=== PATIENT | female | born 1995 | race Caucasian/White ===

== ENCOUNTER 2024-03-27 12:36 | Outpatient (OUT) | payer BC, SELFPAY ==
--- NOTE | 2024-03-27 12:38 | US_ITS ---
[address] [address] Patient Name: RAO COWAN MRN: [id number] date: 1995 Sex: F Assigned Patient Location: [facility] Current Patient Location: [facility] Accession/Order Number: [id number] Exam Date: 03/27/2024 12:40 Report Date: 03/27/2024 14:59 At the request of: JAMEL TORIBIO Procedure: US OB transvaginal EXAMINATION: US OB transvaginal HISTORY: MISSED MENSES COMPARISON: No relevant comparison available. FINDINGS: GESTATIONAL SAC: Present and normal appearing. YOLK SAC: Present and normal appearing. POLE: Present and normal appearing. CARDIAC: Present. UTERUS: Normal size and appearance. OVARIES: Right: Corpus lutein cyst. Left: Not seen. CERVIX: 4.2 cm in length and closed. CUL-DE-SAC: Normal. OTHER: None. AGE BY LMP: 9 weeks 0 days SOPHIE BY LMP: 10/30/2024 AGE BY US CRL: 9 weeks 5 days SOPHIE BY US CRL: 10/25/2024 US/US OB transvaginal IMPRESSION: 1. Single live intrauterine . Electronically authenticated by: MARYCRUZ CHOU Date: 03/27/2024 14:59
== END 2024-03-27 12:37 | disposition home or self-care (01) ==
LOC: NOMS 12:36
PROVIDERS: Visit Provider Obstetrics & Gynecology
DX: Z34.91 Encounter for supervision of normal pregnancy, unspecified, first trimester (principal); Z3A.09 9 weeks gestation of pregnancy; N92.6 Irregular menstruation, unspecified
CPT/HCPCS: 76817

== ENCOUNTER 2024-04-08 16:37 | Outpatient (OUT) | payer BC, SELFPAY ==
--- OUTSIDE RECORDS SUMMARY | 2024-04-08 16:54 | XMS_ITS | CCD ---
Author Organization [facility] CliniSymi Care Team Providers Care Licensing Services Clerk Name Role Phone PHYSICIAN, DEFAULT Unavailable Unavailable PHYSICIAN, DEFAULT Unavailable Unavailable VALENCIA, SUKUMAR R Unavailable Unavailable VALENCIA, SUKUMAR R Unavailable Unavailable SELF, REFERRED Unavailable Unavailable SELF, REFERRED Unavailable Unavailable Aruna Adrian Primary Care Physician REQUEST, DR THADDEUS LISTED Primary Care Unavaila gilda ESTRADA ., DR MCCULLOUGH Attending Unavailable MALU ., DR MCCULLOUGH Consulting Unavailable MALU ., DR MCCULLOUGH Admitting Unavailable Melissa Laura Primary Care Physician [phone] DO Melissa Laura Primary Care Provider DO Smooth Dooley Emergency Provider Claire Laurae Gabe Referring Unavailable Keya Melissa C Admitting Unavailable Hiro Espinal Consulting Unavailable Keya Melissa C Attending Unavailable KirnusLucyl Theodora Consulting Unavailable Kirnus Hiro D Consulting Unavailable Keya, Melissa C Admitting Unavailable Keya Melissa C Attending Unavailable Keya, Melissa C Admitting Unavailable Keya, Melissa C Attending Unavailable Keya, Melissa C Referring Unavailable Keya, Melissa C Admitting Unavailable Keya, Melissa C Attending Unavailable Willi Estrada Attending Provider [phone] DO Willi Estrada Attending Provider [phone] Smooth Dooley Admitting Unavailable Smooth Dooley Attending Unavailable Melissa Laura Primary Care Unavailable Willi Estrada Admitting Unavailable Willi Estrada Attending Unavailable Melissa Laura Primary Care Unavailable Willi Estrada Attending Unavailable Melissa Laura Primary Care Unavailable Willi Estrada Admitting Unavailable Medications Current Medications Medication Drug Class(es) Dates Sig (Normalized) Sig (Original) dextroamphetamine-am phetamine (3 sources) Start: 02-01-2024 dextroamphetamine-a mphetamine Active .ROUTE February 01, 2024 12:00am promethazine hydrochloride 12.5 mg oral tablet (5 sources) Phenothiazine Start: 11-06-2022 take 1 tablet by mouth every eight hours promethazine 12.5 mg oral tablet 12.5 mg = 1 tab(s), Oral, q8hr, # 12 tab(s), Refills(s) 0, Pharmacy: [facility]/pharmacy #[id number], 157, cm, 11/06/22 20:09:00 EDT, Height/Length Dosing, 53.7, kg, 11/06/22 20:09:00 EDT, Weight Dosing Start Date: 11/06/22 Status: Ordered Problems Problem Classification Problem Date Documented Da te Episodic/Chronic Headache; including migraine (1 source) Headache; Translations: [Headache, unspecified] Onset: 11-06-2022 Episodic Menstrual disorders (1 source) Irregular menstruation, unspecified; Translations: [Irregular menstruation, unspecified] Onset: 02-27-2024 Chronic Nausea and vomiting (1 source) Nausea and vomiting; Translations: [Nausea with vomiting, unspecified] Onset: 11-06-2022 Episodic Nonspecific chest pain (4 sources) Atypical chest pain; Translations: [Other chest pain] Onset: 02-01-2024 02-01-2024 Episodic Other screening for suspected conditions (not mental disorders or infectious disease) (4 sources) Encounter for screening for malignant neoplasm of cervix; Translations: [ENC SCREENING MALIG NEOPLASM CERV] Onset: 12-06-2022 Episodic Screening and history of mental health and substance abuse codes (3 sources) H/O: anxiety state; Translations: [Personal history of other mental and behavioral disorders] 02-01-2024 Episodic Unclassified (2 sources) Unknown / UNK(Unknown) Onset: 04-20-2017 Results Test Name Value Interpretation Reference Range Facility A1C with Estimated Average G michael 04-02-2024 Glucose [Mass/Vol] 105 mg/dL Normal [facility] Comment on above: Result Comment: PERF ORMED BY: [facility] [address] [place] [address] PATHOLOGIST MANAGER RECRUITMENT JAE GUERRA M.D. Performed By: #### P T, BNP, CK, PTT, BMP, HS TROP, CBC #### [address] HbA1c (Bld) [Mass fraction] 5.3 % Normal 4.3-5.6 [facility] Comment on above: Result Comment: Incr eased risk for diabetes: 5.7 - 6.4 diabetes: >6.4 glycemic control for adults with diabetes: <7.0 Performed By: #### P T, BNP, CK, PTT, BMP, HS TROP, CBC #### [address] Automated basophil %Ordered By: Willi Estrada on 04-02-2024 Basophils/100 WBC (Bld) 0.6 % Normal . [facility] Comment on above: Performed By: #### P T, BNP, CK, PTT, BMP, HS TROP, CBC #### [address] Automated basophil countOrde red By: Willi Estrada on 04-02-2024 Basophils (Bld) [#/Vol] 0.0 10*3/uL Normal 0.0-0.2 [facility] Comment on above: Result Comment: PERF ORMED BY: [place] [address] PATHOLOGIST MANAGER RECRUITMENT JAE GUERRA M.D. Performed By: #### P T, BNP, CK, PTT, BMP, HS TROP, CBC #### [address] Automated blood monocyte cou ntOrdered By: Willi Estrada on 04-02-2024 Monocytes (Bld) [#/Vol] 0.5 10*3/uL Normal 0.0-0.8 [facility] Comment on above: Performed By: #### P T, BNP, CK, PTT, BMP, HS TROP, CBC #### [address] Automated eosinophil %Ordere d By: Willi Estrada on 04-02-2024 Eosinophils/100 WBC (Bld) 3.4 % Normal . [facility] Comment on above: Performed By: #### P T, BNP, CK, PTT, BMP, HS TROP, CBC #### [address] Automated eosinophil countOr dered By: Willi Estrada on 04-02-2024 Eosinophils (Bld) [#/Vol] 0.3 10*3/uL Normal 0.0-0.45 [facility] Comment on above: Performed By: #### P T, BNP, CK, PTT, BMP, HS TROP, CBC #### [address] Automated monocyte %Ordered By: Willi Estrada on 04-02-2024 Monocytes/100 WBC (Bld) 7.5 % Normal . [facility] Comment on above: Performed By: #### P T, BNP, CK, PTT, BMP, HS TROP, CBC #### [address] Automated neutrophil %Ordere d By: Willi Estrada on 04-02-2024 Neutrophils/100 WBC (Bld) 66.0 % Normal . [facility] Comment on above: Performed By: #### P T, BNP, CK, PTT, BMP, HS TROP, CBC #### [address] Complete Blood Count Auto Di ffon 04-02-2024 Mean Corpuscular HGB Conc 34.2 g/dL Normal 32.0-35.0 [facility] Comment on above: Performed By: #### P T, BNP, CK, PTT, BMP, HS TROP, CBC #### [address] NRBC% 0.1 /100{WBC} Normal 0-0.5 [facility] Comment on above: Performed By: #### P T, BNP, CK, PTT, BMP, HS TROP, CBC #### [address] Erythrocyte distribution wid th [Ratio] by Automated countOrdered By: Willi Estrada on 04-02-2024 Erythrocyte distribution width (RBC) [Ratio] 13.4 % Normal 11.9-15.3 [facility] Comment on above: Performed By: #### P T, BNP, CK, PTT, BMP, HS TROP, CBC #### [address] Erythrocytes [#/volume] in B lood by Automated countOrdered By: Willi Estrada on 04-02-2024 RBC (Bld) [#/Vol] 3.65 10*6/uL Normal 3.60-5.00 [facility] Comment on above: Performed By: #### P T, BNP, CK, PTT, BMP, HS TROP, CBC #### [address] HIV 1/O/2 Antigen/Antibodyon 04-02-2024 HIV Screen 4th Generation Non-Reactive Normal Non Reactive [facility] Comment on above: Result Comment: HIV- 1/HIV-2 antibodies and HIV-1 p24 antigen were NOT detected. There is no laboratory evidence of HIV infection. HIV Negative Performed at: [facility] [place] [id number] Appeals Assistant: Gabriel Casillas PhD, Phone: [phone] Performed By: #### P T, BNP, CK, PTT, BMP, HS TROP, CBC #### [address] Hematocrit [Volume Fraction] of Blood by Automated countOrdered By: Willi Estrada on 04-02-2024 Hematocrit (Bld) [Volume fraction] 33.2 % Low 34.0-46.4 [facility] Comment on above: Performed By: #### P T, BNP, CK, PTT, BMP, HS TROP, CBC #### [address] Hemoglobin [Mass/volume] in BloodOrdered By: Willi Estrada on 04-02-2024 Hemoglobin (Bld) [Mass/Vol] 11.3 g/dL Low 11.8-15.4 [facility] Comment on above: Performed By: #### P T, BNP, CK, PTT, BMP, HS TROP, CBC #### [address] Hep C Ab wRfx to Qnt PCRon 0 04-02-2024 Hepatitis C Virus Antibody Non-Reactive Normal Non Reactive [facility] Comment on above: Performed By: #### P T, BNP, CK, PTT, BMP, HS TROP, CBC #### [address] Interpretation Hepatitis C Comment Normal . [facility] Comment on above: Result Comment: Not infected with HCV unless early or acute infection is suspected (which may be delayed in an immunocompromised individual), or other evidence exists to indicate HCV infection. Performed By: #### P T, BNP, CK, PTT, BMP, HS TROP, CBC #### [address] Hepatitis B Surface Antigeno n 04-02-2024 HBsAg Screen Negative Normal Negative [facility] Comment on above: Result Comment: Perf ormed at: CB - [facility] [place] [id number] Appeals Assistant: Gabriel Casillas PhD, Phone: [phone] PERFORMED BY: [place] [address] PATHOLOGIST MANAGER RECRUITMENT JAE GUERRA M.D. Performed By: #### P T, BNP, CK, PTT, BMP, HS TROP, CBC #### [address] Leukocytes [#/volume] correc ronnie for nucleated erythrocytes in Blood by Automated counOrdered By: Willi Estrada on 04-02-2024 WBC corrected for nucl RBC Auto (Bld) [#/Vol] 7.3 10*3/uL 3.8-11.6 [facility] Leukocytes [#/volume] in Blo od by Automated countOrdered By: Willi Estrada on 04-02-2024 WBC (Bld) [#/Vol] 7.3 10*3/uL Normal 3.8-11.6 [facility] Comment on above: Performed By: #### P T, BNP, CK, PTT, BMP, HS TROP, CBC #### [address] Lymphocytes [#/volume] in Bl ood by Automated countOrdered By: Willi Estrada on 04-02-2024 Lymphocytes (Bld) [#/Vol] 1.6 10*3/uL Normal 1.00-4.8 [facility] Comment on above: Performed By: #### P T, BNP, CK, PTT, BMP, HS TROP, CBC #### [address] Lymphocytes/100 leukocytes i n Blood by Automated countOrdered By: Willi Estrada on 04-02-2024 Lymphocytes/100 WBC (Bld) 22.5 % Normal . [facility] Comment on above: Performed By: #### P T, BNP, CK, PTT, BMP, HS TROP, CBC #### [address] MCH [Entitic mass] by Automa ronnie countOrdered By: Willi Estrada on 04-02-2024 MCH (RBC) [Entitic mass] 31.0 pg Normal 24.7-34.3 [facility] Comment on above: Performed By: #### P T, BNP, CK, PTT, BMP, HS TROP, CBC #### [address] MCHC Auto (RBC) [Mass/Vol]Or dered By: Willi Estrada on 04-02-2024 MCHC (RBC) [Mass/Vol] 34.2 g/dL 32.0-35.0 [facility] MCV [Entitic volume] by Auto mated countOrdered By: Willi Estrada on 04-02-2024 MCV (RBC) [Entitic vol] 90.9 fL Normal 80-100 [facility] Comment on above: Performed By: #### P T, BNP, CK, PTT, BMP, HS TROP, CBC #### [address] [place] [address] [place] Neutrophils [#/volume] in Bl ood by Automated countOrdered By: Willi Estrada on 04-02-2024 Neutrophils (Bld) [#/Vol] 4.8 10*3/uL Normal 1.8-7.7 [facility] Comment on above: Performed By: #### P T, BNP, CK, PTT, BMP, HS TROP, CBC #### [facility] [address] [place] [address] Nucleated erythrocytes [Pres ence] in Blood by Automated countOrdered By: Willi Estrada on 04-02-2024 Nucleated RBC Auto Ql (Bld) 0.1 /100{WBC} 0-0.5 [facility] Platelet mean volume [Entiti c volume] in Blood by Automated countOrdered By: Willi Estrada on 04-02-2024 Platelet mean volume (Bld) [Entitic vol] 9.2 fL Normal 6.3-10.7 [facility] Comment on above: Performed By: #### P T, BNP, CK, PTT, BMP, HS TROP, CBC #### [facility] [address] [place] [address] Platelets [#/volume] in Bloo d by Automated countOrdered By: Willi Estrada on 04-02-2024 Platelets (Bld) [#/Vol] 209 10*3/uL Normal 150-450 [facility] Comment on above: Performed By: #### P T, BNP, CK, PTT, BMP, HS TROP, CBC #### [facility] [address] [place] [address] RPR w/rfx to Quant TP Abson 04-02-2024 RPR, Rfx Quant RPR Non-Reactive Normal Non Reactive [facility] Comment on above: Result Comment: Perf ormed at: - [facility] [address] [id number] Appeals Assistant: Gabriel Casillas PhD, Phone: [phone] PERFORMED BY: [place] [address] PATHOLOGIST MANAGER RECRUITMENT JAE GUERRA M.D. Performed By: #### P T, BNP, CK, PTT, BMP, HS TROP, CBC #### [facility] [address] [place] [address] [place] Rubella IgG Antibodyon 04-02 Rubella IgG Antibody 3.16 Normal Immune >0.99 [facility] Comment on above: Result Comment: Non- immune <0.90 Equivocal 0.90 - 0.99 Immune >0.99 Performed at: [address] [id number] Appeals Assistant: Gabriel Casillas PhD, Phone: [phone] Performed By: #### P T, BNP, CK, PTT, BMP, HS TROP, CBC #### [place] [address] [place] Type and Screenon 04-02-2024 ABO and Rh group Nom (Bld) Blood group O Rh(D) positive Normal [facility] Urine Cultureon 04-02-2024 Bacteria identified Cx Nom (U) <9,000 colonies/ml mixed bacterial skin contaminants 2 Days PERFORMED BY: [place] [address] PATHOLOGIST MANAGER RECRUITMENT JAE GUERRA M.D. Normal [facility] Comment on above: Performed By: #### P T, BNP, CK, PTT, BMP, HS TROP, CBC #### [address] Choriogonadotropin.beta subu nit [Units/volume] in Serum or PlasmaOrdered By: Willi Estrada on 02-27-2024 [place] [address].00 m[IU]/mL [facility] Comment on above: Approximate Approxim ate hCG Gestational Age Range (mIU/ml) (weeks)0.2-1 5-50 1-2 50-500 2-3 100-5,000 3-4 500-10,000 4-5 1,000-50,000 5-6 10,000-100,000 6-8 15,000-200,000 8-12 10,000-100,000 HCG,Quantitativeon 4 HCG,Quantitative 88332.00 m[iU]/mL Normal [facility] Comment on above: Result Comment: Appr oximate Approximate hCG Gestational Age Range (mIU/ml) (weeks) 0.2-1 5-50 1-2 50-500 2-3 100-5,000 3-4 500-10,000 4-5 1,000-50,000 5-6 10,000-100,000 6-8 15,000-200,000 8-12 10,000-100,000 PERFORMED BY: [facility] [address] [place] [address] PATHOLOGIST MANAGER RECRUITMENT JAE GUERRA M.D. Performed By: #### P T, BNP, CK, PTT, BMP, HS TROP, CBC #### [facility] [address] Coding Summary.on 02-14-2024 Coding Summary. CSMLPahk11ZXv0mCs+PG hlYWQ+ ZO8MTPHrE04loFEwxK8jQ5EMNA wMSquqMJVSRUzMFmWxojTlSS4l aXNjZXJu IC8+KP0hUHHtWhejaGIqi9G1bC J0H41yib4mNDheoKL0JEDsYpMp rxhiz3ggfIc7DHkaRkmoTvIx YLQyvM28KBQ1oW22Jl73yAIyzL Zwi3ecrWe7VjVaPRKhEJW9hZjx HJfjj0XbBXTkY99whGRxx8K9 IQKwzNgloKEjXvPpmFA5mF2cNK kwfdkab6cotgzlRtz8gq31kWRe f4M3lQL3C1WanmX6FLVefKTi RcesdNJHlL7tnnshu5hddysoKx PdRUEhQTm9QEv7AZRtvLezUiLb UH29BAK4BIOdmzOyO7RmVIUq yUxeYxD9e4I3Tf2OV5RCMzagI9 VNTUFSWTwvdGQ+CF61zu07F7Vs SkstYvu1WSTjUVG4lRH6dY4a MZLmSItoj4R2bPC2L4IdnmQtae 2jh7kbCEWaAXijH55vvWGls6H8 FBMuvGK9TTJyyYyiSjQutO87 Oyc+TBQoyPnqf4EnHnlbx6tlo9 lxvMp9BvikIEHuleKjdCymYAT4 b3ZrZx5tRWYalVO1rCN6sW2a UfIhTiW3CUquV117QkTuoFCpRm fdM90aP7SftJT+BWMmXnp7NAXq dYyqHM9iD7RcGKBxveajxOSj hJmvXH0bSPUjjyvbGBOckG9aLZ MlF8u5QgUdTxI3TUxwA4TjWCHz mdrrSg90wO3wBmYxIoV4AYpu A2IajnY5ZQBmsIZkSRrnYEW9O8 3gh3Y6XSRqBPGwNLX5hRT1jC0c bGlnbjogbGVmdDsgdmVydGlj PKliFKiiC921XCNnxOmuUiQmNL luZyBEYXRlOiAgMDYvMjAvMjAy NDwvdGQ+GXOyQUB0nOorYUNw hIYvMXdaYu8ugQzhjSluAA7gGH GluxgdPSHfkD0iHXLvcDGvmJfj GT3uIZKshghud371KfVqNVY6 HLNwhNMhG4UpeK5iTsYmQZOyFW ZyL7CeiSQxIDqxV066CLxeUzF9 ZBPwnaPiV9PcZWYtbHziNvS3 j0A9Ek0Uf6GbtlswH1YegYTfYi EpQyaxRRf8X4MlGrsieIB+PC90 IJDmKU17NMc6CGT3uRlySWid UPHtX1NngL2mVuNdPITdIVHbQc c+PHRhYmxlIHdpZHRoPScxMDAl VkOpqSprTQ4uVv1xGQYyGRCq zUufaZLaZtIua2suTWAqRCwhPF 8vuKffW3KdsUL4WRQot8z8Ws34 G16hF9QcrMC+FLJpdDX4kXH1 qU6vLoCuEuW0GWymY514GxJhhP UpGfauf2fsu5gtoRg6DiE8RNEc hqMvxRprQUK1z2SmTi72N58j IHdpZHRoPSIxNSUiIHZhbGlnbj 7kvG3bQx8+JZGjdYO3eIC6wD1f WdJqWcV0HZsxW052SrCxkIHv Kzfws7hxo5jttUz9OdDgNMGter BncFpcVHF1y6MfPw39Z4ZiuMdr i8PcCaz7xm28fCTkz7N3kHR7 M4MdLMWsibeeeTBicUzqRU4lAG WyuibxSFKlhS1sJKLbU6h8UmDp McQ2HKsbI6XkbzW2QOZtcNWl NNRdgVMBfZ3qgekjf8xsiphlNn VvICJwXQw7KTb3WTQckZncZhCj NAP0ClY7DMI8kPWahN0rnCrb ongreO6lZzq+ZYY0vOEoqLEJSB 1lOjwvdGQ+DWMcUTK4oOnaVFoh HCHyuY5lUSFsE3f2BmQfCjC5 YPzgG2DceeV8BLEzsYBhAYKxbI YGhL0qutztc6zgryxsIrWuYKRr VKp9WKv5ZLGemPkrWnLjUXL6 CcR7PNF1pUAchA0uoMsckkfmzH 9wOyc+AxfglVbnGWU1BIt5F1Bu Vlc7OWDtjQzuLB5yhMFmUUyx Ix5pcUqasFdqVW8pVCTxgxram9 79ZqQsi1tbXSUjsCYvLXyyTOE2 O99sg7O7KQZfQTFrHPL0hIT8 jI3xsQptjyoyaDGfsApkavMfwO bpWPdrSLheZ401GCUmfLgwQoOk ACq9F4GsMly2UNDgxUxzBT5m uKNgYXgfHy0xvVnvmFcwCX0lAF Zodzypk673AgVxi6cpNMYnuFJy IKwmJGQ0F84kl7J8UGEcHDBy HHA2hEY6rT7rlFbonjnwpBVjaO iejnUynHmyHHqaNCioO754UPVb qRbhFgIntDf6E8SpWga3ZSFt zZgzKK2cuUFiBRlyVt3rbLadcQ diRH3eZHGhjtlxf273RiMkt0pz MFAdnFWvAIprYAL4G98jo8R0 BCRhGVOjVCF8rAF9kH4dtQmbjg ogbGVmdDsgdmVydGljYWwtYWxp N179RLIndWedZjEkiQofjsTo GVxkXNi6N4MmBlgdzHH+PC90YW CvFP41rCYufYSlg8bsmWl0GmMk BPZuNOU7iKqmUObep2MlHPLp X52buATzl3A2DIDgpOkgqWLgSr PyiFF7eH6aWGoncnsmh2imeopu Zenrt8ljkm53jI81H97mTQhp PJFrAOQmHJIzIDVoiJoewh1fxO 9wIi8+LAFcdTI9zNO5qD9mWQHo EoP1PLayH226JyBxxBIwNnzk j8yuc3gqzJh9FtM2XJBhqaJjmG yyFED9t5ZuFd12D00yTQluQXRp XMTxDDNrJVRhaTcgbn6ifP1h Ii8+FPBruUS0sHY4vD6vVvBnTc J0DRiaJ537GtLyeYAwFoveL19l A1PmxUK+KUKvUmq0FNWedOjd LK3kcOWjAPxyCv1uVUJ5YhNnWp DuDZguI7CxLUOsbfjnrudohWE3 KZLlTBMfbL91Nv2zfYflXVFy bQOIlU8unegag4fprupnJrVzTT CfKCf0TSo4GWWmrGuxPbPvBOE5 ZeU0BNX5oBXdoO5zcJcwabzy qK5sH2RkBZNclwjuFr85eI2zKh KrKeH7PUkgNpi+TUVZRVIsIENB E7aFFA41XE58hAScg9H2cBF4 K6JaICAhlscnwykvcLN2CAVnBL MzhO21bYFvZMuaBa1gv1E0g637 FLTxDKSzoT54Vu3vlHpmRCNw wDRXgA7ymuigu1qndstbVgStWB JlQCp4TLx9XCBlgVyiIcKnMMD4 IbK7XMX2lTYdyV3rdZjvrxai zZ7aNsk+LOJaUIwuQYu6ZgfydP Q+OIFmQFT3dTtsIZpxRZKbfQ7l LFXvI1c9OhSoAnE4VRexN9Ff RHTtiydlOq87yX4jHkYaMaZ7FD vkO9HafiS0ZCGyeLBkXMbeDUW8 W01xw1U9LNEpZBOuJKY3oAR7 lM4cdGdiyzaqwLVlrOgeodOmfF ovUEzpCNdkV852KANdzOjcZeD5 LZhkXRXgUU65PL67wDPwm3D9 rXA2D1CdRZOwzhduholmnMA3JA SqTFBetB32kROuYVxyDi9mk9F9 s446BJSoZAKlwM96Vz8ngJef UJVsaLHCyR7addzhh7hpxfzkDe LbXLSpGTm6LIj7YSKcnBadOjVi ZZO9VzS9DMK3lGQzkL0szQmn blwtsT0nGbr+YeHvBFzdHC72XF 95aINzs5Y2oVX2A9HaVYMldypf oakvoPX1JLUyIGEshQ44kLCg XNdwTc5ot3P6l406MVCbBXBfzB 78Py9afVogMGHkdFJNgW4fmfrf j0chhjpaOrNdUBPoTHj7KCh2 CBIcyWlvKkHmTRH1HvB5PRW0cJ MthG4cnDpjnmlstK1lHta+T3V0 jVI6aSZdzJtdgSY+OF13rp79 B1AwWjxhCcv9SXKtNLH1xCS6uK 0gMMRpAXxfq7Q2nDX0B1LqfsZg lg3ap8ypURGqCJktQ29dgITy t3Y8JYGltUU4CVVddZxzSvJgiT 93Oyc+QXJaqRygp5SmJecvf5wx b7cexAo2SmAdNQRuvzLksCke DUJ5l0XyLf24L86uVLymJZXmZX MwOOFhLOTmvGiakt7ihE9nTr6+ HLDfdBR6kMX7tN7lCuWvSuV0 MGpoG196IwTkvNRsTfjxk2smr4 gawKb7YwWeJARbotAcwLofYBU9 k3YiGt65G8StnPott5ZcNft2 mm71jNIwu4U8uEQ1Y2TnTNNvpt rlqVNvbAepKT8kMOJjiawfKANr aE1qGPIfH7n4OfRePmS3ZUox R5HxunQ2WLTgtNCcKCFvrOYXlQ 1groqtc2ijveyaBuDaMKThRLp1 NAx7POTbdWmmBlEhWDB9BsB4 EFY4qMKkoB5wqWgcegrieS3jGm c+NEq0z3jddZNmTF1iqGP1HS68 ZM67tHHby6O3dOD3Y2TfQEJm lvmnrpagwUB0OYWgGXDkaR63Pu 0uiMyjRg8hJJDoUHT6LODidZPb S3GfxU9bBnImERGeIAFdE4Sq fAXyWMyyT391FYmzAaP6OXMafi MwE5ObNHFtsVsvKoX8d1D7Nk6N EN50BV93LN92iQIdh4W7cRB3 Q6CfYWNcohapzxswqLA6BANzGD BjiE13Xo4zqDpjBw5jZXNqTDW5 FZVmsVXxK1UqtB6qIuFbFOKu UVZyN4HdwAQkBZweB497FSqcPy B2AXTzvlErI4YjXUItvNotBmF7 y2Z8Mu2YVt70VJ27WI86jUFw j9T7nYH9Z6UeGCFddvmvaqffsA H8VETcMMStkM15Xv4cnNsiXi8z CMYaNSX9BQEzmBGrY7YbvP5f YmFjRXScZWEfI4BvhAMrJPddX7 35ICsmOmU2OPGmyrWaG2TtRTXo hXdeVgW7v2S2He0FVZizueo7 O7FzJmqdkRJ+OH78UPHdPI37uJ CczODuz9sjqFx1KrKkJYHeWVM4 vBdnDWqtu7PzLTYlK88yaBUg y1W3OVJsaJrzk (more content not included)... Normal [facility] Consent for Treatmenton 01-25 Consent for Treatment [id number] Normal [facility] Activated partial thrombopla stin time (aPTT) in platelet poor plasma by coagulation aOrdered By: Smooth Dooley on 02-01-2024 aPTT Coag (PPP) [Time] 31.3 s 25.1-36.5 [facility] Comment on above: A hematocrit value g reater than 55% may lead to inaccurate results in coagulation testing. Patients having hematocrit values >55% require a special collection tube for coagulation studies. Please contact the laboratory at [phone] for redraw instructions. Automated basophil %Ordered By: Smooth Dooley on 02-01-2024 Basophils/100 WBC (Bld) 1.1 % [place] [facility] Comment on above: Performed By: #### P T, BNP, CK, PTT, BMP, HS TROP, CBC #### [address] Automated basophil countOrde red By: Smooth Dooley on 02-01-2024 Basophils (Bld) [#/Vol] 0.1 10*3/uL Normal 0.0-0.2 [facility] Comment on above: Result Comment: PERF ORMED BY: [place] [address] PATHOLOGIST MANAGER RE[employer]MENT JAE GUERRA M.D. Performed By: #### P T, BNP, CK, PTT, BMP, HS TROP, CBC #### [address] Automated blood monocyte cou ntOrdered By: Smooth Dooley on 02-01-2024 Monocytes (Bld) [#/Vol] 0.5 10*3/uL Normal 0.0-0.8 [facility] Comment on above: Performed By: #### P T, BNP, CK, PTT, BMP, HS TROP, CBC #### [address] Automated eosinophil %Ordere d By: Smooth Dooley on 02-01-2024 Eosinophils/100 WBC (Bld) 3.0 % Normal . [facility] Comment on above: Performed By: #### P T, BNP, CK, PTT, BMP, HS TROP, CBC #### [address] Automated eosinophil countOr dered By: Smooth Dooley on 02-01-2024 Eosinophils (Bld) [#/Vol] 0.2 10*3/uL Normal 0.0-0.45 [facility] Comment on above: Performed By: #### P T, BNP, CK, PTT, BMP, HS TROP, CBC #### [address] Automated monocyte %Ordered By: Smooth Dooley on 02-01-2024 Monocytes/100 WBC (Bld) 7.0 % Normal . [facility] Comment on above: Performed By: #### P T, BNP, CK, PTT, BMP, HS TROP, CBC #### [address] Automated neutrophil %Ordere d By: Smooth Dooley on 02-01-2024 Neutrophils/100 WBC (Bld) 59.1 % Normal . [facility] Comment on above: Performed By: #### P T, BNP, CK, PTT, BMP, HS TROP, CBC #### [address] BNP ser/plasOrdered By: Smooth Dooley on 02-01-2024 Natriuretic peptide B (Bld) [Mass/Vol] 7.0 pg/mL Normal 5-100 [facility] Comment on above: Result Comment: PERF ORMED BY: [place] [address] PATHOLOGIST MANAGER [employer]MENT JAE GUERRA M.D. Performed By: #### P T, BNP, CK, PTT, BMP, HS TROP, CBC #### [address] Basic Metabolic Panelon Creatinine Clr Calc Pharmacy 106.09 Normal [facility] Comment on above: Result Comment: PERF ORMED BY: [place] [address] PATHOLOGIST MANAGER RE[employer]MENT JAE GUERRA M.D. Performed By: #### P T, BNP, CK, PTT, BMP, HS TROP, CBC #### [address] GFR/1.73 sq M.predicted MDRD (S/P/Bld) [Vol rate/Area] mL/min/{1.73_m2} Normal [facility] Comment on above: Performed By: #### P T, BNP, CK, PTT, BMP, HS TROP, CBC #### [address] Bilirubin Test strip Ql (U)O rdered By: Smooth Dooley on 02-01-2024 Bilirubin Ql (U) Negative Negative [facility] CT head/brain wo conon 01-31 CT head/brain wo con [facility] [place] [address] [place] [address] CT Scan Report Signed Patient: Rao Choi MR#: [id number] 7 : 1995 Acct:[id number] Age/Sex: 28 / F ADM Date: 02/01/24 Loc: ER Room: Type: [facility] ER Attending Dr: Copies to: Smooth Dooley DO Ordering Provider: Smooth Dooley DO Date of Service: 02/01/24 CT/CT head/brain wo con: f CLINICAL DATA: Lightheadedness and chest pain. CT BRAIN WITHOUT CONTRAST: COMPARISON: None TECHNIQUE: Contiguous axial unenhanced images were obtained through the brain. This CT exam was performed using one or more following dose reduction techniques: Automated exposure control, adju stment of the mA and/or kV according to patient size, or use of iterative reconstruction technique. FINDINGS: The ventricles are normal in size and position. There are no areas of abnormal attenuation. There is no hemorrhage, mass effect or extra-axial collections. There could be borderline low-lying cerebellar tonsils. The imaged paranasal sinuses an mastoid air cells are clear. 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 CT/CT head/brain wo con IMPRESSION: NO ACUTE INTRACRANIAL ABNORMALITY. Impression dictated by: Elsa Malone M.D.02/01/2024 2:36 PM Dictation Location: [place] [address] Transcribed By: [facility] 02/01/24 1436 Dictated By: Elsa Malone MD 02/01/24 1434 Signed By: 02/01/24 1436 Normal [facility] Calcium [Mass/volume] in Ser um or PlasmaOrdered By: Smooth Dooley on 02-01-2024 Calcium [Mass/Vol] 9.3 mg/dL Normal 8.6-10.3 [facility] Comment on above: Performed By: #### P T, BNP, CK, PTT, BMP, HS TROP, CBC #### [address] Carbon dioxide, total [Moles /volume] in Serum or PlasmaOrdered By: Smooth Dooley on 02-01-2024 CO2 [Moles/Vol] 28.7 mmol/L Normal 21.0-31.0 [facility] Comment on above: Performed By: #### P T, BNP, CK, PTT, BMP, HS TROP, CBC #### [address] Chloride [Moles/volume] in S yecenia or PlasmaOrdered By: Smooth Dooley on 02-01-2024 Chloride [Moles/Vol] 102 mmol/L Normal 98-107 [facility] Comment on above: Performed By: #### P T, BNP, CK, PTT, BMP, HS TROP, CBC #### [address] Color of Urine by AutoOrdere d By: Smooth Dooley on 02-01-2024 Color (U) Light-yellow Normal Yellow [facility] Comment on above: Order Comment: Name Collection Type:: Clean-Voided Midstream Performed By: #### P T, BNP, CK, PTT, BMP, HS TROP, CBC #### [address] Complete Blood Count Auto Di ffon 02-01-2024 Mean Corpuscular HGB Conc 33.7 g/dL Normal 32.0-35.0 [facility] Comment on above: Performed By: #### P T, BNP, CK, PTT, BMP, HS TROP, CBC #### [place] [address] [place] Monocytes/100 WBC (Bld) 17.28 % Normal 0.00-20.00 [facility] Comment on above: Performed By: #### P T, BNP, CK, PTT, BMP, HS TROP, CBC #### [address] NRBC% 0.1 /100{WBC} Normal 0-0.5 [facility] Comment on above: Performed By: #### P T, BNP, CK, PTT, BMP, HS TROP, CBC #### [address] Creatine kinase [Enzymatic a ctivity/volume] in Serum or PlasmaOrdered By: Smooth Dooley on 02-01-2024 CK [Catalytic activity/Vol] 74 U/L Normal 30-223 [facility] Comment on above: Performed By: #### P T, BNP, CK, PTT, BMP, HS TROP, CBC #### [address] Creatinine [Mass/volume] in Serum or PlasmaOrdered By: Smooth Dooley on 02-01-2024 Creatinine [Mass/Vol] 0.63 mg/dL Normal 0.60-1.20 [facility] Comment on above: Performed By: #### P T, BNP, CK, PTT, BMP, HS TROP, CBC #### [address] D-Dimer High Sensitivityon 0 02-01-2024 D-Dimer High Sensitivity < 200 Normal 0-243 [facility] Comment on above: Result Comment: The reference range for D-dimer is <243 ng/mL D-dimer units. D-dimer results must be used in conjunction with a clinical pretest probability (PTP) assessment model for deep vein thrombosis (DVT) and pulmonary embolism (PE). Results <230 ng/mL d-dimer units can be used as a negative predictor in patients with low or moderate probability for DVT/PE. Results above the exclusion threshold of 230 ng/ml D-dimer units for DVT/PE may indicate the need for further diagnostic testing. D-Dimer can be increased in hospitalized patients due to co-morbid conditions. A hematocrit value greater than 55% may lead to inaccurate results in coagulation testing. Patients having hematocrit values >55% require a special collection tube for coagulation studies. Please contact the laboratory at [phone] for redraw instructions. PERFORMED BY: [place] [address] PATHOLOGIST MANAGER RECRUITMENT JAE GUERRA M.D. Performed By: #### P T, BNP, CK, PTT, BMP, HS TROP, CBC #### [address] ECG 12 lead ECGon 02-01-2024 ECG 12 lead ECG [facility] Main [place] [address] [place] [address] Electrocardiograph Report Signed Patient: Rao Choi MR#: [id number] 7 : 1995 Acct:[id number] Age/Sex: 28 / F ADM Date: 02/01/24 Loc: ER Room: Type: [facility] ER Attending Dr: Ordering Provider: Smooth Dooley DO Date of Service: 02/01/2403/19/1151 ECG/ECG 12 lead ECG: Chest Pain Copies to: Test Reason : Blood Pressure : 141/088 mmHG Vent. Rate : 126 BPM Atrial Rate : 126 BPM P-R Int : 126 ms QRS Dur : 074 ms QT Int : 316 ms P-R-T Axes : 083 094 053 degrees QTc Int : 457 ms Sinus tachycardia Rightward axis Borderline ECG No previous ECGs available Confirmed by SMOOTH DOOLEY DO ([id number]) on 02/01/2024 3:56:12 PM Referred By: Electronically Signed By:SMOOTH DOOLEY DO Transcribed By: MUS Signed By Smooth Dooley DO 01/31 1556 Normal [facility] Erythrocyte distribution wid th [Ratio] by Automated countOrdered By: Smooth Dooley on 02-01-2024 Erythrocyte distribution width (RBC) [Ratio] 13.1 % Normal 11.9-15.3 [facility] Comment on above: Performed By: #### P T, BNP, CK, PTT, BMP, HS TROP, CBC #### [facility] [address] [place] [address] [place] Erythrocytes [#/volume] in B lood by Automated countOrdered By: Smooth Dooley on 02-01-2024 RBC (Bld) [#/Vol] 4.43 10*6/uL Normal 3.60-5.00 [facility] Comment on above: Performed By: #### P T, BNP, CK, PTT, BMP, HS TROP, CBC #### [facility] [address] [place], [place] [id number] [facility] Fibrin D-dimer [Presence] in Platelet poor plasma by Latex agglutinationOrdered By: Smooth Dooley on 02-01-2024 Fibrin D-dimer LA Ql (PPP) < 200 ng/mL 0-243 [facility] Comment on above: The reference range for D-dimer is <243 ng/mL D-dimer units.D-dimer results must be used in conjunction with a clinicalpretest probability (PTP) assessment model for deep veinthrombosis (DVT) and pulmonary embolism (PE). Results <230ng/mL d-dimer units can be used as a negative predictor inpatients with low or moderate probability for DVT/PE.Results above the exclusion threshold of 230 ng/ml D-dimerunits for DVT/PE may indicate the need for furtherdiagnostic testing.D-Dimer can be increased in hospitalized patients due toco-morbid conditions.A hematocrit value greater than 55% may lead to inaccurate results in coagulation testing. Patients having hematocrit values >55% require a special collection tube for coagulation studies. Please contact the laboratory at [phone] for redraw instructions. Glucose [Mass/volume] in Ser um or PlasmaOrdered By: Smooth Dooley on 02-01-2024 Glucose [Mass/Vol] 99 mg/dL Normal 70-100 [facility] Comment on above: ADA recommended refe rence rangeRandom Glucose Reference Range is dependent on time and content of last meal. Glucose of more than 200 mg/dL in a nonstressed, ambulatory subject supports the diagnosis of Diabetes Mellitus. Result Comment: [place] om Glucose Reference Range is dependent on time and content of last meal. Glucose of more than 200 mg/dL in a nonstressed, ambulatory subject supports the diagnosis of Diabetes Mellitus. ADA recommended reference range Performed By: #### P T, BNP, CK, PTT, BMP, HS TROP, CBC #### [facility] [address] [place] [address] Glucose [Mass/volume] in Uri ne by Test stripOrdered By: Smooth Dooley on 02-01-2024 Glucose Test strip (U) [Mass/Vol] Normal mg/dL Normal [facility] HCG ( test) IA.rapi d Ql (U)Ordered By: Smooth Dooley on 02-01-2024 HCG ( test) Ql (U) Negative [facility] HCG,Urineon 02-01-2024 Beta HCG ( test) Ql (U) Negative Normal [facility] Comment on above: Order Comment: Name Collection Type:: Clean-Voided Midstream Result Comment: PERF ORMED BY: [place] [address] PATHOLOGIST MANAGER RECRUITMENT JAE GUERRA M.D. Performed By: #### P T, BNP, CK, PTT, BMP, HS TROP, CBC #### [address] Hematocrit [Volume Fraction] of Blood by Automated countOrdered By: Smooth Dooley on 02-01-2024 Hematocrit (Bld) [Volume fraction] 39.8 % Normal 34.0-46.4 [facility] Comment on above: Performed By: #### P T, BNP, CK, PTT, BMP, HS TROP, CBC #### [address] Hemoglobin Test strip Ql (U) Ordered By: Smooth Dooley on 02-01-2024 Hemoglobin Ql (U) Negative Negative [facility] Hemoglobin [Mass/volume] in BloodOrdered By: Smooth Dooley on 02-01-2024 Hemoglobin (Bld) [Mass/Vol] 13.4 g/dL Normal 11.8-15.4 [facility] Comment on above: Performed By: #### P T, BNP, CK, PTT, BMP, HS TROP, CBC #### [address] INR in Platelet poor plasma by Coagulation assayOrdered By: Smooth Dooley on 02-01-2024 INR Coag (PPP) [Relative time] 1.0 {INR} Normal [facility] Comment on above: INR Therapeutic Rang e A) Pre- and Peroperative OAT started two weeks before surgery. NOT HIP SURGERY: 1.5 - 2.5 HIP SURGERY: 2 - 3B) Primary and secondary prevention of venous THROMBOSIS: 2 - 3C) Active venous thrombosis, pulmonary embolismand prevention of recurrent venous thrombosis: 2 - 3D) Prevention of arterial thromboembolismincluding patients with mechanical heart valves: 3 - 4.5 Result Comment: INR Therapeutic Range A) Pre- and Peroperative OAT started two weeks before surgery. NOT HIP SURGERY: 1.5 - 2.5 HIP SURGERY: 2 - 3 B) Primary and secondary prevention of venous THROMBOSIS: 2 - 3 C) Active venous thrombosis, pulmonary embolism and prevention of recurrent venous thrombosis: 2 - 3 D) Prevention of arterial thromboembolism including patients with mechanical heart valves: 3 - 4.5 Performed By: #### P T, BNP, CK, PTT, BMP, HS TROP, CBC #### [facility] [address] [place] [address] [place] Ketones [Presence] in Urine by Test stripOrdered By: Smooth Dooley on 02-01-2024 Ketones Ql (U) Negative Normal Negative [facility] Comment on above: Order Comment: Name Collection Type:: Clean-Voided Midstream Performed By: #### P T, BNP, CK, PTT, BMP, HS TROP, CBC #### [place] [address] [place] Leukocyte esterase [Presence ] in Urine by Test stripOrdered By: Smooth Dooley on 02-01-2024 Leukocyte esterase Test strip Ql (U) Negative Normal Negative [facility] Comment on above: Order Comment: Name Collection Type:: Clean-Voided Midstream Performed By: #### P T, BNP, CK, PTT, BMP, HS TROP, CBC #### [place] [address] [place] Leukocytes [#/volume] correc ronnie for nucleated erythrocytes in Blood by Automated counOrdered By: Smooth Dooley on 02-01-2024 WBC corrected for nucl RBC Auto (Bld) [#/Vol] 6.7 10*3/uL 3.8-11.6 [facility] Leukocytes [#/volume] in Blo od by Automated countOrdered By: Smooth Dooley on 02-01-2024 WBC (Bld) [#/Vol] 6.7 10*3/uL Normal 3.8-11.6 [facility] Comment on above: Performed By: #### P T, BNP, CK, PTT, BMP, HS TROP, CBC #### [place] [address] [place] Lymphocytes [#/volume] in Bl ood by Automated countOrdered By: Smooth Dooley on 02-01-2024 Lymphocytes (Bld) [#/Vol] 2.0 10*3/uL Normal 1.00-4.8 [facility] Comment on above: Performed By: #### P T, BNP, CK, PTT, BMP, HS TROP, CBC #### [facility] [address] Lymphocytes/100 leukocytes i n Blood by Automated countOrdered By: Smooth Dooley on 02-01-2024 Lymphocytes/100 WBC (Bld) 29.8 % Normal . [facility] Comment on above: Performed By: #### P T, BNP, CK, PTT, BMP, HS TROP, CBC #### [facility] [address] MCH [Entitic mass] by Automa ronnie countOrdered By: Smooth Dooley on 02-01-2024 MCH (RBC) [Entitic mass] 30.3 pg Normal 24.7-34.3 [facility] Comment on above: Performed By: #### P T, BNP, CK, PTT, BMP, HS TROP, CBC #### [facility] [address] MCHC Auto (RBC) [Mass/Vol]Or dered By: Smooth Dooley on 02-01-2024 MCHC (RBC) [Mass/Vol] 33.7 g/dL 32.0-35.0 [facility] MCV [Entitic volume] by Auto mated countOrdered By: Smooth Dooley on 02-01-2024 MCV (RBC) [Entitic vol] 90.0 fL Normal 80-100 [facility] Comment on above: Performed By: #### P T, BNP, CK, PTT, BMP, HS TROP, CBC #### [facility] [address] Monocyte distribution width [Entitic volume] in Blood by AutomatedOrdered By: Smooth Dooley on 02-01-2024 Monocyte distribution width Auto (Bld) [Entitic vol] 17.28 % 0.00-20.00 [facility] Neutrophils [#/volume] in Bl ood by Automated countOrdered By: Smooth Dooley on 02-01-2024 Neutrophils (Bld) [#/Vol] 3.9 10*3/uL Normal 1.8-7.7 [facility] Comment on above: Performed By: #### P T, BNP, CK, PTT, BMP, HS TROP, CBC #### [facility] [address] [place] [address] Nitrite Test strip Ql (U)Ord ered By: Smooth Dooley on 02-01-2024 Nitrite Ql (U) Negative Negative [facility] No Panel InformationOrdered By: Smooth Dooley on 02-01-2024 Estimated GFR (CKD-EPI) > 60.0 mL/Min [facility] Creatinine Clearance (Chem 106.09 [facility] Nucleated erythrocytes [Pres ence] in Blood by Automated countOrdered By: Smooth Dooley on 02-01-2024 Nucleated RBC Auto Ql (Bld) 0.1 /100{WBC} 0-0.5 [facility] Partial Thromboplastin Timeo n 02-01-2024 aPTT Coag (Bld) [Time] 31.3 s Normal 25.1-36.5 [facility] Comment on above: Result Comment: A he matocrit value greater than 55% may lead to inaccurate results in coagulation testing. Patients having hematocrit values >55% require a special collection tube for coagulation studies. Please contact the laboratory at [phone] for redraw instructions. PERFORMED BY: [place] [address] PATHOLOGIST MANAGER RECRUITMENT JAE GUERRA M.D. Performed By: #### P T, BNP, CK, PTT, BMP, HS TROP, CBC #### [facility] [address] [place] [address] Physician Orderon 02-01-2024 Physician Order [id number]#[id number] Normal [facility] Platelet mean volume [Entiti c volume] in Blood by Automated countOrdered By: Smooth Dooley on 02-01-2024 Platelet mean volume (Bld) [Entitic vol] 8.4 fL Normal 6.3-10.7 [facility] Comment on above: Performed By: #### P T, BNP, CK, PTT, BMP, HS TROP, CBC #### [facility] [address] [place] [address] [place] Platelets [#/volume] in Bloo d by Automated countOrdered By: Smooth Dooley on 02-01-2024 Platelets (Bld) [#/Vol] 232 10*3/uL Normal 150-450 [facility] Comment on above: Performed By: #### P T, BNP, CK, PTT, BMP, HS TROP, CBC #### [facility] [address] Potassium [Moles/volume] in Serum or PlasmaOrdered By: Smooth Dooley on 02-01-2024 Potassium [Moles/Vol] 3.6 mmol/L Normal 3.5-5.1 [facility] Comment on above: Performed By: #### P T, BNP, CK, PTT, BMP, HS TROP, CBC #### [facility] [address] Protein Test strip (U) [Mass /Vol]Ordered By: Smooth Dooley on 02-01-2024 Protein (U) [Mass/Vol] Negative Negative [facility] Prothrombin time (PT)Ordered By: Smooth Dooley on 02-01-2024 PT Coag (PPP) [Time] 11.9 s Normal 9.0-12.9 [facility] Comment on above: A hematocrit value g reater than 55% may lead to inaccurate results in coagulation testing. Patients having hematocrit values >55% require a special collection tube for coagulation studies. Please contact the laboratory at [phone] for redraw instructions. Result Comment: A he matocrit value greater than 55% may lead to inaccurate results in coagulation testing. Patients having hematocrit values >55% require a special collection tube for coagulation studies. Please contact the laboratory at [phone] for redraw instructions. Performed By: #### P T, BNP, CK, PTT, BMP, HS TROP, CBC #### [facility] [address] Serum or plasma anion gap de terminationOrdered By: Smooth Dooley on 02-01-2024 Anion gap [Moles/Vol] 10.9 mmol/L Normal 6.0-15.0 [facility] Comment on above: Performed By: #### P T, BNP, CK, PTT, BMP, HS TROP, CBC #### [address] Sodium [Moles/volume] in Ser um or PlasmaOrdered By: Smooth Dooley on 02-01-2024 Sodium [Moles/Vol] 138 mmol/L Normal 136-145 [facility] Comment on above: Performed By: #### P T, BNP, CK, PTT, BMP, HS TROP, CBC #### [address] Specific gravity Test strip (U) [Rel density]Ordered By: Smooth Dooley on 02-01-2024 Specific gravity (U) [Rel density] 1.011 1.001-1.030 [facility] Troponin I High Sensitivityo n 02-01-2024 Troponin I High Sensitivity 5.2 pg/mL Normal 0.0-15.0 [facility] Comment on above: Result Comment: PERF ORMED BY: [place] [address] PATHOLOGIST MANAGER RECRUITMENT JAE GUERRA M.D. Performed By: #### P T, BNP, CK, PTT, BMP, HS TROP, CBC #### [address] Troponin I High Sensitivity < 2.3 Normal 0.0-15.0 [facility] Comment on above: Result Comment: PERF ORMED BY: [place] [address] PATHOLOGIST MANAGER RECRUITMENT JAE GUERRA M.D. Performed By: #### P T, BNP, CK, PTT, BMP, HS TROP, CBC #### [address] Troponin I.cardiac [Mass/vol ume] in Serum or Plasma by Detection limit <= 0.01 ng/Ordered By: Smooth Dooley on 02-01-2024 Troponin I.cardiac DL <= 0.01 ng/mL [Mass/Vol] 5.2 pg/mL 0.0-15.0 [facility] Urea nitrogen [Mass/volume] in Serum or PlasmaOrdered By: Smooth Dooley on 02-01-2024 Urea nitrogen [Mass/Vol] 13 mg/dL Normal 7-25 [facility] Comment on above: Performed By: #### P T, BNP, CK, PTT, BMP, HS TROP, CBC #### [address] Urinalysison 02-01-2024 Bilirubin,Urine Negative Normal Negative [facility] Comment on above: Order Comment: Name Collection Type:: Clean-Voided Midstream Performed By: #### P T, BNP, CK, PTT, BMP, HS TROP, CBC #### [address] Glucose Ql (U) Normal Normal Normal [facility] Comment on above: Order Comment: Name Collection Type:: Clean-Voided Midstream Performed By: #### P T, BNP, CK, PTT, BMP, HS TROP, CBC #### [place] [address] [place] Nitrite,Urine Negative Normal Negative [facility] Comment on above: Order Comment: Name Collection Type:: Clean-Voided Midstream Performed By: #### P T, BNP, CK, PTT, BMP, HS TROP, CBC #### [place] [address] [place] Occult Blood,Urine Negative Normal Negative [facility] Comment on above: Order Comment: Name Collection Type:: Clean-Voided Midstream Performed By: #### P T, BNP, CK, PTT, BMP, HS TROP, CBC #### [place] [address] [place] Protein,Urine Negative Normal Negative [facility] Comment on above: Order Comment: Name Collection Type:: Clean-Voided Midstream Performed By: #### P T, BNP, CK, PTT, BMP, HS TROP, CBC #### [address] Specificy [place],Urine 1.011 Normal 1.001-1.030 [facility] Comment on above: Order Comment: Name Collection Type:: Clean-Voided Midstream Performed By: #### P T, BNP, CK, PTT, BMP, HS TROP, CBC #### [address] Urobilinogen,Urine Normal Normal Normal [facility] Comment on above: Order Comment: Name Collection Type:: Clean-Voided Midstream Performed By: #### P T, BNP, CK, PTT, BMP, HS TROP, CBC #### [address] Urine appearanceOrdered By: Smooth Dooley on 02-01-2024 Appearance (U) Clear Normal Clear [facility] Comment on above: Order Comment: Name Collection Type:: Clean-Voided Midstream Performed By: #### P T, BNP, CK, PTT, BMP, HS TROP, CBC #### [address] Urobilinogen Test strip (U) [Mass/Vol]Ordered By: Smooth Doolye on 02-01-2024 Urobilinogen (U) [Mass/Vol] Normal mg/dL Normal [facility] XR chest 2V*on 02-01-2024 XR chest 2V* [place] [address] XRay Report Signed Patient: Rao Choi MR#: [id number] 7 : 1995 Acct:[id number] Age/Sex: 28 / F ADM Date: 02/01/24 Loc: ER Room: Type: PRE ER Attending Dr: Copies to: Smooth Dooley DO Ordering Provider: Smooth Dooley DO Date of Service: 02/01/24 XR/XR chest 2V*: Chest Pain PA AND LATERAL CHEST: CLINICAL HISTORY: Chest pain, shortness of breath and weakness. Abnormal EKG. COMPARISON: None There is no focal parenchymal consolidation, effusion or pneumothorax. The cardiac, hilar and mediastinal silhouettes are within normal limits. There is no vascular congestion. The visualized bony thorax is intact. XR/XR chest 2V* IMPRESSION: NO ACUTE CARDIOPULMONARY ABNORMALITY. Impression dictated by: Elsa Malone M.D.02/01/2024 12:34 PM Dictation Location: [place] [address] Transcribed By: [facility] 02/01/24 1234 Dictated By: Elsa Malone MD 02/01/24 1233 Signed By: 02/01/24 1234 Normal [facility] pH of Urine by Test stripOrd ered By: Smooth Dooley on 02-01-2024 pH (U) 7.0 [pH] Normal 5.0-9.0 [facility] Comment on above: Order Comment: Name Collection Type:: Clean-Voided Midstream Performed By: #### P T, BNP, CK, PTT, BMP, HS TROP, CBC #### [address] Pulmonary Function Studieson 05-16-2023 Pulmonary Function Studies PULMONARY FUNCTION TEST: 05/09/2023 REFERRING PHYSICIAN: Melissa Laura D.O. REASON FOR TESTING: This is a 26-year-old female never smoked. Pulmonary function test is performed to evaluate for cough. Spirometry shows normal FEV1 at 133% predicted. FEV1 is normal at 128% predicted. The FEV1/FVC ratio is normal at 89%. Lung volume testing shows increased total lung capacity at 121% predicted. The residual volume is increased at 193% predicted. RV/TLC ratio is increased at 44%. The lung diffusion capacity is increased at 132% predicted. IMPRESSION: The patient had above normal measurement on multiple values which could either be error in prediction versus body habitus. Spirometry is normal and shows no obstruction. Lung volume testing shows hyperinflation and air trapping. The lung diffusion capacity is normal. READ BY: Nicole Paredes M.D. lr Dictated: 05/13/2023 [id number] Transcribed: 05/14/2023 cc:Melissa Laura D.O. Normal [facility] Comment on above: Result Comment: Elec tronically Signed By: Lena GRACE, Nicole Mata\.br\Date and Time Signed: 05/16/23 09:49 EDT Consent for Treatmenton 04-27 Consent for Treatment [id number]#[id number]:127 [facility] Pulmonary Function Testson 0 05-09-2023 Pulmonary Function Tests [id number]#1.00CD:127 [facility] Physician Orderon 04-27-2023 Physician Order [id number]#1.00CD:127 [facility] Physician Order [id number]#1.00CD:127 [facility] XR Chest 2 Viewson 3 XR Chest 2 Views Exam Date/Time: 04/23/2023 17:12 EDT Reason for Exam: J15.9 Report IMPRESSION: NO EVIDENCE OF ACTIVE CHEST DISEASE. CLINICAL HISTORY: J15.9. Cough. COMPARISON: 04/11/2023. COMMENT: The heart is normal in size. The mediastinum is unremarkable. No consolidated airspace opacification nor pleural effusion is evident. Infiltrative changes noted at the left lung base on the prior exam appear to have resolved. Ordering Provider: Melissa Laura FINAL REPORT Dictated: 04/24/2023 7:23 am Alfonso Kelly M.D. Signed (Electronic Signature): 04/24/2023 7:23 am Signed by: Alfonso Kelly M.D. Transcribed by: DEBBIE Technologist: GUILLERMO Technical Comments Radiation Dose: Ka,r in mGy = na DAP = na [facility] Consent for Treatmenton 03-28 Consent for Treatment [id number]#[id number]:127 [facility] Physician Orderon 04-23-2023 Physician Order [id number]#1.00CD:127 [facility] XR Chest 2 Viewson 3 XR Chest 2 Views Exam Date/Time: 04/11/2023 16:15 EDT Reason for Exam: R05.9 Report IMPRESSION: Left base infiltrate EXAM: XR Chest 2 Views CLINICAL HISTORY: Shortness of breath R05.9 COMPARISONS: None FINDINGS: Patchy opacities at left base consistent with a small focal infiltrate. Trachea midline. Heart and mediastinum within normal limits. Pleural angles smooth. Bones intact. No pneumothorax. Ordering Provider: Melissa Laura FINAL REPORT Dictated: 04/12/2023 3:09 pm Vladimir Carmichael MD Signed (Electronic Signature): 04/12/2023 3:09 pm Signed by: Vladimir Carmichael MD Transcribed by: DEBBIE Technologist: TYLER Technical Comments Radiation Dose: Ka,r in mGy = na DAP = na [facility] Consent for Treatmenton 03-27 Consent for Treatment [id number]#1.00CD:127 [facility] [facility] 04-11-2023 Physician Order [id number]:127 [facility] PAP ACOG PANEL 2: 22 to 29on 12-14-2022 . . Normal [facility] Comment on above: Performed By: #### [id number] #### [facility] [address] [place] [address] Dr. Hilary Higginbotham Age Gdln ACOG Testing - [facility] Comment on above: Performed By: #### [id number] #### [facility] [address] [address] [address] Hilary Higginbotham DIAGNOSIS: Comment [facility] Comment on above: Result Comment: NEGA TIVE FOR INTRAEPITHELIAL LESION OR MALIGNANCY. Performed By: #### [id number] #### [facility] [address] [address] [address] Hilary Higginbotham Methodology: Comment [facility] Comment on above: Result Comment: This liquid based ThinPrep(R) pap test was screened with the use of an image guided system. Performed By: #### [id number] #### [facility] [address] [place] [address] Dr. Hilary Higginbotham Note: Comment Normal [facility] Comment on above: Result Comment: The Pap smear is a screening test designed to aid in the detection of premalignant and malignant conditions of the uterine cervix. It is not a diagnostic procedure and should not be used as the sole means of detecting cervical cancer. Both false-positive and false-negative reports do occur. . Performed By: #### [id number] #### [facility] [address] [place] [address] Dr. Hilary Higginbotham Performed by: Comment Normal [facility] Comment on above: Result Comment: Dann Scott Rebar Worker (ASCP) Performed By: #### [id number] #### [facility] [address] [place] [address] Dr. Hilary Higginbotham Reflex Criteria: Comment [facility] Comment on above: Result Comment: The HPV DNA reflex criteria were not met with this specimen result therefore, no HPV testing was performed. . Performed By: #### [id number] #### [facility] [address] [place] [address] Dr. Hilary Higginbotham Specimen adequacy: Comment [facility] Comment on above: Result Comment: Sati sfactory for evaluation. Endocervical and/or squamous metaplastic cells (endocervical component) are present. Performed By: #### [id number] #### [facility] [address] [place] [address] Dr. Hilary Higginbotham Vital Signs Date Time Vital Sign Value Performing Clinician Facility 02-01-2024 15:36-0400 Diastolic blood pressure 72 mm[Hg] DO Melissa Keya Work Phone: [facility] 02-01-2024 15:36-0400 Heart rate 98 /min DO Melissa Keya Work Phone: [facility] 02-01-2024 15:36-0400 Respiratory rate 18 /min DO Melissa Keya Work Phone: [facility] 02-01-2024 15:36-0400 SaO2% (BldA) [Mass fraction] 99 % DO Melissa Keya Work Phone: [facility] 02-01-2024 15:36-0400 Systolic blood pressure 112 mm[Hg] DO Melissa Keya Work Phone: [facility] 02-01-2024 11:52-0400 Body height 157.48 cm DO Melissa Keya Work Phone: [facility] 02-01-2024 11:52-0400 Body temperature 97.4 [degF] DO Melissa Keya Work Phone: [facility] 02-01-2024 11:52-0400 Body weight 54.3 kg DO Melissa Keya Work Phone: [facility] 11-06-2022 23:21-0400 Diastolic blood pressure 64 mm[Hg] Cory Belem [facility] 11-06-2022 23:21-0400 Heart rate 116 /min Cory Belem [facility] 11-06-2022 23:21-0400 Mean blood pressure 78 mm[Hg] Cory Belem [facility] 11-06-2022 23:21-0400 Respiratory rate 14 /min Cory Belem [facility] 11-06-2022 23:21-0400 SaO2% (BldA) [Mass fraction] 98 % Cory Belem [facility] 11-06-2022 23:21-0400 Systolic blood pressure 106 mm[Hg] Cory Belem [facility] 11-06-2022 23:05-0400 Diastolic blood pressure 63 mm[Hg] Cory Belem [facility] 11-06-2022 23:05-0400 Heart rate 112 /min Cory Belem [facility] 11-06-2022 23:05-0400 Mean blood pressure 77 mm[Hg] Cory Belem [facility] 11-06-2022 23:05-0400 Respiratory rate 15 /min Cory Belem [facility] 11-06-2022 23:05-0400 SaO2% (BldA) [Mass fraction] 98 % Cory Belem [facility] 11-06-2022 23:05-0400 Systolic blood pressure 106 mm[Hg] Cory Belem [facility] 11-06-2022 22:15-0400 Diastolic blood pressure 50 mm[Hg] Cory Belem [facility] 11-06-2022 22:15-0400 Heart rate 114 /min Cory Belem [facility] 11-06-2022 22:15-0400 Mean blood pressure 62 mm[Hg] Cory Belem [facility] 11-06-2022 22:15-0400 Respiratory rate 17 /min Cory Belem [facility] 11-06-2022 22:15-0400 SaO2% (BldA) [Mass fraction] 96 % Cory Belem [facility] 11-06-2022 22:15-0400 Systolic blood pressure 86 mm[Hg] Cory Belem [facility] 11-06-2022 20:49-0400 Heart rate 150 /min Cory Belem [facility] 11-06-2022 20:05-0400 Body temperature 97.88 [degF] Cory Belem [facility] 11-06-2022 20:05-0400 Heart rate 137 /min [facility] Belem [facility] 11-06-2022 20:05-0400 Respiratory rate 16 /min [facility] Encounters Encounter Date Encounter Type Care Provider Facility Start: 04-02-2024 End: 04-02-2024 ambulatory DO Melissa C Keya Work Phone: [facility] Work Phone: Start: 04-02-2024 End: 04-02-2024 Patient encounter procedure DO Melissa Keya Work Phone: [facility] Work Phone: Start: 03-27-2024 End: 03-27-2024 ambulatory Not Available Start: 02-27-2024 End: 02-27-2024 Patient encounter procedure DO Melissa Keya Work Phone: [facility] Start: 02-27-2024 End: 02-27-2024 ambulatory DO Melissa C Keya Work Phone: [facility] Work Phone: Start: 02-08-2024 End: 02-08-2024 ambulatory Melissa C Keya [place] Start: 02-08-2024 End: 02-08-2024 Patient encounter procedure Melissa C Keya [facility] Start: 02-01-2024 End: 02-01-2024 Emergency department patient visit DO Melissa Keya Work Phone: [facility] Work Phone: Start: 05-09-2023 End: 05-09-2023 ambulatory Melissa C Keya [place] Start: 05-09-2023 End: 05-09-2023 Patient encounter procedure Melissa C Keya [facility] Start: 04-23-2023 End: 04-23-2023 ambulatory Melissa C Keya [facility] Start: 04-23-2023 End: 04-23-2023 Patient encounter procedure Melissa C Keya [facility] Start: 04-11-2023 End: 04-11-2023 ambulatory Melissa C Keya [facility] Start: 04-11-2023 End: 04-11-2023 Patient encounter procedure Melissa C Keya [facility] Start: 12-06-2022 End: 12-06-[address] NONE LISTED REQUEST Facility: Start: 11-06-2022 End: 11-06-2022 Emergency department patient visit Cory RubenJose L Patricia [facility] Start: 04-20-2017 End: 04-21-2017 Ambulatory SUKUMAR VALENCIA Facility:[facility] Start: 04-18-2017 End: 04-19-2017 Ambulatory DEFAULT PHYSICIAN Facility:[facility] Procedures Date Procedure Procedure Detail Performing Clinician Start: 04-02-2024 Antibody screen Smooth maldonado Comment on above: Result Comment: PERF ORMED BY: [facility] [address] [place] [address] PATHOLOGIST MANAGER RECRUITMENT JAE GUERRA M.D. Start: 02-01-2024 CT of head without contrast DO Melissa Keya Work Phone: Start: 02-01-2024 Plain chest X-ray DO El yse Keya Work Phone: Plan of Treatment Date Care Activity Detail Author Start: 04-02-2024 Bacteria identified in Urine by Culture [facility] Start: 04-02-2024 Rubella IgG measurement [facility] Start: 04-02-2024 [facility] Glucose measurement estimated from glycated hemoglobin [facility] Hepatitis B virus lane rface Ag [Presence] in Serum or Plasma by Immunoassay [facility] Hepatitis C virus Ig G Ab [Presence] in Serum or Plasma by Immunoassay [facility] HIV 1+2 Ab+HIV1 p24 Ag [Presence] in Serum or Plasma by Immunoassay [facility] Patient Education Chest Pain, Adult ED [facility] Work Phone: Patient referral [facility] Work Phone: Reagin Ab [Presence] in Serum by RPR [facility] Payers Date Payer Category Payer Self-pay 2023 Unknown 2012 Self-pay [id number] 1996 Unknown [id number] 1996 Unknown [id number] 1996 Unknown [id number] 1996 Unknown [id number] 1996 Unknown [id number] 1996 Unknown [id number] 1959 Unknown [id number] Medicaid [id number] Unknown O [id number] 1d Unknown [id number] Unknown [id number] Unknown [id number] Social History Date Type Detail Facility Tobacco smoking status [facility] Sex Assigned At Female [facility] Start: 02-01-2024 Tobacco smoking status NHIS Never smoked tobacco (finding) [facility] Start: 1995 Sex Assigned At Female [facility] NEGATED: Highlighted row Fir [facility] Functional Status Date Assessment Result Facility 11-06-2022 Functional Status N/A [facility] Clinical Note 02-08-2024 Note Date & Type Note Facility 02-08-2024 Note Echocardiology Procedure Exam Date/Time Accession # Ordering Echo Transthoracic 02/08/2024 07:51 EDT [id number] Melissa Laura DO Complete CPT code 45461 84784 Reason for Exam (Echo Transthoracic Complete) I51.7 Cardiomegaly Report Version: 1 Study ID: [id number] [facility] [address] [place] [address] Adult Echocardiogram Report Name: RAO CHOI Study Date: 02/08/2024, 7: 04 AM Patient Location: [facility] : 1995 (MM/DD/YYYY) Gender: Female Age: 28 Years Height: 157.48 cm BP: 112 / 50 mmHg Weight: 53.978 kg HR: 88 bpm BSA: 1.53 m? Ordering Physician: Melissa Laura Referring Physician: Melissa Laura Performed By: Nancy Cruz ARELY Reason For Study: I51.7 Cardiomegaly History: Family Hx, Tachycardia, Interpretation Summary Left ventricular systolic function is normal. Ejection Fraction = 60-65%. There is no pericardial effusion. Procedure A complete two-dimensional transthoracic echocardiogram was performed (2D, M-mode, spectral and color flow Doppler). Left Ventricle The left ventricle is normal in size. There is normal left ventricular wall thickness. Left ventricular systolic function is normal. Ejection Fraction = 60-65%. The left ventricular wall motion is normal. Normal diastolic function. Left Atrium The left atrial size is normal. There is no atrial septal defect. Right Atrium Right atrial size is normal. Echocardiology Report Right Ventricle The right ventricular systolic function is normal. The right ventricle is normal size. Aortic Valve Aortic valve opening is normal. Not well visualized. No aortic regurgitation. There is no aortic stenosis. Mitral Valve The mitral valve is normal in structure and function. There is no mitral regurgitation noted. No mitral valve stenosis. Tricuspid Valve Anatomically normal tricuspid valve. There is trace tricuspid regurgitation. No evidence of tricuspid stenosis. Pulmonic Valve The pulmonic valve is normal. No evidence of stenosis. There is no pulmonic valve regurgitation. Arteries The aortic root is normal in size. Effusion There is no pericardial effusion. Left Ventricle IVSd: 0.59 cm LVIDd: 4.4 cm LVPWd: 0.82 cm LVIDs: 2.9 cm EDV(MOD-sp4): 86.0 ml LVLd ap4: 8.2 cm ESV(MOD-sp4): 32.7 ml LVLs ap4: 6.7 cm EDV(MOD-sp2): 88.8 ml LVLd ap2: 8.8 cm ESV(MOD-sp2): 29.9 ml LVLs ap2: 7.1 cm Right Ventricle TAPSE: 2.16 cm Aortic Valve LVOT diam: 1.90 cm LV V1 max: 88.8 cm/sec LV V1 max P.2 mmHg Ao max P.1 mmHg Ao V2 max: 142.3 cm/sec Tricuspid Valve TR max P.0 mmHg TR max krzysztof: 244.9 cm/sec Aorta Ao root diam: 1.95 cm Ao Sinus of Valsalva: 2.32 cm Ao Sinotubular Junction: 2.29 cm Atria LA dimension: 2.7 cm Diastolic funtion Med Peak E' Krzysztof: 16.1 cm/sec Lat Peak E' Krzysztof: 16.1 cm/sec MV dec time: 0.15 sec MV E max krzysztof: 99.2 cm/sec MV A max krzysztof: 80.5 cm/sec Ao max P.1 mmHg Ao root area: 3.0 cm? Ao root diam: 1.95 cm Echocardiology Report Ao Sinus of Valsalva: 2.32 cm Ao Sinotubular Junction: 2.29 cm Ao V2 max: 142.3 cm/sec AV VR: 0.63 STACIE(V,D): 1.77 cm? EDV(MOD-sp4): 86.0 ml EDV(Teich): 89.4 ml EF(MOD-sp4): 62.0 % EF(Teich): 64.4 % ESV(MOD-sp4): 32.7 ml ESV(Teich): 31.8 ml FS: 35.0 % IVC Diam: 1.31 cm IVSd: 0.59 cm LA dimension: 2.7 cm LV V1 max: 88.8 cm/sec LV V1 max P.2 mmHg LVIDd: 4.4 cm LVIDs: 2.9 cm LVLd ap4: 8.2 cm LVLs ap4: 6.7 cm LVOT area: 2.8 cm? LVOT diam: 1.90 cm LVPWd: 0.82 cm MV A max krzysztof: 80.5 cm/sec MV dec time: 0.15 sec MV E max krzysztof: 99.2 cm/sec MV E/A: 1.23 RAP systole: 3.0 mmHg RVDd: 2.33 cm RVIDd/LVIDd: 0.53 RVSP(TR): 27.0 mmHg SV(MOD-sp4): 53.3 ml TAPSE: 2.16 cm TR max P.0 mmHg TR max krzysztof: 244.9 cm/sec E/E' Lat: 6.2 E/E' Med: 6.2 EDV(MOD-sp2): 88.8 ml EF (MOD-bp): 64.5 % EF(MOD-sp2): 66.3 % ESV(MOD-sp2): 29.9 ml LA Vol Index: 20.7 ml/m? Lat Peak E' Krzysztof: 16.1 cm/sec LVLd ap2: 8.8 cm LVLs ap2: 7.1 cm Med Peak E' Krzysztof: 16.1 cm/sec Electronically signed by: Hiro Espinal MD 02/08/2024, 12: 22 PM FINAL REPORT Dictated: 02/08/2024 7:04 am Hiro Espinal MD Signed (Electronic Signature): 02/08/2024 12:22 pm Signed by: Hiro Espinal MD Transcribed by: ARMIN Technologist: ELAINE [facility] Hospital Discharge instructions 11-07-2022 Note Date & Type Note Facility 11-07-2022 Hospital Discharg e instructions Patient Education 11/06/2022 23:24:16 General Headache Without Cause General Headache Without Cause A headache is pain or discomfort felt around the head or neck area. The specific cause of a headache may not be found. There are many causes and types of headaches. A few common ones are: Tension headaches. Migraine headaches. Cluster headaches. Chronic daily headaches. Follow these instructions at home: Watch your condition for any changes. Let your health care provider know about them. Take these steps to help with your condition: Managing pain Take [id number]-dgm-[id number] and prescription medicines only as told by your health care provider. Lie down in a dark, quiet room when you have a headache. If directed, put ice on your head and neck area: ?Put ice in a plastic bag. ?Place a towel between your skin and the bag. ?Leave the ice on for 20 minutes, 2 3 times per day. If directed, apply heat to the affected area. Use the heat source that your health care provider recommends, such as a moist heat pack or a heating pad. ?Place a towel between your skin and the heat source. ?Leave the heat on for 20 30 minutes. ?Remove the heat if your skin turns bright red. This is especially important if you are unable to feel pain, heat, or cold. You may have a greater risk of getting burned. Keep lights dim if bright lights bother you or make your headaches worse. Eating and drinking Eat meals on a regular schedule. If you drink alcohol: ?Limit how much you use to: ?0 1 drink a day for women. ? 0 2 drinks a day for men. ?Be aware of how much alcohol is in your drink. In the [place] one drink equals one 12 oz bottle of beer (355 mL), one 5 oz glass of wine (148 mL), or one 1 oz glass of hard liquor (44 mL). Stop drinking caffeine, or decrease the amount of caffeine you drink. General instructions Keep a headache journal to help find out what may trigger your headaches. For example, write down: ?What you eat and drink. ?How much sleep you get. ?Any change to your diet or medicines. Try massage or other relaxation techniques. Limit stress. Sit up straight, and do not tense your muscles. Do not use any products that contain nicotine or tobacco, such as cigarettes, e-cigarettes, and chewing tobacco. If you need help quitting, ask your health care provider. Exercise regularly as told by your health care provider. Sleep on a regular schedule. Get 7 9 hours of sleep each night, or the amount recommended by your health care provider. Keep all follow-up visits as told by your health care provider. This is important. Contact a health care provider if: Your symptoms are not helped by medicine. You have a headache that is different from the usual headache. You have nausea or you vomit. You have a fever. Get help right away if: Your headache becomes severe quickly. Your headache gets worse after moderate to intense physical activity. You have repeated vomiting. You have a stiff neck. You have a loss of vision. You have problems with speech. You have pain in the eye or ear. You have muscular weakness or loss of muscle control. You lose your balance or have trouble walking. You feel faint or pass out. You have confusion. You have a seizure. Summary A headache is pain or discomfort felt around the head or neck area. There are many causes and types of headaches. In some cases, the cause may not be found. Keep a headache journal to help find out what may trigger your headaches. Watch your condition for any changes. Let your health care provider know about them. Contact a health care provider if you have a headache that is different from the usual headache, or if your symptoms are not helped by medicine. Get help right away if your headache becomes severe, you vomit, you have a loss of vision, you lose your balance, or you have a seizure. This information is not intended to replace advice given to you by your health care provider. Make sure you discuss any questions you have with your health care provider. Document Released: 08/13/2006 Document Revised: 03/03/2019 Document Reviewed: 03/03/2019 [employer] Patient Education 2020 [employer] Follow Up Care 11/06/2022 20:02:53 With:Aruna Adrian Address: [address] [place] [address]- Business (1) When:Within 3 Day(s) [facility] Evaluation + Plan note 11-06-2022 Note Date & Type Note Facility 11-06-2022 Evaluation + Plan note Extrac ronnie from: Title:ED Note Author:Belem Karonah Jaciel Date :11/06/22 Headache (R51.9: Headache, u nspecified) N&V (nausea and vomiting) (R11.2: Nausea with vomiting, unspecified) Orders: dexamethasone, 10 mg = 2.5 mL, Injection, IV Push, Once, Stop date 11/06/22 22:18:00 EDT, STAT, Start date 11/06/22 22:18:00 EDT, 11/06/22 22:18:00 EDT diphenhydrAMINE, 25 mg = 0.5 mL, Injection, IV Push, Once, Stop date 11/06/22 20:39:00 EDT, STAT, Start date 11/06/22 20:39:00 EDT, 11/06/22 20:39:00 EDT ketorolac, 15 mg = 1 mL, Injection, IV Push, Once, Stop date 11/06/22 21:13:00 EDT, STAT, Start date 11/06/22 21:13:00 EDT, 11/06/22 21:13:00 EDT magnesium sulfate + Dextrose 5% in Water intravenous solution 100 mL, 1 gram = 100 mL, IV Piggyback, Once, Stop date 11/06/22 21:13:00 EDT, STAT, Start date 11/06/22 21:13:00 EDT, 100 mL/hr, Infuse over 60 minute(s), 11/06/22 21:13:00 EDT metoclopramide, 10 mg = 2 mL, Injection, IV Push, Once, Stop date 11/06/22 20:39:00 EDT, STAT, Start date 11/06/22 20:39:00 EDT, 11/06/22 20:39:00 EDT promethazine, 12.5 mg = 1 tab(s), Oral, q8hr, # 12 tab(s), Refills(s) 0, Pharmacy: [facility]/pharmacy [facility][id number], 157, cm, 11/06/22 20:09:00 EDT, Height/Length Dosing, 53.7, kg, 11/06/22 20:09:00 EDT, Weight Dosing Sodium Chloride 0.9% intravenous solution, Soln-IV, Misc, Once, Stop date 11/06/22 22:23:08 EDT, Physician Stop, 11/06/22 22:23:08 EDT Sodium Chloride 0.9% intravenous solution, Soln-IV, Misc, Once, Stop date 11/06/22 20:41:23 EDT, Physician Stop, 11/06/22 20:41:23 EDT Sodium Chloride 0.9% intravenous solution, 1,000 mL, Soln-IV, IV, Once, Stop date 11/06/22 20:38:00 EDT, STAT, Start date 11/06/22 20:38:00 EDT, mL/hr, Infuse over 61, minute(s) Sodium Chloride 0.9% intravenous solution, 1,000 mL, Soln-IV, IV, Once, Stop date 11/06/22 22:18:00 EDT, STAT, Start date 11/06/22 22:18:00 EDT, Infuse over 61, minute(s) CT Head or Brain w/o Contrast [facility] Evaluation note Note Date & Type Note Facility Evaluation [facility] Narrative Note Date & Type Note Facility Hospital course Narrative No data available for this section [facility] Hospital Discharge instructions Note Date & Type Note Facility Hospital Discharge instructions No data available for this section [facility] Progress note Note Date & Type Note Facility Progress note No data available for this section [facility] Summary Purpose Family History No Family History Records FoundNo Family History Records Found No data available for this section No Family History Records FoundNo Family History Records FoundNo Family History Records Found Advance Directives No Advanced Directives Records Found Advance Directive Response Recorded Date/ Time Advance Directives No January 31 12:36pm Chief Complaint and Reason for Visit Chief Complaint chest pain Chief Complaint chest pain N92.6 Chief Complaint chest pain N92.6 N92.6 Additional Source Comments INFORMATION SOURCE (unrecogn ized section and content) DATE CREATED AUTHOR 02/20/2018 [facility] DATE CREATED AUTHOR AUTHOR'S ORGANIZ ATION 12/14/2022 [facility] DATE CREATED AUTHOR AUTHOR'S ORGANIZ ATION 02/16/2024 [facility] DATE CREATED AUTHOR AUTHOR'S ORGANIZ ATION 03/30/2024 [facility] DATE CREATED AUTHOR AUTHOR'S ORGANIZ ATION 04/05/2024 [facility] Patient Care team informatio n (unrecognized section and content) Team Status: Active Member Role Status Dates Melissa Laura DO Primary Care Provider Active Team Status: Inactive Member Role Status Dates Melissa Laura DO Primary Care Provider Active Start: February 01, 2024 End: February 01, 2024 Smooth Dooley DO Emergency Provider Active Sta rt: February 01, 2024 End: February 01, 2024 Team Status: Inactive Member Role Status Dates Melissa Laura DO Primary Care Provider Active Start: February 27, 2024 End: February 27, 2024 Willi Estrada Attending Provider Active Start: 2023 End: February 27, 2024 Team Status: Inactive Member Role Status Dates Melissa Laura DO Primary Care Provider Active Start: February 27, 2024 End: February 27, 2024 Willi Estrada DO Attending Provider Active Start : February 27, 2024 End: February 27, 2024 Team Status: Inactive Member Role Status Dates Melissa Laura DO Primary Care Provider Active Start: April 02, 2024 End: April 02, 2024 Willi Estrada DO Attending Provider Active Start : April 02, 2024 End: April 02, 2024 Goals (unrecognized section and content) Goals may be documented in a n alternate section FOR RECORDS PERTAINING TO PATIENTS WHO ARE OR HAVE BEEN ENROLLED IN A CHEMICAL DEPENDENCY/SUBSTANCEABUSE PROGRAM, SOME INFORMATION MAY BE OMITTED. This clinical summary was aggregated from multiple sources. Caution should be exercised in using it in the provision of clinical care. This summary normalizes information from multiple sources, and as a consequence, information in this document may materially change the coding, format and clinical context of patient data. In addition, data may be omitted in some cases. CLINICAL DECISIONS SHOULD BE BASED ON THE PRIMARY CLINICAL RECORDS. [facility]. provides no warranty or guarantee of the accuracy or completeness of information in this document.
[2024-04-08 17:12] LABS: BOX Test Sent Out Y
== END 2024-04-08 16:38 | disposition home or self-care (01) ==
LOC: LAB 16:38
PROVIDERS: Visit Provider Obstetrics & Gynecology
DX: Z34.80 Encounter for supervision of other normal pregnancy, unspecified trimester (principal)
CPT/HCPCS: 36415

== ENCOUNTER 2024-06-09 13:17 | Outpatient (OUT) | payer BC, SELFPAY ==
--- NOTE | 2024-06-09 13:19 | US_ITS ---
[address] [address] Patient Name: RAO COWAN MRN: [id number] date: 1995 Sex: F Assigned Patient Location: [facility] Current Patient Location: [facility] Accession/Order Number: [id number] Exam Date: 06/09/2024 13:20 Report Date: 06/09/2024 14:38 At the request of: GIBRAN ALVARADO Procedure: US OB anatomy EXAMINATION: US OB anatomy, US OB cervical length HISTORY: ANATOMY COMPARISON: No relevant comparison available. TECHNIQUE: Transabdominal sonographic examination was performed for obstetrical and evaluation. FINDINGS: Number: 1 Heart Rate: Present H.B. /min Amniotic Fluid Volume: Subjectively normal position: Cephalic presentation, longitudinal lie Placental Location: ANTERIOR Cervix Length: 4.11 cm , closed Normal anatomy: Lateral ventricles, cerebellum, posterior fossa, nose, lips, orbits, four-chamber heart, RVOT, LVOT, diaphragm, stomach, kidneys, abdominal cord insertion, bladder, umbilical arteries, three-vessel cord, spine, extremities BIOMETRY: BPD: 4.83 cm; 20 weeks 4 days; 63.30 % HC: 17.98 cm; 20 weeks 3 days; 47.70 % AC: 15.49 cm; 20 weeks 5 days; 57 % FL: 3.70 cm; 21 weeks 5 days; 87.60 % EFW:369.11 g; 86.20 %, 14 ounces FL/AC: 23.89 FL/BPD: 76.60 HC/AC: 1.16 GESTATIONAL AGE: Age by EDC: 20 weeks 2 days SOPHIE by EDC: 2024-10-25 Age by current US: 20 weeks 6 days SOPHIE by current US: 2024-10-21 US/US OB anatomy IMPRESSION: Normal anatomy scan Closed cervix measuring 4.1 cm in length *Reference: [employer] Practice Guideline for the performance of Obstetric Ultrasound Examinations, May 27, 2007. Electronically authenticated by: CYNTHIA TERRY Date: 06/09/2024 14:38
--- NOTE | 2024-06-09 13:19 | US_ITS ---
[address] [address] Patient Name: RAO COWAN MRN: [id number] date: 1995 Sex: F Assigned Patient Location: [facility] Current Patient Location: [facility] Accession/Order Number: [id number] Exam Date: 06/09/2024 13:20 Report Date: 06/09/2024 14:38 At the request of: GIBRAN ALVARADO Procedure: US OB cervical length EXAMINATION: US OB anatomy, US OB cervical length HISTORY: ANATOMY COMPARISON: No relevant comparison available. TECHNIQUE: Transabdominal sonographic examination was performed for obstetrical and evaluation. FINDINGS: Number: 1 Heart Rate: Present H.B. /min Amniotic Fluid Volume: Subjectively normal position: Cephalic presentation, longitudinal lie Placental Location: ANTERIOR Cervix Length: 4.11 cm , closed Normal anatomy: Lateral ventricles, cerebellum, posterior fossa, nose, lips, orbits, four-chamber heart, RVOT, LVOT, diaphragm, stomach, kidneys, abdominal cord insertion, bladder, umbilical arteries, three-vessel cord, spine, extremities BIOMETRY: BPD: 4.83 cm; 20 weeks 4 days; 63.30 % HC: 17.98 cm; 20 weeks 3 days; 47.70 % AC: 15.49 cm; 20 weeks 5 days; 57 % FL: 3.70 cm; 21 weeks 5 days; 87.60 % EFW:369.11 g; 86.20 %, 14 ounces FL/AC: 23.89 FL/BPD: 76.60 HC/AC: 1.16 GESTATIONAL AGE: Age by EDC: 20 weeks 2 days SOPHIE by EDC: 2024-10-25 Age by current US: 20 weeks 6 days SOPHIE by current US: 2024-10-21 US/US OB cervical length IMPRESSION: Normal anatomy scan Closed cervix measuring 4.1 cm in length *Reference: [employer] Practice Guideline for the performance of Obstetric Ultrasound Examinations, May 27, 2007. Electronically authenticated by: CYNTHIA TERRY Date: 06/09/2024 14:38
== END 2024-06-09 13:18 | disposition home or self-care (01) ==
LOC: NOMS 13:17
PROVIDERS: Visit Provider Physician Assistant
DX: Z36.89 Encounter for other specified antenatal screening (principal)
CPT/HCPCS: 76805; 76817

== ENCOUNTER 2024-07-07 13:48 | Outpatient (OUT) | payer BC, SELFPAY ==
--- NOTE | 2024-07-07 13:49 | US_ITS ---
[address] [address] Patient Name: RAO COWAN MRN: [id number] date: 1995 Sex: F Assigned Patient Location: [facility] Current Patient Location: [facility] Accession/Order Number: [id number] Exam Date: 07/07/2024 13:55 Report Date: 07/07/2024 16:06 At the request of: JAMEL TORIBIO Procedure: US OB placenta EXAMINATION: US OB transvaginal, US OB placenta HISTORY: Marginal placenta previa O44.20 COMPARISON: 06/09/2024 FINDINGS: position: Cephalic presentation, longitudinal lie Placenta: Anterior, the placental edge is 6.8 cm from the internal os, grade 0 Heart rate: 160 beats minute Cervix: 4.4 cm, closed US/US OB placenta IMPRESSION: Placental edge is 6.8 cm from the internal os Electronically authenticated by: CYNTHIA TERRY Date: 07/07/2024 16:06
--- NOTE | 2024-07-07 13:49 | US_ITS ---
[place] [id number] Patient Name: RAO COWAN MRN: [id number] date: 1995 Sex: F Assigned Patient Location: [facility] Current Patient Location: [facility] Accession/Order Number: [id number] Exam Date: 07/07/2024 13:55 Report Date: 07/07/2024 16:06 At the request of: JAMEL TORIBIO Procedure: US OB transvaginal EXAMINATION: US OB transvaginal, US OB placenta HISTORY: Marginal placenta previa O44.20 COMPARISON: 06/09/2024 FINDINGS: position: Cephalic presentation, longitudinal lie Placenta: Anterior, the placental edge is 6.8 cm from the internal os, grade 0 Heart rate: 160 beats minute Cervix: 4.4 cm, closed US/US OB transvaginal IMPRESSION: Placental edge is 6.8 cm from the internal os Electronically authenticated by: CYNTHIA TERRY Date: 07/07/2024 16:06
== END 2024-07-07 13:49 | disposition home or self-care (01) ==
LOC: NOMS 13:48
PROVIDERS: Visit Provider Obstetrics & Gynecology
DX: Z01.419 Encounter for gynecological examination (general) (routine) without abnormal findings (principal); O44.22 Partial placenta previa NOS or without hemorrhage, second trimester
CPT/HCPCS: 76815; 76817; 88175

== ENCOUNTER 2024-07-07 20:08 | Outpatient (REF) | payer BC, SELFPAY ==
--- OUTSIDE RECORDS SUMMARY | 2024-07-07 20:13 | XMS_ITS | CCD ---
Author Organization [facility] [place] Care Team Providers Care Special Education Instructor Name Role Phone PHYSICIAN, DEFAULT Unavailable Unavailable PHYSICIAN, DEFAULT Unavailable Unavailable VALENCIA, SUKUMAR R Unavailable Unavailable VALENCIA, SUKUMAR R Unavailable Unavailable SELF, REFERRED Unavailable Unavailable SELF, REFERRED Unavailable Unavailable Aruna Adrian Primary Care Physician REQUEST, DR TRAVIS LISTED Primary Care Unavaila ble NATALIE ., DR MCCULLOUGH Attending Unavailable NATALIE ., DR MCCULLOUGH Consulting Unavailable NATALIE ., DR MCCULLOUGH Admitting Unavailable Melissa Laura Primary Care Physician DO Melissa Laura Primary Care Provider [phone] DO Smooth Dooley Emergency Provider [phone] Ori Laurayse Gabe Referring Unavailable Keya Melissa C Admitting Unavailable Kirnus, Hiro D Consulting Unavailable Keya, Melissa C Attending Unavailable Kirnus, Hiro D Consulting Unavailable Kirnus, Hiro D Consulting Unavailable Keya, Melissa C Admitting Unavailable Keya, Melissa C Attending Unavailable Keya, Melissa C Admitting Unavailable Keya, Melissa C Attending Unavailable Keya, Melissa C Referring Unavailable Keya, Melissa C Admitting Unavailable Keya Melissa C Attending Unavailable Jamel Estrada Attending Provider DO Jamel Estrada Attending Provider [phone] Smooth Dooley Admitting Unavailable Smooth Dooley Attending Unavailable Melissa Laura Primary Care Unavailable Jamel Estrada Admitting Unavailable Jamel Estrada Attending Unavailable Melissa Laura Primary Care Unavailable Jamel Estrada Attending Unavailable Melissa Laura Primary Care Unavailable Elida Estraday Admitting Unavailable JAMEL ESTRADA Attending Unavailable ARUNA ALVARADO Attending Unavailable JAMEL ESTRADA Attending Unavailable Unavailable Primary Care Provider Unavailabl e Medications Current Medications Medication Drug Class(es) Dates Sig (Normalized) Sig (Original) dextroamphetamine-am phetamine (3 sources) Start: 02-01-2024 dextroamphetamine-a mphetamine Active .ROUTE February 01, 2024 12:00am MV-Min-Fe Fum-FA-DHA ( 1 PO) (2 sources) MV-Min- Fe Fum-FA-DHA ( 1 PO) Take by mouth Active promethazine hydrochloride 12.5 mg oral tablet (5 sources) Phenothiazine Start: 11-06-2022 take 1 tablet by mouth every eight hours promethazine 12.5 mg oral tablet 12.5 mg = 1 tab(s), Oral, q8hr, # 12 tab(s), Refills(s) 0, Pharmacy: [facility]/pharmacy #[id number], 157, cm, 11/06/22 20:09:00 EDT, Height/Length Dosing, 53.7, kg, 11/06/22 20:09:00 EDT, Weight Dosing Start Date: 11/06/22 Status: Ordered Completed/Discontinued Medications Medication Drug Class(es) Dates Sig (Normalized) Sig (Original) ALPRAZolam 0.25 mg oral tablet (2 sources) Benzodiazepine Start: 09-06-2023 End: 06-09-2024 ALPRAZolam (Xanax) 0.25 MG tablet TAKE 1 TABLET UP TO 3 TIMES PER DAY NEEDED 09/06/2023 06/09/2024 Discontinued 24 hr amphetamine aspartate 3.75 mg / amphetamine sulfate 3.75 mg / dextroamphetamine saccharate 3.75 mg / dextroamphetamine sulfate 3.75 mg extended release oral capsule (2 sources) Central Nervous System Stimulant Start: 01-17-2024 End: 06-09-2024 take 1 capsule by mouth once daily in the morning amphetamine-dextr oamphetamine XR (Adderall XR) 15 MG 24 hr capsule TAKE 1 CAPSULE BY MOUTH EVERY DAY IN THE MORNING 01/17/2024 06/09/2024 Discontinued Problems Problem Classification Problem Date Documented Da [...] chest pain] Onset: 02-01-2024 02-01-2024 Episodic Other and delivery including normal (2 sources) Second trimester ; Translations: [Encounter for supervision of normal , unspecified, second trimester] 06-09-2024 Episodic Other screening for suspected conditions (not mental disorders or infectious disease) (4 sources) Encounter for screening for malignant neoplasm of cervix; Translations: [ENC SCREENING MALIG NEOPLASM CERV] Onset: 12-06-2022 Episodic Residual codes; unclassified (2 sources) Gestation period, 19 weeks; Translations: [19 weeks gestation of ] 06-09-2024 Episodic Screening and history of mental health and substance abuse codes (3 sources) H/O: anxiety state; Translations: [Personal history of other mental and behavioral disorders] 02-01-2024 Episodic Unclassified (2 sources) Unknown / UNK(Unknown) Onset: 04-20-2017 Results Test Name Value Interpretation Reference Range Facility Urinalysis macro (dipstick) panel (U)on 06-09-2024 Bilirubin, UA Negative Negative - 4(70) +++ mg/dL [facility] Blood, UA Negative Negative - 50 Carson/mcL [facility] Clarity, UA Clear [facility] Color, UA Yellow [facility] Glucose, UA Negative Negative - 1999(110) ++++ mg/dL [facility] Interpretation and review of laboratory results Normal [facility] Ketones, UA Negative Negative - 160(16) ++++ mg/dL [facility] Leukocytes, UA Negative Negative - 500+++ Monica/mcL [facility] Nitrite, UA Negative Negative - Positive [facility] pH, UA 6 5 - 9 [facility] Protein, UA Negative Negative - 2000(20) ++++ mg/dL [facility] Spec Grav, UA 1.01 1 - 1.03 [facility] Urobilinogen, UA 0.2 0.2 - 12 mg/dL [facility] A1C with Estimated Average G luon 08-07-2024 Glucose [Mass/Vol] 105 mg/dL Normal The Count Includes [facility] Comment on above: Result Comment: PERF ORMED BY: [place] [address] PATHOLOGIST [employer] HELPER JAE GUERRA M.D. Performed By: #### P T, BNP, CK, PTT, BMP, HS TROP, CBC #### [address] HbA1c (Bld) [Mass fraction] 5.3 % Normal 4.3-5.6 The Count Includes [facility] Comment on above: Result Comment: Incr eased risk for diabetes: 5.7 - 6.4 diabetes: >6.4 glycemic control for adults with diabetes: <7.0 Performed By: #### P T, BNP, CK, PTT, BMP, HS TROP, CBC #### [address] Automated basophil %Ordered By: Jamel Estrada on 04-02-2024 Basophils/100 WBC (Bld) 0.6 % Normal . [facility] Comment on above: Performed By: #### P T, BNP, CK, PTT, BMP, HS TROP, CBC #### [address] Automated basophil countOrde red By: Jamel Estrada on 04-02-2024 Basophils (Bld) [#/Vol] 0.0 10*3/uL Normal 0.0-0.2 [facility] Comment on above: Result Comment: PERF ORMED BY: [place] [address] PATHOLOGIST [employer] HELPER JAE GUERRA M.D. Performed By: #### P T, BNP, CK, PTT, BMP, HS TROP, CBC #### [address] Automated blood monocyte cou ntOrdered By: Jamel Estrada on 04-02-2024 Monocytes (Bld) [#/Vol] 0.5 10*3/uL Normal 0.0-0.8 [facility] Comment on above: Performed By: #### P T, BNP, CK, PTT, BMP, HS TROP, CBC #### [address] Automated eosinophil %Ordere d By: Jamel Estrada on 04-02-2024 Eosinophils/100 WBC (Bld) 3.4 % Normal . [facility] Comment on above: Performed By: #### P T, BNP, CK, PTT, BMP, HS TROP, CBC #### [address] Automated eosinophil countOr dered By: Jamel Estrada on 04-02-2024 Eosinophils (Bld) [#/Vol] 0.3 10*3/uL Normal 0.0-0.45 [facility] Comment on above: Performed By: #### P T, BNP, CK, PTT, BMP, HS TROP, CBC #### [address] Automated monocyte %Ordered By: Jamel Estrada on 04-02-2024 Monocytes/100 WBC (Bld) 7.5 % Normal . [facility] Comment on above: Performed By: #### P T, BNP, CK, PTT, BMP, HS TROP, CBC #### [address] Automated neutrophil %Ordere d By: Jamel Estrada on 04-02-2024 Neutrophils/100 WBC (Bld) 66.0 % Normal . [facility] Comment on above: Performed By: #### P T, BNP, CK, PTT, BMP, HS TROP, CBC #### [address] Complete Blood Count Auto Di ffon 04-02-2024 Mean Corpuscular HGB Conc 34.2 g/dL Normal 32.0-35.0 The Count Includes [facility] Comment on above: Performed By: #### P T, BNP, CK, PTT, BMP, HS TROP, CBC #### [address] NRBC% 0.1 /100{WBC} Normal 0-0.5 The Count Includes [facility] Comment on above: Performed By: #### P T, BNP, CK, PTT, BMP, HS TROP, CBC #### [address] Erythrocyte distribution wid th [Ratio] by Automated countOrdered By: Jamel Estrada on 04-02-2024 Erythrocyte distribution width (RBC) [Ratio] 13.4 % Normal 11.9-15.3 [facility] Comment on above: Performed By: #### P T, BNP, CK, PTT, BMP, HS TROP, CBC #### [address] Erythrocytes [#/volume] in B lood by Automated countOrdered By: Jamel Estrada on 04-02-2024 RBC (Bld) [#/Vol] 3.65 10*6/uL Normal 3.60-5.00 [facility] Comment on above: Performed By: #### P T, BNP, CK, PTT, BMP, HS TROP, CBC #### [address] HIV 1/O/2 Antigen/Antibodyon 04-02-2024 HIV Screen 4th Generation Non-Reactive Normal Non Reactive The Count Includes [facility] Comment on above: Result Comment: HIV- 1/HIV-2 antibodies and HIV-1 p24 antigen were NOT detected. There is no laboratory evidence of HIV infection. HIV Negative Performed at: [address] [id number] Tube Pusher: Gabriel Casillas PhD, Phone: [phone] Performed By: #### P T, BNP, CK, PTT, BMP, HS TROP, CBC #### [address] Hematocrit [Volume Fraction] of Blood by Automated countOrdered By: Jamel Estrada on 04-02-2024 Hematocrit (Bld) [Volume fraction] 33.2 % Low 34.0-46.4 [facility] Comment on above: Performed By: #### P T, BNP, CK, PTT, BMP, HS TROP, CBC #### [address] Hemoglobin [Mass/volume] in BloodOrdered By: Jamel Estrada on 04-02-2024 Hemoglobin (Bld) [Mass/Vol] 11.3 g/dL Low 11.8-15.4 [facility] Comment on above: Performed By: #### P T, BNP, CK, PTT, BMP, HS TROP, CBC #### [address] Hep C Ab wRfx to Qnt PCRon 0 04-02-2024 Hepatitis C Virus Antibody Non-Reactive Normal Non Reactive The Count Includes [facility] Comment on above: Performed By: #### P T, BNP, CK, PTT, BMP, HS TROP, CBC #### [address] Interpretation Hepatitis C Comment Normal . The Count Includes [facility] Comment on above: Result Comment: Not infected with HCV unless early or acute infection is suspected (which may be delayed in an immunocompromised individual), or other evidence exists to indicate HCV infection. Performed By: #### P T, BNP, CK, PTT, BMP, HS TROP, CBC #### [address] Hepatitis B Surface Antigeno n 04-02-2024 HBsAg Screen Negative Normal Negative The Count Includes [facility] Comment on above: Result Comment: Perf ormed at: - [facility] [address] [id number] Tube Pusher: Gabriel Casillas PhD, Phone: [phone] PERFORMED BY: [place] [address] PATHOLOGIST [employer] HELPER JAE GUERRA M.D. Performed By: #### P T, BNP, CK, PTT, BMP, HS TROP, CBC #### [address] Leukocytes [#/volume] correc ronnie for nucleated erythrocytes in Blood by Automated counOrdered By: Jamel Estrada on 04-02-2024 WBC corrected for nucl RBC Auto (Bld) [#/Vol] 7.3 10*3/uL 3.8-11.6 [facility] Leukocytes [#/volume] in Blo od by Automated countOrdered By: Jamel Estrada on 04-02-2024 WBC (Bld) [#/Vol] 7.3 10*3/uL Normal 3.8-11.6 [facility] Comment on above: Performed By: #### P T, BNP, CK, PTT, BMP, HS TROP, CBC #### [facility] [address] [place] [address] Lymphocytes [#/volume] in Bl ood by Automated countOrdered By: Jamel Estrada on 04-02-2024 Lymphocytes (Bld) [#/Vol] 1.6 10*3/uL Normal 1.00-4.8 [facility] Comment on above: Performed By: #### P T, BNP, CK, PTT, BMP, HS TROP, CBC #### [facility] [address] [place] [address] Lymphocytes/100 leukocytes i n Blood by Automated countOrdered By: Jamel Estrada on 04-02-2024 Lymphocytes/100 WBC (Bld) 22.5 % Normal . [facility] Comment on above: Performed By: #### P T, BNP, CK, PTT, BMP, HS TROP, CBC #### [facility] [address] [place] [address] MCH [Entitic mass] by Automa ronnie countOrdered By: Jamel Estrada on 04-02-2024 MCH (RBC) [Entitic mass] 31.0 pg Normal 24.7-34.3 [facility] Comment on above: Performed By: #### P T, BNP, CK, PTT, BMP, HS TROP, CBC #### [facility] [address] [place] [address] MCHC Auto (RBC) [Mass/Vol]Or dered By: Jamel Estrada on 04-02-2024 MCHC (RBC) [Mass/Vol] 34.2 g/dL 32.0-35.0 [facility] MCV [Entitic volume] by Auto mated countOrdered By: Jamel Estrada on 04-02-2024 MCV (RBC) [Entitic vol] 90.9 fL Normal 80-100 [facility] Comment on above: Performed By: #### P T, BNP, CK, PTT, BMP, HS TROP, CBC #### [address] Neutrophils [#/volume] in Bl ood by Automated countOrdered By: Jamel Estrada on 04-02-2024 Neutrophils (Bld) [#/Vol] 4.8 10*3/uL Normal 1.8-7.7 [facility] Comment on above: Performed By: #### P T, BNP, CK, PTT, BMP, HS TROP, CBC #### [facility] [address] [place] [address] Nucleated erythrocytes [Pres ence] in Blood by Automated countOrdered By: Jamel Estrada on 04-02-2024 Nucleated RBC Auto Ql (Bld) 0.1 /100{WBC} 0-0.5 [facility] Platelet mean volume [Entiti c volume] in Blood by Automated countOrdered By: Jamel Estrada on 04-02-2024 Platelet mean volume (Bld) [Entitic vol] 9.2 fL Normal 6.3-10.7 [facility] Comment on above: Performed By: #### P T, BNP, CK, PTT, BMP, HS TROP, CBC #### [facility] [address] [place] [address] Platelets [#/volume] in Bloo d by Automated countOrdered By: Jamel Estrada on 04-02-2024 Platelets (Bld) [#/Vol] 209 10*3/uL Normal 150-450 [facility] Comment on above: Performed By: #### P T, BNP, CK, PTT, BMP, HS TROP, CBC #### [address] RPR w/rfx to Quant TP Abson 04-02-2024 RPR, Rfx Quant RPR Non-Reactive Normal Non Reactive The Count Includes [facility] Comment on above: Result Comment: Perf ormed at: - [facility] [address] [id number] Tube Pusher: Gabriel Casillas PhD, Phone: [phone] PERFORMED BY: [place] [address] PATHOLOGIST [employer] HELPER JAE GUERRA M.D. Performed By: #### P T, BNP, CK, PTT, BMP, HS TROP, CBC #### [address] Rubella IgG Antibodyon 04-02 Rubella IgG Antibody 3.16 Normal Immune >0.99 The Count Includes [facility] Comment on above: Result Comment: Non- immune <0.90 Equivocal 0.90 - 0.99 Immune >0.99 Performed at: [facility] [id number] Tube Pusher: Gabriel Casillas PhD, Phone: [phone] Performed By: #### P T, BNP, CK, PTT, BMP, HS TROP, CBC #### [address] Type and Screenon 04-02-2024 ABO and Rh group Nom (Bld) Blood group O Rh(D) positive Normal The Count Includes [facility] Urine Cultureon 04-02-2024 Bacteria identified Cx Nom (U) <9,000 colonies/ml mixed bacterial skin contaminants 2 Days PERFORMED BY: [place] [address] PATHOLOGIST [employer] HELPER JAE GUERRA M.D. Normal The Count Includes [facility] Comment on above: Performed By: #### P T, BNP, CK, PTT, BMP, HS TROP, CBC #### [address] Choriogonadotropin.beta subu nit [Units/volume] in Serum or PlasmaOrdered By: Jamel Estrada on 02-27-2024 [place] [address].00 m[IU]/mL [facility] Comment on above: Approximate Approxim ate hCG Gestational Age Range (mIU/ml) (weeks)0.2-1 5-50 1-2 50-500 2-3 100-5,000 3-4 500-10,000 4-5 1,000-50,000 5-6 10,000-100,000 6-8 15,000-200,000 8-12 10,000-100,000 HCG,Quantitativeon 4 HCG,Quantitative 49311.00 m[iU]/mL Normal T he Count Includes [facility] Comment on above: Result Comment: Appr oximate Approximate hCG Gestational Age Range (mIU/ml) (weeks) 0.2-1 5-50 1-2 50-500 2-3 100-5,000 3-4 500-10,000 4-5 1,000-50,000 5-6 10,000-100,000 6-8 15,000-200,000 8-12 10,000-100,000 PERFORMED BY: [facility] [address] [place] [address] PATHOLOGIST [employer] HELPER JAE GUERRA M.D. Performed By: #### P T, BNP, CK, PTT, BMP, HS TROP, CBC #### [facility] [address] Coding Summary.on 02-14-2024 Coding Summary. [id number]+PG hlYWQ+ CA5NUXWgQ46jbCJerF1iZ4KALQ zMPpheTGYSRTeYAfCgxqSyAM5o aXNjZXJu IC8+NV8oUBOwTzoeuOHkq5G2oK G7Y94vli8gLWwkdUQ7TKStFfRl bulnq2cnwNk8PIxpXpwtIjJz POXrfX71EQR9gF30Tl54lBQpmY Vqn2nzxDe5RuVlVCEbMRY0xOzn JNwrk0NiISZcC33fcRPvd6V0 MTSlpNlwpIAjRsZywVX8uG5bUX zvuayll5wzajdnBoh6wp09kCSu e0Z4zRI4X9GafaP2CTEbxPTb WvfefPCApC9tljfrq4bjooffMs DpEVAdAWy7HWi6ETHqsXshWlQz CW59JHH8AKGmbpKcF2MqMHQg yPeaMdL4r7F1Hn3BC6RLLbvkG3 VNTUFSWTwvdGQ+ME46dh46T8Qn RswoFzd6ZEFjVCR4gHV1gG0d ILCkYPdph9F3sNK5W9EdihTygi 6qg6tvPEPnFNyvY42qcDShu5H7 VVHvmEW2QERjfSoyPwMsaR04 Oyc+JXVsbOiad0OwUryvs6sbl9 ybsKw5YmkaOWRxnpOqiTtcLSO8 i7BoOx6aOUUjrZM2yFJ4pI0v BpRuZsX8VYjfQ814LbMizJVbWk owC44gJ2IwwHA+YXDlItx0CIOo jJitKW5cN4UlCDGxthplpWAw aVzxZO1kWOXlxosjFKYisD1tVY SsS0d8MhRnWtP1RMvuN0PuHXEn pqopJd33wW6uWnQwGwO3PMxu F0ZywxS4KTGdlABzVUeiIDV5N1 6kp2H9PFZdRCSwBWC3aZV3dQ3c bGlnbjogbGVmdDsgdmVydGlj HXevAWfcN081LMJtgHwsAmDlLO luZyBEYXRlOiAgMDYvMjAvMjAy NDwvdGQ+XPOmPRK2oMgkCUEv xQKrOQeoUw8qvQbnbDhmQS3iJN UiwlroGFXjbJ6lOYTbaHQxiNib SR1bNJQdnrsee072UtTvBCF2 HSEgyUJiE8BqgB1mGsNcBRQxKT MdP3DmzTBhXRckX787QBszVvT7 CWMzejOwB1JrEWMcnOhsEpK3 g7F3Lz9Uv4SrhskcI7FrbEYsOw YsCwbjTSq6M2PdNwioePQ+PC90 SOMaNP34JKg3YXM2tWtgORye JSNoF0HxoX4dBeRaDYSmUCSlYv c+PHRhYmxlIHdpZHRoPScxMDAl McWbqWcoSG1iZp1vOCQgBHIl uRnxcYByBgTkx4jcKXVlVSmiHK 2lzYxoB2DjvXR9LWBxh0k3Ep67 D02nF2TdfKZ+XQOzuQR2zGU2 yF3xEzDgAvY7KImxZ663CvZmfZ CnMpgtb4tai9nhzUc4UjA0QCHw yeQiwDdoDIH9a3SiNi83D13q IHdpZHRoPSIxNSUiIHZhbGlnbj 0hpK5oCa7+VQGnvPA1uWS4yO0h JtSmWsF0RQcvT913VyTruKSk Nzwxj0ouf9alzRl8VpPrWZIaay KzwXjmQSY3v9NvNw33V0NosWtx k6MgTsr1ew98kOHuw7M0aSB7 O2ZwFYSskjztoVBkwAqoAQ6tLI DeuotrTXYcmO0hLWErH0o0KnWu QkQ6VNsoV6FratM2XVDbsVQa FRQqmAIDlB6rejtpa6ceyppwBb NaKMKgDHg3YGu4GKDbbZujXkVo CNP6SoI6ASB1zUKzmZ2zkGlb xbmygJ2aOsg+HIO4pDXieYJUCK 1lOjwvdGQ+WLKtMIS7kAjcGCpn SCJogJ9pTYXuY9m6VpAwOlT2 QCsuI6PrbeR9SQXgpWNkCAKtnL SSwX2fekrdx8vqhivjXkLmOVNc VPd3HQa7JWHfyWbzTwLoCOW4 JeW3AEX9bIWivN4hxNtvgorzwK 9wOyc+JzwdjEsqNOE2IKg7G2Is Tjq0IKHojEssLG4qnHJpUEkg Tb4lsJkfyThaDH4dFRLczwsla0 88MuFnq8uxJGZbrIKzENunEKN4 U61jf4Y7GZEsTGQiCPE4iTI6 fD9ynOxrebocaYPecGwimxSpnP roORdvXBhyM432NQJuqRuvViBb BGm6Q8QfUbk3PXCagQihCI1b pUEoDJakRc3xxIietQcpDE1mEF Cdzxgdz423BhMka1kkSUOewDDv AMixEZG3T65ua3R0NBMsNNUb IPI9kEW2cM6mpRkcurngeXUtiA pzdzZzsHpaNYxtTYomE206VKZl hDrrJqXtfYh3Y0ZnMnt0IDJf iQvrKC5goEWnJDtkYt7xdPkwjP yoNZ0bGGGizvdmj933YdIvr8lf IXYfqFRuQNhlZIT3X56zo0W6 AUSuITLgRQQ6fKX0mK1isQbuaw ogbGVmdDsgdmVydGljYWwtYWxp R810EIDseNmoIaXryTjtlqVh OWucIHk7Y5BkKzarePD+PC90YW AtTJ85wDLpbBMds4gazOj4GiKp FNJxTHR5bCtaTNghk9IsSQPl X47loGCai6T0UJDgqDhfdPYrGh EfcNC2hH9zZZxjkqqgt0bpcobn Cuwta5rqvn61dG12V41oAZqr HYBzWHMaPGXcWABowQkdyw9hfW 9wIi8+RGKgePZ0zMF3vG1pKQTl LoF6RIhxN832YqRxwBTeIlkx p5mrf6jkoEt4FkI8IFIpbhVdhL jkGOY8e5CoMf21U87tHRgmZOFx MGMtXVNoZMFmfJkxoa2kgG7n Ii8+GHSrvQY0wKC7sN6xJwCmAu F3NDrkT240VbXxdQBtQeriJ78s Y4TucGR+FOXjNzd1OSUjvDja UY4uvUFnJRbxQv5vZWN3BaGdRo RrLHesL9ZiGPLjtvihqngnpXR4 MBKySTRdgQ94Ku6puAqlWHMc hDTFcH0xpvifn5nvcwuwDqNhID VpEZd7LXx4DPDowDdgEyQgKKJ8 HyV2ADX9bUSjaX6gnQsnfnef vW1qQ9ZqNOUeftzcDt30bN2kLd BnGsW7KOxkUyo+TUVZRVIsIENB J4bCPD08QT01sGOdd1W2fLZ3 X8TnJEHcrfjjbkiadUJ2RZSkXS FqxY78vHMyHFndGu6ds6K7r332 OVCjEEDjpA32Dq5ppXxaWKRv zMKSqA6jruwak9dwltxqFeLpOQ VnRSo0DJa0FLAsjFveRzJxMFS6 JyL0PTE0oSQwpZ7dyMrvfgkh kS8kQfe+PHNqEVevKEn4SnlhgY Q+RYOtCKR2yXvqXWpwOYSaoQ7b QHFpE9t6IgZtPqH4XLqgT3Kt IAAjiuhrDi43iJ7sVzQwNiU3ZU ynT9AwhiY0BGDelSTpQGwaOPT9 G88jc9S8JXOxLMWwSCY8cVZ8 bJ8zoQlabwdupYTsyQqgncGdgJ srEHlwLVvaC692USKqjSgfZmC9 TLgvACVjWX46AM42sBIkp5F3 gMG6V4ElZXBrdqcnppmknKP0ZY ZaQPXbzV79oFWqZFheAa9aq4K1 a836FPIaVPZvlX88Vz2ppOhq WBGquJRJtY1fmletu1mqzgpqAq UtGXLrXMz6GCg4JIKbmEupLjSd SHZ1MbE9XZF6hCStgD4pgNsn xdpbuF8yRxx+YaPeQDvfAF70EM 71kTGxs7W9wPE3D8OqRCJepxwj hszakGI4FVMuKLLyoD78aCBw LHtqVt7jt7R6d091AOYlVZWkdO 81Yw3xvIimFKDrsAOTgF5iqcwn e7ewyjaoWbBaLALtXOg7QLo9 FOIljQccOiMeFTK6SmC9TKC3sN YxrN0lkNbrpccagF2xUuv+T3V0 nKX3iURoeOdspXS+AD77wo75 J7LkOhgbEyq2LOAzVZR2vCW4sC 2oJCUnJTvor4H1dUI4W1RaxyOl iw9ca1siICZlKNubT37zqJLs g5A5RLMogWN2BFDjyLezOpDytU 93Oyc+QVFftMbjg8IeHtlsd2gd q8kawGh9NnTxKLCepgXpzNlj GRM2l6QbJj74R45aQCdyCZNzMA UbWQXiWYHooXpnth6nrO2sXt8+ TPWxkDY1lRP9aO0cOfDgCoO7 KFdpL931FfVteCRqWoqna9jxt2 mkoZz8SfDiCJRkktOvmUjaBDE9 q3MlOm83O4BayZlif6VnIam5 vr97qIIwz2Q9fFC0M0MpJHHylw hkfEFopBbaCS1gFKCotakyEVOd rB3uWBYgT1d2KyNlWyB1OSxu Z7IfjsS1UWAgrTAzNHHzmCIAjL 3jbjfpt6gatjuoBxWlQZLsNHj6 WHz3YBWsjFugDjIqFXF2KsE4 ZNZ4vAYxdF7rpNlezrtznT9kPg c+RSn2s3wkuWAiZX3hfTN8YN06 PL96rKDqp4Q2kKS1C1HmCZRa xhmkyxqgiPX3UFVvLEKdnF65Tl 1rxDaiSj2iXTRrMLF5BVLetKRv A9LksF5nGrYjWNUdHGVxA4Ex aTLkMXxtL698ALgwVvI1VOVvso KkZ0JzBOFkfCicJsW0x5D4Oy1U IE08EM48YJ58sFBie3E0dTD7 C3XvFOSjzlxcevllkAX3OXBgAN OzrU28Xq3hzEayTm7bSJVbCHQ7 NXOlnDSwO7TfsV9qZlEzXTLk WTGwQ0BlbANeMVkvN433RHpaIj A6HLRijxSuE9EfWTHkmAljZyD7 u1M8Ok1VPd25CW88YA14dOTo f8R0zLA4X3OkRIJxxpbreibesH W5UDFrZVAjjQ68Qw3htMpuWb1e QZQgFKZ1PNPrzNHyU5SscZ2e BdAfCGEeKOMvW4DthBNxCRvxV2 06UDvtFuP5WRTavsSsV3DmKMGq hIliStS9n3N4Of3GXGqvoqs3 W5PyVucpdPX+FK80ROQvBM58bL ZgnAVam1wkxFd0YfPjMCJePAK8 zQxlOPgze7HtQOGiV97wgWGe k9B7XFXtpGqgy (more content not included)... Normal [facility] Consent for Treatmenton 01-25 Consent for Treatment [id number] Normal [facility] Activated partial thrombopla stin time (aPTT) in platelet poor plasma by coagulation aOrdered By: Smooth Dooley on 02-01-2024 aPTT Coag (PPP) [Time] 31.3 s 25.1-36.5 [facility] Comment on above: A hematocrit value g reater than 55% may lead to inaccurate results in coagulation testing. Patients having hematocrit values >55% require a special collection tube for coagulation studies. Please contact the laboratory at [phone] for redraw instructions. Automated basophil %Ordered By: Smooth Dooley on 02-01-2024 Basophils/100 WBC (Bld) 1.1 % Normal . [facility] Comment on above: Performed By: #### P T, BNP, CK, PTT, BMP, HS TROP, CBC #### [facility] [address] Automated basophil countOrde red By: Smooth Dooley on 02-01-2024 Basophils (Bld) [#/Vol] 0.1 10*3/uL Normal 0.0-0.2 [facility] Comment on above: Result Comment: PERF ORMED BY: [place] [address] PATHOLOGIST [employer] JAE GUERRA M.D. Performed By: #### P T, BNP, CK, PTT, BMP, HS TROP, CBC #### [address] Automated blood monocyte cou ntOrdered By: Smooth Dooley on 02-01-2024 Monocytes (Bld) [#/Vol] 0.5 10*3/uL Normal 0.0-0.8 [facility] Comment on above: Performed By: #### P T, BNP, CK, PTT, BMP, HS TROP, CBC #### [facility] [address] Automated eosinophil %Ordere d By: Smooth Dooley on 02-01-2024 Eosinophils/100 WBC (Bld) 3.0 % Normal . [facility] Comment on above: Performed By: #### P T, BNP, CK, PTT, BMP, HS TROP, CBC #### [facility] [address] Automated eosinophil countOr dered By: Smooth Dooley on 02-01-2024 Eosinophils (Bld) [#/Vol] 0.2 10*3/uL Normal 0.0-0.45 [facility] Comment on above: Performed By: #### P T, BNP, CK, PTT, BMP, HS TROP, CBC #### [address] Automated monocyte %Ordered By: Smooth Dooley on 02-01-2024 Monocytes/100 WBC (Bld) 7.0 % Normal . [facility] Comment on above: Performed By: #### P T, BNP, CK, PTT, BMP, HS TROP, CBC #### [address] Automated neutrophil %Ordere d By: Smooth Dooley on 02-01-2024 Neutrophils/100 WBC (Bld) 59.1 % Normal . [facility] Comment on above: Performed By: #### P T, BNP, CK, PTT, BMP, HS TROP, CBC #### [address] BNP ser/plasOrdered By: Smooth Dooley on 02-01-2024 Natriuretic peptide B (Bld) [Mass/Vol] 7.0 pg/mL Normal 5-100 [facility] Comment on above: Result Comment: PERF ORMED BY: [place] [address] PATHOLOGIST [employer] HELPER JAE GUERRA M.D. Performed By: #### P T, BNP, CK, PTT, BMP, HS TROP, CBC #### [address] Basic Metabolic Panelon 060 Creatinine Clr Calc Pharmacy 106.09 Normal The Count Includes [facility] Comment on above: Result Comment: PERF ORMED BY: [place] [address] PATHOLOGIST [employer] HELPER JAE GUERRA M.D. Performed By: #### P T, BNP, CK, PTT, BMP, HS TROP, CBC #### [address] GFR/1.73 sq M.predicted MDRD (S/P/Bld) [Vol rate/Area] mL/min/{1.73_m2} Normal The Count Includes [facility] Comment on above: Performed By: #### P T, BNP, CK, PTT, BMP, HS TROP, CBC #### [facility] [address] [id number] [facility] Bilirubin Test strip Ql (U)O rdered By: Smooth Dooley on 02-01-2024 Bilirubin Ql (U) Negative Negative [facility] CT head/brain wo conon 01-31 CT head/brain wo con [facility] Main [place] [address] [place] [address] CT Scan Report Signed Patient: Rao Choi MR#: [id number] 7 : 1995 Acct:[id number] Age/Sex: 28 / F ADM Date: 02/01/24 Loc: ER Room: Type: [facility] ER Attending Dr: Copies to: Smooth Dooley [...] Elsa Malone M.D.02/01/2024 2:36 PM Dictation Location: [place] [address] Transcribed By: [facility] 02/01/24 143 Dictated By: Elsa Malone MD 02/01/24 143 Signed By: 02/01/24 143 Normal The Count Includes [facility] Calcium [Mass/volume] in Ser um or PlasmaOrdered By: Smooth Dooley on 02-01-2024 Calcium [Mass/Vol] 9.3 mg/dL Normal 8.6-10.3 [facility] Comment on above: Performed By: #### P T, BNP, CK, PTT, BMP, HS TROP, CBC #### [address] Carbon dioxide, total [Moles /volume] in Serum or PlasmaOrdered By: Smooth Dooley on 02-01-2024 CO2 [Moles/Vol] 28.7 mmol/L Normal 21.0-31.0 [facility] Comment on above: Performed By: #### P T, BNP, CK, PTT, BMP, HS TROP, CBC #### [address] Chloride [Moles/volume] in S yecenia or PlasmaOrdered By: Smooth Dooley on 02-01-2024 Chloride [Moles/Vol] 102 mmol/L Normal 98-107 [facility] Comment on above: Performed By: #### P T, BNP, CK, PTT, BMP, HS TROP, CBC #### [address] Color of Urine by AutoOrdere d By: Smooth Dooley on 02-01-2024 Color (U) Light-yellow Normal Yellow [facility] Comment on above: Order Comment: Name Collection Type:: Clean-Voided Midstream Performed By: #### P T, BNP, CK, PTT, BMP, HS TROP, CBC #### [address] Complete Blood Count Auto Di ffon 02-01-2024 Mean Corpuscular HGB Conc 33.7 g/dL Normal 32.0-35.0 The Count Includes [facility] Comment on above: Performed By: #### P T, BNP, CK, PTT, BMP, HS TROP, CBC #### [place] [address] [place] Monocytes/100 WBC (Bld) 17.28 % Normal 0.00-20.00 The Count Includes [facility] Comment on above: Performed By: #### P T, BNP, CK, PTT, BMP, HS TROP, CBC #### [place] [address] [place] NRBC% 0.1 /100{WBC} Normal 0-0.5 The Count Includes [facility] Comment on above: Performed By: #### P T, BNP, CK, PTT, BMP, HS TROP, CBC #### [facility] [address] Creatine kinase [Enzymatic a ctivity/volume] in Serum or PlasmaOrdered By: Smooth Dooley on 02-01-2024 CK [Catalytic activity/Vol] 74 U/L Normal 30-223 [facility] Comment on above: Performed By: #### P T, BNP, CK, PTT, BMP, HS TROP, CBC #### [facility] [address] Creatinine [Mass/volume] in Serum or PlasmaOrdered By: Smooth Dooley on 02-01-2024 Creatinine [Mass/Vol] 0.63 mg/dL Normal 0.60-1.20 [facility] Comment on above: Performed By: #### P T, BNP, CK, PTT, BMP, HS TROP, CBC #### [facility] [address] D-Dimer High Sensitivityon 0 02-01-2024 D-Dimer High Sensitivity < 200 Normal 0-243 The Count Includes [facility] Comment on above: Result [...] coagulation studies. Please contact the laboratory at [phone] for redraw instructions. PERFORMED BY: [address] [place] [address] PATHOLOGIST [employer] HELPER JAE GUERRA M.D. Performed By: #### P T, BNP, CK, PTT, BMP, HS TROP, CBC #### [facility] [address] [place], [place] [id number] [facility] ECG 12 lead ECGon 02-01-2024 ECG 12 lead ECG [facility] Main [place] [address] [place] [address] Electrocardiograph Report Signed Patient: Rao Choi MR#: [id number] 7 : 1995 Acct:[id number] Age/Sex: 28 / F ADM Date: 02/01/24 Loc: ER Room: Type: [facility] ER Attending Dr: Ordering Provider: Smooth Dooley [...] ECGs available Confirmed by SMOOTH DOOLEY DO ([id number]) on 02/01/2024 3:56:12 PM Referred By: Electronically Signed By:SMOOTH DOOLEY DO Transcribed By: MUS Signed By Smooth Dooley DO 01/31 1556 Normal The Count Includes [facility] Erythrocyte distribution wid th [Ratio] by Automated countOrdered By: Smooth Dooley on 02-01-2024 Erythrocyte distribution width (RBC) [Ratio] 13.1 % Normal 11.9-15.3 [facility] Comment on above: Performed By: #### P T, BNP, CK, PTT, BMP, HS TROP, CBC #### [facility] [address] [place], [place] [id number] [facility] Erythrocytes [#/volume] in B lood by Automated countOrdered By: Smooth Dooley on 02-01-2024 RBC (Bld) [#/Vol] 4.43 10*6/uL Normal 3.60-5.00 [facility] Comment on above: Performed By: #### P T, BNP, CK, PTT, BMP, HS TROP, CBC #### [facility] [address] [id number] [place] Fibrin D-dimer [Presence] in Platelet poor plasma by Latex agglutinationOrdered By: Smooth Dooley on 02-01-2024 Fibrin D-dimer LA Ql (PPP) < 200 ng/mL 0-243 [facility] Comment on above: The reference range for [...] coagulation studies. Please contact the laboratory at [phone] for redraw instructions. Glucose [Mass/volume] in Ser um or PlasmaOrdered By: Smooth Dooley on 02-01-2024 Glucose [Mass/Vol] 99 mg/dL Normal 70-100 [facility] Comment on above: ADA recommended refe rence rangeRandom Glucose Reference Range is dependent on time and content of last meal. Glucose of more than 200 mg/dL in a nonstressed, ambulatory subject supports the diagnosis of Diabetes Mellitus. Result Comment: Martin om Glucose Reference Range is dependent on time and content of last meal. Glucose of more than 200 mg/dL in a nonstressed, ambulatory subject supports the diagnosis of Diabetes Mellitus. ADA recommended reference range Performed By: #### P T, BNP, CK, PTT, BMP, HS TROP, CBC #### [facility] [address] [place] [address] [facility] Glucose [Mass/volume] in Uri ne by Test stripOrdered By: Smooth Dooley on 02-01-2024 Glucose Test strip (U) [Mass/Vol] Normal mg/dL Normal [facility] HCG ( test) IA.rapi d Ql (U)Ordered By: Smooth Dooley on 02-01-2024 HCG ( test) Ql (U) Negative [facility] HCG,Urineon 02-01-2024 Beta HCG ( test) Ql (U) Negative Normal The Count Includes [facility] Comment on above: Order Comment: Name Collection Type:: Clean-Voided Midstream Result Comment: PERF ORMED BY: [place] [address] PATHOLOGIST [employer] HELPER JAE GUERRA M.D. Performed By: #### P T, BNP, CK, PTT, BMP, HS TROP, CBC #### [facility] [address] [place] [address] Hematocrit [Volume Fraction] of Blood by Automated countOrdered By: Smooth Dooley on 02-01-2024 Hematocrit (Bld) [Volume fraction] 39.8 % Normal 34.0-46.4 [facility] Comment on above: Performed By: #### P T, BNP, CK, PTT, BMP, HS TROP, CBC #### [address] Hemoglobin Test strip Ql (U) Ordered By: Smooth Dooley on 02-01-2024 Hemoglobin Ql (U) Negative Negative [facility] Hemoglobin [Mass/volume] in BloodOrdered By: Smooth Dooley on 02-01-2024 Hemoglobin (Bld) [Mass/Vol] 13.4 g/dL Normal 11.8-15.4 [facility] Comment on above: Performed By: #### P T, BNP, CK, PTT, BMP, HS TROP, CBC #### [facility] [address] [place] [address] INR in Platelet poor plasma by Coagulation assayOrdered By: Smooth Dooley on 02-01-2024 INR Coag (PPP) [Relative time] 1.0 {INR} Normal [facility] Comment on above: INR Therapeutic Rang e [...] CK, PTT, BMP, HS TROP, CBC #### [place] [address] [place] Ketones [Presence] in Urine by Test stripOrdered By: Smooth Dooley on 02-01-2024 Ketones Ql (U) Negative Normal Negative [facility] Comment on above: Order Comment: Name Collection Type:: Clean-Voided Midstream Performed By: #### P T, BNP, CK, PTT, BMP, HS TROP, CBC #### [place] [address] [place] Leukocyte esterase [Presence ] in Urine by Test stripOrdered By: Smooth Dooley on 02-01-2024 Leukocyte esterase Test strip Ql (U) Negative Normal Negative [facility] Comment on above: Order Comment: Name Collection Type:: Clean-Voided Midstream Performed By: #### P T, BNP, CK, PTT, BMP, HS TROP, CBC #### [place] [address] [place] Leukocytes [#/volume] correc ronnie for nucleated erythrocytes in Blood by Automated counOrdered By: Smooth Dooley on 02-01-2024 WBC corrected for nucl RBC Auto (Bld) [#/Vol] 6.7 10*3/uL 3.8-11.6 [facility] Leukocytes [#/volume] in Blo od by Automated countOrdered By: Smooth Dooley on 02-01-2024 WBC (Bld) [#/Vol] 6.7 10*3/uL Normal 3.8-11.6 [facility] Comment on above: Performed By: #### P T, BNP, CK, PTT, BMP, HS TROP, CBC #### [facility] [address] Lymphocytes [#/volume] in Bl ood by Automated countOrdered By: Smooth Dooley on 02-01-2024 Lymphocytes (Bld) [#/Vol] 2.0 10*3/uL Normal 1.00-4.8 [facility] Comment on above: Performed By: #### P T, BNP, CK, PTT, BMP, HS TROP, CBC #### [facility] [address] [place] [address] [place] Lymphocytes/100 leukocytes i n Blood by Automated countOrdered By: Smooth Dooley on 02-01-2024 Lymphocytes/100 WBC (Bld) 29.8 % Normal . [facility] Comment on above: Performed By: #### P T, BNP, CK, PTT, BMP, HS TROP, CBC #### [address] MCH [Entitic mass] by Automa ronnie countOrdered By: Smooth Dooley on 02-01-2024 MCH (RBC) [Entitic mass] 30.3 pg Normal 24.7-34.3 [facility] Comment on above: Performed By: #### P T, BNP, CK, PTT, BMP, HS TROP, CBC #### [address] MCHC Auto (RBC) [Mass/Vol]Or dered By: Smooth Dooley on 02-01-2024 MCHC (RBC) [Mass/Vol] 33.7 g/dL 32.0-35.0 [facility] MCV [Entitic volume] by Auto mated countOrdered By: Smooth Dooley on 02-01-2024 MCV (RBC) [Entitic vol] 90.0 fL Normal 80-100 [facility] Comment on above: Performed By: #### P T, BNP, CK, PTT, BMP, HS TROP, CBC #### [place] [address] [place] Monocyte distribution width [Entitic volume] in Blood by AutomatedOrdered By: Smooth Dooley on 02-01-2024 Monocyte distribution width Auto (Bld) [Entitic vol] 17.28 % 0.00-20.00 [facility] Neutrophils [#/volume] in Bl ood by Automated countOrdered By: Smooth Dooley on 02-01-2024 Neutrophils (Bld) [#/Vol] 3.9 10*3/uL Normal 1.8-7.7 [facility] Comment on above: Performed By: #### P T, BNP, CK, PTT, BMP, HS TROP, CBC #### [facility] [address] Nitrite Test strip Ql (U)Ord ered By: Smooth Dooley on 02-01-2024 Nitrite Ql (U) Negative Negative [facility] No Panel InformationOrdered By: Smooth Dooley on 02-01-2024 Estimated GFR (CKD-EPI) > 60.0 mL/Min [facility] Creatinine Clearance (Chem 106.09 [facility] Nucleated erythrocytes [Pres ence] in Blood by Automated countOrdered By: Smooth Dooley on 02-01-2024 Nucleated RBC Auto Ql (Bld) 0.1 /100{WBC} 0-0.5 [facility] Partial Thromboplastin Timeo n 02-01-2024 aPTT Coag (Bld) [Time] 31.3 s Normal 25.1-36.5 Th e Count Includes [facility] Comment on above: Result Comment: A he matocrit value greater than 55% may lead to inaccurate results in coagulation testing. Patients having hematocrit values >55% require a special collection tube for coagulation studies. Please contact the laboratory at [phone] for redraw instructions. PERFORMED BY: [facility] [address] [place] [address] PATHOLOGIST [employer] HELPER JAE GUERRA M.D. Performed By: #### P T, BNP, CK, PTT, BMP, HS TROP, CBC #### [facility] [address] Physician Orderon 02-01-2024 Physician Order [id number] Normal [facility] Platelet mean volume [Entiti c volume] in Blood by Automated countOrdered By: Smooth Dooley on 02-01-2024 Platelet mean volume (Bld) [Entitic vol] 8.4 fL Normal 6.3-10.7 [facility] Comment on above: Performed By: #### P T, BNP, CK, PTT, BMP, HS TROP, CBC #### [facility] [address] Platelets [#/volume] in Bloo d by Automated countOrdered By: Smooth Dooley on 02-01-2024 Platelets (Bld) [#/Vol] 232 10*3/uL Normal 150-450 [facility] Comment on above: Performed By: #### P T, BNP, CK, PTT, BMP, HS TROP, CBC #### [facility] [address] Potassium [Moles/volume] in Serum or PlasmaOrdered By: Smooth Dooley on 02-01-2024 Potassium [Moles/Vol] 3.6 mmol/L Normal 3.5-5.1 [facility] Comment on above: Performed By: #### P T, BNP, CK, PTT, BMP, HS TROP, CBC #### [facility] [address] Protein Test strip (U) [Mass /Vol]Ordered By: Smooth Dooley on 02-01-2024 Protein (U) [Mass/Vol] Negative Negative [facility] [place] [facility] Prothrombin time (PT)Ordered By: Smooth Dooley on 02-01-2024 PT Coag (PPP) [Time] 11.9 s Normal 9.0-12.9 [facility] Comment on above: A hematocrit value g reater than 55% may lead to inaccurate results in coagulation testing. Patients having hematocrit values >55% require a special collection tube for coagulation studies. Please contact the laboratory at [phone] for redraw instructions. Result Comment: A he matocrit value greater than 55% may lead to inaccurate results in coagulation testing. Patients having hematocrit values >55% require a special collection tube for coagulation studies. Please contact the laboratory at [phone] for redraw instructions. Performed By: #### P T, BNP, CK, PTT, BMP, HS TROP, CBC #### [facility] [address] Serum or plasma anion gap de terminationOrdered By: Smooth Dooley on 02-01-2024 Anion gap [Moles/Vol] 10.9 mmol/L Normal 6.0-15.0 [facility] [place] [facility] Comment on above: Performed By: #### P T, BNP, CK, PTT, BMP, HS TROP, CBC #### [facility] [address] Sodium [Moles/volume] in Ser um or PlasmaOrdered By: Smooth Dooley on 02-01-2024 Sodium [Moles/Vol] 138 mmol/L Normal 136-145 [facility] Comment on above: Performed By: #### P T, BNP, CK, PTT, BMP, HS TROP, CBC #### [address] Specific gravity Test strip (U) [Rel density]Ordered By: Smooth Dooley on 02-01-2024 Specific gravity (U) [Rel density] 1.011 1.001-1.030 [facility] Troponin I High Sensitivityo n 02-01-2024 Troponin I High Sensitivity 5.2 pg/mL Normal 0.0-15.0 The Count Includes [facility] Comment on above: Result Comment: PERF ORMED BY: [place] [address] PATHOLOGIST [employer] HELPER JAE GUERRA M.D. Performed By: #### P T, BNP, CK, PTT, BMP, HS TROP, CBC #### [address] Troponin I High Sensitivity < 2.3 Normal 0.0-15.0 The Count Includes [facility] Comment on above: Result Comment: PERF ORMED BY: [place] [address] PATHOLOGIST [employer] HELPER JAE GUERRA M.D. Performed By: #### P T, BNP, CK, PTT, BMP, HS TROP, CBC #### [facility] [address] Troponin I.cardiac [Mass/vol ume] in Serum or Plasma by Detection limit <= 0.01 ng/Ordered By: Smooth Dooley on 02-01-2024 Troponin I.cardiac DL <= 0.01 ng/mL [Mass/Vol] 5.2 pg/mL 0.0-15.0 [facility] Urea nitrogen [Mass/volume] in Serum or PlasmaOrdered By: Smooth Dooley on 02-01-2024 Urea nitrogen [Mass/Vol] 13 mg/dL Normal 7-25 [facility] Comment on above: Performed By: #### P T, BNP, CK, PTT, BMP, HS TROP, CBC #### [facility] [address] Urinalysison 02-01-2024 Bilirubin,Urine Negative Normal Negative The Count Includes [facility] Comment on above: Order Comment: Name Collection Type:: Clean-Voided Midstream Performed By: #### P T, BNP, CK, PTT, BMP, HS TROP, CBC #### [facility] [address] Glucose Ql (U) Normal Normal Normal The Count Includes [facility] Comment on above: Order Comment: Name Collection Type:: Clean-Voided Midstream Performed By: #### P T, BNP, CK, PTT, BMP, HS TROP, CBC #### [facility] [address] Nitrite,Urine Negative Normal Negative The Count Includes [facility] Comment on above: Order Comment: Name Collection Type:: Clean-Voided Midstream Performed By: #### P T, BNP, CK, PTT, BMP, HS TROP, CBC #### [facility] [address] [place] [address] [place] Occult Blood,Urine Negative Normal Negative The Count Includes [facility] Comment on above: Order Comment: Name Collection Type:: Clean-Voided Midstream Performed By: #### P T, BNP, CK, PTT, BMP, HS TROP, CBC #### [facility] [address] Protein,Urine Negative Normal Negative The Count Includes [facility] Comment on above: Order Comment: Name Collection Type:: Clean-Voided Midstream Performed By: #### P T, BNP, CK, PTT, BMP, HS TROP, CBC #### [address] Specificy [place],Urine 1.011 Normal 1.001-1.030 The Count Includes [facility] Comment on above: Order Comment: Name Collection Type:: Clean-Voided Midstream Performed By: #### P T, BNP, CK, PTT, BMP, HS TROP, CBC #### [address] Urobilinogen,Urine Normal Normal Normal The Count Includes [facility] Comment on above: Order Comment: Name Collection Type:: Clean-Voided Midstream Performed By: #### P T, BNP, CK, PTT, BMP, HS TROP, CBC #### [address] Urine appearanceOrdered By: Smooth Dooley on 02-01-2024 Appearance (U) Clear Normal Clear [facility] Comment on above: Order Comment: Name Collection Type:: Clean-Voided Midstream Performed By: #### P T, BNP, CK, PTT, BMP, HS TROP, CBC #### [address] Urobilinogen Test strip (U) [Mass/Vol]Ordered By: Smooth Dooley on 02-01-2024 Urobilinogen (U) [Mass/Vol] Normal mg/dL Normal [facility] XR chest 2V*on 02-01-2024 XR chest 2V* [facility] [place] [address] XRay Report Signed Patient: Rao Choi MR#: [id number] 7 : 1995 Acct:[id number] Age/Sex: 28 / F ADM Date: 02/01/24 [...] Elsa Malone M.D.02/01/2024 12:34 PM Dictation Location: [place] [address] Transcribed By: [facility] 02/01/24 1234 Dictated By: Elsa Malone MD 02/01/24 1233 Signed By: 02/01/24 1234 Normal The Count Includes [facility] pH of Urine by Test stripOrd ered By: Smooth Dooley on 02-01-2024 pH (U) 7.0 [pH] Normal 5.0-9.0 [facility] Comment on above: Order Comment: Name Collection Type:: Clean-Voided Midstream Performed By: #### P T, BNP, CK, PTT, BMP, HS TROP, CBC #### [facility] [address] Pulmonary Function Studieson 05-16-2023 Pulmonary Function [...] BY: Nicole Paredes M.D. lr Dictated: 05/13/2023 [id number] Transcribed: 05/14/2023 cc:Melissa Laura D.O. [facility] Comment on above: Result Comment: Elec tronically Signed By: Lena GRACE, Nicole Mata\.br\Date and Time Signed: 05/16/23 09:49 EDT Consent for Treatmenton 04-27 Consent for Treatment [id number]:127 [facility] Pulmonary Function Testson 0 05-09-2023 Pulmonary Function Tests [id number]:127 [facility] Physician Orderon 04-27-2023 Physician Order [id number]#1.00CD:127 [facility] Physician Order [id number]:127 [facility] XR Chest 2 Viewson XR Chest 2 Views Exam Date/Time: 04/23/2023 [...] in mGy = na DAP = na [facility] Consent for Treatmenton 03-28 Consent for Treatment [id number]:127 [facility] Physician Orderon 04-23-2023 Physician Order [id number]:127 Normal [facility] XR Chest 2 Viewson 3 XR Chest [...] in mGy = na DAP = na [facility] Consent for Treatmenton 03-27 Consent for Treatment [id number]:127 Normal [facility] Physician Orderon 04-11-2023 Physician Order [id number]#[id number]:127 [facility] PAP ACOG PANEL 2: 21 to 29on 12-14-2022 . . [facility] Comment on above: Performed By: #### [id number] #### [facility] [address] [address] [address] Hilary Higginbotham Age Gdln ACOG Testing 22- [facility] Comment on above: Performed By: #### 4 [id number] #### [facility] [address] [address] [address] Hilary Higginbotham DIAGNOSIS: Comment [facility] Comment on above: Result Comment: NEGA TIVE FOR INTRAEPITHELIAL LESION OR MALIGNANCY. Performed By: #### 4 [id number] #### [facility] [address] [address] [address] Hilary Higginbotham Methodology: Comment [facility] Comment on above: Result Comment: This liquid based ThinPrep(R) pap test was screened with the use of an image guided system. Performed By: #### 4 [id number] #### [facility] [address] [place] [address] Dr. Hilary Higginbotham Note: Comment [facility] Comment on above: Result Comment: The Pap smear is a screening test designed to aid in the detection of premalignant and malignant conditions of the uterine cervix. It is not a diagnostic procedure and should not be used as the sole means of detecting cervical cancer. Both false-positive and false-negative reports do occur. . Performed By: #### 4 [id number] #### [facility] [address] [place] [address] Dr. Hilary Higginbotham Performed by: Comment Normal [facility] Comment on above: Result Comment: Dann Scott Business Director (ASCP) Performed By: #### 4 [id number] #### [facility] [address] [place] [address] Dr. Hilary Higginbotham Reflex Criteria: Comment [facility] Comment on above: Result Comment: The HPV DNA reflex criteria were not met with this specimen result therefore, no HPV testing was performed. . Performed By: #### 4 [id number] #### [facility] [address] [place] [address] Dr. Hilary Higginbotham Specimen adequacy: Comment [facility] Comment on above: Result Comment: Sati sfactory for evaluation. Endocervical and/or squamous metaplastic cells (endocervical component) are present. Performed By: #### [id number] #### [facility] [address] [place] [address] Dr. Hilary Higginbotham Vital Signs Date Time Vital Sign Value Performing Clinician Facility 06-09-2024 14:39-0400 Body mass index (BMI) [Ratio] 24.94 kg/m2 weendy DO Work Phone: [facility] 06-09-2024 14:39-0400 Body weight 63.87 kg Armut Work Phone: [facility] 06-09-2024 14:39-0400 Diastolic blood pressure 60 mm[Hg] Jamel Natalie DO Work Phone: [facility] 06-09-2024 14:39-0400 Systolic blood pressure 100 mm[Hg] Jamel Natalie DO Work Phone: [facility] 02-01-2024 15:36-0400 Diastolic blood pressure 72 mm[Hg] DO Melissa Keya Work Phone: [facility] 02-01-2024 15:36-0400 Heart rate 98 /min DO Melissa Keya Work Phone: [facility] 02-01-2024 15:36-0400 Respiratory rate 18 /min DO Melissa Keya Work Phone: [facility] 02-01-2024 15:36-0400 SaO2% (BldA) [Mass fraction] 99 % DO Melissa Keya Work Phone: [facility] 02-01-2024 15:36-0400 Systolic blood pressure 112 mm[Hg] DO Melissa Keya Work Phone: [facility] 02-01-2024 11:52-0400 Body height 157.48 cm DO Melissa Keya Work Phone: [facility] 02-01-2024 11:52-0400 Body temperature 97.4 [degF] DO Melissa Keya Work Phone: [facility] 02-01-2024 11:52-0400 Body weight 54.3 kg DO Melissa Keya Work Phone: [facility] 11-06-2022 23:21-0400 Diastolic blood pressure 64 mm[Hg] Cory [facility] 11-06-2022 23:21-0400 Heart rate 116 /min [facility] 11-06-2022 23:21-0400 Mean blood pressure 78 mm[Hg] [facility] 11-06-2022 23:21-0400 Respiratory rate 14 /min [facility] 11-06-2022 23:21-0400 SaO2% (BldA) [Mass fraction] 98 % [facility] 11-06-2022 23:21-0400 Systolic blood pressure 106 mm[Hg] [facility] 11-06-2022 23:05-0400 Diastolic blood pressure 63 mm[Hg] [facility] 11-06-2022 23:05-0400 Heart rate 112 /min [facility] 11-06-2022 23:05-0400 Mean blood pressure 77 mm[Hg] [facility] 11-06-2022 23:05-0400 Respiratory rate 15 /min [facility] 11-06-2022 23:05-0400 SaO2% (BldA) [Mass fraction] 98 % [facility] 11-06-2022 23:05-0400 Systolic blood pressure 106 mm[Hg] [facility] 11-06-2022 22:15-0400 Diastolic blood pressure 50 mm[Hg] [facility] 11-06-2022 22:15-0400 Heart rate 114 /min [facility] 11-06-2022 22:15-0400 Mean blood pressure 62 mm[Hg] [facility] 11-06-2022 22:15-0400 Respiratory rate 17 /min [facility] 11-06-2022 22:15-0400 SaO2% (BldA) [Mass fraction] 96 % [facility] 11-06-2022 22:15-0400 Systolic blood pressure 86 mm[Hg] [facility] 11-06-2022 20:49-0400 Heart rate 150 /min [facility] 11-06-2022 20:05-0400 Body temperature 97.88 [degF] Cory Patricia [facility] 11-06-2022 20:05-0400 Heart rate 137 /min Cory Patricia [facility] 11-06-2022 20:05-0400 Respiratory rate 16 /min [facility] Encounters Encounter Date Encounter Type Care Provider Facility Start: 06-09-2024 End: 06-09-2024 flow sheet Jamel Natalie DO Work Phone: [facility] Comment on above: 19 weeks gestation o f ; Second trimester Start: 06-09-2024 End: 06-09-2024 ambulatory JAMEL NATALIE Not Available Start: 05-19-2024 End: 05-19-2024 ambulatory ARUNA ALVARADO Not Available Start: 04-21-2024 End: 04-21-2024 ambulatory JAMEL NATALIE Not Available Start: 04-02-2024 End: 04-02-2024 ambulatory DO Melissa Laura Work Phone: [facility] Work Phone: Start: 04-02-2024 End: 04-02-2024 Patient encounter procedure DO Melissa Keya Work Phone: [facility] [place] Work Phone: Start: 03-27-2024 End: 03-27-2024 ambulatory JAMEL ESTRADA Not Available Start: 02-27-2024 End: 02-27-2024 Patient encounter procedure DO Melissa Keya Work Phone: [facility] Start: 02-27-2024 End: 02-27-2024 ambulatory DO Melissa C Keya Work Phone: [facility] Work Phone: Start: 02-08-2024 End: 02-08-2024 ambulatory Melissa C Keya Facility:[facility] Start: 02-08-2024 End: 02-08-2024 Patient encounter procedure Melissa C Keya [facility] Start: 02-01-2024 End: 02-01-2024 Emergency department patient visit DO Melissa Keya Work Phone: [facility] Work Phone: Start: 05-09-2023 End: 05-09-2023 ambulatory Melissa C Keya Facility:[facility] Start: 05-09-2023 End: 05-09-2023 Patient encounter procedure Melissa C Keya [facility] Start: 04-23-2023 End: 04-23-2023 ambulatory Melissa C Keya Facility:[facility] Start: 04-23-2023 End: 04-23-2023 Patient encounter procedure Melissa C Keya [facility] Start: 04-11-2023 End: 04-11-2023 ambulatory Melissa C Keya Facility:[facility] Start: 04-11-2023 End: 04-11-2023 Patient encounter procedure Melissa Laura [facility] Start: 12-06-2022 End: 12-06-[address] NONE LISTED REQUEST Facility: Start: 11-06-2022 End: 11-06-2022 Emergency department patient visit Cory Patricia [facility] Start: 04-20-2017 End: 04-21-2017 Ambulatory SUKUMAR R VALENCIA Facility:[facility] Start: 04-18-2017 End: 04-19-2017 Ambulatory DEFAULT PHYSICIAN Facility:[facility] Procedures Date Procedure Procedure Detail Performing Clinician Start: 06-09-2024 Urnls dip stick/tabl et rgnt non-auto w/o micrscp Jamel Natalie DO Work Phone: Start: 04-02-2024 Antibody screen Smooth maldonado Comment on above: Result Comment: PERF ORMED BY: [facility] [address] [place] [address] PATHOLOGIST [employer]BRICK LAYER HELPER JAE GUERRA M.D. Start: 02-01-2024 CT of head without contrast DO Melissa Laura Work Phone: Start: 02-01-2024 Plain chest X-ray DO Ori Laura Work Phone: Plan of Treatment Date Care Activity Detail Author Start: 07-07-2024 End: 07-07-2024 Patient encounter procedure 07/07/2024 1:30 PM EST Routine [facility] [address] [place] [address] Aruna Alvarado PA [address] [place] [address] [facility] Start: 04-27-2024 Influenza vaccination Influenza Vacc ine (#1) [facility] Start: 04-02-2024 Bacteria identified in Urine by Culture [facility] Start: 04-02-2024 Rubella IgG measurement [facility] Start: 04-02-2024 [facility] Glucose measurement estimated from glycated hemoglobin [facility] Hepatitis B virus surface Ag [Presence] in Serum or Plasma by Immunoassay [facility] Hepatitis C virus Ig G Ab [Presence] in Serum or Plasma by Immunoassay [facility] HIV 1+2 Ab+HIV1 p24 Ag [Presence] in Serum or Plasma by Immunoassay [facility] Patient Education Chest Pain, Adult ED [facility] Work Phone: Patient referral [facility] Work Phone: Reagin Ab [Presence] in Serum by RPR [facility] Payers Date Payer Category Payer Self-pay 2023 Unknown 2021 [facility] [id number] 2012 Self-pay [id number] 1996 Unknown [id number]. 593 1996 Unknown [id number]. 727 1996 Unknown [id number] [id number]. 727 1996 Unknown [id number] [id number]. 727 1996 Unknown [id number] 2.16.840.1.542266.3.579.2. 727 1996 Unknown [id number] 2.16.840.1.802344.3.579.2. 1259 1996 Unknown [id number] 2.16.840.1.521873.3.579.2. 1259 1996 Unknown [id number] 2.16.840.1.308974.3.579.2. 1259 1996 Unknown [id number] 2.16.840.1.031660.3.579.2. 1259 1959 Unknown [id number] Medicaid [facility] 105 [id number] Unknown O [id number] Unknown [id number] [id number]. 531 Unknown [id number] [id number]. 531 Unknown [id number]. 531 Social History Date Type Detail Facility Tobacco smoking status [facility] Start: 03-27-2024 Sex Assigned At Female F [facility] Start: 02-01-2024 End: 03-27-2024 Tobacco smoking status NHIS Never smoked tobacco (finding) [facility] Start: 1995 Sex Assigned At Female F [facility] Start: 03-27-2024 Tobacco use and exposure Smokeless tobacco non-user [facility] Start: 06-09-2024 Alcoholic beverage intake Ex-drinker (finding) [facility] Start: 03-27-2024 End: 06-09-2024 Alcoholic beverage intake [facility] Start: 02-02-2024 [facility] Start: 1995 Sex assigned at Not on file [facility] NEGATED: Highlighted row [facility] Functional Status Date Assessment Result Facility 11-06-2022 Functional Status N/A [facility] History of Present illness Narrative 06-09-2024 Nathalie CostelloBARTOLO - 06/09/2024 2:30 PM EDT Note Date & Type Note Facility 06-09-2024 History of Presen t illness Narrative Reason for Appointment: Patient ID: Rao Choi is a 28 y.o. female who presents for No chief complaint on file. Patient presents today for Return OB appointment. MEDICATIONS Current Outpatient Medications Medication Instructions MV-Min-Fe Fum-FA-DHA ( 1 PO) Take by mouth ALLERGIES No Known Allergies PROBLEMS Active Ambulatory Problems Diagnosis Date Noted No Active Ambulatory Problems Resolved Ambulatory Problems Diagnosis Date Noted No Resolved Ambulatory Problems Past Medical History: Diagnosis Date Abnormal ECG 01/2024 Ectopic 2018 Mass of left breast HISTORY PAST MEDICAL HISTORY SOCIAL HISTORY Past Medical History: Diagnosis Date Abnormal ECG 01/2024 Ectopic 2018 Mass of left breast Social History Tobacco Use Smoking status: Never Smokeless tobacco: Never Substance Use Topics Alcohol use: Not Currently Alcohol/week: 1.0 standard drink of alcohol Types: 1 Standard drinks or equivalent per week Drug use: Never FAMILY HISTORY Family History Problem Relation Name Age of Onset Diabetes Father Smooth Hypertension Father Smooth Stroke Maternal Grandfather Nirmal Migraines Maternal Grandmother Tawana SURGICAL HISTORY Past Surgical History: Procedure Laterality Date BREAST BIOPSY 2014 SALPINGECTOMY Right 2018 REVIEW OF SYSTEMS Review of Systems: Review of Systems All other systems reviewed and are negative. OBJECTIVE Objective: Physical Exam Constitutional: Appearance: Normal appearance. She is well-developed. Cardiovascular: Rate and Rhythm: Normal rate and regular rhythm. Pulmonary: Effort: Pulmonary effort is normal. Breath sounds: Normal breath sounds. Abdominal: General: Bowel sounds are normal. There is no distension. Palpations: Abdomen is soft. Tenderness: There is no abdominal tenderness. There is no guarding or rebound. Musculoskeletal: General: No swelling. Normal range of motion. Right lower leg: No edema. Left lower leg: No edema. Neurological: Mental Status: She is alert and oriented to person, place, and time. Skin: General: Skin is warm and dry. Psychiatric: Mood and Affect: Mood normal. Behavior: Behavior normal. Vitals and nursing note reviewed. Exam conducted with a road repairer present. Vitals: Estimated body mass index is 24.94 kg/m as calculated from the following: Height as of 18: 5' 3 . Weight as of this encounter: 140 lb 12.8 oz. BP: 100/60 Patient's last menstrual period was 01/24/2024. ASSESSMENT & PLAN ICD-10-CM 1. 19 weeks gestation of Z3A.19 POCT urinalysis dipstick manually resulted 2. Second trimester Z34.92 POCT urinalysis dipstick manually resulted Patient presents today for a routine obstetrics appointment. Patient is currently 19w4d with a Estimated Date of Delivery: 10/30/24. Patient to present to office in 4 weeks for routine OB appointment. Documented by Nathalie Costello LPN on behalf of: Jamel Estrada DO documented in this encounter [facility] Clinical Note 02-08-2024 Note Date & Type Note Facility 02-08-2024 Note Echocardiology Procedure Exam Date/Time Accession # Ordering Echo Transthoracic 02/08/2024 07:51 EDT [id number] Melissa Laura DO Complete CPT code 36147 [id number] Reason for Exam (Echo Transthoracic Complete) I51.7 Cardiomegaly Report Version: 1 Study ID: [id number] [id number] Adult Echocardiogram Report Name: RAO CHOI Study Date: 02/08/2024, 7: 04 AM Patient Location: [facility] : 1995 (MM/DD/YYYY) Gender: Female Age: 28 Years Height: 157.48 cm BP: 112 / 50 mmHg Weight: 53.978 kg HR: 88 bpm BSA: 1.53 m? Ordering Physician: Melissa Laura Referring Physician: Melissa Laura Performed By: Nancy Cruz RDCS Reason For Study: I51.7 Cardiomegaly History: Family [...] Espinal MD Transcribed by: ARMIN Technologist: ELAINE [facility] Discharge instructions 11-07-2022 Note Date & [...] help with your condition: Managing pain Take tvdg-wfl-wpgicnv and prescription medicines only as told by [...] 08/13/2006 Document Revised: 03/03/2019 Document Reviewed: 03/03/2019 [employer] Patient Education 2020 [employer] Follow Up Care 11/06/2022 20:02:53 With:Aruna Adrian Address: [address], [address] [phone]- Business (1) When:Within 3 Day(s) [facility] Evaluation + Plan note 11-06-2022 Note Date & Type Note Facility 11-06-2022 Evaluation + Plan note Extrac ronnie from: Title:ED Note Author:Cory Patricia DO Date :11/06/22 Headache (R51.9: Headache, u nspecified) [...] q8hr, # 12 tab(s), Refills(s) 0, Pharmacy: [id number], 157, cm, 11/06/22 20:09:00 EDT, Height/Length [...] minute(s) CT Head or Brain w/o Contrast [facility] Evaluation note Note Date & Type Note Facility Evaluation note [facility]: Evaluation note Note Date & Type Note Facility Evaluation note Diagnosis 19 weeks gestation of Second trimester state, incidental documented in this encounter [facility] Hospital course Narrative Note Date & Type Note Facility Hospital course Narrative No data available for this section [facility] Hospital Discharge instructions Note Date & Type Note Facility Hospital Discharge instructions No data available for this section [facility] Progress note Note Date & Type Note Facility Progress note No data available for this section [facility] Summary Purpose Family History No Family History Records FoundNo Family History Records Found No data available for this section No Family History Records FoundNo Family History Records FoundNo Family History Records Found Advance Directives Advance Directive Response Recorded Date/ Time Advance Directives No January 31 12:36pm Chief Complaint and Reason for Visit Chief Complaint chest pain Chief Complaint chest pain N92.6 Chief Complaint chest pain N92.6 N92.6 Additional Source Comments INFORMATION SOURCE (unrecogn ized section and content) DATE CREATED AUTHOR 02/20/2018 [facility] DATE CREATED AUTHOR AUTHOR'S ORGANIZ ATION 12/14/2022 [facility] DATE CREATED AUTHOR AUTHOR'S ORGANIZ ATION 02/16/2024 [facility] DATE CREATED AUTHOR AUTHOR'S ORGANIZ ATION 04/10/2024 [facility] DATE CREATED AUTHOR AUTHOR'S ORGANIZ ATION 06/11/2024 [facility] EPIC Patient Care team informatio n (unrecognized section [...] February 27, 2024 End: February 27, 2024 Jamel Estrada Attending Provider Active Start: 2023 End: February 27, 2024 Team Status: Inactive Member Role Status Dates Melissa Laura DO Primary Care Provider Active Start: February 27, 2024 End: February 27, 2024 Jamel Estrada DO Attending Provider Active Start : February 27, 2024 End: February 27, 2024 Team Status: Inactive Member Role Status Dates Melissa Laura DO Primary Care Provider Active Start: April 02, 2024 End: April 02, 2024 Jamel Estrada DO Attending Provider Active Start : [...] BE BASED ON THE PRIMARY CLINICAL RECORDS. [employer] [facility]. provides no warranty or guarantee of the accuracy or completeness of information in this document.
== END 2024-07-07 20:09 | disposition home or self-care (01) ==
LOC: LAB 20:08
PROVIDERS: Visit Provider Physician Assistant
DX: Z01.419 Encounter for gynecological examination (general) (routine) without abnormal findings (principal)
CPT/HCPCS: 88175

== ENCOUNTER 2024-07-18 12:53 | Outpatient (OUT) | payer BC, SELFPAY ==
--- OUTSIDE RECORDS SUMMARY | 2024-07-18 13:05 | XMS_ITS | CCD ---
Author Organization [facility] [place] Care Team Providers Care Swimmer Name Role Phone PHYSICIAN, DEFAULT Unavailable Unavailable [...] Physician DO Melissa Laura Primary Care Provider DO Smooth Dooley Emergency Provider Claire Laurae Gabe Referring Unavailable Keya Melissa C Admitting Unavailable Kirnus, Hiro D Consulting Unavailable Keya Melissa C Attending Unavailable Kirnus, Hiro D Consulting Unavailable Kirnus, Hiro D Consulting Unavailable Keya, Melissa C Admitting Unavailable Keya, Melissa C Attending Unavailable Keya, Melissa C Admitting Unavailable Keya, Melissa C Attending Unavailable Keya, Melissa C Referring Unavailable Keya, Melissa C Admitting Unavailable Keya Melissa C Attending Unavailable Jamel Estrada Attending Provider DO Jamel Estrada Attending Provider Smooth Dooley Admitting Unavailable Smooth Dooley Attending Unavailable Melissa Laura Primary Care Unavailable Jamel Estrada Admitting Unavailable Jamel Estrada Attending Unavailable Melissa Laura Primary Care Unavailable Jamel Estrada Attending Unavailable Melissa Laura Primary Care Unavailable Jamel Estrada Admitting Unavailable Unavailable Primary Care Provider Unavailabl e NATALIE, JAMEL Attending Unavailable ARUNA ALVARADO Attending Unavailable JAMEL ESTRADA Attending Unavailable ARUNA ALVARADO Attending Unavailable Medications Current Medications Medication Drug Class(es) Dates Sig (Normalized) Sig (Original) dextroamphetamine-am phetamine (3 sources) Start: 02-01-2024 dextroamphetamine-a mphetamine Active .ROUTE February 01, 2024 12:00am MV-Min-Fe Fum-FA-DHA ( 1 PO) (6 sources) MV-Min- Fe Fum-FA-DHA ( 1 PO) Take by mouth Active promethazine hydrochloride 12.5 mg oral tablet (5 sources) Phenothiazine Start: 11-06-2022 take 1 tablet by mouth every eight hours promethazine 12.5 mg oral tablet 12.5 mg = 1 tab(s), Oral, q8hr, # 12 tab(s), Refills(s) 0, Pharmacy: [facility]/pharmacy #[id number], 157, cm, 11/06/22 20:09:00 EDT, Height/Length [...] 02-01-2024 Episodic Other and delivery including normal (4 sources) Second trimester ; Translations: [Encounter for supervision of normal , unspecified, second trimester] 06-09-2024 Episodic Other screening for suspected conditions (not mental disorders or infectious disease) (6 sources) Encounter for screening for malignant neoplasm of cervix; Translations: [Patient encounter status] Onset: 12-06-2022 Episodic Residual codes; unclassified (2 sources) Gestation period, 19 weeks; Translations: [19 weeks gestation of ] 06-09-2024 Episodic Residual codes; unclassified (2 sources) Gestation period, 24 weeks; Translations: [24 weeks gestation of ] 07-07-2024 Episodic Screening and history of mental health and substance abuse codes (3 sources) H/O: anxiety state; Translations: [Personal history of other mental and behavioral disorders] 02-01-2024 Episodic Unclassified (2 sources) Unknown / UNK(Unknown) Onset: 04-20-2017 Results Test Name Value Interpretation Reference Range Facility RECURRENT VAGINITIS (HTRX)on 07-09-2024 ATOPOBIUM VAGINAE 16.774 Abnormal [facility] ATOPOBIUM VAGINAE Detected Abnormal [facility] BVAB 2,3 (BACTERIAL VAGINOSIS ASSOCIATED BACTERIA 2, 3); MOBILUNCUS SPP 0 [facility] BVAB 2,3 (BACTERIAL VAGINOSIS ASSOCIATED BACTERIA 2, 3); MOBILUNCUS SPP Not detected [facility] AIDA ALBICANS, PARAPSILOSIS, TROPICALIS 0 [facility] AIDA ALBICANS, PARAPSILOSIS, TROPICALIS Not detected [facility] GLABRATA 0 [facility] AIDA GLABRATA Not detected [facility] AIDA KRUSEI 0 [facility] AIDA KRUSEI Not detected [facility] CHLAMYDIA TRACHOMATIS 0 [facility] CHLAMYDIA TRACHOMATIS Not detected [facility] GARDNERELLA VAGINALIS 23.955 Abnormal [facility] GARDNERELLA VAGINALIS Detected Abnormal [facility] Interpretation and review of laboratory results Abnormal [facility] MEGASPHAERA (TYPES 1, 2) 0 [facility] MEGASPHAERA (TYPES 1, 2) Not detected [facility] MYCOPLASMA GENITALIUM 0 [facility] MYCOPLASMA GENITALIUM Not detected N [facility] NEISSERIA GONORRHOEAE 0 [facility] NEISSERIA GONORRHOEAE Not detected N [facility] TRICHOMONAS VAGINALIS 0 [facility] TRICHOMONAS VAGINALIS Not detected N [facility][note 3] Urinalysis macro (dipstick) panel (U)on 07-07-2024 Bilirubin, UA Negative Negative - 4(70) +++ mg/dL [facility] Blood, UA Negative Negative - 50 Carson/mcL [facility] Clarity, UA Clear [facility] Color, UA Yellow [facility] Glucose, UA Negative Negative - 1999(110) ++++ mg/dL [facility] Interpretation and review of laboratory results Abnormal [facility] Ketones, UA Negative Negative - 160(16) ++++ mg/dL [facility] Leukocytes, UA Trace Negative - 500+++ Monica/mcL [facility] Nitrite, UA Negative Negative - Positive [facility] pH, UA 6 5 - 9 [facility] Protein, UA Negative Negative - 1999(20) ++++ mg/dL [facility] Spec Grav, UA 1.03 1 - 1.03 [facility] Urobilinogen, UA 0.2 0.2 - 12 mg/dL [facility] Urinalysis macro (dipstick) panel (U)on 06-09-2024 Bilirubin, UA Negative Negative - 4(70) +++ mg/dL [facility] Blood, UA Negative Negative - 50 Carson/mcL [facility] Clarity, UA Clear [facility] Color, UA Yellow [facility] Glucose, UA Negative Negative - 1999(110) ++++ mg/dL [facility] Interpretation and review of laboratory results Normal [facility] Ketones, UA Negative Negative - 160(16) ++++ mg/dL [facility] Leukocytes, UA Negative Negative - 500+++ Monica/mcL [facility] Nitrite, UA Negative Negative - Positive [facility] pH, UA 6 5 - 9 [facility] Protein, UA Negative Negative - 1999(20) ++++ mg/dL [facility] Spec Grav, UA 1.01 1 - 1.03 [facility] Urobilinogen, UA 0.2 0.2 - 12 mg/dL [facility] A1C with Estimated Average Samina rodriguez 04-02-2024 Glucose [Mass/Vol] 105 mg/dL Normal [facility] Comment on above: Result Comment: PERF ORMED BY: [place] [address] PATHOLOGIST WELDING MACHINE OPERATOR RESISTANCE JAE GUERRA M.D. Performed By: #### P T, BNP, CK, PTT, BMP, HS TROP, CBC #### [address] HbA1c (Bld) [Mass fraction] 5.3 % Normal 4.3-5.6 [facility] Comment on above: Result Comment: Incr eased risk for diabetes: 5.7 - 6.4 diabetes: >6.4 glycemic control for adults with diabetes: <7.0 Performed By: #### P T, BNP, CK, PTT, BMP, HS TROP, CBC #### [address] Automated basophil %Ordered By: Jamel Estrada on 04-02-2024 Basophils/100 WBC (Bld) 0.6 % Normal . [facility] Comment on above: Performed By: #### P T, BNP, CK, PTT, BMP, HS TROP, CBC #### [address] Automated basophil countOrde red By: Jamel Estrada on 04-02-2024 Basophils (Bld) [#/Vol] 0.0 10*3/uL Normal 0.0-0.2 [facility] Comment on above: Result Comment: PERF ORMED BY: [place] [address] PATHOLOGIST WELDING MACHINE OPERATOR RESISTANCE JAE GUERRA M.D. Performed By: #### P T, BNP, CK, PTT, BMP, HS TROP, CBC #### [address] Automated blood monocyte cou ntOrdered By: Jamel Estrada on 04-02-2024 Monocytes (Bld) [#/Vol] 0.5 10*3/uL Normal 0.0-0.8 [facility] Comment on above: Performed By: #### P T, BNP, CK, PTT, BMP, HS TROP, CBC #### [facility] [address] Automated eosinophil %Ordere d By: Jamel Estrada on 04-02-2024 Eosinophils/100 WBC (Bld) 3.4 % Normal . [facility] Comment on above: Performed By: #### P T, BNP, CK, PTT, BMP, HS TROP, CBC #### [address] Automated eosinophil countOr dered By: Jamel Estrada on 04-02-2024 Eosinophils (Bld) [#/Vol] 0.3 10*3/uL Normal 0.0-0.45 [facility] Comment on above: Performed By: #### P T, BNP, CK, PTT, BMP, HS TROP, CBC #### [address] Automated monocyte %Ordered By: Jamel Estrada on 04-02-2024 Monocytes/100 WBC (Bld) 7.5 % Normal . [facility] Comment on above: Performed By: #### P T, BNP, CK, PTT, BMP, HS TROP, CBC #### [address] Automated neutrophil %Ordere d By: Jamel Estrada on 04-02-2024 Neutrophils/100 WBC (Bld) 66.0 % Normal . [facility] Comment on above: Performed By: #### P T, BNP, CK, PTT, BMP, HS TROP, CBC #### [facility] [address] [place] [address] Complete Blood Count Auto Di ffon 04-02-2024 Mean Corpuscular HGB Conc 34.2 g/dL Normal 32.0-35.0 [facility] Comment on above: Performed By: #### P T, BNP, CK, PTT, BMP, HS TROP, CBC #### [address] NRBC% 0.1 /100{WBC} Normal 0-0.5 [facility] Comment on above: Performed By: #### P T, BNP, CK, PTT, BMP, HS TROP, CBC #### [address] Erythrocyte distribution wid th [Ratio] by Automated countOrdered By: Jamel Estrada on 04-02-2024 Erythrocyte distribution width (RBC) [Ratio] 13.4 % Normal 11.9-15.3 [facility] Comment on above: Performed By: #### P T, BNP, CK, PTT, BMP, HS TROP, CBC #### [address] Erythrocytes [#/volume] in B lood by Automated countOrdered By: Jamel Estrada on 04-02-2024 RBC (Bld) [#/Vol] 3.65 10*6/uL Normal 3.60-5.00 [facility] Comment on above: Performed By: #### P T, BNP, CK, PTT, BMP, HS TROP, CBC #### [address] HIV 1/O/2 Antigen/Antibodyon 04-02-2024 HIV Screen 4th Generation Non-Reactive Normal Non Reactive [facility] Comment on above: Result Comment: HIV- 1/HIV-2 antibodies and HIV-1 p24 antigen were NOT detected. There is no laboratory evidence of HIV infection. HIV Negative Performed at: - [address] [id number] Pressure Control Supervisor: Gabriel Casillas PhD, Phone: [phone] Performed By: #### P T, BNP, CK, PTT, BMP, HS TROP, CBC #### [address] Hematocrit [Volume Fraction] of Blood by Automated countOrdered By: Jamel Estrada on 04-02-2024 Hematocrit (Bld) [Volume fraction] 33.2 % Low 34.0-46.4 [facility] Comment on above: Performed By: #### P T, BNP, CK, PTT, BMP, HS TROP, CBC #### [address] Hemoglobin [Mass/volume] in BloodOrdered By: Jamel Estrada on 04-02-2024 Hemoglobin (Bld) [Mass/Vol] 11.3 g/dL Low 11.8-15.4 [facility] Comment on above: Performed By: #### P T, BNP, CK, PTT, BMP, HS TROP, CBC #### [address] Hep C Ab wRfx to Qnt PCRon 0 04-02-2024 Hepatitis C Virus Antibody Non-Reactive Normal Non Reactive [facility] Comment on above: Performed By: #### P T, BNP, CK, PTT, BMP, HS TROP, CBC #### [address] Interpretation Hepatitis C Comment Normal . [facility] Comment on above: Result Comment: Not infected with HCV unless early or acute infection is suspected (which may be delayed in an immunocompromised individual), or other evidence exists to indicate HCV infection. Performed By: #### P T, BNP, CK, PTT, BMP, HS TROP, CBC #### [address] Hepatitis B Surface Antigeno n 04-02-2024 HBsAg Screen Negative Normal Negative [facility] Comment on above: Result Comment: Perf ormed at: - [facility] [address] [id number] Pressure Control Supervisor: Gabriel Casillas PhD, Phone: [phone] PERFORMED BY: [place] [address] PATHOLOGIST WELDING MACHINE OPERATOR RESISTANCE JAE GUERRA M.D. Performed By: #### P T, BNP, CK, PTT, BMP, HS TROP, CBC #### [address] Leukocytes [#/volume] correc ronnie for nucleated erythrocytes in Blood by Automated counOrdered By: Jamel Estrada on 04-02-2024 WBC corrected for nucl RBC Auto (Bld) [#/Vol] 7.3 10*3/uL 3.8-11.6 [facility] Leukocytes [#/volume] in Blo od by Automated countOrdered By: Jamel Estrada on 04-02-2024 WBC (Bld) [#/Vol] 7.3 10*3/uL Normal 3.8-11.6 [facility] Comment on above: Performed By: #### P T, BNP, CK, PTT, BMP, HS TROP, CBC #### [facility] [address] [place] [address] Lymphocytes [#/volume] in Bl ood by Automated countOrdered By: Jamel Estrada on 04-02-2024 Lymphocytes (Bld) [#/Vol] 1.6 10*3/uL Normal 1.00-4.8 [facility] Comment on above: Performed By: #### P T, BNP, CK, PTT, BMP, HS TROP, CBC #### [address] Lymphocytes/100 leukocytes i n Blood by Automated countOrdered By: Jamel Estrada on 04-02-2024 Lymphocytes/100 WBC (Bld) 22.5 % Normal . [facility] Comment on above: Performed By: #### P T, BNP, CK, PTT, BMP, HS TROP, CBC #### [facility] [address] [place] [address] MCH [Entitic mass] by Automa ronnie countOrdered By: Jamel Estrada on 04-02-2024 MCH (RBC) [Entitic mass] 31.0 pg Normal 24.7-34.3 [facility] Comment on above: Performed By: #### P T, BNP, CK, PTT, BMP, HS TROP, CBC #### [address] MCHC Auto (RBC) [Mass/Vol]Or dered By: Jamel Estrada on 04-02-2024 MCHC (RBC) [Mass/Vol] 34.2 g/dL 32.0-35.0 [facility] MCV [Entitic volume] by Auto mated countOrdered By: Jamel Estrada on 04-02-2024 MCV (RBC) [Entitic vol] 90.9 fL Normal 80-100 [facility] Comment on above: Performed By: #### P T, BNP, CK, PTT, BMP, HS TROP, CBC #### [address] Neutrophils [#/volume] in Bl ood by Automated countOrdered By: Jamel Estrada on 04-02-2024 Neutrophils (Bld) [#/Vol] 4.8 10*3/uL Normal 1.8-7.7 [facility] Comment on above: Performed By: #### P T, BNP, CK, PTT, BMP, HS TROP, CBC #### [facility] [address] [place] [address] Nucleated erythrocytes [Pres ence] in Blood by Automated countOrdered By: Jamel Estrada on 04-02-2024 Nucleated RBC Auto Ql (Bld) 0.1 /100{WBC} 0-0.5 [facility] Platelet mean volume [Entiti c volume] in Blood by Automated countOrdered By: Jamel Estrada on 04-02-2024 Platelet mean volume (Bld) [Entitic vol] 9.2 fL Normal 6.3-10.7 [facility] Comment on above: Performed By: #### P T, BNP, CK, PTT, BMP, HS TROP, CBC #### [facility] [address] [place] [address] Platelets [#/volume] in Bloo d by Automated countOrdered By: Jamel Estrada on 04-02-2024 Platelets (Bld) [#/Vol] 209 10*3/uL Normal 150-450 [facility] Comment on above: Performed By: #### P T, BNP, CK, PTT, BMP, HS TROP, CBC #### [address] RPR w/rfx to Quant TP Abson 04-02-2024 RPR, Rfx Quant RPR Non-Reactive Normal Non Reactive [facility] Comment on above: Result Comment: Perf ormed at: [facility] [address] [id number] Pressure Control Supervisor: Gabriel Casillas PhD, Phone: [phone] PERFORMED BY: [place] [address] PATHOLOGIST WELDING MACHINE OPERATOR RESISTANCE JAE GUERRA M.D. Performed By: #### P T, BNP, CK, PTT, BMP, HS TROP, CBC #### [address] Rubella IgG Antibodyon 04-02 Rubella IgG Antibody 3.16 Normal Immune >0.99 [facility] Comment on above: Result Comment: Non- immune <0.90 Equivocal 0.90 - 0.99 Immune >0.99 Performed at: [facility] [address] [id number] Pressure Control Supervisor: Gabriel Casillas PhD, Phone: [phone] Performed By: #### P T, BNP, CK, PTT, BMP, HS TROP, CBC #### [place] [address] [place] Type and Screenon 04-02-2024 ABO and Rh group Nom (Bld) Blood group O Rh(D) positive Normal [facility] Urine Cultureon 04-02-2024 Bacteria identified Cx Nom (U) <9,000 colonies/ml mixed bacterial skin contaminants 2 Days PERFORMED BY: [place] [address] PATHOLOGIST WELDING MACHINE OPERATOR RESISTANCE JAE GUERRA M.D. Normal [facility] Comment on above: Performed By: #### P T, BNP, CK, PTT, BMP, HS TROP, CBC #### [address] Choriogonadotropin.beta subu nit [Units/volume] in Serum or PlasmaOrdered By: Jamel Estrada on 02-27-2024 [place] [address].00 m[IU]/mL [facility] Comment on above: Approximate Approxim ate hCG Gestational Age Range (mIU/ml) (weeks)0.2-1 5-50 1-2 50-500 2-3 100-5,000 3-4 500-10,000 4-5 1,000-50,000 5-6 10,000-100,000 6-8 15,000-200,000 8-12 10,000-100,000 HCG,Quantitativeon 4 HCG,Quantitative 89306.00 m[iU]/mL Normal [facility] Comment on above: Result Comment: Appr oximate Approximate hCG Gestational Age Range (mIU/ml) (weeks) 0.2-1 5-50 1-2 50-500 2-3 100-5,000 3-4 500-10,000 4-5 1,000-50,000 5-6 10,000-100,000 6-8 15,000-200,000 8-12 10,000-100,000 PERFORMED BY: [place] [address] PATHOLOGIST WELDING MACHINE OPERATOR RESISTANCE JAE GUERRA M.D. Performed By: #### P T, BNP, CK, PTT, BMP, HS TROP, CBC #### [facility] [address] Coding Summary.on 02-14-2024 Coding Summary. RNZBAydr52JIq7cGf+PG hlYWQ+ [id number] mSGvlxLAEWHDxVAeZkzfGuQA5u aXNjZXJu IC8+DL5mNGOiOunogVBdy6V9jP A5A92emj5zUMsgzFV2GHQwHnSu jvrfr3yxyIp4VPxnSucyFoPj JLFlcR97WTW6cM59Pc67rJVemS Ues2zenPk8HrHbNPBbZEQ9nUac EZxrl2ZjUZMyI83ziCDhw0Y8 ELQcaWiwsJVaJqIfqAB7qK9kWG wqfgfwc2elqhfcXgu9nm51cIZz z1X2bNQ4O2OwepL1LNRglKIp DropzILZrQ1kzbmqp2xwnvviEl PyVIHhLWs8DGf8GLRlyMaeYdJg HQ38WQX3TTAnvfUmT5GeQOAf pJagJyN8r7Z8Ua1TF8FQXsdmE4 VNTUFSWTwvdGQ+NO84jh42A1Oj QivbJfj7CFDjLSS5mLI3gH2o RWZxVJtca7K4dIA2L6YkhaBzfs 6bg0wgBZCsEWppI19ugTOgf5F9 ALCmgEJ3QBMfxGosBvXwqY94 Oyc+NWDfcWrij5PwPtvqn3mcg5 sqtNg5XlvqMTTtdhEwsKogRSQ4 m0XwZn2oWRXzlXS2qOG5nO0l YkAfLqW1XNguM344WsBjbFJkTm ycW71hG9GsnQL+STVbFbq3QDSn wVbxNS7oM4YsAFJqbrgcmLVy tFsmXR1eNBMjqphxZLPohH6rSG NuN4v4OoOuJcR3PWxeP9GgRXOb qdufHf18yC1qHrQyIdA7PLuw V7RcvwU7JUWpiHUaJKgqDNU6E3 1vo0H2BIBdCEDxJUG4iHX6nY7j bGlnbjogbGVmdDsgdmVydGlj LGtiGHunB360CSLczYfjHfSaPU luZyBEYXRlOiAgMDYvMjAvMjAy NDwvdGQ+NVAbOOL0kQufRRNo gZCyBEbxHg4xnUkxbHvyFA6zPV TjnhtfNSSetP8mQATdxFQfhQfm WH9jVIZkujacr862GaHaAOV1 CRPtaPAtQ8BqfO1pDqEtARSqFE IzV0OzeDSuNBldB376XBkgCpZ7 FTOjowDcS1CbMWCisRuyXkN9 x9B6Kf5Bf5RilfjdX1GwwNOiHv GsIpxnSIk9D8WsQixtkQL+PC90 QLPuOB85GPc0FIJ9bZhhFUds WHRoW4UhgQ0yAlTwDOOcPQOsCj c+PHRhYmxlIHdpZHRoPScxMDAl LyUhpSzmKY1eUb0eDOQgBCFk hJiwiUMtCzOlx6smYICxNWdfAO 6vtNnfP2YljAP2UCIbz4m7Ir24 N24rB8QtkPT+EYSpfIP4yQV3 sK5vQfEbAzM4IXozT448GeWlsE LnZicuq0hbp4qppHb1RfU0QGXi baOwqFjqNHU0h6FzWf78V90o IHdpZHRoPSIxNSUiIHZhbGlnbj 7nwJ8eLg0+GTVwsBZ7lIF0tT1p AbMyVrZ1DRwiN488WkLicCBy Fjiha0jrc0phiZd2LcJzNXGdlo PgzIsdUNG2q4DkQs15Z9DotEwf r6NrBqu7ki06lOOje2W3yIT9 M4DvSFIhjbvtvYXzxAatQA9bNI CullgqRFZnpI1jRWGkL9t2TiJi HdY1JGkiF9WjibP8WNDzkUZu SOPmpSPBrJ0rjljvc4omcajiXr IyHWErUGh4TZw5QKLvuNqkKqGl GAW2EeJ2NMP6fITyaM4mjHqz jzarhA4uUij+XOQ2dCRgyRNFDA 1lOjwvdGQ+SGMiMDR5bVkeSFeu XIJjsS9tQUXiN8n3OiHjJnL4 BGarZ0TkprG5EJByjVMrUIJlwF YRhQ2zcnfsa3efvqcwKwDjMOYj JEr1PSs8IOOgqBdsQdBfVSX3 CmD9XOE3cNUvtT2vgEraqinsvI 9wOyc+PqbygVnmUSE3WAf5C7Pe Yaz3QDKcfApoOY4waEPpGCio Fg8poYjjbVasHN6nHVPbxvkvm4 76QbYle8xiWBDatGTnVPpxAIK3 U40uk4D7BQRpHDSsFGL0hYB5 bX7ndOccbiaeaPJomEfrwyRbqE riOYjnZMpkA278QRUzlCbjAoGt QLa0D4LtLqi1SXHseUieMC3g kVWoAQvmUt8iwSojrBilFJ7vVF Jfkqfzi784OiAbc6wzPZTnuQRu ANyzRIB0H25xh6Y6PDFiLGRr LFA3aWO7vN1ttTzrgfjyeSKkhX xmohGmuFwuUSmrYBumJ021CWVx xMomXfGgfKc3K1MwZcs7ZCUf lWigTR7fgAAtORtnKq3zaTaaoQ msEB0lUYDadxpgx514OlDph2bb SAFjbLQpFBcpDIA0Q06ez8L2 KLLvPVElUPU3eHU5pQ8ivWlggq ogbGVmdDsgdmVydGljYWwtYWxp C637MORpfJndUfZibYzzhrOa WNjtRQc8K4WhPomgjRM+PC90YW EdHN08uHZivXGju5xlcUh3ZrRh DWHuLRO7hDhdIFuas8ZxABFd K55fzEVwz4T0UMAmqWcauKVoVz GioUU2nZ3lYAnvrzxer7sbbxaa Hhgoo2uuwj09mN33W37dTFbp GGBkSAHsRCCmVXMkoEvpvt7saC 9wIi8+JATcpVK8hLU9hY2tUATg KeJ0JKtvY154AsYjoVUqLtkd u1qsj5xlsXo5ZvH0GVVyhgFpzL fnWYO7c1WjAu95I65aXKahEOXa YDGsHTEiQPAtjZnpzs4drL8b Ii8+QNQzgCM0oBC0rX8rAnKoMr I4TZccC401ZmPyqQFmUyeeW10l S0YgmRB+ZJHvRjl3EVDjhApz ZK8deVWjWAkoEo4aNTD2PzSxNn LeXYlgH3PmFLHxasthpjlloMF0 FJIsUFHwwQ97Ra6rzOvsFDWw pCLKmN6umszep2tevkvnAdChLV ZwRIn2TGx7JKIixNbzIjYwJKV0 LrU1VEY2nLHgwV8nlBrbquqr bU4qP0HlEUPjgdqfPs52qR4iVm EqUzZ1PCkiUpf+TUVZRVIsIENB F6oFSE35CX34sLTuz7L8yJD2 E4EvAOHcdgcagbrrtIN3UHQdJS KtaJ51jKMnVNjvQw2bp8F5j633 MIGmTDBnaV51Tq2kvQpwMZZy mLLIhO5ourckf9wfoisaNjRfPK SmQDr7IEu4EJLhmIikAwHhEFT8 WfF6GUG2lVCgqN7ekRuhwrbc aK4nRls+HQOcVVitVUh3LnbglA Q+DZHhFGK7sGchRVpaDMLvpC4z GBVvC6p9SlPvYkJ9CJobU3Ru XRCzoiazLa34dE1eAgTsRgU9KL laB7BkqiT8FWVcuBEhIXwfSNQ4 K88jc9Y0VHYzSVZfBII4aPM5 rQ6ugAenhrbvcYTjrJzempEyfA hzFToiXEgiX560DNVtbIauUuZ4 IKpwYKJcMV13GZ39dDQdn9E5 tWM2H6XhMQCxhviwglnapYG6SV DtAHStaU85xCEhAZauOz5bd9V2 a379MRWlGJVfyK39Qs1duEbu ZOFwsWLXeB1wflutf4ghymncPb PaLAFkSLq0DKl2MFXbyGkyIhRj OOU8HwI4YFP2zHNldA1boWci jxnwsN2yYez+IpQhHZbaBT59DM 69uZWtc9Y0yIC9X7DgWCHhrlqb ekdivUQ7VQOyDURvvL03vCJo BRjhHw1pc7N8v963BVHkFOJdlI 91Pf9nrIomFOLfdVLNvB9gqazc y8hbptplAhVlHXUqAQt4QHq8 UEEwcJqnCqYpSST0VaP0IQH0dU ImqF3xmAjpagqdyE0zGuh+T3V0 tBM4kRRbpBhjlKG+XL45ii37 N9TwRxczXdf8EHYtBDU4eRT9zQ 2gAVFvJWpkr7P3yIX8J2AbmsVe iz1wl8fsLHLlULxsL97gvWWg w0S6VHUliQH5SMNdySvwPyCijB 93Oyc+BQChbZnvl6ScAvhul3ae c9blbLe8PjAfZQGilaIsyTjt SVC9s3AzZj10F96zAJvwPSVnHT ZpQHZrGRZibMtelj1paT1nKb8+ ECHsrWC0lXO3hR1bEzIgWrD1 RUqaJ511EnOtaRGzTyscj9bll3 gvzGd3TxAjMISudoKcdQvjWFY0 y9HeWk80I3LsfIfij5CuIrw6 tx66yQMzc5T6pPP5L8ZaRAAswo uymVTvkZoiTO6gODFburkmGTQp eU7aCAQwZ8c7IgHoNhB7MJnw U0BkhnG0QRWxvMTuQHCayVFJkL 3rnrihk8crfwuvKmPlTFInKZw4 NYs8JKEfpDnmAgRxATW3NpE4 YNO5zPBiqZ7adHrhupcynA6aIu c+IHt6x3qrhZPmHB0hlHH0QM27 EQ43zNSoi4Y4dRN9F0KwYFNs uavtfnqbfQO4HIRvTHLvbO47Sz 1xnVlsOt7xTCYkUJG8POHpfEEu I1PbdE8jUbBiXOFzNWHbO9Yn dSToZTcuT403HRunNcS8FGQdiz AqK9ShWEWkhUvrYaQ0i9U8Tr6Q HG34XN02DI66cGWzf1V6lZJ9 S9HoFRTuggcumrisrEY6ONRxSD BcwE63Se5cmQwlBa9lMUYpCSW1 BZHzbBDdX2EkbO0rZkEdCHDl ZGNlS8IcbCGuTInoJ129GGelSu O6QHUwglLrN1EpZMEsgDqiYkF6 b7Y9Fr4VPp59FA91DE74qVNd s1O1pHW3Q9NuXIZsxqpulscjxB D8ANVcXSBfzD10Dk3rsPutXx9k AIYbGPW2YYYdyXJzG3OclT3h DwMyVTGxQWUfW4EbpLXoCDkeL1 57EUhsHbJ9QZUaxhYrR6UmAQNx dQdkNcR7i7P7Rm0GFCabrid8 G4TgLtjnjXZ+YU44UIZuVW23xM WmoGVnd4emyMg6KzArYKJwJOS5 iHmnVZgot8PtQISaH01xpQMt c8F5JUIbmEynb (more content not included)... Normal [facility] Consent for Treatmenton 01-25 Consent for Treatment [id number]#[id number] Normal [facility] Activated partial thrombopla stin time (aPTT) in platelet poor plasma by coagulation aOrdered By: Smooth Dooley on 02-01-2024 aPTT Coag (PPP) [Time] 31.3 s 25.1-36.5 [facility] Comment on above: A hematocrit value g reater than 55% may lead to inaccurate results in coagulation testing. Patients having hematocrit values >55% require a special collection tube for coagulation studies. Please contact the laboratory at [phone] for redraw instructions. Automated basophil %Ordered By: Smooth Dooley on 02-01-2024 Basophils/100 WBC (Bld) 1.1 % Normal . [facility] Comment on above: Performed By: #### P T, BNP, CK, PTT, BMP, HS TROP, CBC #### [address] Automated basophil countOrde red By: Smooth Dooley on 02-01-2024 Basophils (Bld) [#/Vol] 0.1 10*3/uL Normal 0.0-0.2 [facility] Comment on above: Result Comment: PERF ORMED BY: [place] [address] PATHOLOGIST WELDING MACHINE OPERATOR RESISTANCE JAE GUERRA M.D. Performed By: #### P T, BNP, CK, PTT, BMP, HS TROP, CBC #### [address] Automated blood monocyte cou ntOrdered By: Smooth Dooley on 02-01-2024 Monocytes (Bld) [#/Vol] 0.5 10*3/uL Normal 0.0-0.8 [facility] Comment on above: Performed By: #### P T, BNP, CK, PTT, BMP, HS TROP, CBC #### [address] Automated eosinophil %Ordere d By: Smooth Dooley on 02-01-2024 Eosinophils/100 WBC (Bld) 3.0 % Normal . [facility] Comment on above: Performed By: #### P T, BNP, CK, PTT, BMP, HS TROP, CBC #### [address] Automated eosinophil countOr dered By: Smooth Dooley on 02-01-2024 Eosinophils (Bld) [#/Vol] 0.2 10*3/uL Normal 0.0-0.45 [facility] Comment on above: Performed By: #### P T, BNP, CK, PTT, BMP, HS TROP, CBC #### [facility] [address] Automated monocyte %Ordered By: Smooth Dooley on 02-01-2024 Monocytes/100 WBC (Bld) 7.0 % Normal . [facility] Comment on above: Performed By: #### P T, BNP, CK, PTT, BMP, HS TROP, CBC #### [facility] [address] Automated neutrophil %Ordere d By: Smooth Dooley on 02-01-2024 Neutrophils/100 WBC (Bld) 59.1 % Normal . [facility] Comment on above: Performed By: #### P T, BNP, CK, PTT, BMP, HS TROP, CBC #### [address] BNP ser/plasOrdered By: Smooth Dooley on 02-01-2024 Natriuretic peptide B (Bld) [Mass/Vol] 7.0 pg/mL Normal 5-100 [facility] Comment on above: Result Comment: PERF ORMED BY: [place] [address] PATHOLOGIST WELDING MACHINE OPERATOR RESISTANCE JAE GUERRA M.D. Performed By: #### P T, BNP, CK, PTT, BMP, HS TROP, CBC #### [address] Basic Metabolic Panelon 06-0 Creatinine Clr Calc Pharmacy 106.09 Normal [facility] Comment on above: Result Comment: PERF ORMED BY: [place] [address] PATHOLOGIST WELDING MACHINE OPERATOR RESISTANCE JAE GUERRA M.D. Performed By: #### P T, BNP, CK, PTT, BMP, HS TROP, CBC #### [address] GFR/1.73 sq M.predicted MDRD (S/P/Bld) [Vol rate/Area] mL/min/{1.73_m2} Normal [facility] Comment on above: Performed By: #### P T, BNP, CK, PTT, BMP, HS TROP, CBC #### [address] Bilirubin Test strip Ql (U)O rdered By: Smooth Dooley on 02-01-2024 Bilirubin Ql (U) Negative Negative [facility] CT head/brain wo conon 01-31 CT head/brain wo con [facility] [place] [address] [place] [address] CT Scan Report Signed Patient: Rao Choi MR#: [id number] 7 : 1995 Acct:[id number] Age/Sex: 28 / F ADM Date: 02/01/24 Loc: ER Room: Type: [facility] ER Attending Dr: Copies to: Smooth Dooley [...] Elsa Malone M.D.02/01/2024 2:36 PM Dictation Location: [place] [address] Transcribed By: [facility] 02/01/24 1436 Dictated By: Elsa Malone MD 02/01/24 1434 Signed By: 02/01/24 1436 Normal [facility] Calcium [Mass/volume] in Ser um or PlasmaOrdered By: Smooth Dooley on 02-01-2024 Calcium [Mass/Vol] 9.3 mg/dL Normal 8.6-10.3 [facility] Comment on above: Performed By: #### P T, BNP, CK, PTT, BMP, HS TROP, CBC #### [facility] [address] Carbon dioxide, total [Moles /volume] in Serum or PlasmaOrdered By: Smooth Dooley on 02-01-2024 CO2 [Moles/Vol] 28.7 mmol/L Normal 21.0-31.0 [facility] Comment on above: Performed By: #### P T, BNP, CK, PTT, BMP, HS TROP, CBC #### [address] Chloride [Moles/volume] in S yecenia or PlasmaOrdered By: Smooth Dooley on 02-01-2024 Chloride [Moles/Vol] 102 mmol/L Normal 98-107 [facility] Comment on above: Performed By: #### P T, BNP, CK, PTT, BMP, HS TROP, CBC #### [address] Color of Urine by AutoOrdere d By: Smooth Dooley on 02-01-2024 Color (U) Light-yellow Normal Yellow [facility] Comment on above: Order Comment: Name Collection Type:: Clean-Voided Midstream Performed By: #### P T, BNP, CK, PTT, BMP, HS TROP, CBC #### [facility] [address] [place] [address] Complete Blood Count Auto Di ffon 02-01-2024 Mean Corpuscular HGB Conc 33.7 g/dL Normal 32.0-35.0 [facility] Comment on above: Performed By: #### P T, BNP, CK, PTT, BMP, HS TROP, CBC #### [place] [address] [place] Monocytes/100 WBC (Bld) 17.28 % Normal 0.00-20.00 [facility] Comment on above: Performed By: #### P T, BNP, CK, PTT, BMP, HS TROP, CBC #### [facility] [address] NRBC% 0.1 /100{WBC} Normal 0-0.5 [facility] Comment on above: Performed By: #### P T, BNP, CK, PTT, BMP, HS TROP, CBC #### [facility] [address] Creatine kinase [Enzymatic a ctivity/volume] in Serum or PlasmaOrdered By: Smooth Dooley on 02-01-2024 CK [Catalytic activity/Vol] 74 U/L Normal 30-223 [facility] Comment on above: Performed By: #### P T, BNP, CK, PTT, BMP, HS TROP, CBC #### [address] Creatinine [Mass/volume] in Serum or PlasmaOrdered By: Smooth Dooley on 02-01-2024 Creatinine [Mass/Vol] 0.63 mg/dL Normal 0.60-1.20 [facility] Comment on above: Performed By: #### P T, BNP, CK, PTT, BMP, HS TROP, CBC #### [address] D-Dimer High Sensitivityon 0 02-01-2024 D-Dimer High Sensitivity < 200 Normal 0-243 [facility] Comment on above: Result Comment: [...] coagulation studies. Please contact the laboratory at [phone] for redraw instructions. PERFORMED BY: [place] [address] PATHOLOGIST WELDING MACHINE OPERATOR RESISTANCE JAE GUERRA M.D. Performed By: #### P T, BNP, CK, PTT, BMP, HS TROP, CBC #### [facility] [address] [place] [address] ECG 12 lead ECGon 02-01-2024 ECG 12 lead ECG [facility] [place] [address] [place] [address] Electrocardiograph Report Signed Patient: Rao Choi MR#: [id number] 7 : 1995 Acct:[id number] Age/Sex: 28 / F ADM Date: 02/01/24 Loc: ER Room: Type: [facility] ER Attending Dr: Ordering Provider: [...] ECGs available Confirmed by SMOOTH DOOLEY DO ([id number]) on 02/01/2024 3:56:12 PM Referred By: Electronically Signed By:SMOOTH DOOLEY DO Transcribed By: MUS Signed By Smooth Dooley DO 01/31 1556 Normal [facility] Erythrocyte distribution wid th [Ratio] by Automated countOrdered By: Smooth Dooley on 02-01-2024 Erythrocyte distribution width (RBC) [Ratio] 13.1 % Normal 11.9-15.3 [facility] Comment on above: Performed By: #### P T, BNP, CK, PTT, BMP, HS TROP, CBC #### [address] Erythrocytes [#/volume] in B lood by Automated countOrdered By: Smooth Dooley on 02-01-2024 RBC (Bld) [#/Vol] 4.43 10*6/uL Normal 3.60-5.00 [facility] Comment on above: Performed By: #### P T, BNP, CK, PTT, BMP, HS TROP, CBC #### [facility] [address] Fibrin D-dimer [Presence] in Platelet poor plasma by Latex agglutinationOrdered By: Smooth Dooley on 02-01-2024 Fibrin D-dimer LA Ql (PPP) < 200 ng/mL 0-243 [facility] Comment on above: The reference range for [...] coagulation studies. Please contact the laboratory at [phone] for redraw instructions. Glucose [Mass/volume] in Ser um or PlasmaOrdered By: Smooth Dooley on 02-01-2024 Glucose [Mass/Vol] 99 mg/dL Normal 70-100 [facility] Comment on above: ADA recommended refe rence rangeRandom Glucose Reference Range is dependent on time and content of last meal. Glucose of more than 200 mg/dL in a nonstressed, ambulatory subject supports the diagnosis of Diabetes Mellitus. Result Comment: [place] Glucose Reference Range is dependent on time and content of last meal. Glucose of more than 200 mg/dL in a nonstressed, ambulatory subject supports the diagnosis of Diabetes Mellitus. ADA recommended reference range Performed By: #### P T, BNP, CK, PTT, BMP, HS TROP, CBC #### [facility] [address] [place] [address] [facility] Glucose [Mass/volume] in Uri ne by Test stripOrdered By: Smooth Dooley on 02-01-2024 Glucose Test strip (U) [Mass/Vol] Normal mg/dL Normal [facility] HCG ( test) IA.rapi d Ql (U)Ordered By: Smooth Dooley on 02-01-2024 HCG ( test) Ql (U) Negative [facility] HCG,Urineon 02-01-2024 Beta HCG ( test) Ql (U) Negative Normal [facility] Comment on above: Order Comment: Name Collection Type:: Clean-Voided Midstream Result Comment: PERF ORMED BY: [place] [address] PATHOLOGIST WELDING MACHINE OPERATOR RESISTANCE JAE GUERRA M.D. Performed By: #### P T, BNP, CK, PTT, BMP, HS TROP, CBC #### [address] Hematocrit [Volume Fraction] of Blood by Automated countOrdered By: Smooth Dooley on 02-01-2024 Hematocrit (Bld) [Volume fraction] 39.8 % Normal 34.0-46.4 [facility] Comment on above: Performed By: #### P T, BNP, CK, PTT, BMP, HS TROP, CBC #### [address] Hemoglobin Test strip Ql (U) Ordered By: Smooth Dooley on 02-01-2024 Hemoglobin Ql (U) Negative Negative [facility] Hemoglobin [Mass/volume] in BloodOrdered By: Smooth Dooley on 02-01-2024 Hemoglobin (Bld) [Mass/Vol] 13.4 g/dL Normal 11.8-15.4 [facility] Comment on above: Performed By: #### P T, BNP, CK, PTT, BMP, HS TROP, CBC #### [facility] [address] [place] [address] INR in Platelet poor plasma by Coagulation assayOrdered By: Smooth Dooley on 02-01-2024 INR Coag (PPP) [Relative time] 1.0 {INR} Normal [facility] Comment on above: INR Therapeutic Rang e [...] PTT, BMP, HS TROP, CBC #### [facility] [address] [place] [address] [place] Ketones [Presence] in Urine by Test stripOrdered By: Smooth Dooley on 02-01-2024 Ketones Ql (U) Negative Normal Negative [facility] Comment on above: Order Comment: Name Collection Type:: Clean-Voided Midstream Performed By: #### P T, BNP, CK, PTT, BMP, HS TROP, CBC #### [facility] [address] [place] [address] [place] Leukocyte esterase [Presence ] in Urine by Test stripOrdered By: Smooth Dooley on 02-01-2024 Leukocyte esterase Test strip Ql (U) Negative Normal Negative [facility] Comment on above: Order Comment: Name Collection Type:: Clean-Voided Midstream Performed By: #### P T, BNP, CK, PTT, BMP, HS TROP, CBC #### [facility] [address] [place] [address] [place] Leukocytes [#/volume] correc ronnie for nucleated erythrocytes in Blood by Automated counOrdered By: Smooth Dooley on 02-01-2024 WBC corrected for nucl RBC Auto (Bld) [#/Vol] 6.7 10*3/uL 3.8-11.6 [facility] Leukocytes [#/volume] in Blo od by Automated countOrdered By: Smooth Dooley on 02-01-2024 WBC (Bld) [#/Vol] 6.7 10*3/uL Normal 3.8-11.6 [facility] Comment on above: Performed By: #### P T, BNP, CK, PTT, BMP, HS TROP, CBC #### [address] Lymphocytes [#/volume] in Bl ood by Automated countOrdered By: Smooth Dooley on 02-01-2024 Lymphocytes (Bld) [#/Vol] 2.0 10*3/uL Normal 1.00-4.8 [facility] Comment on above: Performed By: #### P T, BNP, CK, PTT, BMP, HS TROP, CBC #### [address] Lymphocytes/100 leukocytes i n Blood by Automated countOrdered By: Smooth Dooley on 02-01-2024 Lymphocytes/100 WBC (Bld) 29.8 % Normal . [facility] Comment on above: Performed By: #### P T, BNP, CK, PTT, BMP, HS TROP, CBC #### [address] MCH [Entitic mass] by Automa ronnie countOrdered By: Smooth Dooley on 02-01-2024 MCH (RBC) [Entitic mass] 30.3 pg Normal 24.7-34.3 [facility] Comment on above: Performed By: #### P T, BNP, CK, PTT, BMP, HS TROP, CBC #### [address] MCHC Auto (RBC) [Mass/Vol]Or dered By: Smooth Dooley on 02-01-2024 MCHC (RBC) [Mass/Vol] 33.7 g/dL 32.0-35.0 [facility] MCV [Entitic volume] by Auto mated countOrdered By: Smooth Dooley on 02-01-2024 MCV (RBC) [Entitic vol] 90.0 fL Normal 80-100 [facility] Comment on above: Performed By: #### P T, BNP, CK, PTT, BMP, HS TROP, CBC #### [address] Monocyte distribution width [Entitic volume] in Blood by AutomatedOrdered By: Smooth Dooley on 02-01-2024 Monocyte distribution width Auto (Bld) [Entitic vol] 17.28 % 0.00-20.00 [facility] Neutrophils [#/volume] in Bl ood by Automated countOrdered By: Smooth Dooley on 02-01-2024 Neutrophils (Bld) [#/Vol] 3.9 10*3/uL Normal 1.8-7.7 [facility] Comment on above: Performed By: #### P T, BNP, CK, PTT, BMP, HS TROP, CBC #### [facility] [address] Nitrite Test strip Ql (U)Ord ered By: Smooth Dooley on 02-01-2024 Nitrite Ql (U) Negative Negative [facility] No Panel InformationOrdered By: Smooth Dooley on 02-01-2024 Estimated GFR (CKD-EPI) > 60.0 mL/Min [facility] Creatinine Clearance (Chem 106.09 [facility] Nucleated erythrocytes [Pres ence] in Blood by Automated countOrdered By: Smooth Dooley on 02-01-2024 Nucleated RBC Auto Ql (Bld) 0.1 /100{WBC} 0-0.5 [facility] Partial Thromboplastin Timeo n 02-01-2024 aPTT Coag (Bld) [Time] 31.3 s Normal 25.1-36.5 [facility] Comment on above: Result Comment: A he matocrit value greater than 55% may lead to inaccurate results in coagulation testing. Patients having hematocrit values >55% require a special collection tube for coagulation studies. Please contact the laboratory at [phone] for redraw instructions. PERFORMED BY: [facility] [address] [place] [address] PATHOLOGIST WELDING MACHINE OPERATOR RESISTANCE JAE GUERRA M.D. Performed By: #### P T, BNP, CK, PTT, BMP, HS TROP, CBC #### [facility] [address] Physician Orderon 02-01-2024 Physician Order [id number] Normal [facility] Platelet mean volume [Entiti c volume] in Blood by Automated countOrdered By: Smooth Dooley on 02-01-2024 Platelet mean volume (Bld) [Entitic vol] 8.4 fL Normal 6.3-10.7 [facility] Comment on above: Performed By: #### P T, BNP, CK, PTT, BMP, HS TROP, CBC #### [facility] [address] Platelets [#/volume] in Bloo d by Automated countOrdered By: Smooth Dooley on 02-01-2024 Platelets (Bld) [#/Vol] 232 10*3/uL Normal 150-450 [facility] Comment on above: Performed By: #### P T, BNP, CK, PTT, BMP, HS TROP, CBC #### [facility] [address] Potassium [Moles/volume] in Serum or PlasmaOrdered By: Smooth Dooley on 02-01-2024 Potassium [Moles/Vol] 3.6 mmol/L Normal 3.5-5.1 [facility] Comment on above: Performed By: #### P T, BNP, CK, PTT, BMP, HS TROP, CBC #### [facility] [address] Protein Test strip (U) [Mass /Vol]Ordered By: Smooth Dooley on 02-01-2024 Protein (U) [Mass/Vol] Negative Negative [facility] Prothrombin time (PT)Ordered By: Smooth Dooley on 02-01-2024 PT Coag (PPP) [Time] 11.9 s Normal 9.0-12.9 [facility] Comment on above: A hematocrit value g reater than 55% may lead to inaccurate results in coagulation testing. Patients having hematocrit values >55% require a special collection tube for coagulation studies. Please contact the laboratory at [phone] for redraw instructions. Result Comment: A he matocrit value greater than 55% may lead to inaccurate results in coagulation testing. Patients having hematocrit values >55% require a special collection tube for coagulation studies. Please contact the laboratory at [phone] for redraw instructions. Performed By: #### P T, BNP, CK, PTT, BMP, HS TROP, CBC #### [facility] [address] Serum or plasma anion gap de terminationOrdered By: Smooth Dooley on 02-01-2024 Anion gap [Moles/Vol] 10.9 mmol/L Normal 6.0-15.0 [facility] Comment on above: Performed By: #### P T, BNP, CK, PTT, BMP, HS TROP, CBC #### [facility] [address] Sodium [Moles/volume] in Ser um or PlasmaOrdered By: Smooth Dooley on 02-01-2024 Sodium [Moles/Vol] 138 mmol/L Normal 136-145 [facility] Comment on above: Performed By: #### P T, BNP, CK, PTT, BMP, HS TROP, CBC #### [address] Specific gravity Test strip (U) [Rel density]Ordered By: Smooth Dooley on 02-01-2024 Specific gravity (U) [Rel density] 1.011 1.001-1.030 [facility] Troponin I High Sensitivityo n 02-01-2024 Troponin I High Sensitivity 5.2 pg/mL Normal 0.0-15.0 [facility] Comment on above: Result Comment: PERF ORMED BY: [place] [address] PATHOLOGIST WELDING MACHINE OPERATOR RESISTANCE JAE GUERRA M.D. Performed By: #### P T, BNP, CK, PTT, BMP, HS TROP, CBC #### [facility] [address] [place] [address] Troponin I High Sensitivity < 2.3 Normal 0.0-15.0 [facility] Comment on above: Result Comment: PERF ORMED BY: [place] [address] PATHOLOGIST WELDING MACHINE OPERATOR RESISTANCE JAE GUERRA M.D. Performed By: #### P T, BNP, CK, PTT, BMP, HS TROP, CBC #### [address] Troponin I.cardiac [Mass/vol ume] in Serum or Plasma by Detection limit <= 0.01 ng/Ordered By: Smooth Dooley on 02-01-2024 Troponin I.cardiac DL <= 0.01 ng/mL [Mass/Vol] 5.2 pg/mL 0.0-15.0 [facility] Urea nitrogen [Mass/volume] in Serum or PlasmaOrdered By: Smooth Dooley on 02-01-2024 Urea nitrogen [Mass/Vol] 13 mg/dL Normal 7-25 [facility] Comment on above: Performed By: #### P T, BNP, CK, PTT, BMP, HS TROP, CBC #### [address] Urinalysison 02-01-2024 Bilirubin,Urine Negative Normal Negative [facility] Comment on above: Order Comment: Name Collection Type:: Clean-Voided Midstream Performed By: #### P T, BNP, CK, PTT, BMP, HS TROP, CBC #### [address] Glucose Ql (U) Normal Normal Normal [facility] Comment on above: Order Comment: Name Collection Type:: Clean-Voided Midstream Performed By: #### P T, BNP, CK, PTT, BMP, HS TROP, CBC #### [address] Nitrite,Urine Negative Normal Negative [facility] Comment on above: Order Comment: Name Collection Type:: Clean-Voided Midstream Performed By: #### P T, BNP, CK, PTT, BMP, HS TROP, CBC #### [address] Occult Blood,Urine Negative Normal Negative [facility] Comment on above: Order Comment: Name Collection Type:: Clean-Voided Midstream Performed By: #### P T, BNP, CK, PTT, BMP, HS TROP, CBC #### [address] Protein,Urine Negative Normal Negative [facility] Comment on above: Order Comment: Name Collection Type:: Clean-Voided Midstream Performed By: #### P T, BNP, CK, PTT, BMP, HS TROP, CBC #### [address] Specificy Aneta,Urine 1.011 Normal 1.001-1.030 [facility] Comment on above: Order Comment: Name Collection Type:: Clean-Voided Midstream Performed By: #### P T, BNP, CK, PTT, BMP, HS TROP, CBC #### [address] Urobilinogen,Urine Normal Normal Normal [facility] Comment on above: Order Comment: Name Collection Type:: Clean-Voided Midstream Performed By: #### P T, BNP, CK, PTT, BMP, HS TROP, CBC #### [address] Urine appearanceOrdered By: Smooth Dooley on 02-01-2024 Appearance (U) Clear Normal Clear [facility] Comment on above: Order Comment: Name Collection Type:: Clean-Voided Midstream Performed By: #### P T, BNP, CK, PTT, BMP, HS TROP, CBC #### [address] Urobilinogen Test strip (U) [Mass/Vol]Ordered By: Smooth Dooley on 02-01-2024 Urobilinogen (U) [Mass/Vol] Normal mg/dL Normal [facility] XR chest 2V*on 02-01-2024 XR chest 2V* [facility] [place] [address] XRay Report Signed Patient: Rao Choi MR#: [id number] 7 : 1995 Acct:[id number] Age/Sex: 28 / F ADM Date: 02/01/24 [...] Elsa Malone M.D.02/01/2024 12:34 PM Dictation Location: [place] [address] Transcribed By: [facility] 02/01/24 1234 Dictated By: Elsa Malone MD 02/01/24 1233 Signed By: 02/01/24 1234 Normal [facility] pH of Urine by Test stripOrd ered By: Smooth Dooley on 02-01-2024 pH (U) 7.0 [pH] Normal 5.0-9.0 [facility] Comment on above: Order Comment: Name Collection Type:: Clean-Voided Midstream Performed By: #### P T, BNP, CK, PTT, BMP, HS TROP, CBC #### [facility] [address] [place] [address] Pulmonary Function Studieson 05-16-2023 Pulmonary Function Studies [...] BY: Nicole Paredes M.D. lr Dictated: 05/13/2023 [id number] Transcribed: 05/14/2023 cc:Melissa Laura D.O. [facility] Comment on above: Result Comment: Elec tronically Signed By: Lena GRACE, Nicole X\.br\Date and Time Signed: 05/16/23 09:49 EDT Consent for Treatmenton 04-27 Consent for Treatment [id number]:127 Normal [facility] Pulmonary Function Testson 0 05-09-2023 Pulmonary Function Tests [id number]#[id number]:127 [facility] Physician Orderon 04-27-2023 Physician Order [id number]#1.00CD:127 [facility] Physician Order [id number]:127 [facility] XR Chest 2 Viewson 3 [...] in mGy = na DAP = na [facility] Consent for Treatmenton 08-2 Consent for Treatment [id number]:127 [facility] Physician Orderon 04-23-2023 Physician Order [id number]:127 Normal [facility] XR Chest 2 Viewson XR Chest 2 Views Exam Date/Time: 04/11/2023 [...] in mGy = na DAP = na [facility] Consent for Treatmenton 03-27 Consent for Treatment [id number]:127 [facility] Physician Orderon 04-11-2023 Physician Order [id number]:127 [facility] PAP ACOG PANEL 2: 22 to 30on 12-14-2022 . . [facility] Comment on above: Performed By: #### [id number] #### [facility] [address] [place] [address] [address] Hilary Higginbotham Age Gdln ACOG Testing - [facility] Comment on above: Performed By: #### [id number] #### [facility] [address] [place] [address] [address] Hilary Higginbotham DIAGNOSIS: Comment [facility] Comment on above: Result Comment: NEGA TIVE FOR INTRAEPITHELIAL LESION OR MALIGNANCY. Performed By: #### [id number] #### [facility] [address] [place] [address] Dr. Hilary Higginbotham Methodology: Comment Normal [facility] Comment on above: Result Comment: This liquid based ThinPrep(R) pap test was screened with the use of an image guided system. Performed By: #### [id number] #### [facility] [address] [place] [address] Dr. Hilary Higginbotham Note: Comment Normal [facility] Comment on above: Result Comment: The Pap smear is a screening test designed to aid in the detection of premalignant and malignant conditions of the uterine cervix. It is not a diagnostic procedure and should not be used as the sole means of detecting cervical cancer. Both false-positive and false-negative reports do occur. . Performed By: #### [id number] #### [facility] [address] [place] [address] Dr. Hilary Higginbotham Performed by: Comment Normal [facility] Comment on above: Result Comment: Dann Scott Client Support Administrator (ASCP) Performed By: #### [id number] #### [facility] [address] [place] [address] Dr. Hilary Higginbotham Reflex Criteria: Comment Normal [facility] Comment on above: Result Comment: The HPV DNA reflex criteria were not met with this specimen result therefore, no HPV testing was performed. . Performed By: #### 4 [id number] #### [facility] [address] [place] [address] Dr. Hilary Higginbotham Specimen adequacy: Comment Normal [facility] Comment on above: Result Comment: Sati sfactory for evaluation. Endocervical and/or squamous metaplastic cells (endocervical component) are present. Performed By: #### 4 [id number] #### [facility] [address] [place] [address] Dr. Hilary Higginbotham Vital Signs Date Time Vital Sign Value Performing Clinician Facility 07-07-2024 13:42-0500 Body mass index (BMI) [Ratio] 26.04 kg/m2 Aruna ADAME Work Phone: [facility] 07-07-2024 13:42-0500 Body weight 66.68 kg Aruna ADAME Work Phone: [facility] 07-07-2024 13:42-0500 Diastolic blood pressure 58 mm[Hg] Aruna ADAME Work Phone: [facility] 07-07-2024 13:42-0500 Systolic blood pressure 104 mm[Hg] Aruna ADAME Work Phone: [facility] 06-09-2024 14:39-0400 Body mass index (BMI) [Ratio] 24.94 kg/m2 Jamel Natalie DO Work Phone: [facility] 06-09-2024 14:39-0400 Body weight 63.87 kg Jamel Natalie DO Work Phone: [facility] 06-09-2024 14:39-0400 Diastolic blood pressure 60 mm[Hg] Jamel Natalie DO Work Phone: [facility] 06-09-2024 14:39-0400 Systolic blood pressure 100 mm[Hg] Jamel Natalie DO Work Phone: [facility] 02-01-2024 15:36-0400 Diastolic blood pressure 72 mm[Hg] DO Melissa Keya Work Phone: [facility] 02-01-2024 15:36-0400 Heart rate 98 /min DO Melissa Keya Work Phone: [facility] 02-01-2024 15:36-0400 Respiratory rate 18 /min DO Melissa Keya Work Phone: [facility] 02-01-2024 15:36-0400 SaO2% (BldA) [Mass fraction] 99 % DO Melissa Keya Work Phone: [facility] 02-01-2024 15:36-0400 Systolic blood pressure 112 mm[Hg] DO Melissa Keya Work Phone: [facility] 02-01-2024 11:52-0400 Body height 157.48 cm DO Melissa Keya Work Phone: [facility] 02-01-2024 11:52-0400 Body temperature 97.4 [degF] DO Melissa Keya Work Phone: [facility] 02-01-2024 11:52-0400 Body weight 54.3 kg DO Melissa Keya Work Phone: [facility] 11-06-2022 23:21-0400 Diastolic blood pressure 64 mm[Hg] [facility] 11-06-2022 23:21-0400 Heart rate 116 /min [facility] 11-06-2022 23:21-0400 Mean blood pressure 78 mm[Hg] [facility] 11-06-2022 23:21-0400 Respiratory rate 14 /min [facility] 11-06-2022 23:21-0400 SaO2% (BldA) [Mass fraction] 98 % [facility] 11-06-2022 23:21-0400 Systolic blood pressure 106 mm[Hg] [facility] 11-06-2022 23:05-0400 Diastolic blood pressure 63 mm[Hg] [facility] 11-06-2022 23:05-0400 Heart rate 112 /min [facility] 11-06-2022 23:05-0400 Mean blood pressure 77 mm[Hg] [facility] 11-06-2022 23:05-0400 Respiratory rate 15 /min [facility] 11-06-2022 23:05-0400 SaO2% (BldA) [Mass fraction] 98 % [facility] 11-06-2022 23:05-0400 Systolic blood pressure 106 mm[Hg] [facility] 11-06-2022 22:15-0400 Diastolic blood pressure 50 mm[Hg] [facility] 11-06-2022 22:15-0400 Heart rate 114 /min [facility] 11-06-2022 22:15-0400 Mean blood pressure 62 mm[Hg] [facility] 11-06-2022 22:15-0400 Respiratory rate 17 /min [facility] 11-06-2022 22:15-0400 SaO2% (BldA) [Mass fraction] 96 % [facility] 11-06-2022 22:15-0400 Systolic blood pressure 86 mm[Hg] [facility] 11-06-2022 20:49-0400 Heart rate 150 /min [facility] 11-06-2022 20:05-0400 Body temperature 97.88 [degF] [facility] 11-06-2022 20:05-0400 Heart rate 137 /min [facility] 11-06-2022 20:05-0400 Respiratory rate 16 /min [facility] Encounters Encounter Date Encounter Type Care Provider Facility Start: 07-07-2024 End: 07-07-2024 Bamboo flowsheet Aruna ADAME Work Phone: [facility] Start: 07-07-2024 End: 07-09-2024 Bamboo flowsheet Aruna ADAME Work Phone: [facility] Start: 07-07-2024 End: 07-09-2024 External Result Encounter Aruna ADAME Work Phone: [facility] Unsolicited Start: 07-07-2024 End: 07-07-2024 Periodic preventive med est patient 18-39 yrs Aruna ADAME Work Phone: [facility] Comment on above: 24 weeks gestation o f ; Second trimester ; Diabetes mellitus screening Start: 07-07-2024 End: 07-07-2024 ambulatory ARUNA ALVARADO Not Available Start: 06-09-2024 End: 06-09-2024 flow sheet Jamel Natalie DO Work Phone: [facility] Comment on above: 19 weeks gestation o f ; Second trimester Start: 06-09-2024 End: 06-09-2024 ambulatory JAMEL NATALIE Not Available Start: 05-19-2024 End: 05-19-2024 ambulatory ARUNA ALVARADO Not Available Start: 04-21-2024 End: 04-21-2024 ambulatory JAMEL NATALIE Not Available Start: 04-02-2024 End: 04-02-2024 ambulatory DO Melissa C Keya Work Phone: [facility] Work Phone: Start: 04-02-2024 End: 04-02-2024 Patient encounter procedure DO Melissa Keya Work Phone: [facility] Work Phone: Start: 03-27-2024 End: 03-27-2024 ambulatory JAMEL NATALIE Not Available Start: 02-27-2024 End: 02-27-2024 Patient encounter procedure DO Melissa Keya Work Phone: [facility] Start: 02-27-2024 End: 02-27-2024 ambulatory DO Melissa C Keya Work Phone: [facility] Work Phone: Start: 02-08-2024 End: 02-08-2024 ambulatory Melissa C Key[place] [place]: 02-08-2024 End: 02-08-2024 Patient encounter procedure Melissa C Keya [facility] Start: 02-01-2024 End: 02-01-2024 Emergency department patient visit DO Melissa Keya Work Phone: [facility] Work Phone: Start: 05-09-2023 End: 05-09-2023 ambulatory Melissa C Keya [place] [place] Start: 05-09-2023 End: 05-09-2023 Patient encounter procedure Melissa C Keya [facility] Start: 04-23-2023 End: 04-23-2023 ambulatory Melissa C Keya [place] [place] Start: 04-23-2023 End: 04-23-2023 Patient encounter procedure Melissa C Keya [facility] Start: 04-11-2023 End: 04-11-2023 ambulatory Melissa C Keya [place] [place] Start: 04-11-2023 End: 04-11-2023 Patient encounter procedure Melissa C Keya [facility] Start: 12-06-2022 End: 12-06-[address] NONE LISTED REQUEST Facility: Start: 11-06-2022 End: 11-06-2022 Emergency department patient visit Cory [facility] Start: 04-20-2017 End: 04-21-2017 Ambulatory SUKUMARCLARITA READRA Facility:[facility] Start: 04-18-2017 End: 04-19-2017 Ambulatory DEFAULT PHYSICIAN Facility:[facility] Procedures Date Procedure Procedure Detail Performing Clinician Start: 07-07-2024 RECURRENT VAGINITIS (HTRX) Aruna ADAME Work Phone: Start: 07-07-2024 Urnls dip stick/tabl et rgnt non-auto w/o micrscp Aruna ADAME Work Phone: Start: 06-09-2024 Urnls dip stick/tabl et rgnt non-auto w/o micrscp Jamel Natalie DO Work Phone: Start: 04-02-2024 Antibody screen Smooth Mercedes wattersaubrey Comment on above: Result Comment: PERF ORMED BY: [facility] [address] [place] [address] PATHOLOGIST WELDING MACHINE OPERATOR RESISTANCE JAE GUERRA M.D. Start: 02-01-2024 CT of head without contrast DO Melissa Laura Work Phone: Start: 02-01-2024 Plain chest X-ray DO Ori Laura Work Phone: Plan of Treatment Date Care Activity Detail Author Start: 08-07-2024 End: 08-07-2024 Patient encounter procedure 08/07/2024 9:50 AM EST Routine [facility] [address] [place] [id number] Aruna Alvarado PA [address] [place], [facility] Start: 07-07-2024 End: 07-07-2025 CBC panel - Blood by Automated count CBC Lab Routine Diabetes mellitus screening Expected: 07/07/2024 (Approximate), Expires: 07/07/2025 [facility] Comment on above: Expected: 07/07/2024 (Approximate), Expires: 07/07/2025 Start: 07-07-2024 End: 07-07-2025 Measurement of glucose 1 hour after glucose challenge for glucose tolerance test Glucose tolerance, 1 hour Lab Routine Diabetes mellitus screening Expected: 07/07/2024 (Approximate), Expires: 07/07/2025 [facility] Comment on above: Expected: 07/07/2024 (Approximate), Expires: 07/07/2025 Start: 07-07-2024 End: 07-07-2024 Patient encounter procedure 07/07/2024 1:30 PM EST Routine [facility] [address] [place] [id number] Aruna Alvarado PA [address] [place] [address] [facility] Start: 04-27-2024 Influenza vaccination Influenz a Vaccine (#1) [facility] Start: 04-02-2024 Bacteria identified in Urine by Culture [facility] Start: 04-02-2024 Rubella IgG measurement [facility] Start: 04-02-2024 [facility] Cytology Cervical or vaginal smear or scraping study Pap Smear Pathology and Cytology Routine 24 weeks gestation of Second trimester Ordered: 07/07/2024 [facility] Work Phone: Comment on above: Ordered: 07/07/2024 Glucose measurement estimated from glycated hemoglobin [facility] Hepatitis B virus surface Ag [Presence] in Serum or Plasma by Immunoassay [facility] Hepatitis C virus Ig G Ab [Presence] in Serum or Plasma by Immunoassay [facility] HIV 1+2 Ab+HIV1 p24 Ag [Presence] in Serum or Plasma by Immunoassay [facility] Patient Education Chest Pain, Adult ED [facility] Work Phone: Patient referral [facility] Work Phone: Reagin Ab [Presence] in Serum by RPR [facility] Payers Date Payer Category Payer Self-pay 2023 Unknown 2021 [facility] BCBS [id number] 2012 Self-pay [id number] 1996 Unknown [id number] 1996 Unknown [id number] [id number]. 727 1996 Unknown [id number] [id number]. 727 1996 Unknown [id number] [id number]. 7 1996 Unknown [id number] 2.16.840.1.265526.3.579.2. 7 1996 Unknown [id number] 2.16.840.1.670304.3.579.2. 9 1996 Unknown [id number] 2.16.840.1.943083.3.579.2. 9 1996 Unknown [id number] 2.16.840.1.792416.3.579.2. 9 1996 Unknown [id number] 2.16.840.1.823757.3.579.2. 9 1996 Unknown [id number] 2.16.840.1.206681.3.579.2. 1259 1959 Unknown [id number] Medicaid [facility] [id number] Unknown [facility] [id number] Unknown [id number] [id number]. 531 Unknown [id number] [id number]. 531 Unknown [id number]. 531 Social History Date Type Detail Facility Tobacco smoking status [facility] Start: 03-27-2024 Sex Assigned At Female F [facility] Start: 02-01-2024 End: 03-27-2024 Tobacco smoking status NHIS Never smoked tobacco (finding) [facility] Start: 1995 Sex Assigned At Female F [facility] Start: 03-27-2024 Tobacco use and exposure Smokeless tobacco non-user [facility] Start: 06-09-2024 End: 07-07-2024 Alcoholic beverage intake Ex-drinker (finding) [facility] Start: 03-27-2024 End: 06-09-2024 Alcoholic beverage intake [facility] Start: 02-02-2024 [facility] Start: 1995 Sex assigned at Not on file [facility] NEGATED: Highlighted row [facility] Functional Status Date Assessment Result Facility 11-06-2022 Functional Status N/A [facility] Clinical Notes 11-06-2022 to 07-07-2024 DEEP Cardenas - 07/07/2024 1:30 PM Manoj Costello LPN - 06/09/2024 2:30 PM EDT Note Date & Type Note Facility 07-07-2024 History of Presen t illness Narrative Reason for Appointment: Patient ID: Rao Choi is a 28 y.o. female who presents for Routine Visit Patient presents today for Annual Exam. and Return OB appointment. MEDICATIONS Current Outpatient Medications [...] SYSTEMS Review of Systems: Review of Systems Constitutional: Negative. HENT: Negative. Eyes: Negative. Respiratory: Negative. Cardiovascular: Negative. Gastrointestinal: Negative. Genitourinary: Negative. Musculoskeletal: Negative. Skin: Negative. Neurological: Negative. All other systems reviewed and are negative. Hematological: Negative. Endocrine: Negative. Allergic/Immunologic: Negative. OBJECTIVE Objective: Physical Exam Constitutional: Appearance: Normal appearance. She is well-developed. Genitourinary: Vulva normal. Right Adnexa: not tender and no mass present. Left Adnexa: not tender and no mass present. No cervical discharge. Breasts: Breasts are soft. Right: Normal. Left: Normal. HENT: Head: Normocephalic. Nose: Nose normal. Mouth/Throat: Mouth: Mucous membranes are moist. Cardiovascular: Rate and Rhythm: Normal rate and regular rhythm. Pulmonary: Effort: Pulmonary effort is normal. Breath sounds: Normal breath sounds. Abdominal: General: Bowel sounds are normal. There is no distension. Palpations: Abdomen is soft. Tenderness: There is no abdominal tenderness. There is no guarding or rebound. Musculoskeletal: General: No swelling. Normal range of motion. Cervical back: Normal range of motion. Right lower leg: No edema. Left lower leg: No edema. Neurological: General: No focal deficit present. Mental Status: She is alert and oriented to person, place, and time. Skin: General: Skin is warm and dry. Psychiatric: Mood and Affect: Mood normal. Behavior: Behavior normal. Vitals and nursing note reviewed. Exam conducted with a lead architect present. Vitals: Estimated body mass index is 26.04 kg/m as calculated from the following: Height as of 11/27/18: 5' 3 . Weight as of this encounter: 147 lb. BP: 104/58 Patient's last menstrual period was 01/24/2024. ASSESSMENT & PLAN ICD-10-CM 1. 24 weeks gestation of Z3A.24 POCT urinalysis dipstick manually resulted Pap Smear 2. Second trimester Z34.92 POCT urinalysis dipstick manually resulted Pap Smear 3. Diabetes mellitus screening Z13.1 CBC Glucose tolerance, 1 hour Return OB/Annual Exam: Patient presents today for an annual exam/routine obstetrics appointment. Patient is currently 24w2d . Patient is doing well and states she has no complaints. Pap/cultures was obtained without difficulty and patient was given msAFP order to have obtained. Orders Placed This Encounter Procedures CBC Glucose tolerance, 1 hour POCT urinalysis dipstick manually resulted Follow Up: Patient is to return to our office in 4 weeks for routine OB appointment Documented by Nathalie Costello LPN on behalf of: DEEP Cardenas documented in this encounter [facility] 06-09-2024 History of Presen t illness Narrative [...] nursing note reviewed. Exam conducted with a lead architect present. Vitals: Estimated body mass index is 24.94 kg/m as calculated from the following: Height as of 11/27/17: 5' 3 . Weight as of this [...] Jamel Estrada DO documented in this encounter [facility] 02-08-2024 Note Echocardiology Procedure Exam Date/Time Accession # Ordering Dr. Ronquillo Transthoracic 02/08/2024 07:51 EDT [id number] Melissa Laura DO Complete CPT code [id number] Reason for Exam (Echo Transthoracic Complete) I51.7 Cardiomegaly Report Version: 1 Study ID: [id number] [facility] [address] [place] [address] Adult Echocardiogram Report Name: RAO CHOI Study Date: 02/08/2024, 7: 04 AM [place] [facility] [place] 1995 (MM/DD/YYYY) Gender: Female Age: 28 Years Height: 157.48 cm BP: 112 / 50 mmHg Weight: 53.978 kg HR: 88 bpm BSA: 1.53 m? Ordering Physician: Melissa Laura Referring Physician: Melissa Laura Performed By: Nancy Cruz [facility] Reason For Study: I51.7 Cardiomegaly History: Family [...] PM FINAL REPORT Dictated: 02/08/2024 7:04 am Hrio Espinal MD Signed (Electronic Signature): 02/08/2024 12:22 pm Signed by: Hiro Espinal MD Transcribed by: ARMIN Technologist: [facility] 11-07-2022 Hospital Discharg e instructions Patient Education [...] help with your condition: Managing pain Take sigq-ezd-[id number] and prescription medicines only as told by [...] 08/13/2006 Document Revised: 03/03/2019 Document Reviewed: 03/03/2019 [employer] Patient Education 2020 [employer]. Follow Up Care 11/06/2022 20:02:53 With:Aruna Adrian Address: [address] [place] [address] Mike, [facility], [place] [phone] Business (1) When:Within 3 Day(s) [facility] 11-06-2022 Evaluation + Plan note Extrac ronnie [...] q8hr, # 12 tab(s), Refills(s) 0, Pharmacy: [facility]/pharmacy #[id number], 157, cm, 11/06/22 20:09:00 EDT, Height/Length [...] minute(s) CT Head or Brain w/o Contrast [facility] information available [facility] Work Phone: Evaluation note* Diagnosis 19 weeks gestation of Second trimester state, incidental [facility] Diagnosis 24 weeks gestation of Second trimester state, incidental Diabetes mellitus screening Screening for diabetes mellitus [facility] Narrative No data available for this section [facility] No data available for this section [facility] No data available for this section [facility] Summary Purpose Family History No Family [...] section and content) DATE CREATED AUTHOR 02/20/[address] [facility] DATE CREATED AUTHOR AUTHOR'S ORGANIZ ATION 12/14/[address] [facility] DATE CREATED AUTHOR AUTHOR'S ORGANIZ ATION 02/16/2024 [facility] DATE CREATED AUTHOR AUTHOR'S ORGANIZ ATION 04/10/2024 [facility] DATE CREATED AUTHOR AUTHOR'S ORGANIZ ATION 07/08/2024 [facility] EPIC Patient Care team informatio [...] Status: Inactive Member Role Status Dates Melissa Bernal DO [facility] Primary Care Provider Active Start: April 02, 2024 End: April 02, 2024 Jamel Estrada DO Attending Provider Active Start : April 02, 2024 End: April 02, 2024 Goals (unrecognized section and content) Goals may be documented in a n alternate section Reason for Visit (unrecogniz ed section and content) Reason Comments Routine Visit FOR RECORDS PERTAINING TO PATIENTS WHO ARE [...] BE BASED ON THE PRIMARY CLINICAL RECORDS. [employer] provides no warranty or guarantee of the accuracy or completeness of information in this document.
[2024-07-18 14:21] LABS: Glucose 1 Hour 97 mg/dL (<130)
[2024-07-18 14:31] LABS: Basophils Absolute Auto 0.1 10^3/uL (0.0-0.1); Basophils Percent Auto 0.5 % (0.2-2.0); Eosinophils Absolute Auto 0.2 10^3/uL (0.0-0.7); Eosinophils Percent Auto 1.7 % (0.9-7.0); Hematocrit 33.2 % (36.0-48.0); Hemoglobin 10.9 g/dL (12.0-16.0); Immature Granulocytes Abs Auto 0.17 10^3/uL (0.00-0.03); Immature Granulocytes Pct Auto 1.6 % (0.0-0.5); Lymphocytes Absolute Auto 1.5 10^3/uL (1.2-3.8); Lymphocytes Percent Auto 14.4 % (20.5-60.0); Mean Corpuscular HGB Conc 32.8 g/dL (29.9-35.2); Mean Corpuscular Hemoglobin 30.5 pg (26.7-34.0); Mean Platelet Volume 10.3 fL (9.5-13.5); Monocytes Absolute Auto 0.7 10^3/uL (0.3-0.8); Neutrophils Absolute Auto 7.8 10^3/uL (1.4-6.5); Neutrophils Percent Auto 74.8 % (43.0-75.0); Platelet Count 206 10^3/uL (150-450); Red Blood Count 3.57 10^6/uL (4.20-5.40); Red Cell Distribution Width 12.7 % (11.0-15.0); White Blood Count 10.4 10^3/uL (4.0-11.0)
== END 2024-07-18 12:54 | disposition home or self-care (01) ==
LOC: LAB 12:54
PROVIDERS: Visit Provider Physician Assistant
DX: Z13.1 Encounter for screening for diabetes mellitus (principal)
CPT/HCPCS: 36415; 82950; 85025

== ENCOUNTER 2024-09-29 21:53 | Outpatient (REF) | payer BC, SELFPAY ==
--- OUTSIDE RECORDS SUMMARY | 2024-09-29 21:57 | XMS_ITS | CCD ---
Author Organization [facility] Providers Care Branch Lending Officer Name Role Phone PHYSICIAN, DEFAULT Unavailable Unavailable [...] Care Provider DO Smooth Dooley Emergency Provider Ori Laurayse Gabe Referring Unavailable Keya Melissa [...] Primary Care Provider Unavailabl e NATALIE, JAMEL Referring Unavailable ARUNA ALVARADO Attending Unavailable JAMEL ESTRADA Attending Unavailable ARUNA ALVARADO Attending Unavailable JAMEL ESTRADA Attending Unavailable ARUNA ALVARADO Attending Unavailable ARUNA ALVARADO Attending Unavailable ARUNA ALVARADO Attending Unavailable JAMEL ESTRADA Attending Unavailable Medications Current Medications Medication Drug Class(es) Dates Sig (Normalized) Sig (Original) dextroamphetamine-am phetamine (3 sources) Start: 02-01-2024 dextroamphetamine- amphetamine Active .ROUTE February 01, 2024 12:00am MV-Min-Fe Fum-FA-DHA ( 1 PO) (20 sources) MV-Min- Fe Fum-FA-DHA ( 1 PO) Take by mouth Active promethazine hydrochloride 12.5 mg oral tablet (5 sources) Phenothiazine Start: 11-06-2022 take 1 tablet by mouth every eight hours promethazine 12.5 mg oral tablet 12.5 mg = 1 tab(s), Oral, q8hr, # 12 tab(s), Refills(s) 0, Pharmacy: [facility]/pharmacy #[id number], 157, cm, 11/06/22 20:09:00 EDT, Height/Length Dosing, 53.7, kg, 11/06/22 20:09:00 EDT, Weight Dosing Start Date: 11/06/22 Status: Ordered terconazole 4 mg/ml vaginal cream (1 source) Azole Antifungal Start: 07-16-2024 End: 07-23-2024 terconazole (Terazol 7) 0.4 % vaginal cream Indications: Yeast infection Insert 1 applicator into the vagina at bedtime for 7 days 45 g 07/16/2024 07/23/2024 Active Completed/Discontinued Medications Medication Drug Class(es) Dates Sig (Normalized) Sig (Original) ALPRAZolam 0.25 mg oral tablet (4 sources) Benzodiazepine Start: 09-06-2023 End: 06-09-2024 ALPRAZolam (Xanax) 0.25 MG tablet TAKE 1 TABLET UP TO 3 TIMES PER DAY NEEDED 09/06/2023 06/09/2024 Discontinued 24 hr amphetamine aspartate 3.75 mg / amphetamine sulfate 3.75 mg / dextroamphetamine saccharate 3.75 mg / dextroamphetamine sulfate 3.75 mg extended release oral capsule (4 sources) Central Nervous System Stimulant Start: 01-17-2024 [...] chest pain] Onset: 02-01-2024 02-01-2024 Episodic Other complications of (2 sources) size does not accord with dates; Translations: [Uterine size-date discrepancy, unspecified trimester] 2024 Episodic Other and delivery including normal (16 sources) Second trimester ; Translations: [Encounter for supervision of normal , unspecified, second trimester] 06-09-2024 Episodic Other screening for suspected conditions (not mental disorders or infectious disease) (10 sources) Encounter for screening for malignant neoplasm of cervix; Translations: [Patient encounter status] Onset: 12-06-2022 Episodic Residual codes; unclassified (2 sources) Gestation period, 19 weeks; Translations: [19 weeks gestation of ] 06-09-2024 Episodic Residual codes; unclassified (2 sources) Gestation period, 24 weeks; Translations: [24 weeks gestation of ] 07-07-2024 Episodic Residual codes; unclassified (2 sources) Gestation period, 28 weeks; Translations: [28 weeks gestation of ] 08-07-2024 Episodic Residual codes; unclassified (2 sources) Gestation period, 30 weeks; Translations: [30 weeks gestation of ] 08-18-2024 Episodic Residual codes; unclassified (2 sources) Gestation period, 32 weeks; Translations: [32 weeks gestation of ] 2024 Episodic Residual codes; unclassified (2 sources) Gestation period, 34 weeks; Translations: [34 weeks gestation of ] 09-16-2024 Episodic Screening and history of mental health and substance abuse codes (3 sources) H/O: anxiety state; Translations: [Personal history of other mental and behavioral disorders] 02-01-2024 Episodic Unclassified (2 sources) Unknown / UNK(Unknown) Onset: 04-20-2017 Results Test Name Value Interpretation Reference Range Facility US OB FOLLOW UP TRANSABDOMIN AL APPROACHon 09-16-2024 US OB FOLLOW UP TRANSABDOMINAL APPROACH EXAM: US OB FOLLOW UP TRANSABDOMINAL APPROACH HISTORY: Inconsistent size. TECHNIQUE: Two-dimensional transabdominal grayscale ultrasound imaging of the pelvis was performed. FINDINGS: Gestation: Single Presentation: Cephalic Cardiac Activity: 162 beats per minute Placental Location: Anterior with no sonographic abnormalities identified. Cervical canal: Not visualized Amniotic Fluid Index: 12 cm MEASUREMENTS: BPD: 8.7 cm EGA: 35 weeks 0 days HC: 32.0 cm EGA: 36 weeks 0 days AC: 30.7 cm EGA: 34 weeks 4 days FL: 7.0 cm EGA: 35 weeks 5 days HC/AC Ratio: 1.04 The gestational age by today's ultrasound is 35 weeks 2 days (+/- eight days gestation). Estimated Weight: 2600 grams, +/- 390 grams ( 5 lb 12 oz). Weight Percentile for gestational age: 70 % IMPRESSION: 1. Single, live intrauterine gestation 34 weeks, 2 days by LMP. Today's ultrasound measurements correlate with a gestational age of 35 weeks 2 days. Estimated weight is 2600 grams, +/- 390 grams ( 5 lb 12 oz) which correlates to 70%. This is within normal limits. SOPHIE is 10/19/2024. Electronically Signed:Electronically signed by FISH SCHULTE II, MD, PHD at 18-Sep-2024 08:00:44 AM [facility] Normal Not Available Comment on above: Order Comment: US OB SCAN FOR GROWTH Estimated Date of Delivery: 10/25/24 Gestational Age as of 2024: 32w5d Urinalysis macro (dipstick) panel (U)on 2024 Bilirubin, UA Negative Negative - 4(70) +++ mg/dL [facility] Blood, UA Positive Negative - 50 Carson/mcL [facility] Comment on above: trace Clarity, UA Clear [facility] Color, UA Yellow [facility] Glucose, UA Negative Negative - 1999(110) ++++ mg/dL [facility] Interpretation and review of laboratory results Abnormal [facility] Ketones, UA Negative Negative - 160(16) ++++ mg/dL [facility] Leukocytes, UA Negative Negative - 500+++ Monica/mcL [facility] Nitrite, UA Negative Negative - Positive [facility] pH, UA 7 5 - 9 [facility] Protein, UA Negative Negative - 1999(20) ++++ mg/dL [facility] Spec Grav, UA 1.015 1 - 1.03 [facility] Urobilinogen, UA 0.2 0.2 - 12 mg/dL [facility] Urinalysis macro (dipstick) panel (U)on 08-18-2024 Bilirubin, UA Negative Negative - 4(70) +++ mg/dL [facility] Blood, UA Negative Negative - 50 Carson/mcL [facility] Clarity, UA Clear [facility] Color, UA Yellow [facility] Glucose, UA Negative Negative - 1999(110) ++++ mg/dL [facility] Interpretation and review of laboratory results Abnormal [facility] Ketones, UA Negative Negative - 160(16) ++++ mg/dL [facility] Leukocytes, UA Trace Negative - 500+++ Monica/mcL [facility] Nitrite, UA Negative Negative - Positive [facility] pH, UA 7 5 - 9 [facility] Protein, UA Negative Negative - 1999(20) ++++ mg/dL [facility] Spec Grav, UA 1.015 1 - 1.03 [facility] Urobilinogen, UA 0.2 0.2 - 12 mg/dL [facility] Urinalysis macro (dipstick) panel (U)on 08-07-2024 Bilirubin, UA Negative Negative - 4(70) +++ mg/dL [facility] Blood, UA Negative Negative - 50 Carson/mcL [facility] Clarity, UA Clear [facility] Color, UA Yellow [facility] Glucose, UA Negative Negative - 1999(110) ++++ mg/dL [facility] Interpretation and review of laboratory results Abnormal [facility] Ketones, UA Negative Negative - 160(16) ++++ mg/dL [facility] Leukocytes, UA Negative Negative - 500+++ Monica/mcL [facility] Nitrite, UA Negative Negative - Positive [facility] pH, UA 6.5 5 - 9 [facility] Protein, UA Negative Negative - 1999(20) ++++ mg/dL [facility] Spec Grav, UA 1.025 1 - 1.03 [facility] Urobilinogen, UA 1.0 0.2 - 12 mg/dL [facility] GLUCOSE 1 HOURon 07-18-2024 Glucose [Mass/Vol] 97 mg/dL NINF - 13 0 mg/dL [facility] RECURRENT VAGINITIS (HTRX)on 07-09-2024 ATOPOBIUM VAGINAE 16.774 Abnormal [facility] ATOPOBIUM VAGINAE Detected Abnormal [facility] BVAB 2,3 (BACTERIAL VAGINOSIS ASSOCIATED BACTERIA 2, 3); MOBILUNCUS SPP 0 [facility] BVAB 2,3 (BACTERIAL VAGINOSIS ASSOCIATED BACTERIA 2, 3); MOBILUNCUS SPP Not detected [facility] AIDA ALBICANS, PARAPSILOSIS, TROPICALIS 0 [facility] AIDA ALBICANS, PARAPSILOSIS, TROPICALIS Not detected [facility] AIDA GLABRATA 0 [facility] AIDA GLABRATA Not detected [facility] AIDA KRUSEI 0 [facility] AIDA KRUSEI Not detected [facility] CHLAMYDIA TRACHOMATIS 0 [facility] CHLAMYDIA TRACHOMATIS Not detected N [facility] GARDNERELLA VAGINALIS 23.955 Abnormal [facility] GARDNERELLA VAGINALIS Detected Abnormal [facility] Interpretation and review of laboratory results Abnormal [facility] MEGASPHAERA (TYPES 1, 2) 0 [facility] MEGASPHAERA (TYPES 1, 2) Not detected [facility] MYCOPLASMA GENITALIUM 0 [facility] MYCOPLASMA GENITALIUM Not detected N [facility] NEISSERIA GONORRHOEAE 0 [facility] NEISSERIA GONORRHOEAE Not detected N [facility] TRICHOMONAS VAGINALIS 0 [facility] TRICHOMONAS VAGINALIS Not detected N [facility] Urinalysis macro (dipstick) panel (U)on 07-07-2024 Bilirubin, UA Negative Negative - 4(70) +++ mg/dL [facility] Blood, UA Negative Negative - 50 Carson/mcL [facility] Clarity, UA Clear [facility] Color, UA Yellow [facility] Glucose, UA Negative Negative - 1999(110) ++++ mg/dL [facility] Interpretation and review of laboratory results Abnormal [facility] Ketones, UA Negative Negative - 160(16) ++++ mg/dL [facility] Leukocytes, UA Trace Negative - 500+++ Monica/mcL [facility] Nitrite, UA Negative Negative - Positive [facility] pH, UA 6 5 - 9 [facility] Protein, UA Negative Negative - 1999(20) ++++ mg/dL [facility] Spec Grav, UA 1.03 1 - 1.03 [facility] Urobilinogen, UA 0.2 0.2 - 12 mg/dL [facility] Urinalysis macro (dipstick) panel (U)on 06-09-2024 Bilirubin, UA Negative Negative - 4(70) +++ mg/dL [facility] Blood, UA Negative Negative - 50 Carson/mcL [facility] Clarity, UA Clear [facility] Color, UA Yellow [facility] Glucose, UA Negative Negative - 1999(110) ++++ mg/dL [facility] Interpretation and review of laboratory results Normal [facility] Ketones, UA Negative Negative - 160(16) ++++ mg/dL [facility] Leukocytes, UA Negative Negative - 500+++ Monica/mcL [facility] Nitrite, UA Negative Negative - Positive [facility] pH, UA 6 5 - 9 [facility] Protein, UA Negative Negative - 1999(20) ++++ mg/dL [facility] Spec Grav, UA 1.01 1 - 1.03 [facility] Urobilinogen, UA 0.2 0.2 - 12 mg/dL [facility] Urinalysis macro (dipstick) panel (U)on 05-19-2024 Bilirubin, UA Negative Negative - 4(70) +++ mg/dL [facility] Blood, UA Negative Negative - 50 Carson/mcL [facility] Clarity, UA Clear [facility] Color, UA Yellow [facility] Glucose, UA Negative Negative - 1999(110) ++++ mg/dL [facility] Interpretation and review of laboratory results Abnormal [facility] Ketones, UA Negative Negative - 160(16) ++++ mg/dL [facility] Leukocytes, UA Trace Negative - 500+++ Monica/mcL [facility] Nitrite, UA Negative Negative - Positive [facility] pH, UA 6.5 5 - 9 [facility] Protein, UA Negative Negative - 1999(20) ++++ mg/dL [facility] Spec Grav, UA 1.025 1 - 1.03 [facility] Urobilinogen, UA 0.2 0.2 - 12 mg/dL [facility] Urinalysis macro (dipstick) panel (U)on 04-21-2024 Bilirubin, UA Negative Negative - 4(70) +++ mg/dL [facility] Blood, UA Negative Negative - 50 Carson/mcL [facility] Clarity, UA Clear [facility] Color, UA Yellow [facility] Glucose, UA Negative Negative - 1999(110) ++++ mg/dL [facility] Interpretation and review of laboratory results Abnormal [facility] Ketones, UA Negative Negative - 160(16) ++++ mg/dL [facility] Leukocytes, UA Trace Negative - 500+++ Monica/mcL [facility] Nitrite, UA Negative Negative - Positive [facility] pH, UA 8.5 5 - 9 [facility] Protein, UA Negative Negative - 1999(20) ++++ mg/dL [facility] Spec Grav, UA 1.020 1 - 1.03 [facility] Urobilinogen, UA 0.2 0.2 - 12 mg/dL [facility] A1C with Estimated Average G michael 04-02-2024 Glucose [Mass/Vol] 105 mg/dL Normal [facility] Comment on above: Result Comment: PERF ORMED BY: [place] [address] PATHOLOGIST MRI TECH JAE GUERRA M.D. Performed By: #### P T, BNP, CK, PTT, BMP, HS TROP, CBC #### [address] HbA1c (Bld) [Mass fraction] 5.3 % Normal 4.3-5.6 [facility] Comment on above: Result Comment: Incr eased risk for diabetes: 5.7 - 6.4 diabetes: >6.4 glycemic control for adults with diabetes: <7.0 Performed By: #### P T, BNP, CK, PTT, BMP, HS TROP, CBC #### [place] [address] [place] Automated basophil %Ordered By: Jaeml Estrada on 04-02-2024 Basophils/100 WBC (Bld) 0.6 % Normal . [facility] Comment on above: Performed By: #### P T, BNP, CK, PTT, BMP, HS TROP, CBC #### [address] Automated basophil countOrde red By: Jamel Estrada on 04-02-2024 Basophils (Bld) [#/Vol] 0.0 10*3/uL Normal 0.0-0.2 [facility] Comment on above: Result Comment: PERF ORMED BY: [place] [address] PATHOLOGIST MRI TECH JAE GUERRA M.D. Performed By: #### P T, BNP, CK, PTT, BMP, HS TROP, CBC #### [address] Automated blood monocyte cou ntOrdered By: Jamel Estrada on 04-02-2024 Monocytes (Bld) [#/Vol] 0.5 10*3/uL Normal 0.0-0.8 [facility] Comment on above: Performed By: #### P T, BNP, CK, PTT, BMP, HS TROP, CBC #### [address] Automated eosinophil %Ordere d By: Jamel Estrada on 04-02-2024 Eosinophils/100 WBC (Bld) 3.4 % Normal . [facility] Comment on above: Performed By: #### P T, BNP, CK, PTT, BMP, HS TROP, CBC #### [address] Automated eosinophil countOr dered By: Jamel Estrada on 04-02-2024 Eosinophils (Bld) [#/Vol] 0.3 10*3/uL Normal 0.0-0.45 [facility] Comment on above: Performed By: #### P T, BNP, CK, PTT, BMP, HS TROP, CBC #### [address] [address] [place] Automated monocyte %Ordered By: Jamel Estrada on 04-02-2024 Monocytes/100 WBC (Bld) 7.5 % Normal . [facility] Comment on above: Performed By: #### P T, BNP, CK, PTT, BMP, HS TROP, CBC #### [address] Automated neutrophil %Ordere d By: Jamel Estrada on 04-02-2024 Neutrophils/100 WBC (Bld) 66.0 % Normal . [facility] Comment on above: Performed By: #### P T, BNP, CK, PTT, BMP, HS TROP, CBC #### [address] Complete Blood Count Auto Di ffon 04-02-2024 Mean Corpuscular HGB Conc 34.2 g/dL Normal 32.0-35.0 [facility] Comment on above: Performed By: #### P T, BNP, CK, PTT, BMP, HS TROP, CBC #### [address] NRBC% 0.1 /100{WBC} Normal 0-0.5 [facility] Comment on above: Performed By: #### P T, BNP, CK, PTT, BMP, HS TROP, CBC #### [address] Erythrocyte distribution wid th [Ratio] by Automated countOrdered By: Jamel Estrada on 04-02-2024 Erythrocyte distribution width (RBC) [Ratio] 13.4 % Normal 11.9-15.3 [facility] Comment on above: Performed By: #### P T, BNP, CK, PTT, BMP, HS TROP, CBC #### [address] Erythrocytes [#/volume] in B lood by Automated countOrdered By: Jamel Estrada on 04-02-2024 RBC (Bld) [#/Vol] 3.65 10*6/uL Normal 3.60-5.00 [facility] Comment on above: Performed By: #### P T, BNP, CK, PTT, BMP, HS TROP, CBC #### [address] HIV 1/O/2 Antigen/Antibodyon 04-02-2024 HIV Screen 4th Generation Non-Reactive Normal Non Reactive [facility] Comment on above: Result Comment: HIV- 1/HIV-2 antibodies and HIV-1 p24 antigen were NOT detected. There is no laboratory evidence of HIV infection. HIV Negative Performed at: [facility] [id number] Senior Net Architect: Gabriel Casillas PhD, Phone: [phone] Performed By: #### P T, BNP, CK, PTT, BMP, HS TROP, CBC #### [address] Hematocrit [Volume Fraction] of Blood by Automated countOrdered By: Jamel Estrada on 04-02-2024 Hematocrit (Bld) [Volume fraction] 33.2 % Low 34.0-46.4 [facility] Comment on above: Performed By: #### P T, BNP, CK, PTT, BMP, HS TROP, CBC #### [address] Hemoglobin [Mass/volume] in BloodOrdered By: Jamel Estrada on 04-02-2024 Hemoglobin (Bld) [Mass/Vol] 11.3 g/dL Low 11.8-15.4 [facility] Comment on above: Performed By: #### P T, BNP, CK, PTT, BMP, HS TROP, CBC #### [address] Hep C Ab wRfx to Qnt PCRon 0 04-02-2024 Hepatitis C Virus Antibody Non-Reactive Normal Non Reactive [facility] Comment on above: Performed By: #### P T, BNP, CK, PTT, BMP, HS TROP, CBC #### [address] Interpretation Hepatitis C Comment Normal . [facility] Comment on above: Result Comment: Not infected with HCV unless early or acute infection is suspected (which may be delayed in an immunocompromised individual), or other evidence exists to indicate HCV infection. Performed By: #### P T, BNP, CK, PTT, BMP, HS TROP, CBC #### [address] Hepatitis B Surface Antigeno n 04-02-2024 HBsAg Screen Negative Normal Negative [facility] Comment on above: Result Comment: Perf ormed at: - [facility] [address] [id number] Senior Net Architect: Gabriel Casillas PhD, Phone: [phone] PERFORMED BY: [place] [address] PATHOLOGIST MRI TECH JAE GUERRA M.D. Performed By: #### P T, BNP, CK, PTT, BMP, HS TROP, CBC #### [address] Leukocytes [#/volume] correc ronnie for nucleated erythrocytes in Blood by Automated counOrdered By: Jamel Estrada on 04-02-2024 WBC corrected for nucl RBC Auto (Bld) [#/Vol] 7.3 10*3/uL 3.8-11.6 [facility] Leukocytes [#/volume] in Blo od by Automated countOrdered By: Jamel Estrada on 04-02-2024 WBC (Bld) [#/Vol] 7.3 10*3/uL Normal 3.8-11.6 [facility] Comment on above: Performed By: #### P T, BNP, CK, PTT, BMP, HS TROP, CBC #### [address] Lymphocytes [#/volume] in Bl ood by Automated countOrdered By: Jamel Estrada on 04-02-2024 Lymphocytes (Bld) [#/Vol] 1.6 10*3/uL Normal 1.00-4.8 [facility] Comment on above: Performed By: #### P T, BNP, CK, PTT, BMP, HS TROP, CBC #### [address] Lymphocytes/100 leukocytes i n Blood by Automated countOrdered By: Jamel Estrada on 04-02-2024 Lymphocytes/100 WBC (Bld) 22.5 % Normal . [facility] Comment on above: Performed By: #### P T, BNP, CK, PTT, BMP, HS TROP, CBC #### [facility] [address] MCH [Entitic mass] by Automa ronnie countOrdered By: Jamel Estrada on 04-02-2024 MCH (RBC) [Entitic mass] 31.0 pg Normal 24.7-34.3 [facility] Comment on above: Performed By: #### P T, BNP, CK, PTT, BMP, HS TROP, CBC #### [address] MCHC Auto (RBC) [Mass/Vol]Or dered By: Jamel Estrada on 04-02-2024 MCHC (RBC) [Mass/Vol] 34.2 g/dL 32.0-35.0 [facility] MCV [Entitic volume] by Auto mated countOrdered By: Jamel Estrada on 04-02-2024 MCV (RBC) [Entitic vol] 90.9 fL Normal 80-100 [facility] Comment on above: Performed By: #### P T, BNP, CK, PTT, BMP, HS TROP, CBC #### [facility] [address] [place] [address] Neutrophils [#/volume] in Bl ood by Automated countOrdered By: Jamel Estrada on 04-02-2024 Neutrophils (Bld) [#/Vol] 4.8 10*3/uL Normal 1.8-7.7 [facility] Comment on above: Performed By: #### P T, BNP, CK, PTT, BMP, HS TROP, CBC #### [address] Nucleated erythrocytes [Pres ence] in Blood by Automated countOrdered By: Jamel Estrada on 04-02-2024 Nucleated RBC Auto Ql (Bld) 0.1 /100{WBC} 0-0.5 [facility] Platelet mean volume [Entiti c volume] in Blood by Automated countOrdered By: Jamel Estrada on 04-02-2024 Platelet mean volume (Bld) [Entitic vol] 9.2 fL Normal 6.3-10.7 [facility] Comment on above: Performed By: #### P T, BNP, CK, PTT, BMP, HS TROP, CBC #### [facility] [address] [place] [address] Platelets [#/volume] in Bloo d by Automated countOrdered By: Jamel Estrada on 04-02-2024 Platelets (Bld) [#/Vol] 209 10*3/uL Normal 150-450 [facility] Comment on above: Performed By: #### P T, BNP, CK, PTT, BMP, HS TROP, CBC #### [address] RPR w/rfx to Quant TP Abson 04-02-2024 RPR, Rfx Quant RPR Non-Reactive Normal Non Reactive [facility] Comment on above: Result Comment: Perf ormed at: - [facility] [id number] Senior Net Architect: Gabriel Caisllas PhD, Phone: [phone] PERFORMED BY: [place] [address] PATHOLOGIST MRI TECH JAE GUERRA M.D. Performed By: #### P T, BNP, CK, PTT, BMP, HS TROP, CBC #### [address] Rubella IgG Antibodyon 04-02 Rubella IgG Antibody 3.16 Normal Immune >0.99 [facility] Comment on above: Result Comment: Non- immune <0.90 Equivocal 0.90 - 0.99 Immune >0.99 Performed at: [facility] [id number] Senior Net Architect: Gabriel Casillas PhD, Phone: [phone] Performed By: #### P T, BNP, CK, PTT, BMP, HS TROP, CBC #### [facility] [address] [place] [address] [place] Type and Screenon 04-02-2024 ABO and Rh group Nom (Bld) Blood group O Rh(D) positive Normal [facility] Urine Cultureon 04-02-2024 Bacteria identified Cx Nom (U) <9,000 colonies/ml mixed bacterial skin contaminants 2 Days PERFORMED BY: [place] [address] PATHOLOGIST MRI TECH JAE GUERRA M.D. Normal [facility] Comment on above: Performed By: #### P T, BNP, CK, PTT, BMP, HS TROP, CBC #### [facility] [address] [place] [id number] [facility] Choriogonadotropin.beta subu nit [Units/volume] in Serum or PlasmaOrdered By: Jamel Estrada on 02-27-2024 [place] [address].00 m[IU]/mL [facility] Comment on above: Approximate Approxim ate hCG Gestational Age Range (mIU/ml) (weeks)0.2-1 5-50 1-2 50-500 2-3 100-5,000 3-4 500-10,000 4-5 1,000-50,000 5-6 10,000-100,000 6-8 15,000-200,000 8-12 10,000-100,000 HCG,Quantitativeon 4 HCG,Quantitative 07787.00 m[iU]/mL Normal [facility] Comment on above: Result Comment: Appr oximate Approximate hCG Gestational Age Range (mIU/ml) (weeks) 0.2-1 5-50 1-2 50-500 2-3 100-5,000 3-4 500-10,000 4-5 1,000-50,000 5-6 10,000-100,000 6-8 15,000-200,000 8-12 10,000-100,000 PERFORMED BY: [address] [address] PATHOLOGIST MRI TECH JAE GUERRA M.D. Performed By: #### P T, BNP, CK, PTT, BMP, HS TROP, CBC #### [address] Coding Summary.on 02-14-2024 Coding Summary. [id number]+PG hlYWQ+ [id number] dXXmgkIYRGLXlRTdQrjcNpFS9b aXNjZXJu IC8+DI0zHGBbEpsghAPhz8Q3vZ R7L29mgp2pIVkaeFP7DRPrCfNv zcmla7aerGm0JIhrDkftEwZx BMPdwK39ZWX4kG99Lp04hMEqzY Jhr3nfiJt8BxYyHYQdQEN1aUlk JJxpr0YzHBTpV26omOIyh1P1 BRJobYxmsDPuPmIksXC0jA8tUL mpalvar7nypkgwDai4kr65nRTv e5S4yPN3N0LscjA8ACFwhAAu GyelmAONnM7hipwbh7ipdoktAc XzJEGdZUo9MHk9CZKcvTnyZbGg CV02USX8RWLwluWnW6VqLXRk jNzdTsW0m2B8Aa8WT2KBBowhJ3 VNTUFSWTwvdGQ+TB79ax01R9Ue BbabOmw0GPDtFDD3hQI8wN1j OGMhQZwdz8I4fGR1H6NvtoMnfg 9uv8ngSEAsEKntL45yzZLyl0D0 XQQfvNL1RVJabWhcKtMkoZ03 Oyc+FXOpbGikh6VuQljbg4ukk0 mjqNr4UdfvJRRuugMjtEbxUAM9 n9ReDs8yJUSglZN9zTI2pI1p KlHdBeN5VHdnY912UyWmdNRlTi dpI46cS0DlvNF+DAQmArp9VHPe hPakRO6sP5EbPPPxebfxgAXr fEmbUA9uKABpmzdhVUCzgV2yFA FaK0z6CjJcGhV8NMzxK2AkHGRx xcikHp66pX5kUeQfKbJ0TThm R8KtluV5EHMwqJYkTOtaUXL2F1 1bw3Z3UTVaMWThGPL1yIG1iW1n bGlnbjogbGVmdDsgdmVydGlj XNruYEwjT947HUErhPqqPiNxTC luZyBEYXRlOiAgMDYvMjAvMjAy NDwvdGQ+GKWyUYT4qEepKHNx pYKiZDibWz9nnLlnqObqCE3dGA XbeiqaONGicC8iQJJesCXpxQfn HO8fYYXwvclzs283CwBzAYP1 XKQgpRBfV3MqnX1xUlDwOABsDR SqL8EouYLfTGffV215AJdvAxM9 WFWslyCqT4HcWQWfyLpdAtV8 r5Q0Jo8Ik2HzdadzJ6GnuWCyLz AxUziyQAx7D9YwQzvsgCC+PC90 JHFeIA15SMt2GSO4bDjnWYjj RNRhM0WrsZ7mDpXsFEBhLQHoWd c+PHRhYmxlIHdpZHRoPScxMDAl TmYkwRxoQH3jFw5qQSGwHZKe vWqqaFClUsZye3uyKXJaJYcoLW 9zoOquF7PlvWV7PFYuo4m2Bh91 I23nT0PdnXA+DEDvqOM7nGN6 rF0kJsVhVjD8UOgpW606UbTwmI XuCxjsj1mix4chjQz7MwC0RQKp bhIloPrjVGE5g3KfTb93K55g IHdpZHRoPSIxNSUiIHZhbGlnbj 4npT9yNt8+VCJzjKJ6pUB4wQ5q WeIzXqX5AVjyN827SaIyvTCq Sshmg7wkc3ukoBe3YuDnCBHclr WxwRryEDK3v2GeBp47R3VroKdr g1OlSyk5zc72wEXbe4K7fNZ3 X5SwTGJpfeexdBIevHmmIF8aUV ZnohhnEWKktE5oYRBfX4b2JvQw QpC9HDcdR8YhcqD1ZOExtKTf BDWvzZFDkU6jympmc8rfopapPw NcRCAtHEp6LYw4TMFeaJrtZgCn KDB3UaM3JQY0rJBysQ4xuXku qqqdyM2sBes+LDA2qXNkfSWMVE 1lOjwvdGQ+SUNiHJA1wTylWOax KNXzcK2oLJWuQ3r4RdPoZfH6 OBysY7UdzeC6EBAxhVFuVKPzfI EHzS6yduzfn9rpmdvcSuElPLVp PNp7PDz9IHYtgKjxKuVkWPJ3 PqT1WXW8vDQykW0zaHreggdypW 9wOyc+GfygkHqwDLY0WTa8D7Nr Ytl7NCThxCzlSU6eaHKcVVht Qm8tsKufhZieBF4aYUUfuzhht2 32ZbJde3yoIHWqeCJwQXhpLJP4 U13cj1K6LRAdJTFgVOO9fBB0 cQ3qcBlbrqtprTKukSonuxVhaJ ipXFbnOPneC228XRLejKilLvTc NFw5X0TkZuz2OLLqlEwzKJ7a hNOmAXalBz7xeSrqyYzrFI8zDS Eebfjbg408WrSic7tdLCPewADy LPntMDQ6O24ty3R3GKGxXHKe BZS2kUY9uU0nyEjmdxslyXLuaY phboQoaWoqLBhuXFafC636OYJp zWvmKfXftMm2Z3QsGgd1KDJg bVqeVQ6hbZAmOPekVz8kaTotaJ lcTB6lKYYpplgaf309SyVea2gd KKOyjIMsTGpjERH1C61mn2Q0 LVBrTKFlDIZ4vYZ5rJ1rfNhirz ogbGVmdDsgdmVydGljYWwtYWxp O126VUSgkIrfDvFotPfijfVp XKjcWMq7U7AiZizuoCW+PC90YW VxOF31yYIgaRMyx4xjsXu8WcLd NIGaEHJ0hLszZVmae0XwZPNl F94plAXfk0D9UUYpzDuokQPnHy OurMX3kC2gRNuylqdar8zkgqoq Yuhth6eggu72jX60R29iIMka BPWjXORgNJNyTJHibXwegu9zfN 9wIi8+ESZqiHA6fAK9fP3rSXAs GbM1IKuqI843EmJeeEXcRcdc v8osn6vfdSo0DkA4WDTovkFkmQ dwFOJ4k7SxJe48Z74xGYoqZGHz BQVbJDLyPRFkyByovz4gzC2n Ii8+WTDmcGW8wTV0aJ1uCcQwIr X7QYhuO643ZwGimIGdIjxoG56p W2BkcFR+MQUjExa0OWObbFqv WZ1nwFVrQSyaZr6iEYS1YiHfCk AtGGatH6UxGZDrbtxfdzdpdZY0 GGXgAOZjwW42Wj1ysXyiDACr qZMJiN7diumir9ygrnubDyDyYH XeIPn7DTf7HOCauLnrXgZuFOW2 MlS6EHA3vGClmI3liMojopiq aH9dR1LgNNAlyhseKx41vN2pWk KmImR5TQwsCom+TUVZRVIsIENB N8kDFH21MP52wVNlm4U0tRR4 Y1ZfBKSpisghellgmEE9IJZbSH OziQ34qXWrYVywVm8so3M4w398 GGLvRCYkwW53Kk6zwTemEULl kPXMuX2lmcbhi5wpkzwcWlGjQY HuUOr8XOj6QKLeoEkgRuHjOHJ5 HmJ3CZN8pYHkmG2knHkkzroj bY9pBdq+SANmITsgPXu9PjfefU Q+DLJpJGM7yCiiURfuJOMcmD1d VNQyK9y6SlDeTwR6HQhcC3Qq JZXodlmyKs99jY2bOhJoHrN2XY xeB5QsfaM1IZSgdZRlKPyuYSI6 Z70qz4H3TEMzBQQrAYX5yGC9 zR7kyTnzkiatqCRmyZvqodXfzN ulTPzwZDriI499RBYeeFkfBeD0 IXhnIHKfRU49MV47jRMeo4L3 fDQ7C2EvXKTprbujgtxxmBK7SG DtIYJlbF06zUAxZBhpKx6dg6Z5 v874OMGjRMQzfM71Bj2oxSui MDBmvRSZjG2yvnimz2vuwukiVz AiZWPqQDx4SLm7NFGiwKjjDgGn MZK9CtI9VCK2wONndF6gbPca zdnhyH6xBdv+HoPaSQbgTI37RE 96mEGvr8I1sYL5O4NsLYCnsule stxlqDL5ANLqJXShhW79qPMh VHvtIw2hy5J1r807SDTcGHHkeM 25Se9usZdiBVWvhMURpZ9uwnbs t5slsawhXaNwTYMxWCc4GXj5 LDYnaBkhOiKeZUY2KhW8LCA7qQ AdsB8prOuxamadfO3mMek+T3V0 wLL4aIPrwYlsqPC+WO25ox60 T9GdHdxwRjf8OGSnWIH7lBE7aR 0bLRGeLSvbi6J3lST0A1CvbhYd ca3ab0apQHDtRZkpG94yjXZw q9G1ZBDdsWK5DCScqMwiRhSutM 93Oyc+PWFnkZryp7FqRxdaq2hc e0dmzAb1MfRmQEBryvCwvWnh WTR0w7CpCx21D36qOKukPJYmKG PcPHPeUEIhnPelbk6ozD0iUk8+ GJQvrKY8zPR8mP8wYtMtYiI5 ARldK215UqNeeTNoEemag2cla1 tvvXg4HuPuPYRzkwQsuSyjYNK5 i9VdQi68K5QxwPbdh8IiHqs3 rb27hYAwo9A4yFK8N5IaGMVfoe bddKRwwVoiTR3oHKXnbkruLLQl yF5iNKMtF3z5OwNiRmY2QVvt A3MmmcB5XVRfkSUbWNIydPDXcH 1wlimxe4synyzlAhJiJEItQKa9 UDh2QXGzfNheVqXzRXM6JlH2 LAE1hXOxoH4krYmyjyrozA0mGy c+WBf3k7hseLZkAD7saBE8BK08 SP11dNBpr2S7xMK8Z1RmDVLl obwosncpiII7CZJxCRJbrR74Qb 4trFogZd7rYGKqWHT4MWJuhJBf W6YusU4cHqNzOIShSQFnB4Ko xTUhVPwsM480WQhpWjQ2DJCwka GdS3UaWBZqrChtFzY8d6H6Iy6E IZ87FW95UU84vIYhm7L3hPC8 H5NkRSQukbohrlfluJH1DETcWG MtbC39Iy8clPuqCy2hLYPwPGU2 ZZLulVJpW4YmvO3mLrPnENTa TCBiL7ByrCWyEMmgO407OXknVp W8QRUdppSiL5YxZFQsuFllAuC3 c5E9Qw1MZo94OE04RR82pSRd n0H2xZE6X5FyFOWcgupdpzabaZ P5EIViPNKvwY88Pu5tvLyjVp7o CKRmWTT7VGDxzYBdI1DtrP3a BeFcJPAjJEWoP3LejTChQLtcQ1 75RBumDuI7ENZdvmJtW3RcARYw kLblOsS5y4I1Ks5CKSlvxxx9 E6LvIqdlvAZ+ON40XGEsXQ55oR PqtRShp7rsrMu4CbTgAKBrNRI3 kAxgALyjk7FzUERsL21hpXBb i6K2XWTltFnrc (more content not included)... Normal [facility] Consent for Treatmenton 01-25 Consent for Treatment [id number] Normal [facility] Activated partial thrombopla stin time (aPTT) in platelet poor plasma by coagulation aOrdered By: Smooth Dooley on 02-01-2024 aPTT Coag (PPP) [Time] 31.3 s 25.1-36.5 [facility] Comment on above: A hematocrit value g reater than 55% may lead to inaccurate results in coagulation testing. Patients having hematocrit values >55% require a special collection tube for coagulation studies. Please contact the laboratory at [phone] for redraw instructions. Automated basophil %Ordered By: Smooth Dooley on 02-01-2024 Basophils/100 WBC (Bld) 1.1 % Normal . [facility] Comment on above: Performed By: #### P T, BNP, CK, PTT, BMP, HS TROP, CBC #### [facility] [address] [place] [address] Automated basophil countOrde red By: Smooth Dooley on 02-01-2024 Basophils (Bld) [#/Vol] 0.1 10*3/uL Normal 0.0-0.2 [facility] Comment on above: Result Comment: PERF ORMED BY: [place] [address] PATHOLOGIST MRI TECH JAE GUERRA M.D. Performed By: #### P T, BNP, CK, PTT, BMP, HS TROP, CBC #### [facility] [address] Automated blood monocyte cou ntOrdered By: Smooth Dooley on 02-01-2024 Monocytes (Bld) [#/Vol] 0.5 10*3/uL Normal 0.0-0.8 [facility] Comment on above: Performed By: #### P T, BNP, CK, PTT, BMP, HS TROP, CBC #### [address] Automated eosinophil %Ordere d By: Smooth Dooley on 02-01-2024 Eosinophils/100 WBC (Bld) 3.0 % Normal . [facility] Comment on above: Performed By: #### P T, BNP, CK, PTT, BMP, HS TROP, CBC #### [address] Automated eosinophil countOr dered By: Smooth Dooley on 02-01-2024 Eosinophils (Bld) [#/Vol] 0.2 10*3/uL Normal 0.0-0.45 [facility] Comment on above: Performed By: #### P T, BNP, CK, PTT, BMP, HS TROP, CBC #### [address] Automated monocyte %Ordered By: Smooth Dooley on 02-01-2024 Monocytes/100 WBC (Bld) 7.0 % Normal . [facility] Comment on above: Performed By: #### P T, BNP, CK, PTT, BMP, HS TROP, CBC #### [address] Automated neutrophil %Ordere d By: Smooth Dooley on 02-01-2024 Neutrophils/100 WBC (Bld) 59.1 % Normal . [facility] Comment on above: Performed By: #### P T, BNP, CK, PTT, BMP, HS TROP, CBC #### [address] BNP ser/plasOrdered By: Smooth Dooley on 02-01-2024 Natriuretic peptide B (Bld) [Mass/Vol] 7.0 pg/mL Normal 5-100 [facility] Comment on above: Result Comment: PERF ORMED BY: [place] [address] PATHOLOGIST MRI TECH JAE GUERRA M.D. Performed By: #### P T, BNP, CK, PTT, BMP, HS TROP, CBC #### [address] Basic Metabolic Panelon 06-0 Creatinine Clr Calc Pharmacy 106.09 Normal [facility] Comment on above: Result Comment: PERF ORMED BY: [place] [address] PATHOLOGIST MRI TECH JAE GUERRA M.D. Performed By: #### P T, BNP, CK, PTT, BMP, HS TROP, CBC #### [address] GFR/1.73 sq M.predicted MDRD (S/P/Bld) [Vol rate/Area] mL/min/{1.73_m2} Normal [facility] Comment on above: Performed By: #### P T, BNP, CK, PTT, BMP, HS TROP, CBC #### [address] Bilirubin Test strip Ql (U)O rdered By: Smooth Dooley on 02-01-2024 Bilirubin Ql (U) Negative Negative [facility] CT head/brain wo conon 01-31 CT head/brain wo con [facility] [place] [address] CT Scan Report Signed Patient: Rao Choi MR#: [id number] 7 : 1995 Acct:[id number] Age/Sex: 28 / F ADM Date: 02/01/24 Loc: ER Room: Type: [facility] ER Attending Dr: Copies to: Smooth [...] Elsa Malone M.D.02/01/2024 2:36 PM Dictation Location: [place] [address] Transcribed By: ELIZABETH 02/01/24 1436 Dictated By: Elsa Malone MD 02/01/24 1434 Signed By: 02/01/24 1436 Normal [facility] Calcium [Mass/volume] in Ser um or PlasmaOrdered By: Smooth Dooley on 02-01-2024 Calcium [Mass/Vol] 9.3 mg/dL Normal 8.6-10.3 [facility] Comment on above: Performed By: #### P T, BNP, CK, PTT, BMP, HS TROP, CBC #### [facility] [address] Carbon dioxide, total [Moles /volume] in Serum or PlasmaOrdered By: Smooth Dooley on 02-01-2024 CO2 [Moles/Vol] 28.7 mmol/L Normal 21.0-31.0 [facility] Comment on above: Performed By: #### P T, BNP, CK, PTT, BMP, HS TROP, CBC #### [facility] [address] [place] [address] [place] Chloride [Moles/volume] in S yecenia or PlasmaOrdered By: Smooth Dooley on 02-01-2024 Chloride [Moles/Vol] 102 mmol/L Normal 98-107 [facility] Comment on above: Performed By: #### P T, BNP, CK, PTT, BMP, HS TROP, CBC #### [address] Color of Urine by AutoOrdere d By: Smooth Dooley on 02-01-2024 Color (U) Light-yellow Normal Yellow [facility] Comment on above: Order Comment: Name Collection Type:: Clean-Voided Midstream Performed By: #### P T, BNP, CK, PTT, BMP, HS TROP, CBC #### [address] Complete Blood Count Auto Di ffon 02-01-2024 Mean Corpuscular HGB Conc 33.7 g/dL Normal 32.0-35.0 [facility] Comment on above: Performed By: #### P T, BNP, CK, PTT, BMP, HS TROP, CBC #### [address] Monocytes/100 WBC (Bld) 17.28 % Normal 0.00-20.00 [facility] Comment on above: Performed By: #### P T, BNP, CK, PTT, BMP, HS TROP, CBC #### [address] NRBC% 0.1 /100{WBC} Normal 0-0.5 [facility] Comment on above: Performed By: #### P T, BNP, CK, PTT, BMP, HS TROP, CBC #### [address] Creatine kinase [Enzymatic a ctivity/volume] in Serum or PlasmaOrdered By: Smooth Dooley on 02-01-2024 CK [Catalytic activity/Vol] 74 U/L Normal 30-223 [facility] Comment on above: Performed By: #### P T, BNP, CK, PTT, BMP, HS TROP, CBC #### [address] Creatinine [Mass/volume] in Serum or PlasmaOrdered By: Smooth Dooley on 02-01-2024 Creatinine [Mass/Vol] 0.63 mg/dL Normal 0.60-1.20 [facility] Comment on above: Performed By: #### P T, BNP, CK, PTT, BMP, HS TROP, CBC #### [address] D-Dimer High Sensitivityon 0 02-01-2024 D-Dimer High Sensitivity < 200 Normal 0-243 [facility] Comment on above: Result Comment: [...] coagulation studies. Please contact the laboratory at [phone] for redraw instructions. PERFORMED BY: [place] [address] PATHOLOGIST MRI TECH JAE GUERRA M.D. Performed By: #### P T, BNP, CK, PTT, BMP, HS TROP, CBC #### [place] [id number] [facility] ECG 12 lead ECGon 02-01-2024 ECG 12 lead ECG [facility] [place] [address] Electrocardiograph Report Signed Patient: Rao Choi MR#: [id number] 7 : 1995 Acct:[id number] Age/Sex: 28 / F ADM Date: 02/01/24 Loc: ER Room: Type: [facility] ER Attending Dr: Ordering Provider: Smooth [...] ECGs available Confirmed by SMOOTH DOOLEY DO ([id number]) on 02/01/2024 3:56:12 PM Referred By: Electronically Signed By:SMOOTH DOOLEY DO Transcribed By: MUS Signed By Smooth Dooley DO 01/31 1556 Normal [facility] Erythrocyte distribution wid th [Ratio] by Automated countOrdered By: Smooth Dooley on 02-01-2024 Erythrocyte distribution width (RBC) [Ratio] 13.1 % Normal 11.9-15.3 [facility] Comment on above: Performed By: #### P T, BNP, CK, PTT, BMP, HS TROP, CBC #### [facility] [address] Erythrocytes [#/volume] in B lood by Automated countOrdered By: Smooth Dooley on 02-01-2024 RBC (Bld) [#/Vol] 4.43 10*6/uL Normal 3.60-5.00 [facility] Comment on above: Performed By: #### P T, BNP, CK, PTT, BMP, HS TROP, CBC #### [facility] [address] Fibrin D-dimer [Presence] in Platelet poor plasma by Latex agglutinationOrdered By: Smooth Dooley on 02-01-2024 Fibrin D-dimer LA Ql (PPP) < 200 ng/mL 0-243 [facility] Comment on above: The reference range [...] coagulation studies. Please contact the laboratory at [phone] for redraw instructions. Glucose [Mass/volume] in Ser um or PlasmaOrdered By: Smooth Dooley on 02-01-2024 Glucose [Mass/Vol] 99 mg/dL Normal 70-100 [facility] Comment on above: ADA recommended refe rence rangeRandom Glucose Reference Range is dependent on time and content of last meal. Glucose of more than 200 mg/dL in a nonstressed, ambulatory subject supports the diagnosis of Diabetes Mellitus. Result Comment: [place] om Glucose Reference Range is dependent on time and content of last meal. Glucose of more than 200 mg/dL in a nonstressed, ambulatory subject supports the diagnosis of Diabetes Mellitus. ADA recommended reference range Performed By: #### P T, BNP, CK, PTT, BMP, HS TROP, CBC #### [facility] [address] Glucose [Mass/volume] in Uri ne by Test stripOrdered By: Smooth Dooley on 02-01-2024 Glucose Test strip (U) [Mass/Vol] Normal mg/dL Normal [facility] HCG ( test) IA.rapi d Ql (U)Ordered By: Smooth Dooley on 02-01-2024 HCG ( test) Ql (U) Negative [facility] HCG,Urineon 02-01-2024 Beta HCG ( test) Ql (U) Negative Normal [facility] Comment on above: Order Comment: Name Collection Type:: Clean-Voided Midstream Result Comment: PERF ORMED BY: [place] [address] PATHOLOGIST MRI TECH JAE GUERRA M.D. Performed By: #### P T, BNP, CK, PTT, BMP, HS TROP, CBC #### [facility] [address] [place] [id number] [facility] Hematocrit [Volume Fraction] of Blood by Automated countOrdered By: Smooth Dooley on 02-01-2024 Hematocrit (Bld) [Volume fraction] 39.8 % Normal 34.0-46.4 [facility] Comment on above: Performed By: #### P T, BNP, CK, PTT, BMP, HS TROP, CBC #### [facility] [address] Hemoglobin Test strip Ql (U) Ordered By: Smooth Dooley on 02-01-2024 Hemoglobin Ql (U) Negative Negative [facility] Hemoglobin [Mass/volume] in BloodOrdered By: Smooth Dooley on 02-01-2024 Hemoglobin (Bld) [Mass/Vol] 13.4 g/dL Normal 11.8-15.4 [facility] Comment on above: Performed By: #### P T, BNP, CK, PTT, BMP, HS TROP, CBC #### [facility] [address] INR in Platelet poor plasma by Coagulation assayOrdered By: Smooth Dooley on 02-01-2024 INR Coag (PPP) [Relative time] 1.0 {INR} Normal [facility] Comment on above: INR Therapeutic Rang [...] CK, PTT, BMP, HS TROP, CBC #### [facility] [address] Ketones [Presence] in Urine by Test stripOrdered By: Smooth Dooley on 02-01-2024 Ketones Ql (U) Negative Normal Negative [facility] Comment on above: Order Comment: Name Collection Type:: Clean-Voided Midstream Performed By: #### P T, BNP, CK, PTT, BMP, HS TROP, CBC #### [facility] [address] Leukocyte esterase [Presence ] in Urine by Test stripOrdered By: Smooth Dooley on 02-01-2024 Leukocyte esterase Test strip Ql (U) Negative Normal Negative [facility] Comment on above: Order Comment: Name Collection Type:: Clean-Voided Midstream Performed By: #### P T, BNP, CK, PTT, BMP, HS TROP, CBC #### [facility] [address] Leukocytes [#/volume] correc ronnie for nucleated erythrocytes in Blood by Automated counOrdered By: Smooth Dooley on 02-01-2024 WBC corrected for nucl RBC Auto (Bld) [#/Vol] 6.7 10*3/uL 3.8-11.6 [facility] Leukocytes [#/volume] in Blo od by Automated countOrdered By: Smooth Dooley on 02-01-2024 WBC (Bld) [#/Vol] 6.7 10*3/uL Normal 3.8-11.6 [facility] Comment on above: Performed By: #### P T, BNP, CK, PTT, BMP, HS TROP, CBC #### [address] Lymphocytes [#/volume] in Bl ood by Automated countOrdered By: Smooth Dooley on 02-01-2024 Lymphocytes (Bld) [#/Vol] 2.0 10*3/uL Normal 1.00-4.8 [facility] Comment on above: Performed By: #### P T, BNP, CK, PTT, BMP, HS TROP, CBC #### [facility] [address] [place] [address] [place] Lymphocytes/100 leukocytes i n Blood by Automated countOrdered By: Smooth Dooley on 02-01-2024 Lymphocytes/100 WBC (Bld) 29.8 % Normal . [facility] Comment on above: Performed By: #### P T, BNP, CK, PTT, BMP, HS TROP, CBC #### [facility] [address] [place] [address] [place] MCH [Entitic mass] by Automa ronnie countOrdered By: Smooth Dooley on 02-01-2024 MCH (RBC) [Entitic mass] 30.3 pg Normal 24.7-34.3 [facility] Comment on above: Performed By: #### P T, BNP, CK, PTT, BMP, HS TROP, CBC #### [facility] [address] MCHC Auto (RBC) [Mass/Vol]Or dered By: Smooth Dooley on 02-01-2024 MCHC (RBC) [Mass/Vol] 33.7 g/dL 32.0-35.0 [facility] MCV [Entitic volume] by Auto mated countOrdered By: Smooth Dooley on 02-01-2024 MCV (RBC) [Entitic vol] 90.0 fL Normal 80-100 [facility] Comment on above: Performed By: #### P T, BNP, CK, PTT, BMP, HS TROP, CBC #### [facility] [address] Monocyte distribution width [Entitic volume] in Blood by AutomatedOrdered By: Smooth Dooley on 02-01-2024 Monocyte distribution width Auto (Bld) [Entitic vol] 17.28 % 0.00-20.00 [facility] Neutrophils [#/volume] in Bl ood by Automated countOrdered By: Smooth Dooley on 02-01-2024 Neutrophils (Bld) [#/Vol] 3.9 10*3/uL Normal 1.8-7.7 [facility] Comment on above: Performed By: #### P T, BNP, CK, PTT, BMP, HS TROP, CBC #### [facility] [address] Nitrite Test strip Ql (U)Ord ered By: Smooth Dooley on 02-01-2024 Nitrite Ql (U) Negative Negative [facility] No Panel InformationOrdered By: Smooth Dooley on 02-01-2024 Estimated GFR (CKD-EPI) > 60.0 mL/Min [facility] Creatinine Clearance (Chem 106.09 [facility] Nucleated erythrocytes [Pres ence] in Blood by Automated countOrdered By: Smooth Dooley on 02-01-2024 Nucleated RBC Auto Ql (Bld) 0.1 /100{WBC} 0-0.5 [facility] Partial Thromboplastin Timeo n 02-01-2024 aPTT Coag (Bld) [Time] 31.3 s Normal 25.1-36.5 [facility] Comment on above: Result Comment: A he matocrit value greater than 55% may lead to inaccurate results in coagulation testing. Patients having hematocrit values >55% require a special collection tube for coagulation studies. Please contact the laboratory at [phone] for redraw instructions. PERFORMED BY: [place] [address] PATHOLOGIST MRI TECH JAE GUERRA M.D. Performed By: #### P T, BNP, CK, PTT, BMP, HS TROP, CBC #### [facility] [address] [place] [address] Physician Orderon 02-01-2024 Physician Order [id number] Normal [facility] Platelet mean volume [Entiti c volume] in Blood by Automated countOrdered By: Smooth Dooley on 02-01-2024 Platelet mean volume (Bld) [Entitic vol] 8.4 fL Normal 6.3-10.7 [facility] Comment on above: Performed By: #### P T, BNP, CK, PTT, BMP, HS TROP, CBC #### [facility] [address] [place] [address] Platelets [#/volume] in Bloo d by Automated countOrdered By: Smooth Dooley on 02-01-2024 Platelets (Bld) [#/Vol] 232 10*3/uL Normal 150-450 [facility] Comment on above: Performed By: #### P T, BNP, CK, PTT, BMP, HS TROP, CBC #### [facility] [address] [place] [address] Potassium [Moles/volume] in Serum or PlasmaOrdered By: Smooth Dooley on 02-01-2024 Potassium [Moles/Vol] 3.6 mmol/L Normal 3.5-5.1 [facility] Comment on above: Performed By: #### P T, BNP, CK, PTT, BMP, HS TROP, CBC #### [facility] [address] Protein Test strip (U) [Mass /Vol]Ordered By: Smooth Dooley on 02-01-2024 Protein (U) [Mass/Vol] Negative Negative [facility] Prothrombin time (PT)Ordered By: Smooth Dooley on 02-01-2024 PT Coag (PPP) [Time] 11.9 s Normal 9.0-12.9 [facility] Comment on above: A hematocrit value g reater than 55% may lead to inaccurate results in coagulation testing. Patients having hematocrit values >55% require a special collection tube for coagulation studies. Please contact the laboratory at [phone] for redraw instructions. Result Comment: A he matocrit value greater than 55% may lead to inaccurate results in coagulation testing. Patients having hematocrit values >55% require a special collection tube for coagulation studies. Please contact the laboratory at [phone] for redraw instructions. Performed By: #### P T, BNP, CK, PTT, BMP, HS TROP, CBC #### [address] Serum or plasma anion gap de terminationOrdered By: Smooth Dooley on 02-01-2024 Anion gap [Moles/Vol] 10.9 mmol/L Normal 6.0-15.0 [facility] Comment on above: Performed By: #### P T, BNP, CK, PTT, BMP, HS TROP, CBC #### [facility] [address] Sodium [Moles/volume] in Ser um or PlasmaOrdered By: Smooth Dooley on 02-01-2024 Sodium [Moles/Vol] 138 mmol/L Normal 136-145 [facility] Comment on above: Performed By: #### P T, BNP, CK, PTT, BMP, HS TROP, CBC #### [facility] [address] Specific gravity Test strip (U) [Rel density]Ordered By: Smooth Dooley on 02-01-2024 Specific gravity (U) [Rel density] 1.011 1.001-1.030 [facility] Troponin I High Sensitivityo n 02-01-2024 Troponin I High Sensitivity 5.2 pg/mL Normal 0.0-15.0 [facility] Comment on above: Result Comment: PERF ORMED BY: [place] [address] PATHOLOGIST MRI TECH JAE GUERRA M.D. Performed By: #### P T, BNP, CK, PTT, BMP, HS TROP, CBC #### [address] Troponin I High Sensitivity < 2.3 Normal 0.0-15.0 [facility] Comment on above: Result Comment: PERF ORMED BY: [place] [address] PATHOLOGIST MRI TECH JAE GUERRA M.D. Performed By: #### P T, BNP, CK, PTT, BMP, HS TROP, CBC #### [facility] [address] [place] [address] Troponin I.cardiac [Mass/vol ume] in Serum or Plasma by Detection limit <= 0.01 ng/Ordered By: Smooth Dooley on 02-01-2024 Troponin I.cardiac DL <= 0.01 ng/mL [Mass/Vol] 5.2 pg/mL 0.0-15.0 [facility] Urea nitrogen [Mass/volume] in Serum or PlasmaOrdered By: Smooth Dooley on 02-01-2024 Urea nitrogen [Mass/Vol] 13 mg/dL Normal 7-25 [facility] Comment on above: Performed By: #### P T, BNP, CK, PTT, BMP, HS TROP, CBC #### [address] Urinalysison 02-01-2024 Bilirubin,Urine Negative Normal Negative [facility] Comment on above: Order Comment: Name Collection Type:: Clean-Voided Midstream Performed By: #### P T, BNP, CK, PTT, BMP, HS TROP, CBC #### [facility] [address] Glucose Ql (U) Normal Normal Normal [facility] Comment on above: Order Comment: Name Collection Type:: Clean-Voided Midstream Performed By: #### P T, BNP, CK, PTT, BMP, HS TROP, CBC #### [address] Nitrite,Urine Negative Normal Negative [facility] Comment on above: Order Comment: Name Collection Type:: Clean-Voided Midstream Performed By: #### P T, BNP, CK, PTT, BMP, HS TROP, CBC #### [address] Occult Blood,Urine Negative Normal Negative [facility] Comment on above: Order Comment: Name Collection Type:: Clean-Voided Midstream Performed By: #### P T, BNP, CK, PTT, BMP, HS TROP, CBC #### [address] Protein,Urine Negative Normal Negative [facility] Comment on above: Order Comment: Name Collection Type:: Clean-Voided Midstream Performed By: #### P T, BNP, CK, PTT, BMP, HS TROP, CBC #### [address] Specificy Rotan,Urine 1.011 Normal 1.001-1.030 [facility] Comment on above: Order Comment: Name Collection Type:: Clean-Voided Midstream Performed By: #### P T, BNP, CK, PTT, BMP, HS TROP, CBC #### [address] Urobilinogen,Urine Normal Normal Normal [facility] Comment on above: Order Comment: Name Collection Type:: Clean-Voided Midstream Performed By: #### P T, BNP, CK, PTT, BMP, HS TROP, CBC #### [address] Urine appearanceOrdered By: Smooth Dooley on 02-01-2024 Appearance (U) Clear Normal Clear [facility] Comment on above: Order Comment: Name Collection Type:: Clean-Voided Midstream Performed By: #### P T, BNP, CK, PTT, BMP, HS TROP, CBC #### [facility] [address] Urobilinogen Test strip (U) [Mass/Vol]Ordered By: Smooth Dooley on 02-01-2024 Urobilinogen (U) [Mass/Vol] Normal mg/dL Normal [facility] XR chest 2V*on 02-01-2024 XR chest 2V* [facility] [place] [address] [place] [address] XRay Report Signed Patient: Rao Choi MR#: [id number] 7 : 1995 Acct:[id number] Age/Sex: 28 / F ADM Date: 02/01/24 [...] Elsa Malone M.D.02/01/2024 12:34 PM Dictation Location: [place] [address] Transcribed By: [facility] 02/01/24 1234 Dictated By: Elsa Malone MD 02/01/24 1233 Signed By: 02/01/24 1234 Normal [facility] pH of Urine by Test stripOrd ered By: Smooth Dooley on 02-01-2024 pH (U) 7.0 [pH] Normal 5.0-9.0 [facility] Comment on above: Order Comment: Name Collection Type:: Clean-Voided Midstream Performed By: #### P T, BNP, CK, PTT, BMP, HS TROP, CBC #### [facility] [address] Pulmonary Function Studieson 05-16-2023 Pulmonary Function [...] BY: Nicole Paredes M.D. lr Dictated: 05/13/2023 [id number] Transcribed: 05/14/2023 cc:Melissa Laura D.O. [facility] Comment on above: Result Comment: Elec tronically Signed By: Lena GRACE, Nicole Mata\.br\Date and Time Signed: 05/16/23 09:49 EDT Consent for Treatmenton 04-27 Consent for Treatment [id number]:127 Normal [facility] Pulmonary Function Testson 0 05-09-2023 Pulmonary Function Tests [id number]#1.00CD:127 [facility] Physician Orderon 04-27-2023 Physician Order [id number]#1.00CD:127 [facility] Physician Order [id number]#1.00CD:127 [facility] XR Chest 2 Viewson 3 [...] mGy = na DAP = na [facility] Consent for Treatmenton 03-28 Consent for Treatment [id number]:127 [facility] Physician Orderon 04-23-2023 Physician Order [id number]:127 [facility] XR Chest 2 Viewson 3 [...] mGy = na DAP = na [facility] Consent for Treatmenton 03-27 Consent for Treatment [id number]:127 Normal [facility] Physician Orderon 04-11-2023 Physician Order [id number]#1.00CD:127 Normal [facility] PAP ACOG PANEL 2: 21 to 29on 12-14-2022 . . Normal [facility] Comment on above: Performed By: #### [id number] #### [facility] [address] [place] [address] Dr. Hilary Higginbotham Age Gdln ACOG Testing - [facility] Comment on above: Performed By: #### [id number] #### [facility] [address] [place] [address] Dr. Hilary Higginbotham DIAGNOSIS: Comment [facility] Comment on above: Result Comment: NEGA TIVE FOR INTRAEPITHELIAL LESION OR MALIGNANCY. Performed By: #### [id number] #### [facility] [address] [place] [address] Dr. Hilary Higginbotham Methodology: Comment [facility] Comment on above: Result Comment: This liquid based ThinPrep(R) pap test was screened with the use of an image guided system. Performed By: #### [id number] #### [facility] [address] [place] [address] Dr. Hilary Higginbotham Note: Comment [facility] Comment on above: Result Comment: The Pap smear is a screening test designed to aid in the detection of premalignant and malignant conditions of the uterine cervix. It is not a diagnostic procedure and should not be used as the sole means of detecting cervical cancer. Both false-positive and false-negative reports do occur. . Performed By: #### [id number] #### [facility] [address] [place] [address] Dr. Hilary Higginbotham Performed by: Comment [facility] Comment on above: Result Comment: [employer] Manager (ASCP) Performed By: #### [id number] #### [facility] [address] [address] [address] Hilary Higginbotham Reflex Criteria: Comment Normal [facility] Comment on above: Result Comment: The HPV DNA reflex criteria were not met with this specimen result therefore, no HPV testing was performed. . Performed By: #### 4 [id number] #### [facility] [address] [address] [address] Hilary Higginbotham Specimen adequacy: Comment Normal [facility] Comment on above: Result Comment: Sati sfactory for evaluation. Endocervical and/or squamous metaplastic cells (endocervical component) are present. Performed By: #### [id number] #### [facility] [address] [address] [address] Hilary Higginbotham Vital Signs Date Time Vital Sign Value Performing Clinician Facility 09-16-2024 13:56-0500 Body mass index (BMI) [Ratio] 27.78 kg/m2 Aruna ADAME Work Phone: [facility] 09-16-2024 13:56-0500 Body weight 71.12 kg Aruna ADAME Work Phone: [facility] 09-16-2024 13:56-0500 Diastolic blood pressure 74 mm[Hg] Aruna ADAME Work Phone: [facility] 09-16-2024 13:56-0500 Systolic blood pressure 112 mm[Hg] Aruna ADAME Work Phone: [facility] 2024 10:05-0500 Body mass index (BMI) [Ratio] 27.81 kg/m2 Jamel Natalie DO Work Phone: [facility] 2024 10:05-0500 Body weight 71.22 kg Jamel Natalie DO Work Phone: [facility] 2024 10:05-0500 Diastolic blood pressure 70 mm[Hg] Jamel Natalie DO Work Phone: [facility] 2024 10:05-0500 Systolic blood pressure 122 mm[Hg] Jamel Natalie DO Work Phone: [facility] 08-18-2024 14:51-0500 Body mass index (BMI) [Ratio] 26.93 kg/m2 Aruna Dell PA Work Phone: [facility] 08-18-2024 14:51-0500 Body weight 68.95 kg Aruna Gray PA Work Phone: [facility] 08-18-2024 14:51-0500 Diastolic blood pressure 64 mm[Hg] Aruna Gray PA Work Phone: [facility] 08-18-2024 14:51-0500 Systolic blood pressure 112 mm[Hg] Aruna Gray PA Work Phone: [facility] 08-07-2024 10:16-0500 Body mass index (BMI) [Ratio] 27.24 kg/m2 Aruna Gray PA Work Phone: [facility] 08-07-2024 10:16-0500 Body weight 69.76 kg Aruna Dell PA Work Phone: [facility] 08-07-2024 10:16-0500 Diastolic blood pressure 68 mm[Hg] Aruna Dell PA Work Phone: [facility] 08-07-2024 10:16-0500 Systolic blood pressure 98 mm[Hg] Aruna Dell PA Work Phone: [facility] 07-07-2024 13:42-0500 Body mass index (BMI) [Ratio] 26.04 kg/m2 Aruna Dell PA Work Phone: [facility] 07-07-2024 13:42-0500 Body weight 66.68 kg Aruna Dell PA Work Phone: [facility] 07-07-2024 13:42-0500 Diastolic blood pressure 58 mm[Hg] Aruna Dell PA Work Phone: [facility] 07-07-2024 13:42-0500 Systolic blood pressure 104 mm[Hg] Aruna Dell PA Work Phone: [facility] 06-09-2024 14:39-0400 Body mass index (BMI) [Ratio] 24.94 kg/m2 Jamel Natalie DO Work Phone: [facility] 06-09-2024 14:39-0400 Body weight 63.87 kg Jamel Nataile DO Work Phone: [facility] 06-09-2024 14:39-0400 Diastolic blood pressure 60 mm[Hg] Jamel Natalie DO Work Phone: [facility] 06-09-2024 14:39-0400 Systolic blood pressure 100 mm[Hg] Jamel Natalie DO Work Phone: [facility] 05-19-2024 16:11-0400 Body mass index (BMI) [Ratio] 23.91 kg/m2 Aruna ADAME Work Phone: [facility] 05-19-2024 16:11-0400 Body weight 61.24 kg Aruna ADAME Work Phone: [facility] 05-19-2024 16:11-0400 Diastolic blood pressure 70 mm[Hg] Aruna ADAME Work Phone: [facility] 05-19-2024 16:11-0400 Systolic blood pressure 118 mm[Hg] Aruna Gray PA Work Phone: [facility] 04-21-2024 09:50-0400 Body mass index (BMI) [Ratio] 23.21 kg/m2 Jamel Natalie DO Work Phone: [facility] 04-21-2024 09:50-0400 Body weight 59.42 kg Jamel Natalie DO Work Phone: [facility] 04-21-2024 09:50-0400 Diastolic blood pressure 62 mm[Hg] Jamel Natalie DO Work Phone: [facility] 04-21-2024 09:50-0400 Systolic blood pressure 108 mm[Hg] Jamel Natalie DO Work Phone: [facility] 02-01-2024 15:36-0400 Diastolic blood pressure 72 mm[Hg] DO Melissa Laura Work Phone: [facility] 02-01-2024 15:36-0400 Heart rate 98 /min DO Melissa Keya Work Phone: [facility] 02-01-2024 15:36-0400 Respiratory rate 18 /min DO Melissa Keya Work Phone: [facility] 02-01-2024 15:36-0400 SaO2% (BldA) [Mass fraction] 99 % DO Melissa Keya Work Phone: [facility] 02-01-2024 15:36-0400 Systolic blood pressure 112 mm[Hg] DO Melissa Keya Work Phone: [facility] 02-01-2024 11:52-0400 Body height 157.48 cm DO Melissa Keya Work Phone: [facility] 02-01-2024 11:52-0400 Body temperature 97.4 [degF] DO Melissa Keya Work Phone: [facility] 02-01-2024 11:52-0400 Body weight 54.3 kg DO Melissa Keya Work Phone: [facility] 11-06-2022 23:21-0400 Diastolic blood pressure 64 mm[Hg] Cory Belem [facility] 11-06-2022 23:21-0400 Heart rate 116 /min Cory Belem [facility] 11-06-2022 23:21-0400 Mean blood pressure 78 mm[Hg] Cory Belem [facility] 11-06-2022 23:21-0400 Respiratory rate 14 /min Cory Belem [facility] 11-06-2022 23:21-0400 SaO2% (BldA) [Mass fraction] 98 % Cory Belem [facility] 11-06-2022 23:21-0400 Systolic blood pressure 106 mm[Hg] Cory Belem [facility] 11-06-2022 23:05-0400 Diastolic blood pressure 63 mm[Hg] Cory Belem [facility] 11-06-2022 23:05-0400 Heart rate 112 /min Cory Belem [facility] 11-06-2022 23:05-0400 Mean blood pressure 77 mm[Hg] Cory Belem [facility] 11-06-2022 23:05-0400 Respiratory rate 15 /min Cory Belem [facility] 11-06-2022 23:05-0400 SaO2% (BldA) [Mass fraction] 98 % Cory Belem [facility] 11-06-2022 23:05-0400 Systolic blood pressure 106 mm[Hg] Cory Belem [facility] 11-06-2022 22:15-0400 Diastolic blood pressure 50 mm[Hg] Cory Belem [facility] 11-06-2022 22:15-0400 Heart rate 114 /min Cory Belem [facility] 11-06-2022 22:15-0400 Mean blood pressure 62 mm[Hg] Cory Belem [facility] 11-06-2022 22:15-0400 Respiratory rate 17 /min Cory Belem [facility] 11-06-2022 22:15-0400 SaO2% (BldA) [Mass fraction] 96 % Cory Belem [facility] 11-06-2022 22:15-0400 Systolic blood pressure 86 mm[Hg] Cory Belem [facility] 11-06-2022 20:49-0400 Heart rate 150 /min Cory Belem [facility] 11-06-2022 20:05-0400 Body temperature 97.88 [degF] Cory Belem [facility] 11-06-2022 20:05-0400 Heart rate 137 /min Cory Belem [facility] 11-06-2022 20:05-0400 Respiratory rate 16 /min Cory Belem [facility] Encounters Encounter Date Encounter Type Care Provider Facility Start: 09-29-2024 End: 09-29-2024 Bamboo flowsheet Jamel Natalei DO Work Phone: [facility] Start: 09-29-2024 End: 09-29-2024 Bamboo flowsheet Jamel Natalie DO Work Phone: [facility] Start: 09-16-2024 End: 09-16-2024 flow sheet Aruna Alvarado PA Work Phone: [facility] Comment on above: Third trimester preg sharron; 34 weeks gestation of Start: 09-16-2024 End: 09-16-2024 ambulatory ARUNA ALVARADO Not Available Start: 2024 End: 2024 Bamboo flowsheet Jamel Natalie DO Work Phone: [facility] Start: 2024 End: 2024 Bamboo flowsheet Jamel Natalie DO Work Phone: [facility] Start: 2024 End: 2024 flow sheet Jamel Natalie DO Work Phone: [facility] Comment on above: Third trimester preg sharron; 32 weeks gestation of ; size inconsistent with dates Start: 2024 End: 2024 ambulatory JAMEL ENGLEO Not Available Start: 08-18-2024 End: 08-18-2024 flow sheet Aruna ADAME Work Phone: [facility] Comment on above: Third trimester preg sharron; 30 weeks gestation of Start: 08-18-2024 End: 08-18-2024 ambulatory ARUNA ALVARADO Not Available Start: 08-18-2024 End: 08-18-2024 Bamboo flowsheet Aruna Alvarado PA Work Phone: [facility] Start: 08-18-2024 End: 08-18-2024 Bamboo flowsheet Aruna Alvarado PA Work Phone: [facility] Start: 08-07-2024 End: 08-07-2024 Bamboo flowsheet Aruna ADAME Work Phone: [facility] Start: 08-07-2024 End: 08-07-2024 Bamboo flowsheet Aruna ADAME Work Phone: [facility] Start: 08-07-2024 End: 08-07-2024 flow sheet Aruna ADAME Work Phone: [facility] Comment on above: Third trimester preg sharron; 28 weeks gestation of Start: 08-07-2024 End: 08-07-2024 ambulatory ARUNA ALVARADO Not Available Start: 07-18-2024 End: 07-18-2024 Clinisync Result Encounter Aruna ADAME Work Phone: [facility] External Department Unsolicited Start: 07-18-2024 End: 07-18-2024 Clinisync Result Encounter Aruna ADAME Work Phone: [facility] External Department Unsolicited Start: 07-07-2024 End: 07-07-2024 Bamboo flowsheet Aruna [...] NATALIE Not Available Start: 05-19-2024 End: 05-19-2024 flow sheet Aruna ADAME Work Phone: [facility] Comment on above: Second trimester pre gnancy; Screening, , for anatomic survey; Need for maternal serum alpha-protein (MSAFP) screening Start: 05-19-2024 End: 05-19-2024 ambulatory ARUNA ALVARADO Not Available Start: 05-19-2024 End: 05-19-2024 Bamboo flowsheet Aruna ADAME Work Phone: [facility] Start: 05-19-2024 End: 05-19-2024 Bamboo flowsheet Aruna ADAME Work Phone: [facility] Start: 04-21-2024 End: 04-21-2024 Bamboo flowsheet Jamel Natalie DO Work Phone: [facility] Start: 04-21-2024 End: 04-21-2024 Bamboo flowsheet Jamel Natalie DO Work Phone: [facility] Start: 04-21-2024 End: 04-21-2024 flow sheet Jamel Natalie DO Work Phone: [facility] Comment on above: First trimester preg sharron Start: 04-21-2024 End: 04-21-2024 ambulatory JAMEL NATALIE Not Available Start: 04-02-2024 End: 04-02-2024 ambulatory DO Melissa C Keya Work Phone: [facility] Work Phone: Start: 04-02-2024 End: 04-02-2024 Patient encounter procedure DO Melissa Keya Work Phone: [facility] [place] Work Phone: Start: 03-27-2024 End: 03-27-2024 ambulatory JAMEL NATALIE Not Available Start: 02-27-2024 End: 02-27-2024 Patient encounter procedure DO Melissa Keya Work Phone: [facility] Start: 02-27-2024 End: 02-27-2024 ambulatory DO Melissa C Keya Work Phone: [facility] Work Phone: Start: 02-08-2024 End: 02-08-2024 ambulatory Melissa C Keya Facility:[facility] Start: 02-08-2024 End: 02-08-2024 Patient encounter procedure Melissa C Keya [facility] Start: 02-01-2024 End: 02-01-2024 Emergency department patient visit DO Melissa Keya Work Phone: [facility] Work Phone: Start: 05-09-2023 End: 05-09-2023 ambulatory Melissa C Keya Facility:[facility] Start: 05-09-2023 End: 05-09-2023 Patient encounter procedure Melissa C Keya [facility] Start: 04-23-2023 End: 04-23-2023 ambulatory Melissa Laura Facility:[facility] Start: 04-23-2023 End: 04-23-2023 Patient encounter procedure Melissa Laura [facility] Start: 04-11-2023 End: 04-11-2023 ambulatory Melissa Laura Facility:[facility] Start: 04-11-2023 End: 04-11-2023 Patient encounter procedure Melissa Laura [facility] Start: 12-06-2022 End: 12-06-[address] NONE LISTED REQUEST Facility: Start: 11-06-2022 End: 11-06-2022 Emergency department patient visit Cory MirandaJose L Belem [facility] Start: 04-20-2017 End: 04-21-2017 Ambulatory SUKUMAR VALENCIA Facility:[facility] Start: 04-18-2017 End: 04-19-2017 Ambulatory DEFAULT PHYSICIAN Facility:[facility] Procedures Date Procedure Procedure Detail Performing Clinician Start: 2024 Urnls dip stick/tabl et rgnt non-auto w/o micrscp Jamel Natalieshelton CASTRO Work Phone: Start: 08-18-2024 Urnls dip stick/tabl et rgnt non-auto w/o micrscp Aruna ADAME Work Phone: Start: 08-07-2024 Urnls dip stick/tabl et rgnt non-auto w/o micrscp Aruna ADAME Work Phone: Start: 07-18-2024 GLUCOSE 1 HOUR Aruna Borrero Work Phone: Start: 07-07-2024 RECURRENT VAGINITIS (HTRX) Aruna ADAME Work Phone: Start: 07-07-2024 Urnls dip stick/tabl et rgnt non-auto w/o micrscp Aruna ADAME Work Phone: Start: 06-09-2024 Urnls dip stick/tabl et rgnt non-auto w/o micrscp Jamel Natalie DO Work Phone: Start: 05-19-2024 Urnls dip stick/tabl et rgnt non-auto w/o micrscp Aruna ADAME Work Phone: Start: 04-21-2024 Urnls dip stick/tabl et rgnt non-auto w/o micrscp Jamel Natalie DO Work Phone: Start: 04-02-2024 Antibody screen Smooth Mercedes maldonado Comment on above: Result Comment: PERF ORMED BY: [facility] [address] [place] [address] PATHOLOGIST MRI TECH JAE GUERRA M.D. Start: 02-01-2024 CT of head without contrast DO Melissa Laura Work Phone: Start: 02-01-2024 Plain chest X-ray DO Ori Laura Work Phone: Plan of Treatment Date Care Activity Detail Author Start: 09-29-2024 End: 09-29-2024 Patient encounter procedure 09/29/2024 1:00 PM EST Routine [facility] [address] [facility] [place] [address] Jamel Estrada DO [address] [facility] [place] [address] [facility] Start: 09-16-2024 End: 09-16-2024 Patient encounter procedure 09/16/2024 1:50 PM EST Routine [facility] [address] [place] [address] Aruna Alvarado PA [address] [place] [address] [facility] Start: 09-16-2024 End: 09-16-2024 Professional / ancillary services management 09/16/2024 1:00 PM EST Ancillary Procedure [facility] [address] [place] [id number] [facility] Start: 2024 End: 2025 US for US OB follow up transabdominal approach Imaging Routine size inconsistent with dates Expected: 2024, Expires: 2025 [facility] Work Phone: Comment on above: Expected: 2024 , Expires: 2025 Start: 2024 End: 2024 Patient encounter procedure [facility] Comment on above: Arrived Start: 08-18-2024 End: 08-18-2024 Patient encounter procedure [facility] Comment on above: Arrived Start: 08-07-2024 End: 08-07-2024 Patient encounter procedure [facility] Comment on above: Arrived Start: 07-07-2024 End: 07-07-2025 CBC panel - Blood by Automated count CBC Lab Routine Diabetes mellitus screening Expected: 07/07/2024 (Approximate), Expires: 07/07/2025 [facility] Comment on above: Expected: 07/07/2024 (Approximate), Expires: 07/07/2025 Start: 07-07-2024 End: 07-07-2025 Measurement of glucose 1 hour after glucose challenge for glucose tolerance test Glucose tolerance, 1 hour Lab Routine Diabetes mellitus screening Expected: 07/07/2024 (Approximate), Expires: 07/07/2025 [facility] Comment on above: Expected: 07/07/2024 (Approximate), Expires: 07/07/2025 Start: 07-07-2024 End: 07-07-2024 Patient encounter procedure 07/07/2024 1:30 PM EST Routine [facility] [address] [place] [id number] Aruna Alvarado PA [address] [place] [address] [facility] Start: 06-09-2024 End: 06-09-2024 Patient encounter procedure 06/09/2024 2:30 PM EDT Routine [facility] [address] [facility] [phone] Jamel Estrada, DO [address] [facility] [place] [address] [facility] Start: 06-09-2024 End: 06-09-2024 Professional / ancillary services management 06/09/2024 1:30 PM EDT Ancillary Procedure [facility] [address] [facility] [address] [facility] Start: 05-19-2024 End: 05-19-2024 Patient encounter procedure [facility] Comment on above: Arrived Start: 05-19-2024 End: 06-18-2024 Alpha fetoprotein, maternal Alpha fetoprotein, maternal Lab Routine Need for maternal serum alpha-protein (MSAFP) screening Expected: 05/19/2024 (Approximate), Expires: 06/18/2024 [facility] Work Phone: Comment on above: Expected: 05/19/2024 (Approximate), Expires: 06/18/2024 Start: 05-19-2024 End: 05-19-2025 US for US OB ANATOMY SINGLE W US OB CERVICAL LENGTH Imaging Routine Screening, , for anatomic survey Expected: 05/19/2024 (Approximate), Expires: 05/19/2025 [facility] Comment on above: Expected: 05/19/2024 (Approximate), Expires: 05/19/2025 Start: 04-27-2024 Influenza vaccination Influenza Vacc ine (#1) [facility] Start: 04-21-2024 End: 04-21-2024 Patient encounter procedure 04/21/2024 9:20 AM EDT Routine [facility] [address] [facility] [place] [phone] Jamel Estrada, DO [address] [place], [place] [id number] Arrived [facility] Comment on above: Arrived Start: 04-02-2024 Bacteria identified in Urine by Culture [facility] Start: 04-02-2024 Rubella IgG measurement [facility] Start: 04-02-2024 [facility] Cytology Cervical or vaginal smear or scraping study Pap Smear Pathology and Cytology Routine 24 weeks gestation of Second trimester Ordered: 07/07/2024 [facility] Work Phone: Comment on above: Ordered: 07/07/2024 Glucose measurement estimated from glycated hemoglobin [facility] Hepatitis B virus surface Ag [Presence] in Serum or Plasma by Immunoassay [facility] Hepatitis C virus Ig G Ab [Presence] in Serum or Plasma by Immunoassay [facility] HIV 1+2 Ab+HIV1 p24 Ag [Presence] in Serum or Plasma by Immunoassay [facility] Patient Education Chest Pain, Adult ED [facility] Work Phone: Patient referral [facility] Work Phone: Reagin Ab [Presence] in Serum by RPR [facility] Payers Date Payer Category Payer Self-pay 2021 [facility] er [id number] 2021 Unknown 2012 Self-pay [id number] 1996 Unknown [id number] 2.16.840.1.519221.3.579.2. 593 1996 Unknown [id number] 2.16.840.1.525070.3.579.2. 727 1996 Unknown [id number] 2.16.840.1.031124.3.579.2. 1996 Unknown [id number] 2.16.840.1.869354.3.579.2. 1996 Unknown [id number] 2.16.840.1.484475.3.579.2. 1996 Unknown [id number] 2.16.840.1.553031.3.579.2. 1258 1996 Unknown [id number] 2.16.840.1.569406.3.579.2. 1258 1996 Unknown [id number] 2.16.840.1.389105.3.579.2. 1258 1996 Unknown [id number] 2.16.840.1.881485.3.579.2. 1258 1996 Unknown [id number] 2.16.840.1.299761.3.579.2. 1258 1996 Unknown [id number] 2.16.840.1.284912.3.579.2. 1258 1996 Unknown [id number] 2.16.840.1.866515.3.579.2. 1258 1996 Unknown [id number] 2.16.840.1.076388.3.579.2. 1258 1996 Unknown [id number] 2.16.840.1.049049.3.579.2. 1258 1996 Unknown [id number] 2.16.840.1.196588.3.579.2. 1258 1959 Unknown [id number] Medicaid [facility] 105 [id number] Unknown [facility] [id number] Unknown [id number] 2.16.840.1.555903.3.579.2. 531 Unknown [id number] 2.16.840.1.871645.3.579.2. 531 Unknown [id number] 2.16.840.1.038570.3.579.2. 531 Social History Date Type Detail Facility Tobacco smoking status [facility] Start: 03-27-2024 Sex Assigned At Female F [facility] Start: 02-01-2024 End: 03-27-2024 Tobacco smoking status NHIS Never smoked tobacco (finding) [facility] Start: 1995 Sex Assigned At Female F [facility] Start: 03-27-2024 Tobacco use and exposure Smokeless tobacco non-user [facility] Start: 06-09-2024 End: 09-16-2024 Alcoholic beverage intake Ex-drinker (finding) [facility] Start: 03-27-2024 End: 06-09-2024 Alcoholic beverage intake [facility] Start: 02-02-2024 [facility] Start: 1995 Sex assigned at Not on file [facility] NEGATED: Highlighted row [facility] Functional Status Date Assessment Result Facility 11-06-2022 Functional Status N/A [facility] Clinical Notes 11-06-2022 to 09-16-2024 DEEP Cardenas - 09/16/2024 1:50 PM Manoj Costello LPN - 2024 9:40 AM DEEP Varela - 08/18/2024 2:20 PM DEEP Varela - 08/07/2024 9:50 AM DEEP Varela - 07/07/2024 1:30 PM EST Note Date & Type Note Facility 09-16-2024 History of Presen t illness Narrative Reason for Appointment: Patient ID: Rao Choi is a 29 y.o. female who presents for Routine Visit Patient presents today for Return OB appointment. [...] Exam Constitutional: Appearance: Normal appearance. She is normal weight. HENT: Head: Normocephalic. Cardiovascular: Rate and Rhythm: Normal rate. Pulses: Normal pulses. Pulmonary: Effort: Pulmonary effort is normal. Breath sounds: Normal breath sounds. Abdominal: Palpations: Abdomen is soft. Musculoskeletal: General: Normal range of motion. Neurological: General: No focal deficit present. Mental Status: She is alert and oriented to person, place, and time. Psychiatric: Mood and Affect: Mood normal. Behavior: Behavior normal. Thought Content: Thought content normal. Judgment: Judgment normal. Vitals and nursing note reviewed. Vitals: Estimated body mass index is 27.78 kg/m as calculated from the following: Height as of 18: 5' 3 . Weight as of this encounter: 156 lb 12.8 oz. BP: 112/74 Patient's last menstrual period was 01/24/2024. ASSESSMENT & PLAN ICD-10-CM 1. Third trimester Z34.93 2. 34 weeks gestation of Z3A.34 Return OB: Patient presents today for a routine obstetrics appointment. Patient is currently 34w3d . Patient states she is doing well but has complaints of being tired due to current . Patient has verbalizes frequent movement. labor precautions was discussed/given and patient was instructed to perform kick counts three times a day. No orders of the defined types were placed in this encounter. Follow Up: Patient is to return to office in 2 week for routine OB appointment. Documented by DEEP Cardenas on behalf of: DEEP Cardenas documented in this encounter [facility] 2024 History of Presen t illness Narrative Reason for Appointment: Patient ID: Rao Choi is a 29 y.o. female who presents for Routine Visit Patient presents today for Return OB appointment. [...] nursing note reviewed. Exam conducted with a food mixer repairer present. Vitals: Estimated body mass index is 27.81 kg/m as calculated from the following: Height as of 18: 5' 3 . Weight as of this encounter: 157 lb. BP: 122/70 Patient's last menstrual period was 01/24/2024. ASSESSMENT & PLAN ICD-10-CM 1. Third trimester Z34.93 POCT urinalysis dipstick manually resulted 2. 32 weeks gestation of Z3A.32 3. size inconsistent with dates O26.849 US OB follow up transabdominal approach Patient presents today for a routine obstetrics appointment. Patient is currently 32w5d with a Estimated Date of Delivery: 10/25/24. Patient to have growth scan done prior to next appointment. Documented by Nathalie Costello LPN on behalf of: Jamel Estrada DO documented in this encounter [facility] 08-18-2024 History of Presen t illness Narrative Reason for Appointment: Patient ID: Rao Choi is a 28 y.o. female who presents for Routine Visit Patient presents today for Return OB appointment. [...] Exam Constitutional: Appearance: Normal appearance. She is normal weight. HENT: Head: Normocephalic. Cardiovascular: Rate and Rhythm: Normal rate. Pulses: Normal pulses. Pulmonary: Effort: Pulmonary effort is normal. Breath sounds: Normal breath sounds. Abdominal: Palpations: Abdomen is soft. Musculoskeletal: General: Normal range of motion. Neurological: General: No focal deficit present. Mental Status: She is alert and oriented to person, place, and time. Psychiatric: Mood and Affect: Mood normal. Behavior: Behavior normal. Thought Content: Thought content normal. Judgment: Judgment normal. Vitals and nursing note reviewed. Vitals: Estimated body mass index is 27.24 kg/m as calculated from the following: Height as of 11/27/17: 5' 3 . Weight as of 08/07/24: 153 lb 12.8 oz. BP: Patient's last menstrual period was 01/24/2024. ASSESSMENT & PLAN ICD-10-CM 1. Third trimester Z34.93 2. 30 weeks gestation of Z3A.30 Return OB: Patient presents today for a routine obstetrics appointment. Patient is currently 30w2d . Patient states she is doing well but has complaints of being tired due to current . Patient has verbalizes frequent movement. labor precautions was discussed/given and patient was instructed to perform kick counts three times a day. No orders of the defined types were placed in this encounter. Follow Up: Patient is to return to office in 2 week for routine OB appointment. Documented by Aurora Zhang MA on behalf of: DEEP Cardenas documented in this encounter [facility] 08-07-2024 History of Presen t illness Narrative Reason for Appointment: Patient ID: Rao Choi is a 28 y.o. female who presents for Routine Visit Patient presents today for Return OB appointment. [...] Exam Constitutional: Appearance: Normal appearance. She is normal weight. HENT: Head: Normocephalic. Cardiovascular: Rate and Rhythm: Normal rate. Pulses: Normal pulses. Pulmonary: Effort: Pulmonary effort is normal. Breath sounds: Normal breath sounds. Abdominal: Palpations: Abdomen is soft. Musculoskeletal: General: Normal range of motion. Neurological: General: No focal deficit present. Mental Status: She is alert and oriented to person, place, and time. Psychiatric: Mood and Affect: Mood normal. Behavior: Behavior normal. Thought Content: Thought content normal. Judgment: Judgment normal. Vitals and nursing note reviewed. Vitals: Estimated body mass index is 27.24 kg/m as calculated from the following: Height as of 18: 5' 3 . Weight as of this encounter: 153 lb 12.8 oz. BP: 98/68 Patient's last menstrual period was 01/24/2024. ASSESSMENT & PLAN ICD-10-CM 1. Third trimester Z34.93 POCT urinalysis dipstick manually resulted 2. 28 weeks gestation of Z3A.28 POCT urinalysis dipstick manually resulted Return OB: Patient presents today for a routine obstetrics appointment. Patient is currently 28w5d . Patient states she is doing well but has complaints of being tired due to current . Patient has verbalizes frequent movement. labor precautions was discussed/given and patient was instructed to perform kick counts three times a day. Orders Placed This Encounter Procedures POCT urinalysis dipstick manually resulted Follow Up: Patient is to return to office in 2 week for routine OB appointment. Documented by DEEP Cardenas on behalf of: DEEP Cardenas documented in this encounter [facility] 07-07-2024 History of Presen t illness Narrative [...] nursing note reviewed. Exam conducted with a food mixer repairer present. Vitals: Estimated body mass index [...] obtained without difficulty and patient was given [facility] order to have obtained. Orders Placed This Encounter Procedures CBC Glucose tolerance, 1 hour POCT urinalysis dipstick manually resulted Follow Up: Patient is to return to our office in 4 weeks for routine OB appointment Documented by Nathalie Costello LPN on behalf of: DEEP Cardenas documented in this encounter [facility] 06-09-2024 History of Presen t illness Narrative [...] nursing note reviewed. Exam conducted with a food mixer repairer present. Vitals: Estimated body mass index [...] Jamel Estrada DO documented in this encounter [facility] 05-19-2024 History of Presen t illness Narrative Reason for Appointment: Patient ID: Rao Choi is a 28 y.o. female who presents for Routine Visit Patient presents today for Return OB appointment. MEDICATIONS Current Outpatient Medications Medication Instructions ALPRAZolam (Xanax) 0.25 MG tablet TAKE 1 TABLET UP TO 3 TIMES PER DAY NEEDED amphetamine-dextroamphetamine XR (Adderall XR) 15 MG 24 hr capsule TAKE 1 CAPSULE BY MOUTH EVERY DAY IN THE MORNING MV-Min-Fe Fum-FA-DHA ( 1 PO) Oral ALLERGIES No Known Allergies PROBLEMS Active Ambulatory [...] Exam Constitutional: Appearance: Normal appearance. She is normal weight. HENT: Head: Normocephalic. Cardiovascular: Rate and Rhythm: Normal rate. Pulses: Normal pulses. Pulmonary: Effort: Pulmonary effort is normal. Breath sounds: Normal breath sounds. Abdominal: Palpations: Abdomen is soft. Musculoskeletal: General: Normal range of motion. Neurological: General: No focal deficit present. Mental Status: She is alert and oriented to person, place, and time. Psychiatric: Mood and Affect: Mood normal. Behavior: Behavior normal. Thought Content: Thought content normal. Judgment: Judgment normal. Vitals and nursing note reviewed. Vitals: Estimated body mass index is 23.91 kg/m as calculated from the following: Height as of 11/27/18: 5' 3 . Weight as of this encounter: 135 lb. BP: 118/70 Patient's last menstrual period was 01/24/2024. ASSESSMENT & PLAN ICD-10-CM 1. Second trimester Z34.92 POCT urinalysis dipstick manually resulted CANCELED: POCT urinalysis dipstick manually resulted 2. Screening, , for anatomic survey Z36.89 US OB ANATOMY SINGLE W US OB CERVICAL LENGTH 3. Need for maternal serum alpha-protein (MSAFP) screening Z36.1 Alpha fetoprotein, maternal Alpha fetoprotein, maternal Return OB: Patient presents today for a routine obstetrics appointment. Patient is currently 16w4d . Patient states she is doing well but has complaints of being tired due to current . Orders Placed This Encounter Procedures US OB ANATOMY SINGLE W US OB CERVICAL LENGTH Alpha fetoprotein, maternal POCT urinalysis dipstick manually resulted Follow Up: Patient is to return to office in 4 week for routine OB appointment. Documented by DEEP Cardenas on behalf of: DEEP Cardenas documented in this encounter [facility] 04-21-2024 History of Presen t illness Narrative Reason for Appointment: Patient ID: Rao Choi is a 28 y.o. female who presents for Routine Visit Patient presents today for Return OB appointment. MEDICATIONS Current Outpatient Medications Medication Instructions MV-Min-Fe Fum-FA-DHA ( 1 PO) Oral ALLERGIES No Known Allergies PROBLEMS Active Ambulatory [...] nursing note reviewed. Exam conducted with a food mixer repairer present. Vitals: Estimated body mass index is 23.21 kg/m as calculated from the following: Height as of 18: 5' 3 . Weight as of this encounter: 131 lb. BP: 108/62 Patient's last menstrual period was 01/24/2024. ASSESSMENT & PLAN ICD-10-CM 1. First trimester Z34.91 POCT urinalysis dipstick manually resulted New OB: Patient presents today for 1st time obstetrics appointment with provider. Patient is currently 12w4d . Patients history has been reviewed in great detail including any potential risks. Patient stated she currently has no complaints. Expectations throughout regarding labs, ultrasounds, and appointments have been discussed with the patient in detail. It was reiterated that the patient is to drink 6-8 glasses of water a day, eat 6 small meals a day, do not consume raw or undercooked meat, and stay away from [facility]. Patient has been consulted regarding any further do's and don'ts of . Patient voiced understanding and all questions and concerns were answered. Patient stopped anxiety medication prior to conceiving and will reach out to office if she desires to restart medication. Patient is able to restart Cymbalta 20mg if she desires throughout . Orders Placed This Encounter Procedures POCT urinalysis dipstick manually resulted Follow Up: Patient is to return in 4 weeks for routine OB appointment. Documented by Nathalie Costello LPN on behalf of: Jamel Estrada DO documented in this encounter [facility] 02-08-2024 Note Echocardiology Procedure Exam Date/Time Accession # Ordering Echo Transthoracic 02/08/2024 07:51 EDT [id number] Melissa Laura DO Complete CPT code [id number] Reason for Exam (Echo Transthoracic Complete) I51.7 Cardiomegaly Report Version: 1 Study ID: [id number] [place] [address] Adult Echocardiogram Report Name: RAO CHOI Study Date: 02/08/2024, 7: 04 AM Patient Location: [facility] : 1995 (MM/DD/YYYY) Gender: Female Age: [...] Espinal MD Transcribed by: ARMIN Technologist: ELAINE [facility] 11-07-2022 Hospital Discharg e instructions Patient Education [...] help with your condition: Managing pain Take obba-gvg-eajermv and prescription medicines only as told by [...] 08/13/2006 Document Revised: 03/03/2019 Document Reviewed: 03/03/2019 [employer] Patient Education 2020 [employer] Follow Up Care 11/06/2022 20:02:53 With:Aruna Adrian Address: [address], [address], [facility] [address] [place] [address]- Business (1) When:Within 3 Day(s) [facility] 11-06-2022 Evaluation + Plan note Extrac ronnie [...] q8hr, # 12 tab(s), Refills(s) 0, Pharmacy: [facility]/pharmacy #[id number], 157, cm, 11/06/22 20:09:00 EDT, Height/Length Dosing, [...] minute(s) CT Head or Brain w/o Contrast [facility] information available [facility] Work Phone: Evaluation note* Diagnosis 19 weeks gestation of Second trimester state, incidental [facility] Diagnosis 24 weeks gestation of Second trimester state, incidental Diabetes mellitus screening Screening for diabetes mellitus [facility] Diagnosis Third trimester state, incidental 28 weeks gestation of [facility]* Diagnosis First trimester state, incidental [facility] Diagnosis Second trimester state, incidental Screening, , for anatomic survey Encounter for anatomic survey Need for maternal serum alpha-protein (MSAFP) screening [facility] Diagnosis Third trimester state, incidental 30 weeks gestation of [facility] Diagnosis Third trimester state, incidental 32 weeks gestation of size inconsistent with dates [facility] Diagnosis Third trimester state, incidental 34 weeks gestation of [facility] N[facility] No data available for this section [facility] No data available for this section [facility] No data available for this section [facility] Summary Purpose Family History No Family History [...] and content) DATE CREATED AUTHOR 02/20/2018 [facility] DATE CREATED AUTHOR AUTHOR'S ORGANIZ ATION 12/14/2022 [facility] DATE CREATED AUTHOR AUTHOR'S ORGANIZ ATION 02/16/2024 [facility] DATE CREATED AUTHOR AUTHOR'S ORGANIZ ATION 04/10/2024 [facility] DATE CREATED AUTHOR AUTHOR'S ORGANIZ ATION 09/20/2024 [facility] EPIC Patient Care [...] 2024 Jamel Estrada Attending Provider Active Start: Nicole 2023 End: February 27, 2024 Team Status: [...] BE BASED ON THE PRIMARY CLINICAL RECORDS. [facility]. provides no warranty or guarantee of the accuracy or completeness of information in this document.
== END 2024-09-29 21:54 | disposition home or self-care (01) ==
LOC: LAB 21:53
PROVIDERS: Visit Provider Obstetrics & Gynecology
DX: Z34.93 Encounter for supervision of normal pregnancy, unspecified, third trimester (principal)
CPT/HCPCS: 36415; 87081

== ENCOUNTER 2024-10-20 04:56 | Inpatient (IN) | payer BC, SELFPAY ==
[2024-10-20] VITALS (67 sets, daily range): BP systolic 95–143; BP diastolic 54–96; PULSE 80–126; TEMP 36.6–37.4
--- OUTSIDE RECORDS SUMMARY | 2024-10-20 05:00 | XMS_ITS | CCD ---
Author Organization [facility] Care Team Providers Care Whipped Topping Supervisor Name Role Phone PHYSICIAN, DEFAULT Unavailable Unavailable PHYSICIAN, DEFAULT Unavailable Unavailable VALENCIA, SUKUMAR R Unavailable Unavailable VALENCIA, SUKUMAR R Unavailable Unavailable SELF, REFERRED Unavailable Unavailable SELF, REFERRED Unavailable Unavailable Aruna Adrian Primary Care Physician [phone] REQUEST, DR TRAVIS LISTED Primary Care Unavaila ble NATALIE ., DR MCCULLOUGH Attending Unavailable NATALIE ., DR MCCULLOUGH Consulting Unavailable NATALIE ., DR MCCULLOUGH Admitting Unavailable Melissa Laura Primary Care Physician [phone] DO Melissa Laura Primary Care Provider DO Smooth [facility] Emergency Provider [phone] Claire Laurae Gabe Referring Unavailable Keya Melissa [...] Provider Unavailabl e NATALIE, JAMEL Referring Unavailable CHRISTIANO, ARUNA Attending Unavailable NATALIE, JAMEL Attending Unavailable NATALIE, JAMEL Attending Unavailable CHRISTIANO, ARUNA Attending Unavailable JAMEL ESTRADA Attending Unavailable CHRISTIANO, ARUNA Attending Unavailable NATALIE, JAMEL Attending Unavailable CHRISTIANO, ARUNA Attending Unavailable CHRISTIANO, ARUNA Attending Unavailable CHRISTIANO, ARUNA Attending Unavailable JAMEL ESTRADA Attending Unavailable Medications Current Medications Medication Drug Class(es) Dates Sig (Normalized) Sig (Original) azithromycin 250 mg oral tablet (5 sources) Macrolide Antimicrobial Start: 10-09-2024 azithromycin (Zithromax Z-Tad) 250 MG tablet Indications: Upper respiratory tract infection, unspecified type As directed 6 tablet 10/09/2024 Active dextroamphetamine-am phetamine (3 sources) Start: 02-01-2024 dextroamphetamine-am phetamine Active .ROUTE February 01, 2024 12:00am polysaccharide iron complex 391 mg oral capsule (9 sources) Start: 09-29-2024 End: 12-28-2024 take 1 capsule by mouth once daily iron polysaccharides (ProFe) 391.3 (180 Fe) MG capsule Indications: Low serum iron Take 1 capsule (391.3 mg) by mouth Daily 30 capsule 2 09/29/2024 12/28/2024 Active MV-Min-Fe Fum-FA-DHA ( 1 PO) (20 sources) [...] DAY IN THE MORNING 01/17/2024 06/09/2024 Discontinued codeine phosphate 2 mg/ml / guaiFENesin 20 mg/ml / pseudoephedrine hydrochloride 6 mg/ml oral solution (2 sources) alpha-Adrenergic Agonist, Opioid Agonist Start: 10-09-2024 End: 10-14-2024 take 5 mL by mouth four times daily as needed pseudoephedrine-c odeine-guaiFENesi n (Mytussin DAC) 30-10-100 MG/5ML solution Indications: Upper respiratory tract infection, unspecified type Take 5 mL by mouth 4 (four) times a day as needed for allergies for up to 5 days 100 mL 10/09/2024 10/14/2024 Problems Problem Classification Problem Date Documented Da [...] [Other chest pain] Onset: 02-01-2024 02-01-2024 Episodic Nutritional deficiencies (2 sources) Serum iron low; Translations: [Iron deficiency] 09-29-2024 Episodic Other complications of (2 sources) size does not accord with dates; Translations: [Uterine size-date discrepancy, unspecified trimester] 2024 Episodic Other and delivery including normal (20 sources) Second trimester ; Translations: [Encounter for supervision of normal , unspecified, second trimester] 06-09-2024 Episodic Other screening for suspected conditions (not mental disorders or infectious disease) (10 sources) Encounter for screening for malignant neoplasm of cervix; Translations: [Patient encounter status] Onset: 12-06-2022 Episodic Other upper respiratory infections (2 sources) Upper respiratory infection; Translations: [Acute upper respiratory infection, unspecified] 10-09-2024 Episodic Residual codes; unclassified (2 sources) Gestation [...] [34 weeks gestation of ] 09-16-2024 Episodic Residual codes; unclassified (2 sources) Gestation period, 36 weeks; Translations: [36 weeks gestation of ] 09-29-2024 Episodic Residual codes; unclassified (2 sources) Gestation period, 37 weeks; Translations: [37 weeks gestation of ] 10-09-2024 Episodic Residual codes; unclassified (2 sources) Gestation period, 38 weeks; Translations: [38 weeks gestation of ] 10-15-2024 Episodic Screening and history of mental health and substance abuse codes (3 sources) H/O: anxiety state; Translations: [Personal history of other mental and behavioral disorders] 02-01-2024 Episodic Unclassified (2 sources) Unknown / UNK(Unknown) Onset: 04-20-2017 Results Test Name Value Interpretation Reference Range Facility Urinalysis macro (dipstick) panel (U)on 10-15-2024 Bilirubin, UA Negative Negative - 4(70) +++ mg/dL [facility] Blood, UA Positive Negative - 50 Carson/mcL [facility] Comment on above: trace Clarity, UA Clear [facility] Color, UA Yellow [facility] Glucose, UA Negative Negative - 1999(110) ++++ mg/dL [facility] Interpretation and review of laboratory results Abnormal [facility] Ketones, UA Negative Negative - 160(16) ++++ mg/dL [facility] Leukocytes, UA Positive Negative - 500+++ Monica/mcL [facility] Comment on above: small Nitrite, UA Negative Negative - Positive [facility] pH, UA 6.5 5 - 9 [facility] Protein, UA Trace Negative - 1999(20) ++++ mg/dL [facility] Spec Grav, UA 1.02 1 - 1.03 [facility] Urobilinogen, UA 0.2 0.2 - 12 mg/dL [facility] Urinalysis macro (dipstick) panel (U)Ordered By: Nathalie Costello on 10-09-2024 Bilirubin, UA Negative Negative - 4(70) +++ mg/dL [facility] Blood, UA Negative Negative - 50 Carson/mcL [facility] Clarity, UA Clear [facility] Color, UA Yellow [facility] Glucose, UA Negative Negative - 1999(110) ++++ mg/dL [facility] Interpretation and review of laboratory results Abnormal [facility] Ketones, UA Negative Negative - 160(16) ++++ mg/dL [facility] Leukocytes, UA Positive Negative - 500+++ Monica/mcL [facility] Nitrite, UA Negative Negative - Positive [facility] pH, UA 6.5 5 - 9 [facility] Protein, UA Negative Negative - 1999(20) ++++ mg/dL [facility] Spec Grav, UA 1.01 1 - 1.03 [facility] Urobilinogen, UA 0.2 0.2 - 12 mg/dL [facility] ALL MISCELLANEOUS TESTon MISCELLANEOUS TEST COMMENT . [facility] Comment on above: Test Ordered: [id number] Strep Gp B Culture+Rflx Strep Gp B Culture+Rflx Positive [A ] CB Reference Range: Negative Centers for Disease Control and Prevention (CDC) and [place] [employer]necologists (ACOG) guidelines for prevention of group B streptococcal (GBS) disease specify co-collection of a vaginal and rectal swab specimen to maximize sensitivity of GBS detection. Per the CDC and ACOG, swabbing both the lower vagina and rectum substantially increases the yield of detection compared with sampling the vagina alone. Penicillin G, ampicillin, or cefazolin are indicated for intrapartum prophylaxis of GBS colonization. Reflex susceptibility testing should be performed prior to use of clindamycin only on GBS isolates from penicillin- allergic women who are considered a high risk for anaphylaxis. Treatment with vancomycin without additional testing is warranted if resistance to clindamycin is noted. Organism Identification Comment CB Reference Range: . Beta hemolytic Streptococcus, group B Clindamycin Susceptible CB Reference Range: . Testing for inducible clindamycin resistance was performed using erythromycin and clindamycin in the D-zone test. Per the Centers for Disease Control and Prevention (CDC), erythromycin is no longer an acceptable alternative for intrapartum group B Streptococcus (GBS) prophylaxis for penicillin-allergic women at high risk for anaphylaxis. Performed at: [facility] [address] [id number] Charge Aide: Gabriel Casillas PhD, Phone: [phone] CULTURE, GROUP B STREP WITH SUSCEPTIBILTY [facility] Urinalysis macro (dipstick) panel (U)on 09-29-2024 Bilirubin, UA Negative Negative - 4(70) +++ mg/dL [facility] Blood, UA Negative Negative - 50 Carson/mcL [facility] Clarity, UA Clear [facility] Color, UA Yellow [facility] Glucose, UA Negative Negative - 2000(110) ++++ mg/dL [facility] Interpretation and review of laboratory results Normal [facility] Ketones, UA Negative Negative - 160(16) ++++ mg/dL [facility] Leukocytes, UA Negative Negative - 500+++ Monica/mcL [facility] Nitrite, UA Negative Negative - Positive [facility] pH, UA 6 5 - 9 [facility] Protein, UA Negative Negative - 2000(20) ++++ mg/dL [facility] Spec Grav, UA 1.025 1 - 1.03 [facility] Urobilinogen, UA 1.0 0.2 - 12 mg/dL [facility] US OB FOLLOW UP TRANSABDOMIN AL APPROACHon [...] II, MD, PHD at 18-Sep-2024 08:00:44 AM [facility] Normal Not Available Comment on above: Order Comment: US OB SCAN FOR GROWTH Estimated Date of Delivery: 10/25/24 Gestational Age as of 2024: 32w5d Urinalysis macro (dipstick) panel (U)on 2024 Bilirubin, UA Negative Negative - 4(70) +++ mg/dL [facility] Blood, UA Positive Negative - 50 Carson/mcL [facility] Comment on above: trace Clarity, UA Clear [facility] Color, UA Yellow [facility] Glucose, UA Negative Negative - 1999(110) ++++ mg/dL [facility] Interpretation and review of laboratory results Abnormal [facility] Ketones, UA Negative Negative - 160(16) ++++ mg/dL [facility] Leukocytes, UA Negative Negative - 500+++ Monica/mcL [facility] Nitrite, UA Negative Negative - Positive [facility] pH, UA 7 5 - 9 [facility] Protein, UA Negative Negative - 1999(20) ++++ mg/dL [facility] Spec Grav, UA 1.015 1 - 1.03 [facility] Urobilinogen, UA 0.2 0.2 - 12 mg/dL [facility] Urinalysis macro (dipstick) panel (U)on 08-18-2024 Bilirubin, UA Negative Negative - 4(70) +++ mg/dL [facility] Blood, UA Negative Negative - 50 Carson/mcL [facility] Clarity, UA Clear [facility] Color, UA Yellow [facility] Glucose, UA Negative Negative - 1999(110) ++++ mg/dL [facility] Interpretation and review of laboratory results Abnormal [facility] Ketones, UA Negative Negative - 160(16) ++++ mg/dL [facility] Leukocytes, UA Trace Negative - 500+++ Monica/mcL [facility] Nitrite, UA Negative Negative - Positive [facility] pH, UA 7 5 - 9 [facility] Protein, UA Negative Negative - 1999(20) ++++ mg/dL [facility] Spec Grav, UA 1.015 1 - 1.03 [facility] Urobilinogen, UA 0.2 0.2 - 12 mg/dL [facility] Urinalysis macro (dipstick) panel (U)on 08-07-2024 Bilirubin, UA Negative Negative - 4(70) +++ mg/dL [facility] Blood, UA Negative Negative - 50 Carson/mcL [facility] Clarity, UA Clear [facility] Color, UA Yellow [facility] Glucose, UA Negative Negative - 1999(110) ++++ mg/dL [facility] Interpretation and review of laboratory results Abnormal [facility] Ketones, UA Negative Negative - 160(16) ++++ mg/dL [facility] Leukocytes, UA Negative Negative - 500+++ Monica/mcL [facility] Nitrite, UA Negative Negative - Positive [facility] pH, UA 6.5 5 - 9 [facility] Protein, UA Negative Negative - 1999(20) ++++ mg/dL [facility] Spec Grav, UA 1.025 1 - 1.03 [facility] Urobilinogen, UA 1.0 0.2 - 12 mg/dL [facility] GLUCOSE 1 HOURon 07-18-2024 Glucose [Mass/Vol] 97 mg/dL NINF - 13 0 mg/dL [facility] RECURRENT VAGINITIS (HTRX)on 07-09-2024 ATOPOBIUM VAGINAE 16.774 Abnormal [facility] ATOPOBIUM VAGINAE Detected Abnormal [facility] BVAB 2,3 (BACTERIAL VAGINOSIS ASSOCIATED BACTERIA 2, 3); MOBILUNCUS SPP 0 [facility] BVAB 2,3 (BACTERIAL VAGINOSIS ASSOCIATED BACTERIA 2, 3); MOBILUNCUS SPP Not detected [facility] AIDA ALBICANS, PARAPSILOSIS, TROPICALIS 0 [facility] AIDA ALBICANS, PARAPSILOSIS, TROPICALIS Not detected [facility] AIDA GLABRATA 0 [facility] AIDA GLABRATA Not detected [facility] AIDA KRUSEI 0 [facility] AIDA KRUSEI Not detected [facility] CHLAMYDIA TRACHOMATIS 0 [facility] CHLAMYDIA TRACHOMATIS Not detected N [facility] GARDNERELLA VAGINALIS 23.955 Abnormal [facility] GARDNERELLA VAGINALIS Detected Abnormal [facility] Interpretation and review of laboratory results Abnormal [facility] MEGASPHAERA (TYPES 1, 2) 0 [facility] MEGASPHAERA (TYPES 1, 2) Not detected [facility] MYCOPLASMA GENITALIUM 0 [facility] MYCOPLASMA GENITALIUM Not detected N [facility] NEISSERIA GONORRHOEAE 0 [facility] NEISSERIA GONORRHOEAE Not detected N [facility] TRICHOMONAS VAGINALIS 0 [facility] TRICHOMONAS VAGINALIS Not detected N [facility] Urinalysis macro (dipstick) panel (U)on 07-07-2024 Bilirubin, UA Negative Negative - 4(70) +++ mg/dL [facility] Blood, UA Negative Negative - 50 Carson/mcL [facility] Clarity, UA Clear [facility] Color, UA Yellow [facility] Glucose, UA Negative Negative - 1999(110) ++++ mg/dL [facility] Interpretation and review of laboratory results Abnormal [facility] Ketones, UA Negative Negative - 160(16) ++++ mg/dL [facility] Leukocytes, UA Trace Negative - 500+++ Monica/mcL [facility] Nitrite, UA Negative Negative - Positive [facility] pH, UA 6 5 - 9 [facility] Protein, UA Negative Negative - 1999(20) ++++ mg/dL [facility] Spec Grav, UA 1.03 1 - 1.03 [facility] Urobilinogen, UA 0.2 0.2 - 12 mg/dL [facility] Urinalysis macro (dipstick) panel (U)on 06-09-2024 Bilirubin, UA Negative Negative - 4(70) +++ mg/dL [facility] Blood, UA Negative Negative - 50 Carson/mcL [facility] Clarity, UA Clear [facility] Color, UA Yellow [facility] Glucose, UA Negative Negative - 1999(110) ++++ mg/dL [facility] Interpretation and review of laboratory results Normal [facility] Ketones, UA Negative Negative - 160(16) ++++ mg/dL [facility] Leukocytes, UA Negative Negative - 500+++ Monica/mcL [facility] Nitrite, UA Negative Negative - Positive [facility] pH, UA 6 5 - 9 [facility] Protein, UA Negative Negative - 1999(20) ++++ mg/dL [facility] Spec Grav, UA 1.01 1 - 1.03 [facility] Urobilinogen, UA 0.2 0.2 - 12 mg/dL [facility] Urinalysis macro (dipstick) panel (U)on 05-19-2024 Bilirubin, UA Negative Negative - 4(70) +++ mg/dL [facility] Blood, UA Negative Negative - 50 Carson/mcL [facility] Clarity, UA Clear [facility] Color, UA Yellow [facility] Glucose, UA Negative Negative - 1999(110) ++++ mg/dL [facility] Interpretation and review of laboratory results Abnormal [facility] Ketones, UA Negative Negative - 160(16) ++++ mg/dL [facility] Leukocytes, UA Trace Negative - 500+++ Monica/mcL [facility] Nitrite, UA Negative Negative - Positive [facility] pH, UA 6.5 5 - 9 [facility] Protein, UA Negative Negative - 1999(20) ++++ mg/dL [facility] Spec Grav, UA 1.025 1 - 1.03 [facility] Urobilinogen, UA 0.2 0.2 - 12 mg/dL [facility] Urinalysis macro (dipstick) panel (U)on 04-21-2024 Bilirubin, UA Negative Negative - 4(70) +++ mg/dL [facility] Blood, UA Negative Negative - 50 Carson/mcL [facility] Clarity, UA Clear [facility] Color, UA Yellow [facility] Glucose, UA Negative Negative - 1999(110) ++++ mg/dL [facility] Interpretation and review of laboratory results Abnormal [facility] Ketones, UA Negative Negative - 160(16) ++++ mg/dL [facility] Leukocytes, UA Trace Negative - 500+++ Monica/mcL [facility] Nitrite, UA Negative Negative - Positive [facility] pH, UA 8.5 5 - 9 [facility] Protein, UA Negative Negative - 1999(20) ++++ mg/dL [facility] Spec Grav, UA 1.020 1 - 1.03 [facility] Urobilinogen, UA 0.2 0.2 - 12 mg/dL [facility] A1C with Estimated Average G luon 04-02-2024 Glucose [Mass/Vol] 105 mg/dL Normal [facility] Comment on above: Result Comment: PERF ORMED BY: [place] [address] PATHOLOGIST IT SPECIALIST JAE GUERRA M.D. Performed By: #### P T, BNP, CK, PTT, BMP, HS TROP, CBC #### [facility] [address] [place] [address] HbA1c (Bld) [Mass fraction] 5.3 % Normal 4.3-5.6 [facility] Comment on above: Result Comment: Incr eased risk for diabetes: 5.7 - 6.4 diabetes: >6.4 glycemic control for adults with diabetes: <7.0 Performed By: #### P T, BNP, CK, PTT, BMP, HS TROP, CBC #### [facility] [address] [place] [address] Automated basophil %Ordered By: Jamel Estrada on 04-02-2024 Basophils/100 WBC (Bld) 0.6 % Normal . [facility] Comment on above: Performed By: #### P T, BNP, CK, PTT, BMP, HS TROP, CBC #### [address] Automated basophil countOrde red By: Jamel Estrada on 04-02-2024 Basophils (Bld) [#/Vol] 0.0 10*3/uL Normal 0.0-0.2 [facility] Comment on above: Result Comment: PERF ORMED BY: [place] [address] PATHOLOGIST IT SPECIALIST JAE GUERRA M.D. Performed By: #### P T, BNP, CK, PTT, BMP, HS TROP, CBC #### [address] Automated blood monocyte cou ntOrdered By: Jamel Estrada on 04-02-2024 Monocytes (Bld) [#/Vol] 0.5 10*3/uL Normal 0.0-0.8 [facility] Comment on above: Performed By: #### P T, BNP, CK, PTT, BMP, HS TROP, CBC #### [address] Automated eosinophil %Ordere d By: Jamel Estrada on 04-02-2024 Eosinophils/100 WBC (Bld) 3.4 % Normal . [facility] Comment on above: Performed By: #### P T, BNP, CK, PTT, BMP, HS TROP, CBC #### [address] Automated eosinophil countOr dered By: Jamel Estrada on 04-02-2024 Eosinophils (Bld) [#/Vol] 0.3 10*3/uL Normal 0.0-0.45 [facility] Comment on above: Performed By: #### P T, BNP, CK, PTT, BMP, HS TROP, CBC #### [address] Automated monocyte %Ordered By: Jamel Estrada on 04-02-2024 Monocytes/100 WBC (Bld) 7.5 % Normal . [facility] Comment on above: Performed By: #### P T, BNP, CK, PTT, BMP, HS TROP, CBC #### [address] Automated neutrophil %Ordere d By: Jamel Estrada on 04-02-2024 Neutrophils/100 WBC (Bld) 66.0 % Normal . [facility] Comment on above: Performed By: #### P T, BNP, CK, PTT, BMP, HS TROP, CBC #### [address] Complete Blood Count Auto Di ffon 04-02-2024 Mean Corpuscular HGB Conc 34.2 g/dL Normal 32.0-35.0 [facility] Comment on above: Performed By: #### P T, BNP, CK, PTT, BMP, HS TROP, CBC #### [address] NRBC% 0.1 /100{WBC} Normal 0-0.5 [facility] Comment on above: Performed By: #### P T, BNP, CK, PTT, BMP, HS TROP, CBC #### [address] Erythrocyte distribution wid th [Ratio] by Automated countOrdered By: Jamel Estrada on 04-02-2024 Erythrocyte distribution width (RBC) [Ratio] 13.4 % Normal 11.9-15.3 [facility] Comment on above: Performed By: #### P T, BNP, CK, PTT, BMP, HS TROP, CBC #### [address] Erythrocytes [#/volume] in B lood by Automated countOrdered By: Jamel Estrada on 04-02-2024 RBC (Bld) [#/Vol] 3.65 10*6/uL Normal 3.60-5.00 [facility] Comment on above: Performed By: #### P T, BNP, CK, PTT, BMP, HS TROP, CBC #### [address] HIV 1/O/2 Antigen/Antibodyon 04-02-2024 HIV Screen 4th Generation Non-Reactive Normal Non Reactive [facility] Comment on above: Result Comment: HIV- 1/HIV-2 antibodies and HIV-1 p24 antigen were NOT detected. There is no laboratory evidence of HIV infection. HIV Negative Performed at: - [facility] [id number] Charge Aide: Gabriel Casillas PhD, Phone: [phone] Performed By: #### P T, BNP, CK, PTT, BMP, HS TROP, CBC #### [address] Hematocrit [Volume Fraction] of Blood by Automated countOrdered By: Jamel Estrada on 04-02-2024 Hematocrit (Bld) [Volume fraction] 33.2 % Low 34.0-46.4 [facility] Comment on above: Performed By: #### P T, BNP, CK, PTT, BMP, HS TROP, CBC #### [address] Hemoglobin [Mass/volume] in BloodOrdered By: Jamel Estrada on 04-02-2024 Hemoglobin (Bld) [Mass/Vol] 11.3 g/dL Low 11.8-15.4 [facility] Comment on above: Performed By: #### P T, BNP, CK, PTT, BMP, HS TROP, CBC #### [address] Hep C Ab wRfx to Qnt PCRon 0 04-02-2024 Hepatitis C Virus Antibody Non-Reactive Normal Non Reactive [facility] Comment on above: Performed By: #### P T, BNP, CK, PTT, BMP, HS TROP, CBC #### [address] Interpretation Hepatitis C Comment Normal . [facility] Comment on above: Result Comment: Not infected with HCV unless early or acute infection is suspected (which may be delayed in an immunocompromised individual), or other evidence exists to indicate HCV infection. Performed By: #### P T, BNP, CK, PTT, BMP, HS TROP, CBC #### [facility] [address] [place] [address] Hepatitis B Surface Antigeno n 04-02-2024 HBsAg Screen Negative Normal Negative [facility] Comment on above: Result Comment: Perf ormed at: CB - [facility] [id number] [place], [place] [id number] Charge Aide: Gabriel Casillas PhD, Phone: [phone] PERFORMED BY: [place] [address] PATHOLOGIST IT SPECIALIST JAE GUERRA M.D. Performed By: #### P T, BNP, CK, PTT, BMP, HS TROP, CBC #### [address] Leukocytes [#/volume] correc ronnie for nucleated erythrocytes in Blood by Automated counOrdered By: Jamel Estrada on 04-02-2024 WBC corrected for nucl RBC Auto (Bld) [#/Vol] 7.3 10*3/uL 3.8-11.6 [facility] Leukocytes [#/volume] in Blo od by Automated countOrdered By: Jamel Estrada on 04-02-2024 WBC (Bld) [#/Vol] 7.3 10*3/uL Normal 3.8-11.6 [facility] Comment on above: Performed By: #### P T, BNP, CK, PTT, BMP, HS TROP, CBC #### [facility] [address] [place] [address] Lymphocytes [#/volume] in Bl ood by Automated countOrdered By: Jamel Estrada on 04-02-2024 Lymphocytes (Bld) [#/Vol] 1.6 10*3/uL Normal 1.00-4.8 [facility] Comment on above: Performed By: #### P T, BNP, CK, PTT, BMP, HS TROP, CBC #### [place] [address] [place] Lymphocytes/100 leukocytes i n Blood by Automated countOrdered By: Jamel Estrada on 04-02-2024 Lymphocytes/100 WBC (Bld) 22.5 % Normal . [facility] Comment on above: Performed By: #### P T, BNP, CK, PTT, BMP, HS TROP, CBC #### [facility] [address] MCH [Entitic mass] by Automa ronnie countOrdered By: Jamel Estrada on 04-02-2024 MCH (RBC) [Entitic mass] 31.0 pg Normal 24.7-34.3 [facility] Comment on above: Performed By: #### P T, BNP, CK, PTT, BMP, HS TROP, CBC #### [facility] [address] MCHC Auto (RBC) [Mass/Vol]Or dered By: Jamel Estrada on 04-02-2024 MCHC (RBC) [Mass/Vol] 34.2 g/dL 32.0-35.0 [facility] MCV [Entitic volume] by Auto mated countOrdered By: Jamel Estrada on 04-02-2024 MCV (RBC) [Entitic vol] 90.9 fL Normal 80-100 [facility] Comment on above: Performed By: #### P T, BNP, CK, PTT, BMP, HS TROP, CBC #### [facility] [address] [place] [address] Neutrophils [#/volume] in Bl ood by Automated countOrdered By: Jamel Estrada on 04-02-2024 Neutrophils (Bld) [#/Vol] 4.8 10*3/uL Normal 1.8-7.7 [facility] Comment on above: Performed By: #### P T, BNP, CK, PTT, BMP, HS TROP, CBC #### [facility] [address] [place] [address] Nucleated erythrocytes [Pres ence] in Blood by Automated countOrdered By: Jamel Estrada on 04-02-2024 Nucleated RBC Auto Ql (Bld) 0.1 /100{WBC} 0-0.5 [facility] Platelet mean volume [Entiti c volume] in Blood by Automated countOrdered By: Jamel Estrada on 04-02-2024 Platelet mean volume (Bld) [Entitic vol] 9.2 fL Normal 6.3-10.7 [facility] Comment on above: Performed By: #### P T, BNP, CK, PTT, BMP, HS TROP, CBC #### [address] Platelets [#/volume] in Bloo d by Automated countOrdered By: Jamel Estrada on 04-02-2024 Platelets (Bld) [#/Vol] 209 10*3/uL Normal 150-450 [facility] Comment on above: Performed By: #### P T, BNP, CK, PTT, BMP, HS TROP, CBC #### [address] RPR w/rfx to Quant TP Abson 04-02-2024 RPR, Rfx Quant RPR Non-Reactive Normal Non Reactive [facility] Comment on above: Result Comment: Perf ormed at: [employer] [address] [id number] Charge Aide: Gabriel Casillas PhD, Phone: [phone] PERFORMED BY: [place] [address] PATHOLOGIST IT SPECIALIST JAE GUERRA M.D. Performed By: #### P T, BNP, CK, PTT, BMP, HS TROP, CBC #### [address] Rubella IgG Antibodyon 04-02 Rubella IgG Antibody 3.16 Normal Immune >0.99 [facility] Comment on above: Result Comment: Non- immune <0.90 Equivocal 0.90 - 0.99 Immune >0.99 Performed at: [employer] [address] [id number] Charge Aide: Gabriel Casillas PhD, Phone: [phone] Performed By: #### P T, BNP, CK, PTT, BMP, HS TROP, CBC #### [place] [address] [place] Type and Screenon 04-02-2024 ABO and Rh group Nom (Bld) Blood group O Rh(D) positive Normal [facility] Urine Cultureon 04-02-2024 Bacteria identified Cx Nom (U) <9,000 colonies/ml mixed bacterial skin contaminants 2 Days PERFORMED BY: [place] [id number] PATHOLOGIST IT SPECIALIST JAE GUERRA M.D. Normal [facility] Comment on above: Performed By: #### P T, BNP, CK, PTT, BMP, HS TROP, CBC #### [facility] [address] [place] [address] [facility] Choriogonadotropin.beta subu nit [Units/volume] in Serum or PlasmaOrdered By: Jamel Estrada on 02-27-2024 [place] [address].00 m[IU]/mL [facility] Comment on above: Approximate Approxim ate hCG Gestational Age Range (mIU/ml) (weeks)0.2-1 5-50 1-2 50-500 2-3 100-5,000 3-4 500-10,000 4-5 1,000-50,000 5-6 10,000-100,000 6-8 15,000-200,000 8-12 10,000-100,000 HCG,Quantitativeon 4 HCG,Quantitative 65397.00 m[iU]/mL Normal T [facility] Comment on above: Result Comment: Appr oximate Approximate hCG Gestational Age Range (mIU/ml) (weeks) 0.2-1 5-50 1-2 50-500 2-3 100-5,000 3-4 500-10,000 4-5 1,000-50,000 5-6 10,000-100,000 6-8 15,000-200,000 8-12 10,000-100,000 PERFORMED BY: [address] [address] PATHOLOGIST IT SPECIALIST JAE GUERRA M.D. Performed By: #### P T, BNP, CK, PTT, BMP, HS TROP, CBC #### [facility] [address] [place] [address] [facility] Coding Summary.on 02-14-2024 Coding Summary. HGUTTdfk35ECo0nEj+PG hlYWQ+ AZ5VQVJsG90jrJZtxZ4hY8LFVK jAVhmiQYACKCpMLzAtreZfZC3i aXNjZXJu IC8+WL1qCQRzZjvqwDXke3I1oA J5T09clk9zVQdcjMI2HCGoHzUc tntik4wsbCo7CXzdHqdvJiHs RBRvvZ28ORA9uS14Pc41oQDtcT Uaj8kftPl6KuWfYHIfQGU5iRso UUeqs8NpPKKxP50bwHCxn1M2 IBQvhObmnLZiClIrjGX2oV6iOZ uczkwwl5ebtnwpJix8qd75tGGa o1D9fBA2B0QjlmA3SCLgvXUl DuqyvLVYsW0sgdequ6ittngjPt FlYTXqLMr4GAt1QNMnyExnIoOo CY18BYD5CRYkbuCgI1VmEBCm kZfnIuK1s4H6Fp4WY8SFHfcvP8 VNTUFSWTwvdGQ+WV68gy64Q1Mp ImvnRyg9GSZjLJY9sGI5kL1h DRDyPHcqr4G5cLJ7S6BzliCdrk 5xh8hxBCWtWJimK11awCVle0S0 GUCfbNK5ESBnlMzrMgDumS97 Oyc+QETslMokq1CyQzjpa1rxy8 rniSe1EgipYTDklnNmlMwtOVR6 f9YrFv4nGFZcsIM2yLY0sR6a KoBsQfD5MQiiS967WvWliEQoYj keW31nE4XziHT+FDHxPhs8QPQe hYihWB9aI0ZzYXVpcmggpJQu aLgwVP9uYHQcmlozSNYvcK1zAZ UjH7f7WdDqJqY9LRauY9KtIUNc qunbQk05mV7kApIbObH0BGbb A0MdlmA9KBXgdZTdIUtjLPI6I9 2nb8G5NGRzGQVkUQG2jEU3oQ0w bGlnbjogbGVmdDsgdmVydGlj BRjgOTmgZ668URMizQxeHtIvMY luZyBEYXRlOiAgMDYvMjAvMjAy NDwvdGQ+EEVtUGI9xOcdSORs nDZtVRouAk0srXckyLyrTJ8cHE CaarnrTFGnfI1cGJZyzNMbxDnr XP1zAPWwjrzct641BdRoBTC7 RRCwtNIeV4SlcO2aSeCxMXYaVV OdE5KbtUJrGGhmA948CVheEwK1 BXOogbBqT2BsWCDvtCffKaE2 x5J8Mv6Pg6ZjpcrpY8GnvIJlCi WsWsglBOf6P3KjJlzbqWV+PC90 YUMyTT96NEo6GHT0lQgrKMwa FCRmG2VyoC8zKzYkMHQeCNSmRp c+PHRhYmxlIHdpZHRoPScxMDAl MrIihUsoRN6aKo6zOCPxFUDw pNscsHVzSjNld5htDEBjWHfjOV 6suXhnT5WvbUZ7POJrj7n3By60 T74mU0HjfXE+KOGxjRQ0lBG7 oD6cXgJpFvL5EIrfD392CgObkN GkMtjfy2qeb5ybgPq0IyL2GCXz ulEfpBhcBBE1m2QkTg63Z80m IHdpZHRoPSIxNSUiIHZhbGlnbj 8rcZ9zOk1+TNDgoHP5gHQ8gZ2a FgJeYmF0UIdrY728AxQtvVEg Rppha3cpu0iyvGy1UvCeXTLryd AomVtwVGA9q6HlYl78M7JbmMjc x6HrOzq0yu64oEJcb9G8zWF3 S4JuBLEaqaxptGEfyHyhRF8eMS DjgtuaYYXqdU4qSPAcT5t0BzDk EqR2XEgoV2XdaqY1WCNhhTFh LKIedUVUrL5hprcwb7oadrorUj HcESHdUNc7NDf1SAVfsMzgKhWa GDW2LhB3PGA8gRRgiY3ujZjp iwwgfN2wUzg+WZZ3mIJcpHTIUZ 1lOjwvdGQ+GGIqPBM1cCscUWvn OVGyhB9vDFQfQ3g9RrCfTnW4 YFkyC6NcvlE7ZIZvvWWbBKGhyS YXhS6iwcveg4gwbkgiBuPwYBTp QCw2COn8BIKwxDhmSfReJDU4 UkM2WRT9yZJwdP2yxSdzrvheoL 9wOyc+ChuxlLxeKUS0KOz4M4Ds Anm2LHFzuDvbAD5yyTUwJIrr Mr6wyBsaiGocCQ9kRONmsfqbv2 91ObZqh5fhNEBlvJQjXHjyJRW4 O79ae9H5GJUgMGKwWVG3mFD6 vF5elIqlmmnhvVCnqYtvofPohO pzRCwcRFcnN721LJJdjVibIdTj VDi3K1XnJij5WXQhkEyiZQ2y gFNwTHycYv8ogEkxrFudRR4kOX Favaken825ZdOhg0heKOHejAFb FXmbDBM7T97hk2K6SZIzCGVx HOB6cBH0kP5roObilsvdyHCduK zzshTgzJhgFZmiPTghM197ITTo pCmyUdTsjTk9Y8DgMpb0QROi mHmrQP1wqOWfJFbeKf5aiJihuO agBO5iHXUbevsrb254MbKbv0hy CBSqqFOtERqkZHH4O31zb4Z9 JKOaLOHrHWU3kPW0pR0viCprpg ogbGVmdDsgdmVydGljYWwtYWxp X290EVGbeZrvNsYvhAcepvGi ADkvWMl7U7DpOgjhaGR+PC90YW KgJM41eQXluAKih2jyiEl7QaIl XVXzBCA1eNsvXHbky8DaFQJi Y67lyJNuh6Q4AGLibQixoKMhKx TdxBE8jZ2kPWdzikmxr6nhpswl Aaoow6ruis68kV40Y83uRYme GMTiUZBpYNPaPZXdzHzkkh2ixH 9wIi8+IJJizYA9ePR5fB6tZNRp SmH5EQhaV761CoKtuKHeUokj o2huk2xxrJn3WzQ9LTJpdbQzjI iuLNH7l5CdRw47G26wSZkhGFBg NMFaTTPtWRJhaItaiw8utY6m Ii8+DAAsfIP6uRV3eU0lUfPsRm V8DJxiF969YvNwoCAdGnxtQ57a J1XkiEZ+ROSyMsv3HSIqqJri MC8ymLFmVXfcHa3eNPR4ChGmBq HcAWmfB4QyDBDyxdaydpejnND5 LIDuVJTlrV55Pz1pwMhmKXJf fZZIhK7gvetcn7wanlujVgAzDY UwJLe9XFy3UXXpdBxkQlVyUYE6 TdU8JMQ6uWZwtA5lqRhcbbjl aA1jB4MrPSFcjkoyTk17zG3sXl ByDzF7RMhuDwv+TUVZRVIsIENB S0hAKV83BX03oPLce9E3zZQ2 I2RxQSZeutapeksgmHW7YSQiLZ CspQ34hNSgVXbbXj3gj5Y5b804 AWVuMVZezZ39Hm8eeNynPYLh mZGYgR8sdakuj2lyqwtjXaAvHW TgLEb7ZWn2MRQxhUbiKmGsPBM8 MwN6FNU2mGTqfD0fuTuyysie nZ8zNae+GRVqPBjjZXv0OiycqZ Q+UFKlPRH6zGuzORtzZSMdzT7j BOPuD8i7GlOnFqP6WJefY3At TYAnvlraUp87zP4rQvTrEmN3PN xrJ9VexqN9BVPjjQJoXVndVSK3 T24yw1W2CPJnUBFkLJO7zER2 eW6weFnoqygkvMVquLvsfpRuhW wcHYheNPxjA029TXAhwXbmFmP7 XVhyDHZxFQ15EW83zPOwb3E1 hXG1Y9ZwJXAfvkkaydmxkBK4JP RyDSMfdF66eJMpZAqkSu2er0S9 h524UULoVRKcaU52Mk9thPli YJLjmEABkK9akmgvy6njvhekXk UyMTKbMJy8MUm8RAUwrCtzMaZh IYA5TtR1BIP1qNSjuY9qiBmy ctousD0ySay+IeCfXFziUD38QB 86jVPlw6Q7yKQ7Z7BfYKYwvtjk nsfzwQA7RZXdPJEjyO87eQPq EAsnZl7sq1V8m476NANvWPLheB 74Gi4vlGtaAUPglEIHpL3hcxbj t1rejmavYwGhJPNjTRw4AFw4 XADgiZywRmQrFPR9ZoB1HIA5uG KpdC6rdLveklcwoE6oXnb+T3V0 yAC8vMTdqKrauBD+SP33jv77 I6UqCoavMtd2NSRmWYY0pYA4gI 9rIYGeZTrum2D5aWU7Z3PekaCh kt8qn2otBJVsJAprT49lqFAo i1S6KEJfjMM7NDWrkHemGfVtrL 93Oyc+JTDdsTjmc8VjRulrq4rl w8ecnVb7LyUpTIJdrxTpcWas NDY0w5AuXv29L70sERzwIKYrVA VbKKKaELGwvPaqzf5nsO0qNf6+ IRTcxAY7nYQ4wK6wJtIiXlX4 HYdiP746JcYdfUOnFrkxs6uat4 izyZh1CfDeCMNyloNyiGdmHLR5 x1FwTd38J5QxcDeho8JeWkd2 zn58mZBec2X1dTY0W1BlSEGqfj equZBgbAooLI6sKOVivjfdEFXa nJ3lWRUlG4n0PjVpYuG2DBma U9EzwwX7XAFpvIHqTNUjbOQFzC 9bzttex4thniyaNrWtBYCdXFx3 WQk2UCLzrHqbIbZpSYJ2YvG9 XPM1kQByoH6puFlnmkjhfE3jPx c+YVc1k9ifqWMiNL4kwYG2AP89 YC99yHUas0O5vFN1O6MjMUEi vtvrfwamiZH1HBHxVJQmxV93Am 3jhGxrUk2uQBVsMOB8NVIubTIy K4CinQ9oNuMpWDYvMMLyN2Ev fQScWTldB069ARwgQuR5CUNygh IqJ4RqLPJcrBsfMjC7b6H4Uh2C HQ01MW40YD66pLSzr8W6qQW9 K9SyOQJqsxnhmzeuoYW9PGQvKT VyiV02So6flIdvEr9rWLIiPZM1 YOZnhUEkS3KvbD4qIdMiTWGw OIPlQ8FdySKfPNpzX936LGctZo N2CFBrshExE9MlJEOgfLzqZcA8 x2Y3Sc1VQn98VH07DK66zYFl u0M3uRY8T2HtZIOrcbsnikyghK T1KYBrBULjjF33Sp5zlTynOk2a HGIcYKY2YTNsvTLsH4NfxL8j WzKpNIGgMHPxD7KxySRiEUuvR1 65NGdcGfC0CUBfgvGwX8VbFNXb nDzmFlR6w4H2Cj2TOAqvmpz6 S0DvJrldyEC+LO27QAHeWW43iI OqnBIoz0ajmSm4HtJeZTAqNDL6 oAtsRGccx0LhHJZeD73rdUYq g2L5UIAxoHzwg (more content not included)... Normal [facility] Consent for Treatmenton 01-25 Consent for Treatment [id number] Normal [facility] Activated partial thrombopla stin time (aPTT) in platelet poor plasma by coagulation aOrdered By: Smooth Dooley on 02-01-2024 aPTT Coag (PPP) [Time] 31.3 s 25.1-36.5 [facility] Comment on above: A hematocrit value g reater than 55% may lead to inaccurate results in coagulation testing. Patients having hematocrit values >55% require a special collection tube for coagulation studies. Please contact the laboratory at [phone] for redraw instructions. Automated basophil %Ordered By: Smooth Dooley on 02-01-2024 Basophils/100 WBC (Bld) 1.1 % Normal . [facility] Comment on above: Performed By: #### P T, BNP, CK, PTT, BMP, HS TROP, CBC #### [facility] [address] [place] [address] Automated basophil countOrde red By: Smooth Dooley on 02-01-2024 Basophils (Bld) [#/Vol] 0.1 10*3/uL Normal 0.0-0.2 [facility] Comment on above: Result Comment: PERF ORMED BY: [place] [address] PATHOLOGIST IT SPECIALIST JAE GUERRA M.D. Performed By: #### P T, BNP, CK, PTT, BMP, HS TROP, CBC #### [facility] [address] [place] [address] Automated blood monocyte cou ntOrdered By: Smooth Dooley on 02-01-2024 Monocytes (Bld) [#/Vol] 0.5 10*3/uL Normal 0.0-0.8 [facility] Comment on above: Performed By: #### P T, BNP, CK, PTT, BMP, HS TROP, CBC #### [facility] [address] Automated eosinophil %Ordere d By: Smooth Dooley on 02-01-2024 Eosinophils/100 WBC (Bld) 3.0 % Normal . [facility] Comment on above: Performed By: #### P T, BNP, CK, PTT, BMP, HS TROP, CBC #### [facility] [address] Automated eosinophil countOr dered By: Smooth Dooley on 02-01-2024 Eosinophils (Bld) [#/Vol] 0.2 10*3/uL Normal 0.0-0.45 [facility] Comment on above: Performed By: #### P T, BNP, CK, PTT, BMP, HS TROP, CBC #### [address] Automated monocyte %Ordered By: Smooth Dooley on 02-01-2024 Monocytes/100 WBC (Bld) 7.0 % Normal . [facility] Comment on above: Performed By: #### P T, BNP, CK, PTT, BMP, HS TROP, CBC #### [facility] [address] Automated neutrophil %Ordere d By: Smooth Dooley on 02-01-2024 Neutrophils/100 WBC (Bld) 59.1 % Normal . [facility] Comment on above: Performed By: #### P T, BNP, CK, PTT, BMP, HS TROP, CBC #### [facility] [address] [place] [address] BNP ser/plasOrdered By: Smooth Dooley on 02-01-2024 Natriuretic peptide B (Bld) [Mass/Vol] 7.0 pg/mL Normal 5-100 [facility] Comment on above: Result Comment: PERF ORMED BY: [place] [address] PATHOLOGIST IT SPECIALIST JAE GUERRA M.D. Performed By: #### P T, BNP, CK, PTT, BMP, HS TROP, CBC #### [address] Basic Metabolic Panelon Creatinine Clr Calc Pharmacy 106.09 Normal [facility] Comment on above: Result Comment: PERF ORMED BY: [place] [address] PATHOLOGIST IT SPECIALIST JAE GUERRA M.D. Performed By: #### P T, BNP, CK, PTT, BMP, HS TROP, CBC #### [address] GFR/1.73 sq M.predicted MDRD (S/P/Bld) [Vol rate/Area] mL/min/{1.73_m2} Normal [facility] Comment on above: Performed By: #### P T, BNP, CK, PTT, BMP, HS TROP, CBC #### [address] Bilirubin Test strip Ql (U)O rdered By: Smooth Dooley on 02-01-2024 Bilirubin Ql (U) Negative Negative [facility] CT head/brain wo conon 01-31 CT head/brain wo con [facility] [place] [address] CT Scan Report Signed Patient: Rao Choi MR#: [id number] 7 : 1995 Acct:[id number] Age/Sex: 28 / F ADM Date: 02/01/24 Loc: ER Room: Type: [facility] ER Attending Dr: Copies to: Smooth Dooley [...] Elsa Malone M.D.02/01/2024 2:36 PM Dictation Location: [place] [address] Transcribed By: ELIZABETH 02/01/24 1436 Dictated By: Elsa Malone MD 02/01/24 1434 Signed By: 02/01/24 1436 Normal [facility] Calcium [Mass/volume] in Ser um or PlasmaOrdered By: Smooth Dooley on 02-01-2024 Calcium [Mass/Vol] 9.3 mg/dL Normal 8.6-10.3 [facility] Comment on above: Performed By: #### P T, BNP, CK, PTT, BMP, HS TROP, CBC #### [facility] [address] Carbon dioxide, total [Moles /volume] in Serum or PlasmaOrdered By: Smooth Dooley on 02-01-2024 CO2 [Moles/Vol] 28.7 mmol/L Normal 21.0-31.0 [facility] Comment on above: Performed By: #### P T, BNP, CK, PTT, BMP, HS TROP, CBC #### [facility] [address] [place] [id number] [place] Chloride [Moles/volume] in S yecenia or PlasmaOrdered By: Smooth Dooley on 02-01-2024 Chloride [Moles/Vol] 102 mmol/L Normal 98-107 [facility] Comment on above: Performed By: #### P T, BNP, CK, PTT, BMP, HS TROP, CBC #### [facility] [address] [place] [address] [place] Color of Urine by AutoOrdere d By: Smooth Dooley on 02-01-2024 Color (U) Light-yellow Normal Yellow [facility] Comment on above: Order Comment: Name Collection Type:: Clean-Voided Midstream Performed By: #### P T, BNP, CK, PTT, BMP, HS TROP, CBC #### [address] Complete Blood Count Auto Di ffon 02-01-2024 Mean Corpuscular HGB Conc 33.7 g/dL Normal 32.0-35.0 [facility] Comment on above: Performed By: #### P T, BNP, CK, PTT, BMP, HS TROP, CBC #### [address] Monocytes/100 WBC (Bld) 17.28 % Normal 0.00-20.00 [facility] Comment on above: Performed By: #### P T, BNP, CK, PTT, BMP, HS TROP, CBC #### [address] NRBC% 0.1 /100{WBC} Normal 0-0.5 [facility] Comment on above: Performed By: #### P T, BNP, CK, PTT, BMP, HS TROP, CBC #### [address] Creatine kinase [Enzymatic a ctivity/volume] in Serum or PlasmaOrdered By: Smooth Dooley on 02-01-2024 CK [Catalytic activity/Vol] 74 U/L Normal 30-223 [facility] Comment on above: Performed By: #### P T, BNP, CK, PTT, BMP, HS TROP, CBC #### [address] Creatinine [Mass/volume] in Serum or PlasmaOrdered By: Smooth Dooley on 02-01-2024 Creatinine [Mass/Vol] 0.63 mg/dL Normal 0.60-1.20 [facility] Comment on above: Performed By: #### P T, BNP, CK, PTT, BMP, HS TROP, CBC #### [address] D-Dimer High Sensitivityon 0 02-01-2024 D-Dimer High Sensitivity < 200 Normal 0-243 [facility] Comment on above: [...] coagulation studies. Please contact the laboratory at [phone] for redraw instructions. PERFORMED BY: [place] [address] PATHOLOGIST IT SPECIALIST JAE GUERRA M.D. Performed By: #### P T, BNP, CK, PTT, BMP, HS TROP, CBC #### [address] ECG 12 lead ECGon 02-01-2024 ECG 12 lead ECG [facility] [place] [place] [address] Electrocardiograph Report Signed Patient: Rao Choi MR#: [id number] 7 : 1995 Acct:[id number] Age/Sex: 28 / F ADM Date: 02/01/24 Loc: ER Room: Type: [facility] ER Attending Dr: Ordering [...] ECGs available Confirmed by SMOOTH DOOLEY DO ([id number]) on 02/01/2024 3:56:12 PM Referred By: Electronically Signed By:SMOOTH DOOLEY DO Transcribed By: MUS Signed By Smooth Dooley DO 01/31 1556 Normal [facility] Erythrocyte distribution wid th [Ratio] by Automated countOrdered By: Smooth Dooley on 02-01-2024 Erythrocyte distribution width (RBC) [Ratio] 13.1 % Normal 11.9-15.3 [facility] Comment on above: Performed By: #### P T, BNP, CK, PTT, BMP, HS TROP, CBC #### [facility] [address] Erythrocytes [#/volume] in B lood by Automated countOrdered By: Smooth Dooley on 02-01-2024 RBC (Bld) [#/Vol] 4.43 10*6/uL Normal 3.60-5.00 [facility] Comment on above: Performed By: #### P T, BNP, CK, PTT, BMP, HS TROP, CBC #### [facility] [address] Fibrin D-dimer [Presence] in Platelet poor plasma by Latex agglutinationOrdered By: Smooth Dooley on 02-01-2024 Fibrin D-dimer LA Ql (PPP) < 200 ng/mL 0-243 [facility] Comment on above: The reference range [...] coagulation studies. Please contact the laboratory at [phone] for redraw instructions. Glucose [Mass/volume] in Ser um or PlasmaOrdered By: Smooth Dooley on 02-01-2024 Glucose [Mass/Vol] 99 mg/dL Normal 70-100 [facility] Comment on above: ADA recommended refe rence rangeRandom Glucose Reference Range is dependent on time and content of last meal. Glucose of more than 200 mg/dL in a nonstressed, ambulatory subject supports the diagnosis of Diabetes Mellitus. Result Comment: [place] om Glucose Reference Range is dependent on time and content of last meal. Glucose of more than 200 mg/dL in a nonstressed, ambulatory subject supports the diagnosis of Diabetes Mellitus. ADA recommended reference range Performed By: #### P T, BNP, CK, PTT, BMP, HS TROP, CBC #### [facility] [address] Glucose [Mass/volume] in Uri ne by Test stripOrdered By: Smooth Dooley on 02-01-2024 Glucose Test strip (U) [Mass/Vol] Normal mg/dL Normal [facility] HCG ( test) IA.rapi d Ql (U)Ordered By: Smooth Dooley on 02-01-2024 HCG ( test) Ql (U) Negative [facility] HCG,Urineon 02-01-2024 Beta HCG ( test) Ql (U) Negative Normal [facility] Comment on above: Order Comment: Name Collection Type:: Clean-Voided Midstream Result Comment: PERF ORMED BY: [address] [place] [address] PATHOLOGIST IT SPECIALIST JAE GUERRA M.D. Performed By: #### P T, BNP, CK, PTT, BMP, HS TROP, CBC #### [facility] [address] [id number] [facility] Hematocrit [Volume Fraction] of Blood by Automated countOrdered By: Smooth Dooley on 02-01-2024 Hematocrit (Bld) [Volume fraction] 39.8 % Normal 34.0-46.4 [facility] Comment on above: Performed By: #### P T, BNP, CK, PTT, BMP, HS TROP, CBC #### [facility] [address] Hemoglobin Test strip Ql (U) Ordered By: Smooth Dooley on 02-01-2024 Hemoglobin Ql (U) Negative Negative [facility] Hemoglobin [Mass/volume] in BloodOrdered By: Smooth Dooley on 02-01-2024 Hemoglobin (Bld) [Mass/Vol] 13.4 g/dL Normal 11.8-15.4 [facility] Comment on above: Performed By: #### P T, BNP, CK, PTT, BMP, HS TROP, CBC #### [facility] [address] INR in Platelet poor plasma by Coagulation assayOrdered By: Smooth Dooley on 02-01-2024 INR Coag (PPP) [Relative time] 1.0 {INR} Normal [facility] Comment on above: INR Therapeutic Rang [...] CK, PTT, BMP, HS TROP, CBC #### [facility] [address] [place] [address] [place] Ketones [Presence] in Urine by Test stripOrdered By: Smooth Dooley on 02-01-2024 Ketones Ql (U) Negative Normal Negative [facility] Comment on above: Order Comment: Name Collection Type:: Clean-Voided Midstream Performed By: #### P T, BNP, CK, PTT, BMP, HS TROP, CBC #### [facility] [address] [place] [address] [place] Leukocyte esterase [Presence ] in Urine by Test stripOrdered By: Smooth Dooley on 02-01-2024 Leukocyte esterase Test strip Ql (U) Negative Normal Negative [facility] Comment on above: Order Comment: Name Collection Type:: Clean-Voided Midstream Performed By: #### P T, BNP, CK, PTT, BMP, HS TROP, CBC #### [facility] [address] [place] [address] [place] Leukocytes [#/volume] correc ronnie for nucleated erythrocytes in Blood by Automated counOrdered By: Smooth Dooley on 02-01-2024 WBC corrected for nucl RBC Auto (Bld) [#/Vol] 6.7 10*3/uL 3.8-11.6 [facility] Leukocytes [#/volume] in Blo od by Automated countOrdered By: Smooth Dooley on 02-01-2024 WBC (Bld) [#/Vol] 6.7 10*3/uL Normal 3.8-11.6 [facility] Comment on above: Performed By: #### P T, BNP, CK, PTT, BMP, HS TROP, CBC #### [facility] [address] [place] [address] [place] Lymphocytes [#/volume] in Bl ood by Automated countOrdered By: Smooth Dooley on 02-01-2024 Lymphocytes (Bld) [#/Vol] 2.0 10*3/uL Normal 1.00-4.8 [facility] Comment on above: Performed By: #### P T, BNP, CK, PTT, BMP, HS TROP, CBC #### [facility] [address] [place] [address] [place] Lymphocytes/100 leukocytes i n Blood by Automated countOrdered By: Smooth Dooley on 02-01-2024 Lymphocytes/100 WBC (Bld) 29.8 % Normal . [facility] Comment on above: Performed By: #### P T, BNP, CK, PTT, BMP, HS TROP, CBC #### [facility] [address] [place] [address] [place] MCH [Entitic mass] by Automa ronnie countOrdered By: Smooth Dooley on 02-01-2024 MCH (RBC) [Entitic mass] 30.3 pg Normal 24.7-34.3 [facility] Comment on above: Performed By: #### P T, BNP, CK, PTT, BMP, HS TROP, CBC #### [facility] [address] MCHC Auto (RBC) [Mass/Vol]Or dered By: Smooth Dooley on 02-01-2024 MCHC (RBC) [Mass/Vol] 33.7 g/dL 32.0-35.0 [facility] MCV [Entitic volume] by Auto mated countOrdered By: Smooth Dooley on 02-01-2024 MCV (RBC) [Entitic vol] 90.0 fL Normal 80-100 [facility] Comment on above: Performed By: #### P T, BNP, CK, PTT, BMP, HS TROP, CBC #### [facility] [address] [place] [address] Monocyte distribution width [Entitic volume] in Blood by AutomatedOrdered By: Smooth Dooley on 02-01-2024 Monocyte distribution width Auto (Bld) [Entitic vol] 17.28 % 0.00-20.00 [facility] Neutrophils [#/volume] in Bl ood by Automated countOrdered By: Smooth Dooley on 02-01-2024 Neutrophils (Bld) [#/Vol] 3.9 10*3/uL Normal 1.8-7.7 [facility] Comment on above: Performed By: #### P T, BNP, CK, PTT, BMP, HS TROP, CBC #### [facility] [address] [place] [address] Nitrite Test strip Ql (U)Ord ered By: Smooth Dooley on 02-01-2024 Nitrite Ql (U) Negative Negative [facility] No Panel InformationOrdered By: Smooth Dooley on 02-01-2024 Estimated GFR (CKD-EPI) > 60.0 mL/Min [facility] Creatinine Clearance (Chem 106.09 [facility] Nucleated erythrocytes [Pres ence] in Blood by Automated countOrdered By: Smooth Dooley on 02-01-2024 Nucleated RBC Auto Ql (Bld) 0.1 /100{WBC} 0-0.5 [facility] Partial Thromboplastin Timeo n 02-01-2024 aPTT Coag (Bld) [Time] 31.3 s Normal 25.1-36.5 [facility] Comment on above: Result Comment: A he matocrit value greater than 55% may lead to inaccurate results in coagulation testing. Patients having hematocrit values >55% require a special collection tube for coagulation studies. Please contact the laboratory at [phone] for redraw instructions. PERFORMED BY: [place] [address] PATHOLOGIST IT SPECIALIST JAE GUERRA M.D. Performed By: #### P T, BNP, CK, PTT, BMP, HS TROP, CBC #### [address] Physician Orderon 02-01-2024 Physician Order [id number] Normal [facility] Platelet mean volume [Entiti c volume] in Blood by Automated countOrdered By: Smooth Dooley on 02-01-2024 Platelet mean volume (Bld) [Entitic vol] 8.4 fL Normal 6.3-10.7 [facility] Comment on above: Performed By: #### P T, BNP, CK, PTT, BMP, HS TROP, CBC #### [facility] [address] [place] [address] Platelets [#/volume] in Bloo d by Automated countOrdered By: Smooth Dooley on 02-01-2024 Platelets (Bld) [#/Vol] 232 10*3/uL Normal 150-450 [facility] Comment on above: Performed By: #### P T, BNP, CK, PTT, BMP, HS TROP, CBC #### [facility] [address] [place] [address] Potassium [Moles/volume] in Serum or PlasmaOrdered By: Smooth Dooley on 02-01-2024 Potassium [Moles/Vol] 3.6 mmol/L Normal 3.5-5.1 [facility] Comment on above: Performed By: #### P T, BNP, CK, PTT, BMP, HS TROP, CBC #### [facility] [address] Protein Test strip (U) [Mass /Vol]Ordered By: Smooth Dooley on 02-01-2024 Protein (U) [Mass/Vol] Negative Negative [facility] Prothrombin time (PT)Ordered By: Smooth Dooley on 02-01-2024 PT Coag (PPP) [Time] 11.9 s Normal 9.0-12.9 [facility] Comment on above: A hematocrit value g reater than 55% may lead to inaccurate results in coagulation testing. Patients having hematocrit values >55% require a special collection tube for coagulation studies. Please contact the laboratory at [phone] for redraw instructions. Result Comment: A he matocrit value greater than 55% may lead to inaccurate results in coagulation testing. Patients having hematocrit values >55% require a special collection tube for coagulation studies. Please contact the laboratory at [phone] for redraw instructions. Performed By: #### P T, BNP, CK, PTT, BMP, HS TROP, CBC #### [facility] [address] Serum or plasma anion gap de terminationOrdered By: Smooth Dooley on 02-01-2024 Anion gap [Moles/Vol] 10.9 mmol/L Normal 6.0-15.0 [facility] Comment on above: Performed By: #### P T, BNP, CK, PTT, BMP, HS TROP, CBC #### [address] Sodium [Moles/volume] in Ser um or PlasmaOrdered By: Smooth Dooley on 02-01-2024 Sodium [Moles/Vol] 138 mmol/L Normal 136-145 [facility] Comment on above: Performed By: #### P T, BNP, CK, PTT, BMP, HS TROP, CBC #### [address] Specific gravity Test strip (U) [Rel density]Ordered By: Smotoh Dooley on 02-01-2024 Specific gravity (U) [Rel density] 1.011 1.001-1.030 [facility] Troponin I High Sensitivityo n 02-01-2024 Troponin I High Sensitivity 5.2 pg/mL Normal 0.0-15.0 [facility] Comment on above: Result Comment: PERF ORMED BY: [place] [address] PATHOLOGIST IT SPECIALIST JAE GUERRA M.D. Performed By: #### P T, BNP, CK, PTT, BMP, HS TROP, CBC #### [address] Troponin I High Sensitivity < 2.3 Normal 0.0-15.0 [facility] Comment on above: Result Comment: PERF ORMED BY: [place] [address] PATHOLOGIST IT SPECIALIST JAE GUERRA M.D. Performed By: #### P T, BNP, CK, PTT, BMP, HS TROP, CBC #### [address] Troponin I.cardiac [Mass/vol ume] in Serum or Plasma by Detection limit <= 0.01 ng/Ordered By: Smooth Dooley on 02-01-2024 Troponin I.cardiac DL <= 0.01 ng/mL [Mass/Vol] 5.2 pg/mL 0.0-15.0 [facility] Urea nitrogen [Mass/volume] in Serum or PlasmaOrdered By: Smooth Dooley on 02-01-2024 Urea nitrogen [Mass/Vol] 13 mg/dL Normal 7-25 [facility] Comment on above: Performed By: #### P T, BNP, CK, PTT, BMP, HS TROP, CBC #### [address] Urinalysison 02-01-2024 Bilirubin,Urine Negative Normal Negative [facility] Comment on above: Order Comment: Name Collection Type:: Clean-Voided Midstream Performed By: #### P T, BNP, CK, PTT, BMP, HS TROP, CBC #### [address] Glucose Ql (U) Normal Normal Normal [facility] Comment on above: Order Comment: Name Collection Type:: Clean-Voided Midstream Performed By: #### P T, BNP, CK, PTT, BMP, HS TROP, CBC #### [address] Nitrite,Urine Negative Normal Negative [facility] Comment on above: Order Comment: Name Collection Type:: Clean-Voided Midstream Performed By: #### P T, BNP, CK, PTT, BMP, HS TROP, CBC #### [address] Occult Blood,Urine Negative Normal Negative [facility] Comment on above: Order Comment: Name Collection Type:: Clean-Voided Midstream Performed By: #### P T, BNP, CK, PTT, BMP, HS TROP, CBC #### [address] Protein,Urine Negative Normal Negative [facility] Comment on above: Order Comment: Name Collection Type:: Clean-Voided Midstream Performed By: #### P T, BNP, CK, PTT, BMP, HS TROP, CBC #### [address] Specificy [place],Urine 1.011 Normal 1.001-1.030 [facility] Comment on above: Order Comment: Name Collection Type:: Clean-Voided Midstream Performed By: #### P T, BNP, CK, PTT, BMP, HS TROP, CBC #### [address] Urobilinogen,Urine Normal Normal Normal [facility] Comment on above: Order Comment: Name Collection Type:: Clean-Voided Midstream Performed By: #### P T, BNP, CK, PTT, BMP, HS TROP, CBC #### [address] Urine appearanceOrdered By: Smooth Dooley on 02-01-2024 Appearance (U) Clear Normal Clear [facility] Comment on above: Order Comment: Name Collection Type:: Clean-Voided Midstream Performed By: #### P T, BNP, CK, PTT, BMP, HS TROP, CBC #### [facility] [address] [place] [address] Urobilinogen Test strip (U) [Mass/Vol]Ordered By: Smooth Dooley on 02-01-2024 Urobilinogen (U) [Mass/Vol] Normal mg/dL Normal [facility] XR chest 2V*on 02-01-2024 XR chest 2V* [facility] [place] [address] [place] [address] XRay Report Signed Patient: Rao Choi MR#: [id number] 7 : 1995 Acct:[id number] Age/Sex: 28 / F ADM Date: 02/01/24 [...] Elsa Malone M.D.02/01/2024 12:34 PM Dictation Location: [place] [address] Transcribed By: [facility] 02/01/24 1234 Dictated By: Elsa Malone MD 02/01/24 1233 Signed By: 02/01/24 1234 Normal [facility] pH of Urine by Test stripOrd ered By: Smooth Dooley on 02-01-2024 pH (U) 7.0 [pH] Normal 5.0-9.0 [facility] Comment on above: Order Comment: Name Collection Type:: Clean-Voided Midstream Performed By: #### P T, BNP, CK, PTT, BMP, HS TROP, CBC #### [address] Pulmonary Function Studieson 05-16-2023 Pulmonary Function [...] BY: Nicole Paredes M.D. lr Dictated: 05/13/2023 [id number] Transcribed: 05/14/2023 cc:Melissa Laura D.O. [facility] Comment on above: Result Comment: Elec tronically Signed By: Lena GRACE, Nicole X\.br\Date and Time Signed: 05/16/23 09:49 EDT Consent for Treatmenton 04-27 Consent for Treatment [id number]:127 [facility] Pulmonary Function Testson 0 05-09-2023 Pulmonary Function Tests [id number]#1.00CD:127 [facility] Physician Orderon 04-27-2023 Physician Order [id number]#1.00CD:127 [facility] Physician Order [id number]:127 [facility] XR Chest 2 Viewson 3 XR Chest [...] in mGy = na DAP = na [facility] Consent for Treatmenton 03-28 Consent for Treatment [id number]:127 [facility] Physician Orderon 04-23-2023 Physician Order [id number]:127 [facility] XR Chest 2 Viewson 3 XR Chest [...] in mGy = na DAP = na [facility] Consent for Treatmenton 03-27 Consent for Treatment [id number]:127 [facility] Physician Orderon 04-11-2023 Physician Order [id number]:127 Normal [facility] PAP ACOG PANEL 2: 21 to 29on 12-14-2022 . . Normal [facility] Comment on above: Performed By: #### [id number] #### [facility] [address] [place] [address] Dr. Hilary Higginbotham Age Gdln ACOG Testing - [facility] Comment on above: Performed By: #### [id number] #### [facility] [address] [place] [address] Dr. Hilary Higginbotham DIAGNOSIS: Comment [facility] Comment on above: Result Comment: NEGA TIVE FOR INTRAEPITHELIAL LESION OR MALIGNANCY. Performed By: #### [id number] #### [facility] [address] [place] [address] Dr. Hilary Higginbotham Methodology: Comment [facility] Comment on above: Result Comment: This liquid based ThinPrep(R) pap test was screened with the use of an image guided system. Performed By: #### 4 [id number] #### [facility] [address] [place] [address] Dr. Hilary Higginbotham Note: Comment [facility] Comment on above: Result Comment: The Pap smear is a screening test designed to aid in the detection of premalignant and malignant conditions of the uterine cervix. It is not a diagnostic procedure and should not be used as the sole means of detecting cervical cancer. Both false-positive and false-negative reports do occur. . Performed By: #### [id number] #### [facility] [address] [place] [address] Dr. Hilary Higginbotham Performed by: Comment [facility] Comment on above: Result Comment: Dann Scott Record Filing Clerk (ASCP) Performed By: #### [id number] #### [facility] [address] [place] [address] Dr. Hilary Higginbotham Reflex Criteria: Comment [facility] Comment on above: Result Comment: The HPV DNA reflex criteria were not met with this specimen result therefore, no HPV testing was performed. . Performed By: #### 4 [id number] #### [facility] [address] [place], [place] [address] Dr. Hilary Higginbotham Specimen adequacy: Comment Normal [facility] Comment on above: Result Comment: Sati sfactory for evaluation. Endocervical and/or squamous metaplastic cells (endocervical component) are present. Performed By: #### 4 [id number] #### [facility] [address] [place] [id number] Hilary Higginbotham Vital Signs Date Time Vital Sign Value Performing Clinician Facility 10-15-2024 13:12-0500 Body mass index (BMI) [Ratio] 28.52 kg/m2 Aruna ADAME Work Phone: [facility] 10-15-2024 13:12-0500 Body weight 73.03 kg Aruna ADAME Work Phone: [facility] 10-15-2024 13:12-0500 Diastolic blood pressure 72 mm[Hg] Aruna ADAME Work Phone: [facility] 10-15-2024 13:12-0500 Systolic blood pressure 122 mm[Hg] Aruna ADAME Work Phone: [facility] 10-09-2024 15:28-0500 Body mass index (BMI) [Ratio] 28.34 kg/m2 Jamel Natalie DO Work Phone: [facility] 10-09-2024 15:28-0500 Body weight 72.58 kg Jamel Natalie DO Work Phone: [facility] 10-09-2024 15:28-0500 Diastolic blood pressure 72 mm[Hg] Jamel Natalie DO Work Phone: [facility] 10-09-2024 15:28-0500 Systolic blood pressure 120 mm[Hg] Jamel Natalie DO Work Phone: [facility] 09-29-2024 13:19-0500 Body mass index (BMI) [Ratio] 28.41 kg/m2 Jamel Natalie DO Work Phone: [facility] 09-29-2024 13:19-0500 Body weight 72.76 kg Jamel Natalie DO Work Phone: [facility] 09-29-2024 13:19-0500 Diastolic blood pressure 74 mm[Hg] Jamel Natalie DO Work Phone: [facility] 09-29-2024 13:19-0500 Systolic blood pressure 116 mm[Hg] Jamel Natalie DO Work Phone: [facility] 09-16-2024 13:56-0500 Body mass index (BMI) [Ratio] 27.78 kg/m2 Aruna Alvarado PA Work Phone: [facility] 09-16-2024 13:56-0500 Body weight 71.12 kg Aruna Christiano PA Work Phone: [facility] 09-16-2024 13:56-0500 Diastolic blood pressure 74 mm[Hg] Aruna Christiano PA Work Phone: [facility] 09-16-2024 13:56-0500 Systolic blood pressure 112 mm[Hg] Aruna Christiano PA Work Phone: [facility] 2024 10:05-0500 Body mass index (BMI) [Ratio] 27.81 kg/m2 Jamel Natalie DO Work Phone: [facility] 2024 10:05-0500 Body weight 71.22 kg Jamel Natalie DO Work Phone: [facility] 2024 10:05-0500 Diastolic blood pressure 70 mm[Hg] Jamel Natalie DO Work Phone: [facility] 2024 10:05-0500 Systolic blood pressure 122 mm[Hg] Jamel Natalie DO Work Phone: [facility] 08-18-2024 14:51-0500 Body mass index (BMI) [Ratio] 26.93 kg/m2 Aruna Christiano PA Work Phone: [facility] 08-18-2024 14:51-0500 Body weight 68.95 kg Aruna Temple PA Work Phone: [facility] 08-18-2024 14:51-0500 Diastolic blood pressure 64 mm[Hg] Aruna Christiano PA Work Phone: [facility] 08-18-2024 14:51-0500 Systolic blood pressure 112 mm[Hg] Aruna Temple PA Work Phone: [facility] 08-07-2024 10:16-0500 Body mass index (BMI) [Ratio] 27.24 kg/m2 Aruna Temple PA Work Phone: [facility] 08-07-2024 10:16-0500 Body weight 69.76 kg Aruna Temple PA Work Phone: [facility] 08-07-2024 10:16-0500 Diastolic blood pressure 68 mm[Hg] Aruna Temple PA Work Phone: [facility] 08-07-2024 10:16-0500 Systolic blood pressure 98 mm[Hg] Aruna Christiano PA Work Phone: [facility] 07-07-2024 13:42-0500 Body mass index (BMI) [Ratio] 26.04 kg/m2 Aruna Temple PA Work Phone: [facility] 07-07-2024 13:42-0500 Body weight 66.68 kg Aruna Temple PA Work Phone: [facility] 07-07-2024 13:42-0500 Diastolic blood pressure 58 mm[Hg] Aruna Temple PA Work Phone: [facility] 07-07-2024 13:42-0500 Systolic blood pressure 104 mm[Hg] Aruna Christiano PA Work Phone: [facility] 06-09-2024 14:39-0400 Body mass index (BMI) [Ratio] 24.94 kg/m2 Jamel Natalie DO Work Phone: [facility] 06-09-2024 14:39-0400 Body weight 63.87 kg Jamel Natalie DO Work Phone: [facility] 06-09-2024 14:39-0400 Diastolic blood pressure 60 mm[Hg] Jamel Natalie DO Work Phone: [facility] 06-09-2024 14:39-0400 Systolic blood pressure 100 mm[Hg] Jamel Natalie DO Work Phone: [facility] 05-19-2024 16:11-0400 Body mass index (BMI) [Ratio] 23.91 kg/m2 Aruna ADAME Work Phone: [facility] 05-19-2024 16:11-0400 Body weight 61.24 kg Aruna ADAME Work Phone: [facility] 05-19-2024 16:11-0400 Diastolic blood pressure 70 mm[Hg] Aruna ADAME Work Phone: [facility] 05-19-2024 16:11-0400 Systolic blood pressure 118 mm[Hg] Aruna ADAME Work Phone: [facility] 04-21-2024 09:50-0400 Body mass index (BMI) [Ratio] 23.21 kg/m2 Jamel Natalie DO Work Phone: [facility] 04-21-2024 09:50-0400 Body weight 59.42 kg Jamel Natalie DO Work Phone: [facility] 04-21-2024 09:50-0400 Diastolic blood pressure 62 mm[Hg] Jamel Natalie DO Work Phone: [facility] 04-21-2024 09:50-0400 Systolic blood pressure 108 mm[Hg] Jamel Natalie DO Work Phone: [facility] 02-01-2024 15:36-0400 Diastolic blood pressure 72 mm[Hg] DO Melissa Keya Work Phone: [facility] 02-01-2024 15:36-0400 Heart rate 98 /min DO Melissa Keya Work Phone: [facility] 02-01-2024 15:36-0400 Respiratory rate 18 /min DO Melissa Keya Work Phone: [facility] 02-01-2024 15:36-0400 SaO2% (BldA) [Mass fraction] 99 % DO Melissa Keya Work Phone: [facility] 02-01-2024 15:36-0400 Systolic blood pressure 112 mm[Hg] DO Melissa Keya Work Phone: [facility] 02-01-2024 11:52-0400 Body height 157.48 cm DO Melissa Keya Work Phone: [facility] 02-01-2024 11:52-0400 Body temperature 97.4 [degF] DO Melissa Keya Work Phone: [facility] 02-01-2024 11:52-0400 Body weight 54.3 kg DO Melissa Keya Work Phone: [facility] 11-06-2022 23:21-0400 Diastolic blood pressure 64 mm[Hg] Cory Belem [facility] 11-06-2022 23:21-0400 Heart rate 116 /min Cory Belem [facility] 11-06-2022 23:21-0400 Mean blood pressure 78 mm[Hg] Cory Belem [facility] 11-06-2022 23:21-0400 Respiratory rate 14 /min Cory Belem [facility] 11-06-2022 23:21-0400 SaO2% (BldA) [Mass fraction] 98 % Cory Belem [facility] 11-06-2022 23:21-0400 Systolic blood pressure 106 mm[Hg] Croy Belem [facility] 11-06-2022 23:05-0400 Diastolic blood pressure 63 mm[Hg] Cory Belem [facility] 11-06-2022 23:05-0400 Heart rate 112 /min Cory Belem [facility] 11-06-2022 23:05-0400 Mean blood pressure 77 mm[Hg] Cory Bleem [facility] 11-06-2022 23:05-0400 Respiratory rate 15 /min Cory Belem [facility] 11-06-2022 23:05-0400 SaO2% (BldA) [Mass fraction] 98 % Cory Belem [facility] 11-06-2022 23:05-0400 Systolic blood pressure 106 mm[Hg] Cory Belem [facility] 11-06-2022 22:15-0400 Diastolic blood pressure 50 mm[Hg] Cory Belem [facility] 11-06-2022 22:15-0400 Heart rate 114 /min Cory Belem [facility] 11-06-2022 22:15-0400 Mean blood pressure 62 mm[Hg] Cory Belem [facility] 11-06-2022 22:15-0400 Respiratory rate 17 /min Cory Belem [facility] 11-06-2022 22:15-0400 SaO2% (BldA) [Mass fraction] 96 % Cory Belem [facility] 11-06-2022 22:15-0400 Systolic blood pressure 86 mm[Hg] Cory Belem [facility] 11-06-2022 20:49-0400 Heart rate 150 /min Cory Belem [facility] 11-06-2022 20:05-0400 Body temperature 97.88 [degF] Cory Belem [facility] 11-06-2022 20:05-0400 Heart rate 137 /min Cory Martinezner [facility] 11-06-2022 20:05-0400 Respiratory rate 16 /min Cory Patricia [facility] Encounters Encounter Date Encounter Type Care Provider Facility Start: 10-15-2024 End: 10-15-2024 Bamboo flowsheet Aruna ADAME Work Phone: [facility] Start: 10-15-2024 End: 10-15-2024 Bamboo flowsheet Aruna ADAME Work Phone: [facility] Start: 10-15-2024 End: 10-15-2024 flow sheet Aruna ADAME Work Phone: [facility] Comment on above: Third trimester preg sharron; 38 weeks gestation of Start: 10-15-2024 End: 10-15-2024 ambulatory ARUNA ALVARADO Not Available Start: 10-09-2024 End: 10-09-2024 flow sheet Jamel Natalie DO Work Phone: [facility] Comment on above: Third trimester preg sharron; 37 weeks gestation of ; Upper respiratory tract infection, unspecified type Start: 10-09-2024 End: 10-09-2024 ambulatory JAMEL NATALIE Not Available Start: 10-09-2024 End: 10-09-2024 Bamboo flowsheet Jamel Natalie DO Work Phone: [facility] Start: 10-09-2024 End: 10-09-2024 Bamboo flowsheet Jamel Natalie DO Work Phone: [facility] Start: 09-29-2024 End: 09-29-2024 Bamboo flowsheet Jamel Natalie DO Work Phone: [facility] Start: 09-29-2024 End: 10-05-2024 Bamboo flowsheet Jamel Natalie DO Work Phone: [facility] Start: 09-29-2024 End: 10-05-2024 Clinisync Result Encounter Jamel Natalie DO Work Phone: [facility] Unsolicited Start: 09-29-2024 End: 09-29-2024 ambulatory JAMEL NATALIE Not Available Start: 09-29-2024 End: 09-29-2024 flow sheet Jamel Natalie DO Work Phone: [facility] Comment on above: Third trimester preg sharron; 36 weeks gestation of ; Low serum iron Start: 09-16-2024 End: 09-16-2024 flow sheet Aruna ADAME Work Phone: [facility] Comment on above: Third trimester preg sharron; 34 weeks gestation of Start: 09-16-2024 End: 09-16-2024 ambulatory ARUNA ALVARADO Not Available Start: 2024 End: 2024 Bamboo flowsheet Jamel Natalie DO Work Phone: [facility] Start: 2024 End: 2024 Bamboo flowsheet Jamel Natalie DO Work Phone: [facility] Start: 2024 End: 2024 flow sheet Jamel Natalie DO Work Phone: [facility] Comment on above: Third trimester preg sharron; 32 weeks gestation of ; size inconsistent with dates Start: 2024 End: 2024 ambulatory JAMEL NATALIE Not Available Start: 08-18-2024 End: 08-18-2024 flow sheet Aruna ADAME Work Phone: [facility] Comment on above: Third trimester preg sharron; 30 weeks gestation of Start: 08-18-2024 End: 08-18-2024 ambulatory ARUNA ALVARADO Not Available Start: 08-18-2024 End: 08-18-2024 Bamboo flowsheet Aruna Temple PA Work Phone: [facility] Start: 08-18-2024 End: 08-18-2024 Bamboo flowsheet Aruna Christiano PA Work Phone: [facility] Start: 08-07-2024 End: 08-07-2024 Bamboo flowsheet Aruna Christiano PA Work Phone: [facility] Start: 08-07-2024 End: 08-07-2024 Bamboo flowsheet Aruna Alvarado PA Work Phone: [facility] Start: 08-07-2024 End: 08-07-2024 flow sheet Aruna Christiano PA Work Phone: [facility] Comment on above: Third trimester preg sharron; 28 weeks gestation of Start: 08-07-2024 End: 08-07-2024 ambulatory ARUNA ALVARADO Not Available Start: 07-18-2024 End: 07-18-2024 Clinisync Result Encounter Aruna Christiano PA Work Phone: [facility] Unsolicited Start: 07-18-2024 End: 07-18-2024 Clinisync Result Encounter Aurna Alvarado PA Work Phone: [facility] Unsolicited Start: 07-07-2024 End: 07-07-2024 Bamboo flowsheet Aruna Christiano PA Work Phone: [facility] Start: 07-07-2024 End: 07-09-2024 Bamboo flowsheet Aruna Christiano PA Work Phone: [facility] Start: 07-07-2024 End: 07-09-2024 External Result Encounter Aruna Alvarado PA Work Phone: [facility] Unsolicited Start: 07-07-2024 End: 07-07-2024 Periodic preventive med est patient 18-39 yrs Aruna Alvarado PA Work Phone: [facility] Comment on [...] Start: 04-21-2024 End: 04-21-2024 Bamboo flowsheet Jamel Natalei DO Work Phone: [facility] Start: 04-21-2024 End: 04-21-2024 Bamboo flowsheet Jamel Natalie DO Work Phone: [facility] Start: 04-21-2024 End: 04-21-2024 flow sheet Jamel Natalie DO Work Phone: [facility] Comment on above: First trimester preg sharron Start: 04-21-2024 End: 04-21-2024 ambulatory JAMEL NATALIE Not Available Start: 04-02-2024 End: 04-02-2024 ambulatory DO Melissa Laura Work Phone: [facility] Work Phone: Start: 04-02-2024 End: 04-02-2024 Patient encounter procedure DO Melissa Keya Work Phone: [facility] [place] Work Phone: Start: 03-27-2024 End: 03-27-2024 ambulatory JAMEL ESTRADA Not Available Start: 02-27-2024 End: 02-27-2024 Patient encounter procedure DO Melissa Keya Work Phone: [facility] Start: 02-27-2024 End: 02-27-2024 ambulatory DO Melissa C Keya Work Phone: [facility] Work Phone: Start: 02-08-2024 End: 02-08-2024 ambulatory Melissa C Keya Facility:[facility] Start: 02-08-2024 End: 02-08-2024 Patient encounter procedure Melissa C Keya [facility] Start: 02-01-2024 End: 02-01-2024 Emergency department patient visit DO Melissa Keya Work Phone: [facility] Work Phone: Start: 05-09-2023 End: 05-09-2023 ambulatory Melissa C Keya Facility:[facility] [facility] Start: 05-09-2023 End: 05-09-2023 Patient encounter procedure Melissa C Keya [facility] Start: 04-23-2023 End: 04-23-2023 ambulatory Melissa C Keya Facility:[facility] [place] Start: 04-23-2023 End: 04-23-2023 Patient encounter procedure Melissa C Keya [facility] Start: 04-11-2023 End: 04-11-2023 ambulatory Melissa C Keya Facility:[facility] [place] Start: 04-11-2023 End: 04-11-2023 Patient encounter procedure Melissa Laura [facility] Start: 12-06-2022 End: 12-06-[address] NONE LISTED REQUEST Facility: Start: 11-06-2022 End: 11-06-2022 Emergency department patient visit Cory Patricia [facility] Start: 04-20-2017 End: 04-21-2017 Ambulatory SUKUMAR VALENCIA Facility:[facility] Start: 04-18-2017 End: 04-19-2017 Ambulatory DEFAULT PHYSICIAN Facility:[facility] Procedures Date Procedure Procedure Detail Performing Clinician Start: 10-15-2024 Urnls dip stick/tabl et rgnt non-auto w/o micrscp Aruna ADAME Work Phone: Start: 10-09-2024 Urnls dip stick/tabl et rgnt non-auto w/o micrscp Jamel Natalie DO Work Phone: Start: 09-29-2024 Urnls dip stick/tabl et rgnt non-auto w/o micrscp Jamel Natalie DO Work Phone: Start: 09-29-2024 ALL MISCELLANEOUS TEST Jamel Natalie DO Work Phone: Start: 2024 Urnls dip stick/tabl et rgnt non-auto w/o micrscp Jamel Natalie DO Work Phone: Start: 08-18-2024 Urnls dip stick/tabl [...] on above: Result Comment: PERF ORMED BY: [facility] [address] [place] [address] PATHOLOGIST IT SPECIALIST JAE GUERRA M.D. Start: 02-01-2024 CT of head without contrast DO Melissa Laura Work Phone: Start: 02-01-2024 Plain chest X-ray DO Ori Laura Work Phone: Plan of Treatment Date Care Activity Detail Author Start: 10-15-2024 End: 10-15-2024 Patient encounter procedure [facility] Comment on above: Arrived Start: 10-09-2024 End: 10-09-2024 Patient encounter procedure 10/09/2024 9:00 AM EST Routine [facility] [address] [facility] [place] [address] Jamel Estrada, DO [address] [place] [address] [facility] Start: 09-29-2024 End: 09-29-2025 CULTURE, GROUP B STREP WITH SUSCEPTIBLITY CULTURE, GROUP B STREP WITH SUSCEPTIBLITY Lab Routine Third trimester Expected: 09/29/2024, Expires: 09/29/2025 [facility] Work Phone: Comment on above: Expected: 09/29/2024 , Expires: 09/29/2025 Start: 09-29-2024 End: 09-29-2024 Patient encounter procedure 09/29/2024 1:00 PM EST Routine [facility] [address] [facility] [address] Jamel Estrada DO [address] [facility] [place] [address] [facility] Start: 09-16-2024 End: 09-16-2024 Patient encounter procedure 09/16/2024 1:50 PM EST Routine [facility] [address] [facility] [place] [address] Aruna Alvarado PA [address] [facility] [address] [place], [place] [id number] [facility] Start: 09-16-2024 End: 09-16-2024 Professional / ancillary services management 09/16/2024 1:00 PM EST Ancillary Procedure [facility] [address] [facility] [address] [facility] Start: 2024 End: 2025 [...] Routine [facility] [address] [place] [id number] Aruna Alvarado PA [address] [place], [place] [id number] [facility] Start: 06-09-2024 End: 06-09-2024 Patient encounter procedure 06/09/2024 2:30 PM EDT Routine [facility] [address] [place] [id number] Jamel Estrada DO [address] [place] [address] [facility] Start: 06-09-2024 End: 06-09-2024 Professional / ancillary services management 06/09/2024 1:30 PM EDT Ancillary Procedure [facility] [address] [place] [id number] [facility] Start: 05-19-2024 End: 05-19-2024 Patient encounter procedure [facility] Comment on above: Arrived Start: 05-19-2024 End: 06-18-2024 Alpha fetoprotein, maternal Alpha fetoprotein, maternal Lab Routine Need for maternal serum alpha-protein (MSAFP) screening Expected: 05/19/2024 (Approximate), Expires: 06/18/2024 [facility] Work Phone: Comment on above: Expected: 05/19/2024 (Approximate), Expires: 06/18/2024 Start: 05-19-2024 End: 05-19-2025 US for US OB ANATOMY SINGLE W US OB CERVICAL LENGTH Imaging Routine Screening, , for anatomic survey Expected: 05/19/2024 (Approximate), Expires: 05/19/2025 [facility] Comment on above: Expected: 05/19/2024 (Approximate), Expires: 05/19/2025 Start: 04-27-2024 Influenza vaccination Influenza Vacc ine (#1) [facility] Start: 04-21-2024 End: 04-21-2024 Patient encounter procedure 04/21/2024 9:20 AM EDT Routine [facility] [address] [place] [address] Jamel Estrada, DO [address] [facility] [address] [place], [place] [address] Arrived [facility] Comment on above: Arrived Start: 04-02-2024 Bacteria identified in Urine by Culture [facility] Start: 04-02-2024 Rubella IgG measurement [facility] Start: 04-02-2024 [facility] Cytology Cervical or vaginal smear or scraping study Pap Smear Pathology and Cytology Routine 24 weeks gestation of Second trimester Ordered: 07/07/2024 [facility] Work Phone: Comment on above: Ordered: 07/07/2024 Glucose measurement estimated from glycated hemoglobin [facility] Hepatitis B virus surface Ag [Presence] in Serum or Plasma by Immunoassay [facility] Hepatitis C virus Ig G Ab [Presence] in Serum or Plasma by Immunoassay [facility] HIV 1+2 Ab+HIV1 p24 Ag [Presence] in Serum or Plasma by Immunoassay [facility] Patient Education Chest Pain, Adult ED [facility] Work Phone: Patient referral [facility] Work Phone: Reagin Ab [Presence] in Serum by RPR [facility] Payers Date Payer Category Payer Self-pay 2021 [facility] BCBS [id number] 2021 Unknown 2012 Self-pay [id number] 1996 Unknown [id number] 2.16.840.1.578942.3.579.2. 593 1996 Unknown [id number] 2.16.840.1.262403.3.579.2. 727 1996 Unknown [id number] 2.16.840.1.061910.3.579.2. 727 1996 Unknown [id number] 2.16.840.1.459119.3.579.2. 727 1996 Unknown [id number] 2.16.840.1.520849.3.579.2. 727 1996 Unknown [id number] 2.16.840.1.277749.3.579.2. 1259 1996 Unknown [id number] 2.16.840.1.121558.3.579.2. 1259 1996 Unknown [id number] 2.16.840.1.836447.3.579.2. 1259 1996 Unknown [id number] 2.16.840.1.710573.3.579.2. 1258 1996 Unknown [id number] 2.16.840.1.969470.3.579.2. 1258 1996 Unknown [id number] 2.16.840.1.167808.3.579.2. 1258 1996 Unknown [id number] 2.16.840.1.169521.3.579.2. 1258 1996 Unknown [id number] 2.16.840.1.285450.3.579.2. 1258 1996 Unknown [id number] 2.16.840.1.955170.3.579.2. 1258 1996 Unknown [id number] 2.16.840.1.023268.3.579.2. 1258 1996 Unknown [id number] 2.16.840.1.328741.3.579.2. 1258 1996 Unknown [id number] 2.16.840.1.417776.3.579.2. 1258 1996 Unknown [id number] 2.16.840.1.765525.3.579.2. 9 1959 Unknown [id number] Medicaid [facility] [id number] Unknown [facility] [id number] Unknown [id number] 2.16840.1.774158.3.579.2. 531 Unknown [id number] 2.16840.1.081333.3.579.2. 531 Unknown [id number] 2.16840.1.972113.3.579.2. 531 Social History Date Type Detail Facility Tobacco smoking status [facility] Start: 03-27-2024 Sex Assigned At Female F [facility] Start: 02-01-2024 End: 03-27-2024 Tobacco smoking status NHIS Never smoked tobacco (finding) [facility] Start: 1995 Sex Assigned At Female F [facility] Start: 03-27-2024 Tobacco use and exposure Smokeless tobacco non-user [facility] Start: 06-09-2024 End: 09-29-2024 Alcoholic beverage intake Ex-drinker (finding) [facility] Start: 03-27-2024 End: 06-09-2024 Alcoholic beverage intake [facility] Start: 02-02-2024 [facility] Start: 1995 Sex assigned at Not on file [facility] NEGATED: Highlighted row [facility] Functional Status Date Assessment Result Facility 11-06-2022 Functional Status N/A [facility] Clinical Notes 11-06-2022 to 10-15-2024 DEEP Cardenas - 10/15/2024 1:10 PM Patti Solorio, HEARING OFFICER - 10/09/2024 3:00 PM [facility] Gurrol[facility] - 09/29/2024 1:00 PM DEEP Varela - 09/16/2024 1:50 PM EST Note Date & Type Note Facility 10-15-2024 History of Present illness Narrative Reason for Appointment: Patient ID: Rao Choi is a 29 y.o. female who presents for Routine Visit Patient presents today for Return OB appointment. MEDICATIONS Current Outpatient Medications Medication Instructions azithromycin (Zithromax Z-Tad) 250 MG tablet As directed iron polysaccharides (PROFE) 391.3 mg, Oral, Daily MV-Min-Fe Fum-FA-DHA ( 1 PO) Take by [...] reviewed. Vitals: Estimated body mass index is 28.52 kg/m as calculated from the following: Height as of 18: 5' 3 . Weight as of this encounter: 161 lb. BP: 122/72 Patient's last menstrual period was 01/24/2024. ASSESSMENT & PLAN ICD-10-CM 1. Third trimester Z34.93 POCT urinalysis dipstick manually resulted 2. 38 weeks gestation of Z3A.38 Return OB: Patient presents today for a routine obstetrics appointment. Patient is currently 38w4d . Patient states she is doing well but has complaints of being tired due to current . Patient has verbalizes frequent movement. labor precautions was discussed/given and patient was instructed to perform kick counts three times a day. Orders Placed This Encounter Procedures POCT urinalysis dipstick manually resulted Follow Up: Patient is to return to office in 1 week for routine OB appointment. Documented by Aurora Zhang MA on behalf of: DEEP Cardenas documented in this encounter [facility] 10-09-2024 History of Present illness Narrative Reason for Appointment: Patient ID: Rao Choi is a 29 y.o. female who presents for Routine Visit Patient presents today for Return OB appointment. MEDICATIONS Current Outpatient Medications Medication Instructions iron polysaccharides (PROFE) 391.3 mg, Oral, Daily MV-Min-Fe Fum-FA-DHA ( 1 PO) Take by [...] nursing note reviewed. Exam conducted with a business process coordinator present. Vitals: Estimated body mass index is 28.34 kg/m as calculated from the following: Height as of 18: 5' 3 . Weight as of this encounter: 160 lb. BP: 120/72 Patient's last menstrual period was 01/24/2024. ASSESSMENT & PLAN ICD-10-CM 1. Third trimester Z34.93 POCT urinalysis dipstick manually resulted 2. 37 weeks gestation of Z3A.37 Return OB: Patient presents today for a routine obstetrics appointment. Patient is currently 37w5d . Patient states she is doing well but has complaints of being tired due to current . Patient has verbalizes frequent movement. labor precautions was discussed/given and patient was instructed to perform kick counts three times a day. Patient given scripts for URI. Orders Placed This Encounter Procedures POCT urinalysis dipstick manually resulted Follow Up: Patient is to return to office in 1 week for routine OB appointment. Documented by Michelle Solorio LPN on behalf of: Jamel Estrada DO documented in this encounter [facility] 09-29-2024 History of Present illness Narrative Reason for Appointment: Patient ID: [...] SYSTEMS Review of Systems: Review of Systems OBJECTIVE Objective: OBGyn Exam Vitals: Estimated body mass index is 28.41 kg/m as calculated from the following: Height as of 18: 5' 3 . Weight as of this encounter: 160 lb 6.4 oz. BP: 116/74 Patient's last menstrual period was 01/24/2024. ASSESSMENT & PLAN ICD-10-CM 1. Third trimester Z34.93 POCT urinalysis dipstick manually resulted CULTURE, GROUP B STREP WITH SUSCEPTIBLITY CULTURE, GROUP B STREP WITH SUSCEPTIBLITY 2. 36 weeks gestation of Z3A.36 POCT urinalysis dipstick manually resulted Patient is doing well but has complaints of being tired and having maternal discomfort due to . Patient verbalized frequent movement and was instructed to perform kick counts three times per day. labor precautions were given, LARC consent was signed/declined, and GBS was obtained. Orders Placed This Encounter Procedures CULTURE, GROUP B STREP WITH SUSCEPTIBLITY POCT urinalysis dipstick manually resulted Follow Up: Patient is to return to office in 1 week for routine OB appointment . Orders Placed This Encounter Procedures CULTURE, GROUP B STREP WITH SUSCEPTIBLITY POCT urinalysis dipstick manually resulted Follow Up: Patient is to return in 1 week for routine OB appointment. Documented by Carlie Gurrola LPN on behalf of: Jamel Estrada DO documented in this encounter [facility] 09-16-2024 History of Present illness Narrative Reason for Appointment: Patient ID: [...] of: DEEP Cardenas documented in this encounter [facility] 2024 History of Present illness Narrative Reason for Appointment: Patient ID: [...] nursing note reviewed. Exam conducted with a business process coordinator present. Vitals: Estimated body mass index is [...] Jamel Estrada DO documented in this encounter [facility] 08-18-2024 History of Present illness Narrative Reason for Appointment: Patient ID: [...] of: DEEP Cardenas documented in this encounter [facility] 08-07-2024 History of Present illness Narrative Reason for Appointment: Patient ID: [...] of: DEEP Cardenas documented in this encounter [facility] 07-07-2024 History of Present illness Narrative Reason for Appointment: Patient ID: [...] nursing note reviewed. Exam conducted with a business process coordinator present. Vitals: Estimated body mass index is [...] obtained without difficulty and patient was given [facility] order to have obtained. Orders Placed This Encounter Procedures CBC Glucose tolerance, 1 hour POCT urinalysis dipstick manually resulted Follow Up: Patient is to return to our office in 4 weeks for routine OB appointment Documented by Nathalie Costello LPN on behalf of: DEEP Cardenas documented in this encounter [facility] 06-09-2024 History of Present illness Narrative Reason for Appointment: Patient ID: [...] nursing note reviewed. Exam conducted with a business process coordinator present. Vitals: Estimated body mass index is [...] Jamel Estrada DO documented in this encounter [facility] 05-19-2024 History of Present illness Narrative Reason for Appointment: Patient ID: [...] of: DEEP Cardenas documented in this encounter [facility] 04-21-2024 History of Present illness Narrative Reason for Appointment: Patient ID: [...] nursing note reviewed. Exam conducted with a business process coordinator present. Vitals: Estimated body mass index is [...] or undercooked meat, and stay away from [facility]. Patient has been consulted regarding any [...] Jamel Estrada DO documented in this encounter [facility] 02-08-2024 Note Echocardiology Procedure Exam Date/Time Accession # Ordering Echo Transthoracic 02/08/2024 07:51 EDT [id number] Melissa Laura DO Complete CPT code [id number] Reason for Exam (Echo Transthoracic Complete) I51.7 Cardiomegaly Report Version: 1 Study ID: [id number] [address] Adult Echocardiogram Report Name: RAO CHOI Study Date: 02/08/2024, 7: 04 AM Patient Location: [facility] : 1995 (MM/DD/YYYY) Gender: Female Age: 28 [...] Espinal MD Transcribed by: ARMIN Technologist: ELAINE [facility] 11-07-2022 Hospital Discharge instructions Patient Education 11/06/2022 23:24:16 General Headache [...] help with your condition: Managing pain Take ijad-bhr-cwceokp and prescription medicines only as told by [...] 08/13/2006 Document Revised: 03/03/2019 Document Reviewed: 03/03/2019 [employer] Patient Education 2020 [facility]. Follow Up Care 11/06/2022 20:02:53 With:Aruna Adrian Address: [address] [facility] [address] [place] [address]- Business (1) When:Within 3 Day(s) [facility] 11-06-2022 Evaluation + Plan note [...] minute(s) CT Head or Brain w/o Contrast [facility] note[facility] assessment information available [facility] Work Phone: Evaluation note* Diagnosis 19 weeks [...] HealthcareEvaluation note* Diagnosis Third trimester state, incidental 36 weeks gestation of Low serum iron [facility] Diagnosis Third trimester state, incidental 37 weeks gestation of Upper respiratory tract infection, unspecified type [facility] this encounter [facility]* Diagnosis Third trimester state, incidental 38 weeks gestation of documented in this encounter [facility] Narrative No data available for this section [facility] No data available for this section [facility] No data available for this section [facility] Summary Purpose Family History No [...] and content) DATE CREATED AUTHOR 02/20/2018 [facility] DATE CREATED AUTHOR AUTHOR'S ORGANIZ ATION 12/14/2022 [facility] DATE CREATED AUTHOR AUTHOR'S ORGANIZ ATION 02/16/2024 [facility] DATE CREATED AUTHOR AUTHOR'S ORGANIZ ATION 04/10/2024 [facility] DATE CREATED AUTHOR AUTHOR'S ORGANIZ ATION 10/17/2024 [facility] EPIC Patient Care team [...] BE BASED ON THE PRIMARY CLINICAL RECORDS. [employer] provides no warranty or guarantee of the accuracy or completeness of information in this document.
[2024-10-20 07:11] LABS: Hematocrit 28.8 % (36.0-48.0); Hemoglobin 9.5 g/dL (12.0-16.0); Mean Corpuscular Hemoglobin 27.9 pg (26.7-34.0); Mean Corpuscular Volume 84.7 fL (81.0-99.0); Mean Platelet Volume 10.7 fL (9.5-13.5); Platelet Count 235 10^3/uL (150-450); Red Cell Distribution Width 13.9 % (11.0-15.0); White Blood Count 9.2 10^3/uL (4.0-11.0)
[2024-10-20] MEDS: 0.9 % SODIUM CHLORIDE 1,000 ML 125 ML IV (07:14)
[2024-10-20] MEDS: OXYTOCIN/0.9 % SODIUM CHLORIDE 10 UNITS/500 ML PLAST..BAG 6 UNIT IV (07:14)
[2024-10-20] MEDS: AMPICILLIN SODIUM 2,000 MG in 0.9 % SODIUM CHLORIDE 100 ML 200 MG IV (07:15)
[2024-10-20 07:34] LABS: Amphetamine Screen Urine NEGATIVE (NEGATIVE); Barbiturates Screen Urine NEGATIVE (NEGATIVE); Benzodiazepines Screen Urine NEGATIVE (NEGATIVE); Buprenorphine Screen Urine NEGATIVE (NEGATIVE); Cannabinoid Screen Urine NEGATIVE (NEGATIVE); Cocaine Screen Urine NEGATIVE (NEGATIVE); Methadone Screen Urine NEGATIVE (NEGATIVE); Methamphetamines Screen Urine NEGATIVE (NEGATIVE); Opiate Screen Urine NEGATIVE (NEGATIVE); Oxycodone Screen Urine NEGATIVE (NEGATIVE); Phencyclidine Screen Urine NEGATIVE (NEGATIVE); Tricyclic Antidepressant Urine NEGATIVE (NEGATIVE)
[2024-10-20] MEDS: ROPIVACAINE HCL/PF 400 MG/200 ML PREMIX 6 MG EPIDURAL (10:37)
[2024-10-20] MEDS: 0.9 % SODIUM CHLORIDE 1,000 ML 1000 ML IV (10:47)
[2024-10-20] MEDS: AMPICILLIN SODIUM 1,000 MG in 0.9 % SODIUM CHLORIDE 50 ML 100 MG IV (11:15)
--- NOTE | 2024-10-20 11:45 | PC.NURSE ---
1145 Second antibiotic dose complete at this time, charted ending time 1347 in error.
[2024-10-20] MEDS: EPHEDRINE SULFATE 50 MG/ML VIAL IV (12:21)
[2024-10-20] MEDS: ONDANSETRON PF 4 MG/2 ML VIAL IV (12:31)
[2024-10-20] MEDS: OXYTOCIN/0.9 % SODIUM CHLORIDE 20 UNITS/1,000 ML PLAST..BAG 125 UNIT IV (13:28)
--- NOTE | 2024-10-20 13:34 | PM.OBPRCVD ---
Procedure Intrapartal events: None Induction method: per pitocin protocol Delivery augmentation: rupture of membranes and pitocin Delivery monitor: external FHT and external uterine Route of delivery: Episiotomy Description: none L&D Laceration Description: none Estimated blood loss (mL): 350 Anesthesia type: undecided Disposition: floor Infant Delivery date: 10/20/24 Gender: female presentation: vertex Placental delivery description: Spontaneous cord description: 3 Vessels
[2024-10-20] MEDS: GLYCERIN/WITCH HAZEL PADS 1 PAD TOPICAL (14:04)
[2024-10-20] MEDS: IBUPROFEN 600 MG TABLET PO ×2 (14:04→19:59)
[2024-10-20] MEDS: BENZOCAINE/MENTHOL 85 GRAM SPRAY BOTTLE 1 APPLIC TOPICAL (14:05)
[2024-10-20] MEDS: ACETAMINOPHEN 325 MG TABLET 650 MG PO (18:57)
[2024-10-21 03:00] VITALS: TEMP 36.4
[2024-10-21] MEDS: IBUPROFEN 600 MG TABLET PO (03:05)
[2024-10-21 03:07] VITALS: BP 125/74; PULSE 69
[2024-10-21 06:30] LABS: Basophils Absolute Auto 0.1 10^3/uL (0.0-0.1); Basophils Percent Auto 0.5 % (0.2-2.0); Eosinophils Percent Auto 0.3 % (0.9-7.0); Hematocrit 24.6 % (36.0-48.0); Hemoglobin 7.9 g/dL (12.0-16.0); Immature Granulocytes Abs Auto 0.09 10^3/uL (0.00-0.03); Immature Granulocytes Pct Auto 0.8 % (0.0-0.5); Lymphocytes Absolute Auto 1.9 10^3/uL (1.2-3.8); Lymphocytes Percent Auto 15.9 % (20.5-60.0); Mean Corpuscular HGB Conc 32.1 g/dL (29.9-35.2); Mean Corpuscular Hemoglobin 27.7 pg (26.7-34.0); Mean Corpuscular Volume 86.3 fL (81.0-99.0); Mean Platelet Volume 10.8 fL (9.5-13.5); Monocytes Absolute Auto 0.8 10^3/uL (0.3-0.8); Monocytes Percent Auto 6.5 % (1.7-12.0); Platelet Count 190 10^3/uL (150-450); Red Blood Count 2.85 10^6/uL (4.20-5.40); Red Cell Distribution Width 14.2 % (11.0-15.0); White Blood Count 11.9 10^3/uL (4.0-11.0)
--- NOTE | 2024-10-21 07:25 | W.PC.ACHO ---
Registration Status: ADM IN Primary Language: Indian Preferred Language: Indian report given to Monty ROBERTSON at 0715. care relinquished. Active Medications Generic Name Dose Route Start Last Admin Trade Name Syd PRN Reason Stop Dose Admin Acetaminophen 650 mg 10/20/24 13:35 10/20/24 18:57 Acetaminophen 325 Mg Tablet PO 650 mg Q6H PRN Administration Mild Pain Acetaminophen 1,000 mg 10/20/24 21:42 Acetaminophen 500 Mg Tablet PO Q6H PRN Pain Al Hydroxide/Mg Hydroxide 2,400 mg 10/20/24 13:35 Magnesium Hydroxide 2,400 Mg/10 Ml Oral.Susp PO Q6H PRN Dyspepsia Benzocaine/Menthol 1 applic 10/20/24 13:35 10/20/24 14:05 Benzocaine/Menthol 85 Gram [place] Bottle TOPICAL 1 applic Q2H PRN Administration Pain Carboprost Tromethamine 250 mcg 10/20/24 06:35 Carboprost Tromethamine 250 Mcg/Ml 1 Ml Vial IM 10/22/24 06:35 Q15M PRN Bleeding Diphenhydramine HCl 25 mg 10/20/24 08:35 Diphenhydramine Hcl 50 Mg/Ml Vial IV 10/21/24 08:37 Q6H PRN Itching Diphtheria/Pertussis/Tetanus Vacc 0.5 ml 10/22/24 09:00 Adacel Diph,Pertuss(Acell),Tet Vac/Pf 0.5 Ml Adult Syringe IM 10/22/24 09:01 .ONCE ONE Docusate Sodium 100 mg 10/21/24 09:00 Docusate Sodium 100 Mg Capsule PO BID JAYESH Ephedrine Sulfate 5 mg 10/20/24 08:35 10/20/24 12:21 Ephedrine Sulfate 50 Mg/Ml Vial IV 10/21/24 08:37 5 mg Q5M PRN Administration Blood Pressure - Low Tranexamic Acid 1,000 mg/ 110 mls @ 440 mls/hr 10/20/24 06:35 Sodium Chloride IV 10/22/24 06:35 ONCE PRN Uterine Bleeding Sodium Chloride 1,000 mls @ 125 mls/hr 10/20/24 07:00 10/20/24 13:44 Sodium Chloride 0.9% 1,000 Ml IV Infused .Q8H JAYESH Infusion Oxytocin/Sodium Chloride 10 units in 500 mls @ 6 mls/hr 10/20/24 06:45 10/20/24 10:50 Pitocin 10 Unit/500 Ml-Ns IV 4 milliunit/min TITR JAYESH 12 mls/hr Infusion Protocol 2 MILLIUNIT/MIN Ampicillin 1,000 mg/ Sodium 50 mls @ 100 mls/hr 10/20/24 12:00 10/20/24 13:47 Chloride IV Infused Q4H JAYESH Infusion Ropivacaine/Sodium Chloride 400 mg in 200 mls @ 6 mls/hr 10/20/24 08:45 10/20/24 10:37 Naropin 0.2% 400 Mg/200 Ml Bag EPIDURAL 6 mls/hr Q24H JAYESH Administration Sodium Chloride 1,000 mls @ 1,000 mls/hr 10/20/24 08:35 10/20/24 10:47 Sodium Chloride 0.9% 1,000 Ml IV 1,000 mls/hr .Q1H PRN Administration epidural Ibuprofen 600 mg 10/20/24 13:35 10/21/24 03:05 Ibuprofen 600 Mg Tablet PO 600 mg Q6H PRN Administration Moderate Pain Lidocaine 1 ml 10/20/24 06:35 Lidocaine Hcl 1% 200 Mg/20 Ml Mdv INJ 10/22/24 06:39 ONCE PRN Pain Lidocaine 5 ml 10/20/24 08:35 Lidocaine Hcl 2% Pf 100 Mg/5 Ml Vial INJ 10/21/24 08:36 Q1H PRN Pain Measles/Mumps/Rubella Vaccine Live 0.5 ml 10/22/24 09:00 Measles,Mumps,Rubella Vacc/Pf 0.5 Ml Vial SQ 10/22/24 09:01 .ONCE ONE Methylergonovine Maleate 0.2 mg 10/20/24 06:35 Methylergonovine Maleate 0.2 Mg/Ml Ampule IM 10/22/24 06:35 ONCE PRN Uterine Contractility/Contract Methylergonovine Maleate 0.2 mg 10/20/24 06:35 Methylergonovine Maleate 0.2 Mg Tablet PO 10/22/24 06:35 Q4H PRN Uterine Contractility/Contract Misoprostol 600 mcg 10/20/24 06:35 Misoprostol 100 Mcg Tablet PO 10/22/24 06:35 ONCE PRN Uterine Bleeding Misoprostol 800 mcg 10/20/24 06:35 Misoprostol 100 Mcg Tablet SL 10/22/24 06:35 ONCE PRN Uterine Bleeding Misoprostol 1,000 mcg 10/20/24 06:35 Misoprostol 100 Mcg Tablet WI 10/22/24 06:35 ONCE PRN Uterine Bleeding Nalbuphine HCl 10 mg 10/20/24 06:35 Nalbuphine Hcl 10 Mg/Ml Ampule IV Q3H PRN Pain Ondansetron HCl 4 mg 10/20/24 06:35 10/20/24 12:31 Ondansetron Pf 4 Mg/2 Ml Vial IV 4 mg Q6H PRN Administration Nausea And Vomiting Ondansetron HCl 4 mg 10/20/24 06:35 Ondansetron 4 Mg Rapdis Tablet SL Q6H PRN Nausea And Vomiting Oxytocin 10 unit 10/20/24 06:35 Oxytocin 10 Unit/Ml Vial IM 10/22/24 06:35 ONCE PRN bleeding Senna 17.2 mg 10/20/24 20:00 Sennosides 8.6 Mg Tablet PO QHS PRN Constipation Simethicone 80 mg 10/20/24 13:35 Simethicone 80 Mg Tab.Chew PO QID PRN Abdominal Distention Temazepam 15 mg 10/20/24 13:35 Temazepam 15 Mg Capsule PO QHS PRN Sleep Witch Lorena/Glycerin 1 pad 10/20/24 13:35 10/20/24 14:04 Glycerin/Witch Lorena Pads TOPICAL 1 pad Q2H PRN Administration Pain Diet Category Date Time Status Regular Consistency Diet Diet 10/20/24 13:36 Active IV Insertion/Site Date of IV Line Insertion [18g 10/20/24 left Wrist] IV Insertion Time [18g left 06:55 Wrist] Respiratory Oxygen Delivery Method Room Air Oxygen Delivery Method Room Air Renal Bladder Pattern Continent Bladder Pattern Continent
--- NOTE | 2024-10-21 08:48 | P.OBPN_ITS ---
OB - PN: Subj Subjective Patient comments: no complaints Mills status: doing well Mills feeding status: exclusively Exam Constitutional Vital Signs, click to edit/add: Last Vital Signs Temp 97.5 F L 10/21/24 03:00 Pulse 69 10/21/24 03:07 Resp 16 10/21/24 03:00 BP 125/74 10/21/24 03:07 O2 Del Method Room Air 10/21/24 03:00 Documenting provider has reviewed patient's vital signs: yes Common normals: no apparent distress, average body habitus, oriented x3, no james itations, healthy appearing, alert and well nourished General appearance: cooperative, comfortable and well kempt Orientation/consciousness: Yes awake, Yes oriented to person, Yes oriented to place and Yes oriented to time HENMT Common normals: normocephalic Eye Common normals: EOMs intact bilaterally General eye: normal appearance of both eyes Neck & C-Spine Common normals: full ROM General: normal visual inspection Lymph Lymphatic: no lymphadenopathy noted Chest Common normals: inspection of chest normal Respiratory Common normals: normal respiratory effort, no retractions, no use of accessory muscles, clear to auscultation bilaterally and percussion normal Effort & inspection: able to speak in complete sentences Cardio Common normals: regular rate and regular rhythm Rate: regular rate Rhythm: regular rhythm GI Common normals: Normal to inspection, nondistended, normoactive bowel sounds present Inspection: normal to inspection Palpation: soft Common normals: no CVA tenderness Back & Pelvis Common normals: no CVA tenderness Extremity Common normals: normal to inspection, full ROM, normal capillary refill, no joint enlargement, no clubbing, cyanosis or edema, no calf tenderness and no pedal edema Neuro Common normals: oriented x3 Sensorium/orientation: awake, alert, oriented to person, oriented to place and oriented to time Speech: speech normal Psych Common normals: mental status grossly normal, thought process normal, cooperative, affect normal, speech normal, activity/motor behavior normal, denies hallucinations, denies homicidal ideation and denies suicidal ideation Results Labs Labs: Short CBC 10/21/24 Range/Units 06:18 WBC 11.9 H (4.0-11.0) 10^3/uL Hgb 7.9 L (12.0-16.0) g/dL Hct 24.6 L (36.0-48.0) % Plt Count 190 (150-450) 10^3/uL OB - PN: A/P Plan - Vaginal Delivery day: 1 Plan: routine care Time Spent with Patient Time: Total time spent is greater than 50% in coordination of care (as documented) at patient's floor/unit and/or counseling patient: Total time spent with greater than 50% in coordination of care (as documented) at patient's floor/unit and/or counseling patient: less than 15 minutes
[2024-10-21] MEDS: KETOROLAC TROMETHAMINE 30 MG/ML VIAL IVP ×2 (09:03→14:53)
[2024-10-21] MEDS: DOCUSATE SODIUM 100 MG CAPSULE PO ×2 (09:04→20:57)
[2024-10-21 09:10] VITALS: BP 110/57; PULSE 93; TEMP 36.6
[2024-10-21] MEDS: ACETAMINOPHEN 500 MG TABLET 1000 MG PO ×2 (11:59→20:58)
[2024-10-21 16:31] VITALS: BP 106/58; PULSE 88
[2024-10-21] MEDS: GLYCERIN/WITCH HAZEL PADS 1 PAD TOPICAL (20:57)
[2024-10-21] MEDS: IBUPROFEN 400 MG TABLET 800 MG PO (20:57)
[2024-10-21 23:18] VITALS: BP 113/61; PULSE 72; TEMP 37.1
[2024-10-22] MEDS: IBUPROFEN 400 MG TABLET 800 MG PO (05:06)
[2024-10-22] MEDS: ACETAMINOPHEN 500 MG TABLET 1000 MG PO (05:07)
--- NOTE | 2024-10-22 07:40 | PM.OBPN ---
OB - PN: Subj Subjective Patient comments: no complaints and pain well controlled [place] status: doing well Exam Constitutional Vital Signs, click to edit/add: Last Vital Signs Temp 98.8 F 10/21/24 23:18 Pulse 72 10/21/24 23:18 Resp 16 10/21/24 23:18 BP 113/61 10/21/24 23:18 O2 Del Method Room Air 10/21/24 23:18 Documenting provider has reviewed patient's vital signs: yes Common normals: no apparent distress Respiratory Common normals: normal respiratory effort and clear to auscultation bilaterally Cardio Common normals: regular rate and regular rhythm GI Common normals: Normal to inspection, nondistended, normoactive bowel sounds present Extremity Common normals: no clubbing, cyanosis or edema and no calf tenderness OB - PN: A/P Plan - Vaginal Delivery day: 2 Plan: routine care, discharge home and follow up 6 weeks Time Spent with Patient Time: Total time spent is greater than 50% in coordination of care (as documented) at patient's floor/unit and/or counseling patient: Total time spent with greater than 50% in coordination of care (as documented) at patient's floor/unit and/or counseling patient: less than 15 minutes
[2024-10-22 08:10] VITALS: BP 123/73; PULSE 81
[2024-10-22] MEDS: DOCUSATE SODIUM 100 MG CAPSULE PO (10:04)
== END 2024-10-22 12:55 | disposition home or self-care (01) | DRG 807 ==
PROVIDERS: Admitting Provider Obstetrics & Gynecology; Visit Provider Obstetrics & Gynecology
DX: O99.824 Streptococcus B carrier state complicating childbirth (principal); Z37.0 Single live birth; Z3A.39 39 weeks gestation of pregnancy; Z87.59 Personal history of other complications of pregnancy, childbirth and the puerperium
CPT/HCPCS: 36415; 59050; 59410; 80307; 85025; 85027; 86850; 86900; 86901; J0290; J0665; J1885; J2405; J2795; J3010

== ENCOUNTER 2024-10-30 08:15 | Outpatient (OUT) | payer BC, SELFPAY ==
--- OUTSIDE RECORDS SUMMARY | 2024-10-30 08:31 | XMS_ITS | CCD ---
[facility] Providers Care Physiological Chemist Name Role Phone PHYSICIAN, DEFAULT Unavailable Unavailable [...] Admitting Unavailable Melissa Laura Primary Care Physician [phone] DO Melissa Laura Primary Care Provider [phone] DO [place] [place] [facility] Provider Ori Laurayse [...] Sig (Original) azithromycin 250 mg oral tablet (6 sources) Macrolide Antimicrobial Start: 10-09-2024 azithromycin (Zithromax Z-Tad) 250 MG tablet Indications: Upper respiratory tract infection, unspecified type As directed 6 tablet 10/09/2024 Active dextroamphetamine-am phetamine (3 sources) Start: 02-01-2024 dextroamphetamine-am phetamine Active .ROUTE February 01, 2024 12:00am polysaccharide iron complex 391 mg oral capsule (10 sources) Start: 09-29-2024 End: 12-28-2024 take 1 [...] q8hr, # 12 tab(s), Refills(s) 0, Pharmacy: [facility]/pharmacy #[id number], 157, cm, 11/06/22 [...] Test Name Value Interpretation Reference Range Facility ALL CBC WITH AUTO DIFFon BASOPHILS ABSOLUTE AUTO 0.1 [facility] Basophils/100 WBC (Bld) 0.5 % 0.2 - 2.0 % [facility] Eosinophils/100 WBC (Bld) 0.3 % Low 0.9 - 7.0 % [facility] Erythrocyte distribution width (RBC) [Ratio] 14.2 % 11.0 - 15.0 % [facility] Hematocrit (Bld) [Volume fraction] 24.6 % Low 36.0 - 48.0 % [facility] Hemoglobin (Bld) [Mass/Vol] 7.9 g/dL Low 12.0 - 16.0 g/dL [facility] IMMATURE GRANULOCYTES ABS AUTO 0.09 High [facility] Immature granulocytes/100 WBC (Bld) 0.8 % High 0.0 - 0.5 % [facility] Interpretation and review of laboratory results Abnormal [facility] LYMPHOCYTES ABSOLUTE AUTO 1.9 [facility] Lymphocytes/100 WBC (Bld) 15.9 % Low 20.5 - 60.0 % [facility] MCH (RBC) [Entitic mass] 27.7 pg 26.7 - 34.0 pg [facility] MCHC (RBC) [Mass/Vol] 32.1 g/dL 29.9 - 35.2 g/dL [facility] MCV (RBC) [Entitic vol] 86.3 fL 81.0 - 99.0 fL [facility] MONOCYTES ABSOLUTE AUTO 0.8 [facility] Monocytes/100 WBC (Bld) 6.5 % 1.7 - 12.0 % [facility] NEUTROPHILS ABSOLUTE AUTO 9 High [facility] Neutrophils/100 WBC (Bld) 76 % High 43.0 - 75.0 % [facility] Platelet mean volume (Bld) [Entitic vol] 10.8 fL 9.5 - 13.5 fL [facility] TBH EO # 0 [facility] PLT 190 [facility] RBC 2.85 Low [facility]H WBC 11.9 High [facility] Urinalysis macro (dipstick) panel (U)on 10-15-2024 Bilirubin, UA Negative Negative - 4(70) +++ mg/dL [facility] Blood, UA Positive Negative - 50 Carson/mcL [facility] Comment on above: trace Clarity, UA Clear [facility] Color, UA Yellow [facility] Glucose, UA Negative Negative - 1999(110) ++++ mg/dL [facility] Interpretation and review of laboratory results Abnormal [facility] Ketones, UA Negative Negative - 160(16) ++++ mg/dL [facility] Leukocytes, UA Positive Negative - 500+++ Monica/mcL [facility] Comment on above: small Nitrite, UA Negative Negative - Positive [facility] pH, UA 6.5 5 - 9 [facility] Protein, UA Trace Negative - 1999(20) ++++ mg/dL [facility] Spec Grav, UA 1.02 1 - 1.03 [facility] Urobilinogen, UA 0.2 0.2 - 12 mg/dL [facility] Urinalysis macro (dipstick) panel (U)Ordered By: Nathalie Costello on 10-09-2024 Bilirubin, UA Negative Negative - 4(70) +++ mg/dL [facility] Blood, UA Negative Negative - 50 Carson/mcL [facility] Clarity, UA Clear [facility] Color, UA Yellow [facility] Glucose, UA Negative Negative - 1999(110) ++++ mg/dL [facility] Interpretation and review of laboratory results Abnormal [facility] Ketones, UA Negative Negative - 160(16) ++++ mg/dL [facility] Leukocytes, UA Positive Negative - 500+++ Monica/mcL [facility] Nitrite, UA Negative Negative - Positive [facility] pH, UA 6.5 5 - 9 [facility] Protein, UA Negative Negative - 1999(20) ++++ mg/dL [facility] Spec Grav, UA 1.01 1 - 1.03 [facility] Urobilinogen, UA 0.2 0.2 - 12 mg/dL [facility] ALL MISCELLANEOUS TESTon MISCELLANEOUS TEST COMMENT . [facility] Comment on above: Test Ordered: [id number] Strep Gp B Culture+Rflx Strep Gp B Culture+Rflx Positive [A ] CB Reference Range: Negative Centers for Disease Control and Prevention (CDC) and [place] [employer]nec[employer] (ACOG) guidelines [...] at high risk for anaphylaxis. Performed at: [facility] [id number] Television Writer: Gabriel Casillas PhD, Phone: [phone] CULTURE, [facility] macro (dipstick) panel (U)on 09-29-2024 Bilirubin, UA Negative Negative - 4(70) +++ mg/dL [facility] Blood, UA Negative Negative - 50 Carson/mcL [facility] Clarity, UA Clear [facility] Color, UA Yellow [facility] Glucose, UA Negative Negative - 1999(110) ++++ mg/dL [facility] Interpretation and review of laboratory results Normal [facility] Ketones, UA Negative Negative - 160(16) ++++ mg/dL [facility] Leukocytes, UA Negative Negative - 500+++ Monica/mcL [facility] Nitrite, UA Negative Negative - Positive [facility] pH, UA 6 5 - 9 [facility] Protein, UA Negative Negative - 2000(20) ++++ mg/dL [facility] Spec Grav, UA 1.025 1 - 1.03 [facility] Urobilinogen, UA 1.0 0.2 - 12 mg/dL [facility] US OB FOLLOW UP TRANSABDOMIN AL APPROACHon [...] II, MD, PHD at 18-Sep-2024 08:00:44 AM [facility] Normal Not Available Comment on above: Order Comment: US OB SCAN FOR GROWTH Estimated Date of Delivery: 10/25/24 Gestational Age as of 2024: 32w5d Urinalysis macro (dipstick) panel (U)on 2024 Bilirubin, UA Negative Negative - 4(70) +++ mg/dL [facility] Blood, UA Positive Negative - 50 Carson/mcL [facility] Comment on above: trace Clarity, UA Clear [facility] Color, UA Yellow [facility] Glucose, UA Negative Negative - 2000(110) ++++ mg/dL [facility] Interpretation and review of laboratory results Abnormal [facility] Ketones, UA Negative Negative - 160(16) ++++ mg/dL [facility] Leukocytes, UA Negative Negative - 500+++ Monica/mcL [facility] Nitrite, UA Negative Negative - Positive [facility] pH, UA 7 5 - 9 [facility] Protein, UA Negative Negative - 1999(20) ++++ mg/dL [facility] Spec Grav, UA 1.015 1 - 1.03 [facility] Urobilinogen, UA 0.2 0.2 - 12 mg/dL [facility] Urinalysis macro (dipstick) panel (U)on 08-18-2024 Bilirubin, UA Negative Negative - 4(70) +++ mg/dL [facility] Blood, UA Negative Negative - 50 Carson/mcL [facility] Clarity, UA Clear [facility] Color, UA Yellow [facility] Glucose, UA Negative Negative - 1999(110) ++++ mg/dL [facility] Interpretation and review of laboratory results Abnormal [facility] Ketones, UA Negative Negative - 160(16) ++++ mg/dL [facility] Leukocytes, UA Trace Negative - 500+++ Monica/mcL [facility] Nitrite, UA Negative Negative - Positive [facility] pH, UA 7 5 - 9 [facility] Protein, UA Negative Negative - 1999(20) ++++ mg/dL [facility] Spec Grav, UA 1.015 1 - 1.03 [facility] Urobilinogen, UA 0.2 0.2 - 12 mg/dL [facility] Urinalysis macro (dipstick) panel (U)on 08-07-2024 Bilirubin, UA Negative Negative - 4(70) +++ mg/dL [facility] Blood, UA Negative Negative - 50 Carson/mcL [facility] Clarity, UA Clear [facility] Color, UA Yellow [facility] Glucose, UA Negative Negative - 1999(110) ++++ mg/dL [facility] Interpretation and review of laboratory results Abnormal [facility] Ketones, UA Negative Negative - 160(16) ++++ mg/dL [facility] Leukocytes, UA Negative Negative - 500+++ Monica/mcL [facility] Nitrite, UA Negative Negative - Positive [facility] pH, UA 6.5 5 - 9 [facility] Protein, UA Negative Negative - 1999(20) ++++ mg/dL [facility] Spec Grav, UA 1.025 1 - 1.03 [facility] Urobilinogen, UA 1.0 0.2 - 12 mg/dL [facility] GLUCOSE 1 HOURon 07-18-2024 Glucose [Mass/Vol] 97 mg/dL NINF - 13 0 mg/dL [facility] RECURRENT VAGINITIS (HTRX)on 07-09-2024 ATOPOBIUM VAGINAE 16.774 Abnormal [facility] ATOPOBIUM VAGINAE Detected Abnormal [facility] BVAB 2,3 (BACTERIAL VAGINOSIS ASSOCIATED BACTERIA 2, 3); MOBILUNCUS SPP 0 [facility] BVAB 2,3 (BACTERIAL VAGINOSIS ASSOCIATED BACTERIA 2, 3); MOBILUNCUS SPP Not detected [facility] AIDA ALBICANS, PARAPSILOSIS, TROPICALIS 0 [facility] AIDA ALBICANS, PARAPSILOSIS, TROPICALIS Not detected [facility] AIDA GLABRATA 0 [facility] AIDA GLABRATA Not detected [facility] AIDA KRUSEI 0 [facility] AIDA KRUSEI Not detected [facility] CHLAMYDIA TRACHOMATIS 0 [facility] CHLAMYDIA TRACHOMATIS Not detected [facility] GARDNERELLA VAGINALIS 23.955 Abnormal [facility] GARDNERELLA VAGINALIS Detected Abnormal [facility] Interpretation and review of laboratory results Abnormal [facility] MEGASPHAERA (TYPES 1, 2) 0 [facility] MEGASPHAERA (TYPES 1, 2) Not detected [facility] MYCOPLASMA GENITALIUM 0 [facility] MYCOPLASMA GENITALIUM Not detected [facility] NEISSERIA GONORRHOEAE 0 [facility] NEISSERIA GONORRHOEAE Not detected [facility] TRICHOMONAS VAGINALIS 0 [facility] TRICHOMONAS VAGINALIS Not detected N [facility] Urinalysis macro (dipstick) panel (U)on 07-07-2024 Bilirubin, UA Negative Negative - 4(70) +++ mg/dL [facility] Blood, UA Negative Negative - 50 Carson/mcL [facility] Clarity, UA Clear [facility] Color, UA Yellow [facility] Glucose, UA Negative Negative - 1999(110) ++++ mg/dL [facility] Interpretation and review of laboratory results Abnormal [facility] Ketones, UA Negative Negative - 160(16) ++++ mg/dL [facility] Leukocytes, UA Trace Negative - 500+++ Monica/mcL [facility] Nitrite, UA Negative Negative - Positive [facility] pH, UA 6 5 - 9 [facility] Protein, UA Negative Negative - 1999(20) ++++ mg/dL [facility] Spec Grav, UA 1.03 1 - 1.03 [facility] Urobilinogen, UA 0.2 0.2 - 12 mg/dL [facility] Urinalysis macro (dipstick) panel (U)on 06-09-2024 Bilirubin, UA Negative Negative - 4(70) +++ mg/dL [facility] Blood, UA Negative Negative - 50 Carson/mcL [facility] Clarity, UA Clear [facility] Color, UA Yellow [facility] Glucose, UA Negative Negative - 1999(110) ++++ mg/dL [facility] Interpretation and review of laboratory results Normal [facility] Ketones, UA Negative Negative - 160(16) ++++ mg/dL [facility] Leukocytes, UA Negative Negative - 500+++ Monica/mcL [facility] Nitrite, UA Negative Negative - Positive [facility] pH, UA 6 5 - 9 [facility] Protein, UA Negative Negative - 1999(20) ++++ mg/dL [facility] Spec Grav, UA 1.01 1 - 1.03 [facility] Urobilinogen, UA 0.2 0.2 - 12 mg/dL [facility] Urinalysis macro (dipstick) panel (U)on 05-19-2024 Bilirubin, UA Negative Negative - 4(70) +++ mg/dL [facility] Blood, UA Negative Negative - 50 Carson/mcL [facility] Clarity, UA Clear [facility] Color, UA Yellow [facility] Glucose, UA Negative Negative - 1999(110) ++++ mg/dL [facility] Interpretation and review of laboratory results Abnormal [facility] Ketones, UA Negative Negative - 160(16) ++++ mg/dL [facility] Leukocytes, UA Trace Negative - 500+++ Monica/mcL [facility] Nitrite, UA Negative Negative - Positive [facility] pH, UA 6.5 5 - 9 [facility] Protein, UA Negative Negative - 1999(20) ++++ mg/dL [facility] Spec Grav, UA 1.025 1 - 1.03 [facility] Urobilinogen, UA 0.2 0.2 - 12 mg/dL [facility] Urinalysis macro (dipstick) panel (U)on 04-21-2024 Bilirubin, UA Negative Negative - 4(70) +++ mg/dL [facility] Blood, UA Negative Negative - 50 Carson/mcL [facility] Clarity, UA Clear [facility] Color, UA Yellow [facility] Glucose, UA Negative Negative - 1999(110) ++++ mg/dL [facility] Interpretation and review of laboratory results Abnormal [facility] Ketones, UA Negative Negative - 160(16) ++++ mg/dL [facility] Leukocytes, UA Trace Negative - 500+++ Monica/mcL [facility] Nitrite, UA Negative Negative - Positive [facility] pH, UA 8.5 5 - 9 [facility] Protein, UA Negative Negative - 1999(20) ++++ mg/dL [facility] Spec Grav, UA 1.020 1 - 1.03 [facility] Urobilinogen, UA 0.2 0.2 - 12 mg/dL [facility] A1C with Estimated Average G efrainn 04-02-2024 Glucose [Mass/Vol] 105 mg/dL Normal [facility] Comment on above: Result Comment: PERF ORMED BY: [place] [address] PATHOLOGIST TOWBOAT ENGINEER JAE GUERRA M.D. Performed By: #### P T, BNP, CK, PTT, BMP, HS TROP, CBC #### [address] HbA1c (Bld) [Mass fraction] 5.3 % Normal 4.3-5.6 [facility] Comment on above: Result Comment: Incr eased risk for diabetes: 5.7 - 6.4 diabetes: >6.4 glycemic control for adults with diabetes: <7.0 Performed By: #### P T, BNP, CK, PTT, BMP, HS TROP, CBC #### [address] Automated basophil %Ordered By: Jamel Estrada on 04-02-2024 Basophils/100 WBC (Bld) 0.6 % Normal . [facility] Comment on above: Performed By: #### P T, BNP, CK, PTT, BMP, HS TROP, CBC #### [address] Automated basophil countOrde red By: Jamel Estrada on 04-02-2024 Basophils (Bld) [#/Vol] 0.0 10*3/uL Normal 0.0-0.2 [facility] Comment on above: Result Comment: PERF ORMED BY: [place] [address] PATHOLOGIST TOWBOAT ENGINEER JAE GUERRA M.D. Performed By: #### P T, BNP, CK, PTT, BMP, HS TROP, CBC #### [address] Automated blood monocyte cou ntOrdered By: Jamel Estrada on 04-02-2024 Monocytes (Bld) [#/Vol] 0.5 10*3/uL Normal 0.0-0.8 [facility] Comment on above: Performed By: #### P T, BNP, CK, PTT, BMP, HS TROP, CBC #### [address] Automated eosinophil %Ordere d By: Jamel Estrada on 04-02-2024 Eosinophils/100 WBC (Bld) 3.4 % Normal . [facility] Comment on above: Performed By: #### P T, BNP, CK, PTT, BMP, HS TROP, CBC #### [facility] [address] [place] [address] Automated eosinophil countOr dered By: Jamel Estrada on 04-02-2024 Eosinophils (Bld) [#/Vol] 0.3 10*3/uL Normal 0.0-0.45 [facility] Comment on above: Performed By: #### P T, BNP, CK, PTT, BMP, HS TROP, CBC #### [address] Automated monocyte %Ordered By: Jamel Estrada on 04-02-2024 Monocytes/100 WBC (Bld) 7.5 % Normal . [facility] Comment on above: Performed By: #### P T, BNP, CK, PTT, BMP, HS TROP, CBC #### [address] Automated neutrophil %Ordere d By: Jamel Estrada on 04-02-2024 Neutrophils/100 WBC (Bld) 66.0 % Normal . [facility] Comment on above: Performed By: #### P T, BNP, CK, PTT, BMP, HS TROP, CBC #### [address] Complete Blood Count Auto Di ffon 04-02-2024 Mean Corpuscular HGB Conc 34.2 g/dL Normal 32.0-35.0 [facility] Comment on above: Performed By: #### P T, BNP, CK, PTT, BMP, HS TROP, CBC #### [address] NRBC% 0.1 /100{WBC} Normal 0-0.5 [facility] Comment on above: Performed By: #### P T, BNP, CK, PTT, BMP, HS TROP, CBC #### [address] Erythrocyte distribution wid th [Ratio] by Automated countOrdered By: Jamel Estrada on 04-02-2024 Erythrocyte distribution width (RBC) [Ratio] 13.4 % Normal 11.9-15.3 [facility] Comment on above: Performed By: #### P T, BNP, CK, PTT, BMP, HS TROP, CBC #### [address] Erythrocytes [#/volume] in B lood by Automated countOrdered By: Jamel Estrada on 04-02-2024 RBC (Bld) [#/Vol] 3.65 10*6/uL Normal 3.60-5.00 [facility] Comment on above: Performed By: #### P T, BNP, CK, PTT, BMP, HS TROP, CBC #### [address] HIV 1/O/2 Antigen/Antibodyon 04-02-2024 HIV Screen 4th Generation Non-Reactive Normal Non Reactive [facility] Comment on above: Result Comment: HIV- 1/HIV-2 antibodies and HIV-1 p24 antigen were NOT detected. There is no laboratory evidence of HIV infection. HIV Negative Performed at: [facility] [id number] Television Writer: Gabriel Casillas PhD, Phone: [phone] Performed By: #### P T, BNP, CK, PTT, BMP, HS TROP, CBC #### [address] Hematocrit [Volume Fraction] of Blood by Automated countOrdered By: Jamel Estrada on 04-02-2024 Hematocrit (Bld) [Volume fraction] 33.2 % Low 34.0-46.4 [facility] Comment on above: Performed By: #### P T, BNP, CK, PTT, BMP, HS TROP, CBC #### [address] Hemoglobin [Mass/volume] in BloodOrdered By: Jamel Estrada on 04-02-2024 Hemoglobin (Bld) [Mass/Vol] 11.3 g/dL Low 11.8-15.4 [facility] Comment on above: Performed By: #### P T, BNP, CK, PTT, BMP, HS TROP, CBC #### [address] Hep C Ab wRfx to Qnt PCRon 0 04-02-2024 Hepatitis C Virus Antibody Non-Reactive Normal Non Reactive [facility] Comment on above: Performed By: #### P T, BNP, CK, PTT, BMP, HS TROP, CBC #### [address] Interpretation Hepatitis C Comment Normal . [facility] Comment on above: Result Comment: Not infected with HCV unless early or acute infection is suspected (which may be delayed in an immunocompromised individual), or other evidence exists to indicate HCV infection. Performed By: #### P T, BNP, CK, PTT, BMP, HS TROP, CBC #### [address] Hepatitis B Surface Antigeno n 04-02-2024 HBsAg Screen Negative Normal Negative [facility] Comment on above: Result Comment: Perf ormed at: - [facility] [id number] Television Writer: Gabriel Casillas PhD, Phone: [phone] PERFORMED BY: [place] [address] PATHOLOGIST TOWBOAT ENGINEER JAE GUERRA M.D. Performed By: #### P T, BNP, CK, PTT, BMP, HS TROP, CBC #### [facility] [address] [place] [address] Leukocytes [#/volume] correc ronnie for nucleated erythrocytes in Blood by Automated counOrdered By: Jamel Estrada on 04-02-2024 WBC corrected for nucl RBC Auto (Bld) [#/Vol] 7.3 10*3/uL 3.8-11.6 [facility] Leukocytes [#/volume] in Blo od by Automated countOrdered By: Jamel Estrada on 04-02-2024 WBC (Bld) [#/Vol] 7.3 10*3/uL Normal 3.8-11.6 [facility] Comment on above: Performed By: #### P T, BNP, CK, PTT, BMP, HS TROP, CBC #### [facility] [address] [place] [address] [place] Lymphocytes [#/volume] in Bl ood by Automated countOrdered By: Jamel Estrada on 04-02-2024 Lymphocytes (Bld) [#/Vol] 1.6 10*3/uL Normal 1.00-4.8 [facility] Comment on above: Performed By: #### P T, BNP, CK, PTT, BMP, HS TROP, CBC #### [facility] [address] [place] [address] [place] Lymphocytes/100 leukocytes i n Blood by Automated countOrdered By: Jamel Estrada on 04-02-2024 Lymphocytes/100 WBC (Bld) 22.5 % Normal . [facility] Comment on above: Performed By: #### P T, BNP, CK, PTT, BMP, HS TROP, CBC #### [facility] [address] [place] [address] [place] MCH [Entitic mass] by Automa ronnie countOrdered By: Jamel Estrada on 04-02-2024 MCH (RBC) [Entitic mass] 31.0 pg Normal 24.7-34.3 [facility] Comment on above: Performed By: #### P T, BNP, CK, PTT, BMP, HS TROP, CBC #### [address] MCHC Auto (RBC) [Mass/Vol]Or dered By: Jamel Estrada on 04-02-2024 MCHC (RBC) [Mass/Vol] 34.2 g/dL 32.0-35.0 [facility] MCV [Entitic volume] by Auto mated countOrdered By: Jamel Estrada on 04-02-2024 MCV (RBC) [Entitic vol] 90.9 fL Normal 80-100 [facility] Comment on above: Performed By: #### P T, BNP, CK, PTT, BMP, HS TROP, CBC #### [address] Neutrophils [#/volume] in Bl ood by Automated countOrdered By: Jamel Estrada on 04-02-2024 Neutrophils (Bld) [#/Vol] 4.8 10*3/uL Normal 1.8-7.7 [facility] Comment on above: Performed By: #### P T, BNP, CK, PTT, BMP, HS TROP, CBC #### [address] Nucleated erythrocytes [Pres ence] in Blood by Automated countOrdered By: Jamel Estrada on 04-02-2024 Nucleated RBC Auto Ql (Bld) 0.1 /100{WBC} 0-0.5 [facility] Platelet mean volume [Entiti c volume] in Blood by Automated countOrdered By: Jamel Estrada on 04-02-2024 Platelet mean volume (Bld) [Entitic vol] 9.2 fL Normal 6.3-10.7 [facility] Comment on above: Performed By: #### P T, BNP, CK, PTT, BMP, HS TROP, CBC #### [place] [id number] [place] Platelets [#/volume] in Bloo d by Automated countOrdered By: Jamel Estrada on 04-02-2024 Platelets (Bld) [#/Vol] 209 10*3/uL Normal 150-450 [facility] Comment on above: Performed By: #### P T, BNP, CK, PTT, BMP, HS TROP, CBC #### [facility] [address] [place] [address] [place] RPR w/rfx to Quant TP Abson 04-02-2024 RPR, Rfx Quant RPR Non-Reactive Normal Non Reactive [facility] Comment on above: Result Comment: Perf ormed at: [address] [id number] Television Writer: Gabriel Casillas PhD, Phone: [phone] PERFORMED BY: [place] [address] PATHOLOGIST TOWBOAT ENGINEER JAE GUERRA M.D. Performed By: #### P T, BNP, CK, PTT, BMP, HS TROP, CBC #### [facility] [address] [place] [address] Rubella IgG Antibodyon 04-02 Rubella IgG Antibody 3.16 Normal Immune >0.99 [facility] Comment on above: Result Comment: Non- immune <0.90 Equivocal 0.90 - 0.99 Immune >0.99 Performed at: [address] [id number] Television Writer: Gabriel Casillas PhD, Phone: [phone] Performed By: #### P T, BNP, CK, PTT, BMP, HS TROP, CBC #### [facility] [address] [place] [address] [place] Type and Screenon 04-02-2024 ABO and Rh group Nom (Bld) Blood group O Rh(D) positive Normal [facility] Urine Cultureon 04-02-2024 Bacteria identified Cx Nom (U) <9,000 colonies/ml mixed bacterial skin contaminants 2 Days PERFORMED BY: [place] [address] PATHOLOGIST TOWBOAT ENGINEER JAE GUERRA M.D. Normal [facility] Comment on above: Performed By: #### P T, BNP, CK, PTT, BMP, HS TROP, CBC #### [facility] [address] [place], [place] [id number] [facility] Choriogonadotropin.beta subu nit [Units/volume] in Serum or PlasmaOrdered By: Jamel Estrada on 02-27-2024 [place] [address].00 m[IU]/mL [facility] Comment on above: Approximate Approxim ate hCG Gestational Age Range (mIU/ml) (weeks)0.2-1 5-50 1-2 50-500 2-3 100-5,000 3-4 500-10,000 4-5 1,000-50,000 5-6 10,000-100,000 6-8 15,000-200,000 8-12 10,000-100,000 HCG,Quantitativeon HCG,Quantitative 24653.00 m[iU]/mL Normal [facility] Comment on above: Result Comment: Appr oximate Approximate hCG Gestational Age Range (mIU/ml) (weeks) 0.2-1 5-50 1-2 50-500 2-3 100-5,000 3-4 500-10,000 4-5 1,000-50,000 5-6 10,000-100,000 6-8 15,000-200,000 8-12 10,000-100,000 PERFORMED BY: [place] [address] PATHOLOGIST TOWBOAT ENGINEER JAE GUERRA M.D. Performed By: #### P T, BNP, CK, PTT, BMP, HS TROP, CBC #### [facility] [address] [place], [place] [id number] [facility] Coding Summary.on 02-14-2024 Coding Summary. MJKEZshw36XPq2tFu+PG hlYWQ+ YC2HZCCbM86aqZGgoP8zO2YDUQ jDSlzfQEQKJDuZGbPnotYdPL6x aXNjZXJu IC8+ID8mTRGqLzhcmGMdq4D7wW G6M64rqr5mFTgbpHN2UUVbNpFp ywpeh6pcxZf5LHjeYfvyOrVr AKEuvD61TLP9gN56Id04hROqyI Iol8zokUu1GzOxTXJmCHY3cBxt FNzrw4CeUPFhY13xgQNgb7U9 TVAokMdayMVyNiXbtAV7vP5zPK uymxytm7pnntjoVtf2tu36pWHk l1W2mER3C6ImrpO0ESMcuCEt NxzayIQLdP7ftreuu5qxminoVp NsICQxFVo7REk0GZHvhZtlUdNq WO88EMO0YAMtdrQtG1ClJIYe lEjjQaD1r4W4Hd4XZ4XZXrmtF5 VNTUFSWTwvdGQ+KA11wf31N5Ur SffrKqx3MREoWFS4jGW7iQ1b DWClZXnwi7V3bAI6L5JdcfBhjb 0bj4chNXMoJVsvJ86ddUPfo4A9 GPAuoTA3QYHvoDiyUiYwyI91 Oyc+LIEddVrro7GxBrhiv1nni3 ceuTt7UfkmIFTdhjGntGpkMUH8 t0XmHo5qRAUyqKG0rYP0hV3x DmBuCrD4MVpaT342BcVzrMZtGt tsJ98hM3JenGN+HHDmVtz9KDWo fZibID8vL2UsWBFearmlvQDv xVjsNJ1oQNTproejNSDptS7eAE NfP2j6HvSpMnN8SOsyI0YwXOGx rwcwRn90wZ2eGjDeXoC5XRbo N7WmyaP3ZPYhxWZpYAtiCSK3E0 5ib7M0VYSqXRZuRYP0dWZ9jK0i bGlnbjogbGVmdDsgdmVydGlj FXpxLHlsT087FWWpjOzgNpHzDW luZyBEYXRlOiAgMDYvMjAvMjAy NDwvdGQ+RICkMHC6mDnsRGQj wTGlYOpoFu3zxBgvaUfeKG7aNN RqebnoVMHpbD2mLENyjXOdsHpm AV8jSVMeyqekf136PaGsVNI8 SUFpfAKhU2TvxG1zHdGgLOBvNF DgW3RzhNPfQDojA524MBxlWtW5 ZAZehuKdA5EsLGJkxCskZfY3 l5Z1Lr2Wt4EkodncY1GgnONwIb UnGpppVSb2E1CxRjfvaSK+PC90 BPEdLJ25MUq3LLJ8qNdyJCum WZTgU8KejG6fOwYjCBGqZLFhWq c+PHRhYmxlIHdpZHRoPScxMDAl PuOxvPxkSS9yJh6iDWNrJMZn jGzhfMIpCwRgz3wfKKQsVUzlCP 9haUevO1AdpQV8LQLpu0n3Zg93 T77tV0WazZJ+FTRohAJ5zYA3 hF1kZzDlPiK4ILteF994FgZxlS GuQhenp5dxt1fmyTk5KjV9IQMi nhLdsYbiKDN8h0IvJp91M64z IHdpZHRoPSIxNSUiIHZhbGlnbj 7fvG4mQa6+RTVcmBU4kYT8iU0m DgLnAdB6UQzfD028ZpZvsFOw Yjfof6jfx5iyiOo6IxInFGNwgw ZuqKcgOQC2a9RqOu44V9KpaBse b0AwQpf3fb15mREfj7A4qDR3 L8ZoJRHfepwtrBQhxQhwKI3xMP EznjpkDLNsqL7pKVXnS3d1RpDh RmA3PVztN6ChhyS0WBUkmOYm THFdhSZTeU8zcflpd7dxdmskZz KtDWZgEJh7HGg4ZPQwvPsyKkTs GTH5TfQ7WWP2cUSkzO4pxYmt kobmbE8fKyz+FTA1dENsbSMOWD 1lOjwvdGQ+CIXnGYW1qLgbHArt HXCwyF0jEQIeU3e0ArFaIjG4 IOmsI6XlnrC6GRBkhASqLITxxY FDvY3hxbwiw1zqnzboRkCpNRHs JFj1IJe3CEAlbJytVfZdWPQ9 DgS6BWP3fGXtjM9ugZtiruhwtD 9wOyc+BquktEinKIZ8YMl0V4Cr Eud4NWDdbCcnZQ5znKEsJXal Cp1iiNuckUcmSZ0tZNTpvbiyk2 15OeEgy1baEKTodTZkNUliONR2 K48qk7I8RKEwYUHhDKB1yLX2 tI1koFkrahskxSMmxEvgptIxyJ iaIIkxZZakA108CEOodFftLyGs IDd2N0MrFrn3SURlmZxyLO4x cSNvBOrpZm1dhHuyzYuaQN8cXK Umebzkv781CuIqj9ubMLSckWRq TBsgTTP9T26lg5H4JDZoPNMn NXW3pYU3kY7rbPibmaodpLSgzG nonpZxvLzvGBlmSMaxY025PYBk zZggHqZxwEq2H0FdBsn9XBFe yAtsFN2stXXkTJzmPn4drSjuuU jrEC0sIEQwjoppb982AtPhy3ax KODgjHOhVPspFKN8O01qr8T9 TAOoCRXbYFG6jIL6fL6rmHbtfe ogbGVmdDsgdmVydGljYWwtYWxp D702EEBtvAlpEgDneGatkhMg KHsvJEb3Z4EiCwmphXY+PC90YW FeVJ77qAVgaHKbs5moxMq1QnLc IMIpVQD5rRsuBAcfn9JhWBQe R99geNIuh8Q8CUIwbUuotLZvTk LbkHE2yW3rPXlsvhntu5wcsspr Zvgvs4kgpz27yG22U91hWYfn EQGhLNCaWTNcBKTnqQmwzv9toU 9wIi8+RYRliWN5cZD1pC3uXBGh NsP4ZYsxP394EiQpsSDlJszb f2yjb6xqjUt6OfQ2GAElppVqgO xdZDQ2a8XuFo83K32tXUchECLa XMEeHEDwTCPzoDmlmp6wfL2m Ii8+XLCypYG4xYK1tH2oVmNgAo T0TWbpZ099XqPcxTNiNvszJ03u Z1MgaKG+MEGnVps2PENjjMvx QW6svRKtQLrdRj9cFKV9GjRwMs AkXHuyQ1BySSJwxcjvfjpzfXW6 NFCsHAGjeB91Gv3kzIdqQQZb dHSYzA7oyzepn4nwmxuxBrDkBL RlZTt6YRd1XBFzyKoaRkClKPR3 FbS9EON9pPTirL9lzWgqjtkt xH9jU3EhJZLutoogGo55sS9aIa GyVcN7FLgvPss+TUVZRVIsIENB E5gJKK23SC29yXDbv9J6wWG2 U7SoXBYrmakxdfbaeRO6FLLkII BwfG27qEDcZUkuDy4qv7C4y443 MSOrYJQhiR81Bf4fmJotJAMy gURKyA7pghpns2eydfrwUbIkBL UlZPh1YWe0FIZldOfnLnAaHRF2 UtQ1TVP1sEPwsU4tbLppsvmw gQ4mLgk+WFKrHUxcOOd7QapgrT Q+HDHxIWQ2xBrcYKnhXKAxgP1b TMAzK5n4ZjDwGeW3YOhuD5Fz IXMhybtkEf12jO1cYsHkJdO8EV afJ4ObkeL9MUVtzCHoFOonGAA3 O79cb2F3HVOhHYZvEYH6iMC6 eS6yzKjhiqzlkTTxeIruqnMfmS avYEhuENxuD228OBJwvAywQbF9 TCvbUMNqFY59XK51tWPmy3D5 hTU3T9XhQLGuqjnpdtxdjXJ6PM GzUDEoxT05uIZrZMvuDj6fd9M6 o261MNTsWRHihO79Vg8iwYoj EZNijPQXuC1cgvaow3aqvodcMv XhRXRaFSv4ULc0LYVhmBqbTeHo PZH2TmO2CQO4rCBnuH4tbFwx sahkuA4hFwn+GjPqIErjYC03IG 98nTMbo7I1eMM4J8IsNEBgcrgm uwyehVN4GEHgIHZleP18vYZp EOerWu1uc9H0a432XKXrNKPquD 84Wp8unHdaGAEbqWBIhL0sprbl k6sljhaiIsQhKSNzZIz7IBo0 KPTvzCivNxTwRJF6KrC8GPA8iL WluB3ovEszrfhquH0uLcx+T3V0 cVL9gZPodZdpuJQ+AY85qy52 L1XpOveiUip1BEWeKBR4mRY8lH 1uSAVtABswe1Q5aRX4D7HwrkKp vk1hq9tcDZBgVRmkA57ahBMu m8L0XRVssML4ECGfwTleHiIwjV 93Oyc+UJUmvReud1HjRjxmc3fz k4tbxAg5LxGfVOVijoJknRzl ZNJ2z0XmQv86F98hUAzcBGCzLO NfGCFzICPoxIpoot0okC0zXd9+ PEMphZZ5jOX8nR6pGgBeFaT8 WUtuH224LrEihLRuFxxii5ojm0 fnmZd9IdHpBYBbsiOjaQouJHQ2 v8KmYq48O2PokKoiv3FtUzj8 wp22sZLku7D1rCR0R4TfTXTyaj ymeLKdzMlaJD4yZGAadmtsHWKw cX7uPLFxH5k6ZwVgZiM4PRis J7OcltX8JLJjiZMgESCglJSBjG 9vjhxha6jkcjqfIkDlLPPlHWt6 UBs1XCUnxCqqQxObFDC2IfV1 LEH7gMQkaO4syDyllozkgC7uLw c+IJd5b1xzuMHvCL1ctQK2QY61 TM06rKXed0T0qHM7J1PbOMDl hxhagvzaaDZ1TRGaELEydZ56Im 9sePmeMz1tCBRpHTE3ZEQysSLw M5VjpC4rPsOrKNZdFUMzS1Fe sUWkZDsuE870HKseFuR2KFOtiq DqG8RkPDYpsSgoQhF5b7D9Ic5K SL27KZ54VG51vGMon6L9wIG0 L3FzFIKyojbzbppzoRQ0LTDuHN JweK08Da9klTzhXs7vLZIhEWJ9 ANIcnPSzS7RpiV7fKpMxCTFu VMEjW6XxdHVgCOimY873PMvcCg O7TBYrhsPjF0MdCJOtuMemMzO3 h8D8Bi7ONc90LH57TW62uUWr b4C9gSJ2C9NcFFDkhpcgttpuxE Z9VIXwHIYenF49Xg9ymFskZd2f OHDiSQP0BCBsiRIiY2IurO3y VyYrENQmACBeM7YrfYQwJBskT9 84VQdnXwL8CDFlhgLaF6LkFNHe oGpsEnO2r3M1Ox4KXKbrclg2 P0UoGiylxOK+UM18WFMzTG80gZ QwcLAoj7govDg4IbLtIEMvDKO5 mXldAEgej7MwBAUaR88coKIi p3S6CCLrvBkxd (more content not included)... Normal [facility] Consent for Treatmenton 01-25 Consent for Treatment [id number] Normal [facility] Activated partial thrombopla stin time (aPTT) in platelet poor plasma by coagulation aOrdered By: Smooth Dooley on 02-01-2024 aPTT Coag (PPP) [Time] 31.3 s 25.1-36.5 [facility] Comment on above: A hematocrit value g reater than 55% may lead to inaccurate results in coagulation testing. Patients having hematocrit values >55% require a special collection tube for coagulation studies. Please contact the laboratory at [phone] for redraw instructions. Automated basophil %Ordered By: Smooth Dooley on 02-01-2024 Basophils/100 WBC (Bld) 1.1 % Normal . [facility] Comment on above: Performed By: #### P T, BNP, CK, PTT, BMP, HS TROP, CBC #### [facility] [address] [place] [address] Automated basophil countOrde red By: Smooth Dooley on 02-01-2024 Basophils (Bld) [#/Vol] 0.1 10*3/uL Normal 0.0-0.2 [facility] Comment on above: Result Comment: PERF ORMED BY: [place] [address] PATHOLOGIST TOWBOAT ENGINEER JAE GUERRA M.D. Performed By: #### P T, BNP, CK, PTT, BMP, HS TROP, CBC #### [facility] [address] [place] [address] Automated blood monocyte cou ntOrdered By: Smooth Dooley on 02-01-2024 Monocytes (Bld) [#/Vol] 0.5 10*3/uL Normal 0.0-0.8 [facility] Comment on above: Performed By: #### P T, BNP, CK, PTT, BMP, HS TROP, CBC #### [facility] [address] [place] [address] Automated eosinophil %Ordere d By: Smooth Dooley on 02-01-2024 Eosinophils/100 WBC (Bld) 3.0 % Normal . [facility] Comment on above: Performed By: #### P T, BNP, CK, PTT, BMP, HS TROP, CBC #### [facility] [address] Automated eosinophil countOr dered By: Smooth Dooley on 02-01-2024 Eosinophils (Bld) [#/Vol] 0.2 10*3/uL Normal 0.0-0.45 [facility] Comment on above: Performed By: #### P T, BNP, CK, PTT, BMP, HS TROP, CBC #### [address] Automated monocyte %Ordered By: Smooth Dooley on 02-01-2024 Monocytes/100 WBC (Bld) 7.0 % Normal . [facility] Comment on above: Performed By: #### P T, BNP, CK, PTT, BMP, HS TROP, CBC #### [address] Automated neutrophil %Ordere d By: Smooth Dooley on 02-01-2024 Neutrophils/100 WBC (Bld) 59.1 % Normal . [facility] Comment on above: Performed By: #### P T, BNP, CK, PTT, BMP, HS TROP, CBC #### [address] BNP ser/plasOrdered By: Smooth Dooley on 02-01-2024 Natriuretic peptide B (Bld) [Mass/Vol] 7.0 pg/mL Normal 5-100 [facility] Comment on above: Result Comment: PERF ORMED BY: [place] [address] PATHOLOGIST TOWBOAT ENGINEER JAE GUERRA M.D. Performed By: #### P T, BNP, CK, PTT, BMP, HS TROP, CBC #### [address] Basic Metabolic Panelon 06 Creatinine Clr Calc Pharmacy 106.09 Normal [facility] Comment on above: Result Comment: PERF ORMED BY: [place] [address] PATHOLOGIST TOWBOAT ENGINEER JAE GUERRA M.D. Performed By: #### P T, BNP, CK, PTT, BMP, HS TROP, CBC #### [facility] [address] GFR/1.73 sq M.predicted MDRD (S/P/Bld) [Vol rate/Area] mL/min/{1.73_m2} Normal [facility] Comment on above: Performed By: #### P T, BNP, CK, PTT, BMP, HS TROP, CBC #### [facility] [address] Bilirubin Test strip Ql (U)O rdered By: Smooth Dooley on 02-01-2024 Bilirubin Ql (U) Negative Negative [facility] CT head/brain wo conon 01-31 CT head/brain wo con [facility] [place] [address] [place] [address] CT Scan Report Signed Patient: Rao Choi MR#: [id number] 7 : 1995 Acct:[id number] Age/Sex: 28 / F ADM Date: 02/01/24 Loc: ER Room: Type: [facility] Attending Dr: Copies to: Smooth Dooley DO [...] Elsa Malone M.D.02/01/2024 2:36 PM Dictation Location: [place] [address] Transcribed By: [facility] 02/01/24 143 Dictated By: Elsa Malone MD 02/01/24 143 Signed By: 02/01/24 1436 Normal [facility] Calcium [Mass/volume] in Ser um or PlasmaOrdered By: Smooth Dooley on 02-01-2024 Calcium [Mass/Vol] 9.3 mg/dL Normal 8.6-10.3 [facility] Comment on above: Performed By: #### P T, BNP, CK, PTT, BMP, HS TROP, CBC #### [facility] [address] [place] [address] [place] Carbon dioxide, total [Moles /volume] in Serum or PlasmaOrdered By: Smooth Dooley on 02-01-2024 CO2 [Moles/Vol] 28.7 mmol/L Normal 21.0-31.0 [facility] Comment on above: Performed By: #### P T, BNP, CK, PTT, BMP, HS TROP, CBC #### [facility] [address] [place] [address] [place] Chloride [Moles/volume] in S yecenia or PlasmaOrdered By: Smooth Dooley on 02-01-2024 Chloride [Moles/Vol] 102 mmol/L Normal 98-107 [facility] Comment on above: Performed By: #### P T, BNP, CK, PTT, BMP, HS TROP, CBC #### [facility] [address] [place] [address] [place] Color of Urine by AutoOrdere d By: Smooth Dooley on 02-01-2024 Color (U) Light-yellow Normal Yellow [facility] Comment on above: Order Comment: Name Collection Type:: Clean-Voided Midstream Performed By: #### P T, BNP, CK, PTT, BMP, HS TROP, CBC #### [address] Complete Blood Count Auto Di ffon 02-01-2024 Mean Corpuscular HGB Conc 33.7 g/dL Normal 32.0-35.0 [facility] Comment on above: Performed By: #### P T, BNP, CK, PTT, BMP, HS TROP, CBC #### [address] Monocytes/100 WBC (Bld) 17.28 % Normal 0.00-20.00 [facility] Comment on above: Performed By: #### P T, BNP, CK, PTT, BMP, HS TROP, CBC #### [address] NRBC% 0.1 /100{WBC} Normal 0-0.5 [facility] Comment on above: Performed By: #### P T, BNP, CK, PTT, BMP, HS TROP, CBC #### [address] Creatine kinase [Enzymatic a ctivity/volume] in Serum or PlasmaOrdered By: Smooth Dooley on 02-01-2024 CK [Catalytic activity/Vol] 74 U/L Normal 30-223 [facility] Comment on above: Performed By: #### P T, BNP, CK, PTT, BMP, HS TROP, CBC #### [address] Creatinine [Mass/volume] in Serum or PlasmaOrdered By: Smooth Dooley on 02-01-2024 Creatinine [Mass/Vol] 0.63 mg/dL Normal 0.60-1.20 [facility] Comment on above: Performed By: #### P T, BNP, CK, PTT, BMP, HS TROP, CBC #### [address] D-Dimer High Sensitivityon 0 02-01-2024 D-Dimer High Sensitivity < 200 Normal 0-243 [facility] Comment on above: Result Comment: [...] coagulation studies. Please contact the laboratory at [phone] for redraw instructions. PERFORMED BY: [place] [address] PATHOLOGIST TOWBOAT ENGINEER JAE GUERRA M.D. Performed By: #### P T, BNP, CK, PTT, BMP, HS TROP, CBC #### [address] ECG 12 lead ECGon 02-01-2024 ECG 12 lead ECG [facility] [place] [address] [place] [address] Electrocardiograph Report Signed Patient: Rao Choi MR#: [id number] 7 : 1995 Acct:[id number] Age/Sex: 28 / F ADM Date: 02/01/24 Loc: ER Room: Type: [facility] ER Attending Dr: Ordering [...] ECGs available Confirmed by SMOOTH DOOLEY DO ([id number]) on 02/01/2024 3:56:12 PM Referred By: Electronically Signed By:SMOOTH DOOLEY DO Transcribed By: MUS Signed By Smooth Dooley DO 01/31 1556 Normal [facility] Erythrocyte distribution wid th [Ratio] by Automated countOrdered By: Smooth Dooley on 02-01-2024 Erythrocyte distribution width (RBC) [Ratio] 13.1 % Normal 11.9-15.3 [facility] Comment on above: Performed By: #### P T, BNP, CK, PTT, BMP, HS TROP, CBC #### [facility] [address] Erythrocytes [#/volume] in B lood by Automated countOrdered By: Smooth Dooley on 02-01-2024 RBC (Bld) [#/Vol] 4.43 10*6/uL Normal 3.60-5.00 [facility] Comment on above: Performed By: #### P T, BNP, CK, PTT, BMP, HS TROP, CBC #### [facility] [address] Fibrin D-dimer [Presence] in Platelet poor plasma by Latex agglutinationOrdered By: Smooth Dooley on 02-01-2024 Fibrin D-dimer LA Ql (PPP) < 200 ng/mL 0-243 [facility] Comment on above: The reference range [...] coagulation studies. Please contact the laboratory at [phone] for redraw instructions. Glucose [Mass/volume] in Ser um or PlasmaOrdered By: Smooth Dooley on 02-01-2024 Glucose [Mass/Vol] 99 mg/dL Normal 70-100 [facility] Comment on above: ADA recommended refe rence rangeRandom Glucose Reference Range is dependent on time and content of last meal. Glucose of more than 200 mg/dL in a nonstressed, ambulatory subject supports the diagnosis of Diabetes Mellitus. Result Comment: [facility] Glucose Reference Range is dependent on time and content of last meal. Glucose of more than 200 mg/dL in a nonstressed, ambulatory subject supports the diagnosis of Diabetes Mellitus. ADA recommended reference range Performed By: #### P T, BNP, CK, PTT, BMP, HS TROP, CBC #### [address] Glucose [Mass/volume] in Uri ne by Test stripOrdered By: Smooth Dooley on 02-01-2024 Glucose Test strip (U) [Mass/Vol] Normal mg/dL Normal [facility] HCG ( test) IA.rapi d Ql (U)Ordered By: Smooth Dooley on 02-01-2024 HCG ( test) Ql (U) Negative [facility] HCG,Urineon 02-01-2024 Beta HCG ( test) Ql (U) Negative Normal [facility] Comment on above: Order Comment: Name Collection Type:: Clean-Voided Midstream Result Comment: PERF ORMED BY: [place] [address] PATHOLOGIST TOWBOAT ENGINEER JAE GUERRA M.D. Performed By: #### P T, BNP, CK, PTT, BMP, HS TROP, CBC #### [address] Hematocrit [Volume Fraction] of Blood by Automated countOrdered By: Smooth Dooley on 02-01-2024 Hematocrit (Bld) [Volume fraction] 39.8 % Normal 34.0-46.4 [facility] Comment on above: Performed By: #### P T, BNP, CK, PTT, BMP, HS TROP, CBC #### [address] Hemoglobin Test strip Ql (U) Ordered By: Smooth Dooley on 02-01-2024 Hemoglobin Ql (U) Negative Negative [facility] Hemoglobin [Mass/volume] in BloodOrdered By: Smooth Dooley on 02-01-2024 Hemoglobin (Bld) [Mass/Vol] 13.4 g/dL Normal 11.8-15.4 [facility] Comment on above: Performed By: #### P T, BNP, CK, PTT, BMP, HS TROP, CBC #### [facility] [address] [place] [address] INR in Platelet poor plasma by Coagulation assayOrdered By: Smooth Dooley on 02-01-2024 INR Coag (PPP) [Relative time] 1.0 {INR} Normal [facility] Comment on above: INR Therapeutic Rang [...] PTT, BMP, HS TROP, CBC #### [facility] [address] [place] [address] [place] Ketones [Presence] in Urine by Test stripOrdered By: Smooth Dooley on 02-01-2024 Ketones Ql (U) Negative Normal Negative [facility] Comment on above: Order Comment: Name Collection Type:: Clean-Voided Midstream Performed By: #### P T, BNP, CK, PTT, BMP, HS TROP, CBC #### [facility] [address] [place] [address] [place] Leukocyte esterase [Presence ] in Urine by Test stripOrdered By: Smooth Dooley on 02-01-2024 Leukocyte esterase Test strip Ql (U) Negative Normal Negative [facility] Comment on above: Order Comment: Name Collection Type:: Clean-Voided Midstream Performed By: #### P T, BNP, CK, PTT, BMP, HS TROP, CBC #### [address] Leukocytes [#/volume] correc ronnie for nucleated erythrocytes in Blood by Automated counOrdered By: Smooth Dooley on 02-01-2024 WBC corrected for nucl RBC Auto (Bld) [#/Vol] 6.7 10*3/uL 3.8-11.6 [facility] Leukocytes [#/volume] in Blo od by Automated countOrdered By: Smooth Dooley on 02-01-2024 WBC (Bld) [#/Vol] 6.7 10*3/uL Normal 3.8-11.6 [facility] Comment on above: Performed By: #### P T, BNP, CK, PTT, BMP, HS TROP, CBC #### [address] Lymphocytes [#/volume] in Bl ood by Automated countOrdered By: Smooth Dooley on 02-01-2024 Lymphocytes (Bld) [#/Vol] 2.0 10*3/uL Normal 1.00-4.8 [facility] Comment on above: Performed By: #### P T, BNP, CK, PTT, BMP, HS TROP, CBC #### [address] Lymphocytes/100 leukocytes i n Blood by Automated countOrdered By: Smooth Dooley on 02-01-2024 Lymphocytes/100 WBC (Bld) 29.8 % Normal . [facility] Comment on above: Performed By: #### P T, BNP, CK, PTT, BMP, HS TROP, CBC #### [place] [address] [place] MCH [Entitic mass] by Automa ronnie countOrdered By: Smooth Dooley on 02-01-2024 MCH (RBC) [Entitic mass] 30.3 pg Normal 24.7-34.3 [facility] Comment on above: Performed By: #### P T, BNP, CK, PTT, BMP, HS TROP, CBC #### [address] MCHC Auto (RBC) [Mass/Vol]Or dered By: Smooth Dooley on 02-01-2024 MCHC (RBC) [Mass/Vol] 33.7 g/dL 32.0-35.0 [facility] MCV [Entitic volume] by Auto mated countOrdered By: Smooth Dooley on 02-01-2024 MCV (RBC) [Entitic vol] 90.0 fL Normal 80-100 [facility] Comment on above: Performed By: #### P T, BNP, CK, PTT, BMP, HS TROP, CBC #### [facility] [address] [place] [address] [place] Monocyte distribution width [Entitic volume] in Blood by AutomatedOrdered By: Smooth Dooley on 02-01-2024 Monocyte distribution width Auto (Bld) [Entitic vol] 17.28 % 0.00-20.00 [facility] Neutrophils [#/volume] in Bl ood by Automated countOrdered By: Smooth Dooley on 02-01-2024 Neutrophils (Bld) [#/Vol] 3.9 10*3/uL Normal 1.8-7.7 [facility] Comment on above: Performed By: #### P T, BNP, CK, PTT, BMP, HS TROP, CBC #### [facility] [address] [place] [address] [place] Nitrite Test strip Ql (U)Ord ered By: Smooth Dooley on 02-01-2024 Nitrite Ql (U) Negative Negative [facility] No Panel InformationOrdered By: Smooth Dooley on 02-01-2024 Estimated GFR (CKD-EPI) > 60.0 mL/Min [facility] Creatinine Clearance (Chem 106.09 [facility] Nucleated erythrocytes [Pres ence] in Blood by Automated countOrdered By: Smooth Dooley on 02-01-2024 Nucleated RBC Auto Ql (Bld) 0.1 /100{WBC} 0-0.5 [facility] Partial Thromboplastin Timeo n 02-01-2024 aPTT Coag (Bld) [Time] 31.3 s Normal 25.1-36.5 [facility] Comment on above: Result Comment: A he matocrit value greater than 55% may lead to inaccurate results in coagulation testing. Patients having hematocrit values >55% require a special collection tube for coagulation studies. Please contact the laboratory at [phone] for redraw instructions. PERFORMED BY: [place] [address] PATHOLOGIST [employer]INE[employer] JAE GUERRA M.D. Performed By: #### P T, BNP, CK, PTT, BMP, HS TROP, CBC #### [address] Physician Orderon 02-01-2024 Physician Order [id number] Normal [facility] Platelet mean volume [Entiti c volume] in Blood by Automated countOrdered By: Smooth Dooley on 02-01-2024 Platelet mean volume (Bld) [Entitic vol] 8.4 fL Normal 6.3-10.7 [facility] Comment on above: Performed By: #### P T, BNP, CK, PTT, BMP, HS TROP, CBC #### [address] Platelets [#/volume] in Bloo d by Automated countOrdered By: Smooth Dooley on 02-01-2024 Platelets (Bld) [#/Vol] 232 10*3/uL Normal 150-450 [facility] Comment on above: Performed By: #### P T, BNP, CK, PTT, BMP, HS TROP, CBC #### [address] Potassium [Moles/volume] in Serum or PlasmaOrdered By: Smooth Dooley on 02-01-2024 Potassium [Moles/Vol] 3.6 mmol/L Normal 3.5-5.1 [facility] Comment on above: Performed By: #### P T, BNP, CK, PTT, BMP, HS TROP, CBC #### [address] Protein Test strip (U) [Mass /Vol]Ordered By: Smooth Dooley on 02-01-2024 Protein (U) [Mass/Vol] Negative Negative [facility] Prothrombin time (PT)Ordered By: Smooth Dooley on 02-01-2024 PT Coag (PPP) [Time] 11.9 s Normal 9.0-12.9 [facility] Comment on above: A hematocrit value g reater than 55% may lead to inaccurate results in coagulation testing. Patients having hematocrit values >55% require a special collection tube for coagulation studies. Please contact the laboratory at [phone] for redraw instructions. Result Comment: A he matocrit value greater than 55% may lead to inaccurate results in coagulation testing. Patients having hematocrit values >55% require a special collection tube for coagulation studies. Please contact the laboratory at [phone] for redraw instructions. Performed By: #### P T, BNP, CK, PTT, BMP, HS TROP, CBC #### [facility] [address] Serum or plasma anion gap de terminationOrdered By: Smooth Dooley on 02-01-2024 Anion gap [Moles/Vol] 10.9 mmol/L Normal 6.0-15.0 [facility] Comment on above: Performed By: #### P T, BNP, CK, PTT, BMP, HS TROP, CBC #### [facility] [address] Sodium [Moles/volume] in Ser um or PlasmaOrdered By: Smooth Dooley on 02-01-2024 Sodium [Moles/Vol] 138 mmol/L Normal 136-145 [facility] Comment on above: Performed By: #### P T, BNP, CK, PTT, BMP, HS TROP, CBC #### [facility] [address] Specific gravity Test strip (U) [Rel density]Ordered By: Smooth Dooley on 02-01-2024 Specific gravity (U) [Rel density] 1.011 1.001-1.030 [facility] Troponin I High Sensitivityo n 02-01-2024 Troponin I High Sensitivity 5.2 pg/mL Normal 0.0-15.0 [facility] Comment on above: Result Comment: PERF ORMED BY: [place] [address] PATHOLOGIST TOWBOAT ENGINEER JAE GUERRA M.D. Performed By: #### P T, BNP, CK, PTT, BMP, HS TROP, CBC #### [address] Troponin I High Sensitivity < 2.3 Normal 0.0-15.0 [facility] Comment on above: Result Comment: PERF ORMED BY: [place] [address] PATHOLOGIST TOWBOAT ENGINEER JAE GUERRA M.D. Performed By: #### P T, BNP, CK, PTT, BMP, HS TROP, CBC #### [address] Troponin I.cardiac [Mass/vol ume] in Serum or Plasma by Detection limit <= 0.01 ng/Ordered By: Smooth Dooley on 02-01-2024 Troponin I.cardiac DL <= 0.01 ng/mL [Mass/Vol] 5.2 pg/mL 0.0-15.0 [facility] Urea nitrogen [Mass/volume] in Serum or PlasmaOrdered By: Smooth Dooley on 02-01-2024 Urea nitrogen [Mass/Vol] 13 mg/dL Normal 7-25 [facility] Comment on above: Performed By: #### P T, BNP, CK, PTT, BMP, HS TROP, CBC #### [address] Urinalysison 02-01-2024 Bilirubin,Urine Negative Normal Negative [facility] Comment on above: Order Comment: Name Collection Type:: Clean-Voided Midstream Performed By: #### P T, BNP, CK, PTT, BMP, HS TROP, CBC #### [address] Glucose Ql (U) Normal Normal Normal [facility] Comment on above: Order Comment: Name Collection Type:: Clean-Voided Midstream Performed By: #### P T, BNP, CK, PTT, BMP, HS TROP, CBC #### [place] [id number] [place] Nitrite,Urine Negative Normal Negative [facility] Comment on above: Order Comment: Name Collection Type:: Clean-Voided Midstream Performed By: #### P T, BNP, CK, PTT, BMP, HS TROP, CBC #### [address] Occult Blood,Urine Negative Normal Negative [facility] Comment on above: Order Comment: Name Collection Type:: Clean-Voided Midstream Performed By: #### P T, BNP, CK, PTT, BMP, HS TROP, CBC #### [address] Protein,Urine Negative Normal Negative [facility] Comment on above: Order Comment: Name Collection Type:: Clean-Voided Midstream Performed By: #### P T, BNP, CK, PTT, BMP, HS TROP, CBC #### [address] Specificy [place],Urine 1.011 Normal 1.001-1.030 [facility] Comment on above: Order Comment: Name Collection Type:: Clean-Voided Midstream Performed By: #### P T, BNP, CK, PTT, BMP, HS TROP, CBC #### [address] Urobilinogen,Urine Normal Normal Normal [facility] Comment on above: Order Comment: Name Collection Type:: Clean-Voided Midstream Performed By: #### P T, BNP, CK, PTT, BMP, HS TROP, CBC #### [address] Urine appearanceOrdered By: Smooth Dooley on 02-01-2024 Appearance (U) Clear Normal Clear [facility] Comment on above: Order Comment: Name Collection Type:: Clean-Voided Midstream Performed By: #### P T, BNP, CK, PTT, BMP, HS TROP, CBC #### [address] Urobilinogen Test strip (U) [Mass/Vol]Ordered By: Smooth Dooley on 02-01-2024 Urobilinogen (U) [Mass/Vol] Normal mg/dL Normal [facility] XR chest 2V*on 02-01-2024 XR chest 2V* [facility] [place] [address] [place] [id number] XRay Report Signed Patient: Rao Choi MR#: [id number] 7 : 1995 Acct:[id number] Age/Sex: 28 / F ADM Date: 02/01/24 [...] Elsa Malone M.D.02/01/2024 12:34 PM Dictation Location: [place] [address] Transcribed By: [facility] 02/01/24 1234 Dictated By: Elsa Malone MD 02/01/24 1233 Signed By: 02/01/24 1234 Normal [facility] pH of Urine by Test stripOrd ered By: Smooth Dooley on 02-01-2024 pH (U) 7.0 [pH] Normal 5.0-9.0 [facility] Comment on above: Order Comment: Name Collection Type:: Clean-Voided Midstream Performed By: #### P T, BNP, CK, PTT, BMP, HS TROP, CBC #### [facility] [address] [place] [id number] [facility] Pulmonary Function Studieson 05-16-2023 Pulmonary Function Studies [...] BY: Nicole Paredes M.D. lr Dictated: 05/13/2023 [id number] Transcribed: 05/14/2023 cc:Melissa Laura D.O. [facility] Comment on above: Result Comment: Elec tronically Signed By: Lena GRACE, Nicole X\.br\Date and Time Signed: 05/16/23 09:49 EDT Consent for Treatmenton 04-27 Consent for Treatment [id number]:127 [facility] Pulmonary Function Testson 0 05-09-2023 Pulmonary Function Tests [id number]#1.00CD:127 [facility] Physician Orderon 04-27-2023 Physician Order [id number]#1.00CD:127 [facility] Physician Order [id number]#1.00CD:127 [facility] XR Chest 2 Viewson 3 XR Chest [...] in mGy = na DAP = na [facility] Consent for Treatmenton 03-28 Consent for Treatment [id number]#1.00CD:127 [facility] Physician Orderon 04-23-2023 Physician Order [id number]:127 [facility] XR Chest 2 Viewson XR Chest 2 [...] in mGy = na DAP = na [facility] Consent for Treatmenton 03-27 Consent for Treatment [id number]#1.00CD:127 [facility] Physician Orderon 04-11-2023 Physician Order [id number]#1.00CD:127 [facility] PAP ACOG PANEL 2: 21 to 29on 12-14-2022 . . Normal [facility] Comment on above: Performed By: #### 4 [id number] #### [facility] [address] [place] [address] Dr. Hilary Higginbotham Age Gdln ACOG Testing 21-29 [facility] Comment on above: Performed By: #### 4 [id number] #### [facility] [address] [place] [address] Dr. Hilary Higginbotham DIAGNOSIS: Comment [facility] Comment on above: Result Comment: NEGA TIVE FOR INTRAEPITHELIAL LESION OR MALIGNANCY. Performed By: #### 4 [id number] #### [facility] [address] [place] [address] Dr. Hilary Higginbotham Methodology: Comment [facility] Comment on above: Result Comment: This liquid based ThinPrep(R) pap test was screened with the use of an image guided system. Performed By: #### 4 [id number] #### [facility] [address] [place] [address] Dr. Hilary Higginbotham Note: Comment [facility] Comment on above: Result Comment: The Pap smear is a screening test designed to aid in the detection of premalignant and malignant conditions of the uterine cervix. It is not a diagnostic procedure and should not be used as the sole means of detecting cervical cancer. Both false-positive and false-negative reports do occur. . Performed By: #### 4 [id number] #### [facility] [address] [place] [address] Dr. Hilary Higginbotham Performed by: Comment [facility] Comment on above: Result Comment: Dann Scott Fire Extinguisher Sprinkler Inspector (ASCP) Performed By: #### 4 [id number] #### [facility] [address] [place] [address] Dr. Hilary Higginbotham Reflex Criteria: Comment [facility] Comment on above: Result Comment: The HPV DNA reflex criteria were not met with this specimen result therefore, no HPV testing was performed. . Performed By: #### 4 [id number] #### [facility] [address] [place] [address] Dr. Hilary Higginbotham Specimen adequacy: Comment [facility] Comment on above: Result Comment: Sati sfactory for evaluation. Endocervical and/or squamous metaplastic cells (endocervical component) are present. Performed By: #### 4 [id number] #### [facility] [address] [place] [address] Dr. Hilary Higginbotham Vital Signs Date Time Vital Sign Value Performing Clinician Facility 10-15-2024 13:12-0500 Body mass index (BMI) [Ratio] 28.52 kg/m2 Aruna ADAME Work Phone: [facility] 10-15-2024 13:12-0500 Body weight 73.03 kg Aruna ADAME Work Phone: [facility] 10-15-2024 13:12-0500 Diastolic blood pressure 72 mm[Hg] Aruna ADAME Work Phone: [facility] 10-15-2024 13:12-0500 Systolic blood pressure 122 mm[Hg] Aruna ADAME Work Phone: [facility] 10-09-2024 15:28-0500 Body mass index (BMI) [Ratio] 28.34 kg/m2 Jamel Natalie DO Work Phone: [facility] 10-09-2024 15:28-0500 Body weight 72.58 kg Jamel Natalie DO Work Phone: [facility] 10-09-2024 15:28-0500 Diastolic blood pressure 72 mm[Hg] Jamel Natalie DO Work Phone: [facility] 10-09-2024 15:28-0500 Systolic blood pressure 120 mm[Hg] Jamel Natalie DO Work Phone: [facility] 09-29-2024 13:19-0500 Body mass index (BMI) [Ratio] 28.41 kg/m2 Jamel Natalie DO Work Phone: [facility] 09-29-2024 13:19-0500 Body weight 72.76 kg Jamel Natalie DO Work Phone: [facility] 09-29-2024 13:19-0500 Diastolic blood pressure 74 mm[Hg] Jamel Natalie DO Work Phone: [facility] 09-29-2024 13:19-0500 Systolic blood pressure 116 mm[Hg] Jamel Natalie DO Work Phone: [facility] 09-16-2024 13:56-0500 Body mass index (BMI) [Ratio] 27.78 kg/m2 Aruna Christiano PA Work Phone: [facility] 09-16-2024 13:56-0500 Body weight 71.12 kg Aruna Marietta PA Work Phone: [facility] 09-16-2024 13:56-0500 Diastolic blood pressure 74 mm[Hg] Aruna Marietta PA Work Phone: [facility] 09-16-2024 13:56-0500 Systolic blood pressure 112 mm[Hg] Aruna Marietta PA Work Phone: [facility] 2024 10:05-0500 Body mass index (BMI) [Ratio] 27.81 kg/m2 Jamel Natalie DO Work Phone: [facility] 2024 10:05-0500 Body weight 71.22 kg Jamel Natalie DO Work Phone: [facility] 2024 10:05-0500 Diastolic blood pressure 70 mm[Hg] Jamel Natalie DO Work Phone: [facility] 2024 10:05-0500 Systolic blood pressure 122 mm[Hg] Jamel Natalie DO Work Phone: [facility] 08-18-2024 14:51-0500 Body mass index (BMI) [Ratio] 26.93 kg/m2 Aruna Christiano PA Work Phone: [facility] 08-18-2024 14:51-0500 Body weight 68.95 kg Aruna Christiano PA Work Phone: [facility] 08-18-2024 14:51-0500 Diastolic blood pressure 64 mm[Hg] Aruna Christiano PA Work Phone: [facility] 08-18-2024 14:51-0500 Systolic blood pressure 112 mm[Hg] Aruna Marietta PA Work Phone: [facility] 08-07-2024 10:16-0500 Body mass index (BMI) [Ratio] 27.24 kg/m2 Aruna Christiano PA Work Phone: [facility] 08-07-2024 10:16-0500 Body weight 69.76 kg Aruna Christiano PA Work Phone: [facility] 08-07-2024 10:16-0500 Diastolic blood pressure 68 mm[Hg] Aruna Christiano PA Work Phone: [facility] 08-07-2024 10:16-0500 Systolic blood pressure 98 mm[Hg] Aruna Christiano PA Work Phone: [facility] 07-07-2024 13:42-0500 Body mass index (BMI) [Ratio] 26.04 kg/m2 Aruna Marietta PA Work Phone: [facility] 07-07-2024 13:42-0500 Body weight 66.68 kg Aruna Christiano PA Work Phone: [facility] 07-07-2024 13:42-0500 Diastolic blood pressure 58 mm[Hg] Aruna Christiano PA Work Phone: [facility] 07-07-2024 13:42-0500 Systolic blood pressure 104 mm[Hg] Aruna Marietta PA Work Phone: [facility] 06-09-2024 14:39-0400 Body mass index (BMI) [Ratio] 24.94 kg/m2 Jamel Natalie DO Work Phone: [facility] 06-09-2024 14:39-0400 Body weight 63.87 kg Jamel Natalie DO Work Phone: [facility] 06-09-2024 14:39-0400 Diastolic blood pressure 60 mm[Hg] Jamel Natalie DO Work Phone: [facility] 06-09-2024 14:39-0400 Systolic blood pressure 100 mm[Hg] Jamel Natalie DO Work Phone: [facility] 05-19-2024 16:11-0400 Body mass index (BMI) [Ratio] 23.91 kg/m2 Aruna Alvarado PA Work Phone: [facility] 05-19-2024 16:11-0400 Body weight 61.24 kg Aruna Alvarado PA Work Phone: [facility] 05-19-2024 16:11-0400 Diastolic blood pressure 70 mm[Hg] Aruna Alvarado PA Work Phone: [facility] 05-19-2024 16:11-0400 Systolic blood pressure 118 mm[Hg] Aruna Alvarado PA Work Phone: [facility] 04-21-2024 09:50-0400 Body mass index (BMI) [Ratio] 23.21 kg/m2 Jamel Natalie DO Work Phone: [facility] 04-21-2024 09:50-0400 Body weight 59.42 kg Jamel Natalie DO Work Phone: [facility] 04-21-2024 09:50-0400 Diastolic blood pressure 62 mm[Hg] Jamel Natalie DO Work Phone: [facility] 04-21-2024 09:50-0400 Systolic blood pressure 108 mm[Hg] Jamel Natalie DO Work Phone: [facility] 02-01-2024 15:36-0400 Diastolic blood pressure 72 mm[Hg] DO Melissa Keya Work Phone: [facility] 02-01-2024 15:36-0400 Heart rate 98 /min DO Melissa Keya Work Phone: [facility] 02-01-2024 15:36-0400 Respiratory rate 18 /min DO Melissa Keya Work Phone: [facility] 02-01-2024 15:36-0400 SaO2% (BldA) [Mass fraction] 99 % DO Melissa Keya Work Phone: [facility] 02-01-2024 15:36-0400 Systolic blood pressure 112 mm[Hg] DO Melissa Keya Work Phone: [facility] 02-01-2024 11:52-0400 Body height 157.48 cm DO Melissa Keya Work Phone: [facility] 02-01-2024 11:52-0400 Body temperature 97.4 [degF] DO Melissa Keya Work Phone: [facility] 02-01-2024 11:52-0400 Body weight 54.3 kg DO Melissa Keya Work Phone: [facility] 11-06-2022 23:21-0400 Diastolic blood pressure 64 mm[Hg] Cory Belem [facility] 11-06-2022 23:21-0400 Heart rate 116 /min Cory Belem [facility] 11-06-2022 23:21-0400 Mean blood pressure 78 mm[Hg] Cory Belem [facility] 11-06-2022 23:21-0400 Respiratory rate 14 /min Cory Belem [facility] 11-06-2022 23:21-0400 SaO2% (BldA) [Mass fraction] 98 % Cory Belem [facility] 11-06-2022 23:21-0400 Systolic blood pressure 106 mm[Hg] Cory Belem [facility] 11-06-2022 23:05-0400 Diastolic blood pressure 63 mm[Hg] Cory Belem [facility] 11-06-2022 23:05-0400 Heart rate 112 /min Cory Belem [facility] 11-06-2022 23:05-0400 Mean blood pressure 77 mm[Hg] Cory Belem [facility] 11-06-2022 23:05-0400 Respiratory rate 15 /min Cory Belem [facility] 11-06-2022 23:05-0400 SaO2% (BldA) [Mass fraction] 98 % Cory Belem [facility] 11-06-2022 23:05-0400 Systolic blood pressure 106 mm[Hg] Cory Belem [facility] 11-06-2022 22:15-0400 Diastolic blood pressure 50 mm[Hg] Cory Belem [facility] 11-06-2022 22:15-0400 Heart rate 114 /min Cory Belem [facility] 11-06-2022 22:15-0400 Mean blood pressure 62 mm[Hg] Cory Belem [facility] 11-06-2022 22:15-0400 Respiratory rate 17 /min Coyr Belem [facility] 11-06-2022 22:15-0400 SaO2% (BldA) [Mass fraction] 96 % Cory Belem [facility] 11-06-2022 22:15-0400 Systolic blood pressure 86 mm[Hg] Cory Belem [facility] 11-06-2022 20:49-0400 Heart rate 150 /min Cory Belem [facility] 11-06-2022 20:05-0400 Body temperature 97.88 [degF] Cory Belem [facility] 11-06-2022 20:05-0400 Heart rate 137 /min Cory Patricia [facility] 11-06-2022 20:05-0400 Respiratory rate 16 /min Cory Patricia [facility] Encounters Encounter Date Encounter Type Care Provider Facility Start: 10-21-2024 End: 10-21-2024 Clinisync Result Encounter Jamel Natalie DO Work Phone: [facility] Unsolicited Start: 10-21-2024 End: 10-21-2024 Clinisync Result Encounter Jamel Natalie DO Work Phone: [facility] Unsolicited Start: 10-15-2024 End: 10-15-2024 Bamboo flowsheet Aruna [...] Result Encounter Jamel Natalie DO Work Phone: [facility] External Department Unsolicited Start: 09-29-2024 End: 09-29-2024 [...] Start: 08-07-2024 End: 08-07-2024 flow sheet Aruna Alvarado PA Work Phone: [facility] [...] Start: 07-07-2024 End: 07-07-2024 Bamboo flowsheet Aruna Alvarado PA Work Phone: [facility] Start: 07-07-2024 End: 07-09-2024 Bamboo flowsheet Aruna Alvarado PA Work Phone: [...] 04-02-2024 ambulatory DO Melissa Laura Work Phone: [facility] Work Phone: Start: 04-02-2024 End: 04-02-2024 Patient encounter procedure DO Melissa Keya Work Phone: [facility] [place] Work Phone: Start: 03-27-2024 End: 03-27-2024 ambulatory JAMEL ESTRADA Not Available Start: 02-27-2024 End: 02-27-2024 Patient encounter procedure DO Melissa Keya Work Phone: [facility] Start: 02-27-2024 End: 02-27-2024 ambulatory DO Melissa C Keya Work Phone: [facility] Work Phone: Start: 02-08-2024 End: 02-08-2024 ambulatory Melissa C Keya Facility:[facility] Start: 02-08-2024 End: 02-08-2024 Patient encounter procedure Melissa C Keya [facility] Start: 02-01-2024 End: 02-01-2024 Emergency department patient visit DO Melissa Keya Work Phone: [facility] Work Phone: Start: 05-09-2023 End: 05-09-2023 ambulatory Melissa C Keya Facility:[facility] Start: 05-09-2023 End: 05-09-2023 Patient encounter procedure Melissa C Keya [facility] Start: 04-23-2023 End: 04-23-2023 ambulatory Melissa C Keya Facility:[facility] Start: 04-23-2023 End: 04-23-2023 Patient encounter procedure Melissa C Keya [facility] Start: 04-11-2023 End: 04-11-2023 ambulatory Melissa Laura Facility:[facility] Start: 04-11-2023 End: 04-11-2023 Patient encounter procedure Melissa Laura [facility] Start: 12-06-2022 End: 12-06-[address] NONE LISTED REQUEST Facility: Start: 11-06-2022 End: 11-06-2022 Emergency department patient visit Coyr Patricia [facility] Start: 04-20-2017 End: 04-21-2017 Ambulatory SUKUMAR VALENCIA Facility:[facility] Start: 04-18-2017 End: 04-19-2017 Ambulatory DEFAULT PHYSICIAN Facility:[facility] Procedures Date Procedure Procedure Detail Performing Clinician Start: 10-21-2024 ALL CBC WITH AUTO DIFF Jamel Natalie DO Work Phone: Start: 10-15-2024 Urnls dip stick/tabl et rgnt [...] dip stick/tabl et rgnt non-auto w/o micrscp Aurna ADAME Work Phone: Start: 04-21-2024 Urnls dip stick/tabl et rgnt non-auto w/o micrscp Jamel Natalie DO Work Phone: Start: 04-02-2024 Antibody screen Smooth Mercedes maldonado Comment on above: Result Comment: PERF ORMED BY: [facility] [address] [place] [address] PATHOLOGIST TOWBOAT ENGINEER JAE GUERRA M.D. Start: 02-01-2024 CT of head without contrast DO Melissa Laura Work Phone: Start: 02-01-2024 Plain chest X-ray DO Ori Laura Work Phone: Plan of Treatment Date Care Activity Detail Author Start: 10-15-2024 End: 10-15-2024 Patient encounter procedure [facility] Comment on above: Arrived Start: 10-09-2024 End: 10-09-2024 Patient encounter procedure 10/09/2024 9:00 AM EST Routine [facility] [address] [place] [id number] Jamel Estrada, DO [address] [place] [address] [facility] Start: 09-29-2024 End: 09-29-2025 CULTURE, GROUP B STREP WITH SUSCEPTIBLITY CULTURE, GROUP B STREP WITH SUSCEPTIBLITY Lab Routine Third trimester Expected: 09/29/2024, Expires: 09/29/2025 [facility] Work Phone: Comment on above: Expected: 09/29/2024 , Expires: 09/29/2025 Start: 09-29-2024 End: 09-29-2024 Patient encounter procedure 09/29/2024 1:00 PM EST Routine [facility] [address] [place] [id number] Jamel Estrada DO [address] [facility] [place] [address] [facility] Start: 09-16-2024 End: 09-16-2024 Patient encounter procedure 09/16/2024 1:50 PM EST Routine [facility] [address] [place] [id number] Aruna Alvarado PA [address] [facility] [place] [address] [facility] Start: 09-16-2024 End: 09-16-2024 Professional / ancillary services management 09/16/2024 1:00 PM EST Ancillary Procedure [facility] [address] [place] [phone] [facility] Start: 2024 End: 2025 [...] EST Routine [facility] [address] [facility] [place] [address] Aruna Alvarado PA [address] [facility] [address] [place], [facility] Start: 06-09-2024 End: 06-09-2024 Patient encounter procedure 06/09/2024 2:30 PM EDT Routine [facility] [address] [place] [address] Jamel Estrada DO [address] [place], [place] [id number] [facility] Start: 06-09-2024 End: 06-09-2024 Professional / ancillary services management 06/09/2024 1:30 PM EDT Ancillary Procedure [facility] [address] [place] [address] [facility] Start: 05-19-2024 End: 05-19-2024 Patient encounter procedure [facility] Comment on above: Arrived Start: 05-19-2024 End: 06-18-2024 Alpha fetoprotein, maternal Alpha fetoprotein, maternal Lab Routine Need for maternal serum alpha-protein (MSAFP) screening Expected: 05/19/2024 (Approximate), Expires: 06/18/2024 [facility] Work Phone: Comment on above: Expected: 05/19/2024 (Approximate), Expires: 06/18/2024 Start: 05-19-2024 End: 05-19-2025 US for US OB ANATOMY SINGLE W US OB CERVICAL LENGTH Imaging Routine Screening, , for anatomic survey Expected: 05/19/2024 (Approximate), Expires: 05/19/2025 [facility] Comment on above: Expected: 05/19/2024 (Approximate), Expires: 05/19/2025 Start: 04-27-2024 Influenza vaccination Influenza Vacc ine (#1) [facility] Start: 04-21-2024 End: 04-21-2024 Patient encounter procedure 04/21/2024 9:20 AM EDT Routine [facility] [address] [phone] Jamel Estrada, [address] [facility] [place] [address] Arrived [facility] Comment on above: Arrived Start: 04-02-2024 Bacteria identified in Urine by Culture [facility] Start: 04-02-2024 Rubella IgG measurement [facility] Start: 04-02-2024 [facility] Cytology Cervical or vaginal smear or scraping study Pap Smear Pathology and Cytology Routine 24 weeks gestation of Second trimester Ordered: 07/07/2024 [facility] Work Phone: Comment on above: Ordered: 07/07/2024 Glucose measurement estimated from glycated hemoglobin [facility] Hepatitis B virus surface Ag [Presence] in Serum or Plasma by Immunoassay [facility] Hepatitis C virus Ig G Ab [Presence] in Serum or Plasma by Immunoassay [facility] HIV 1+2 Ab+HIV1 p24 Ag [Presence] in Serum or Plasma by Immunoassay [facility] Patient Education Chest Pain, Adult ED [facility] Work Phone: Patient referral [facility] Work Phone: Reagin Ab [Presence] in Serum by RPR [facility] Payers Date Payer Category Payer Self-pay 2021 [facility] BCBS [id number] 2021 Unknown 2012 Self-pay [id number] 1996 Unknown [id number] 2.16.840.1.426801.3.579.2. 593 1996 Unknown [id number] 2.16.840.1.177288.3.579.2. 727 1996 Unknown [id number] 2.16.840.1.652725.3.579.2. 727 1996 Unknown [id number] 2.16.840.1.269954.3.579.2. 727 1996 Unknown [id number] 2.16.840.1.440036.3.579.2. 727 1996 Unknown [id number] 2.16.840.1.830026.3.579.2. 1259 1996 Unknown [id number] 2.16.840.1.595464.3.579.2. 1258 1996 Unknown [id number] 2.16.840.1.927647.3.579.2. 1258 1996 Unknown [id number] 2.16.840.1.458087.3.579.2. 1258 1996 Unknown [id number] 2.16.840.1.924528.3.579.2. 1258 1996 Unknown [id number] 2.16.840.1.612208.3.579.2. 1258 1996 Unknown [id number] 2.16.840.1.057454.3.579.2. 1258 1996 Unknown [id number] 2.16.840.1.246715.3.579.2. 1258 1996 Unknown [id number] 2.16.840.1.613140.3.579.2. 1258 1996 Unknown [id number] 2.16.840.1.194622.3.579.2. 1258 1996 Unknown [id number] 2.16.840.1.742642.3.579.2. 1258 1996 Unknown [id number] 2.16.840.1.811875.3.579.2. 1258 1996 Unknown [id number] 2.16.840.1.905271.3.579.2. 1258 1959 Unknown [id number] Medicaid [facility] 105 [id number] Unknown [facility] [id number] Unknown [id number] 2.16.840.1.922721.3.579.2. 531 Unknown [id number] 2.16840.1.000981.3.579.2. 531 Unknown [id number] 2.16.840.1.367036.3.579.2. 531 Social History Date Type Detail Facility Tobacco smoking status [facility] Start: 03-27-2024 Sex Assigned At Female F [facility] Start: 02-01-2024 End: 03-27-2024 Tobacco smoking status NHIS Never smoked tobacco (finding) [facility] Start: 1995 Sex Assigned At Female F [facility] Start: 03-27-2024 Tobacco use and exposure Smokeless tobacco non-user [facility] Start: 06-09-2024 End: 09-29-2024 Alcoholic beverage intake Ex-drinker (finding) [facility] Start: 03-27-2024 End: 06-09-2024 Alcoholic beverage intake [facility] Start: 02-02-2024 [facility] Start: 1995 Sex assigned at Not on file [facility] NEGATED: Highlighted row [facility] Functional Status Date Assessment Result Facility 11-06-2022 Functional Status N/A [facility] Clinical Notes 11-06-2022 to 10-15-2024 DEEP Cardenas - 10/15/2024 1:10 PM Patti Solorio [facility] - 10/09/2024 3:00 PM Varsha Gurrola, [facility] - 09/29/2024 1:00 PM DEEP Varela - [...] of: DEEP Cardenas documented in this encounter [facility] 10-09-2024 History of Present illness Narrative [...] nursing note reviewed. Exam conducted with a dynamics ax consultant present. Vitals: Estimated body mass index is [...] Jamel Estrada DO documented in this encounter [facility] 09-29-2024 History of Present illness Narrative [...] Jamel Estrada DO documented in this encounter [facility] 09-16-2024 History of Present illness Narrative [...] of: DEEP Cardenas documented in this encounter [facility] 2024 History of Present illness Narrative [...] Stroke Maternal Grandfather Nirmal Migraines Maternal Grandmother Tawnaa SURGICAL HISTORY Past Surgical History: Procedure Laterality [...] nursing note reviewed. Exam conducted with a dynamics ax consultant present. Vitals: Estimated body mass index is [...] Jamel Estrada DO documented in this encounter [facility] 08-18-2024 History of Present illness Narrative [...] of: DEEP Cardenas documented in this encounter [facility] 08-07-2024 History of Present illness Narrative [...] week for routine OB appointment. Documented by EDEP Cardenas on behalf of: DEEP Cardenas documented in this encounter [facility] 07-07-2024 History of Present illness Narrative [...] nursing note reviewed. Exam conducted with a dynamics ax consultant present. Vitals: Estimated body mass index is [...] obtained without difficulty and patient was given [facility] order to have obtained. Orders Placed This Encounter Procedures CBC Glucose tolerance, 1 hour POCT urinalysis dipstick manually resulted Follow Up: Patient is to return to our office in 4 weeks for routine OB appointment Documented by Nathalie Costello LPN on behalf of: DEEP Cardenas documented in this encounter [facility] 06-09-2024 History of Present illness Narrative [...] nursing note reviewed. Exam conducted with a dynamics ax consultant present. Vitals: Estimated body mass index is [...] Jamel Estrada DO documented in this encounter [facility] 05-19-2024 History of Present illness Narrative [...] of: DEEP Cardenas documented in this encounter [facility] 04-21-2024 History of Present illness Narrative [...] nursing note reviewed. Exam conducted with a dynamics ax consultant present. Vitals: Estimated body mass index is [...] or undercooked meat, and stay away from [facility]. Patient has been consulted regarding any further [...] Jamel Estrada DO documented in this encounter [facility] 02-08-2024 Note Echocardiology Procedure Exam Date/Time Accession # Ordering Echo Transthoracic 02/08/2024 07:51 EDT [id number] Melissa Laura DO Complete CPT code 86341 [id number] Reason for Exam (Echo Transthoracic Complete) I51.7 Cardiomegaly Report Version: 1 Study ID: [id number] [place] [id number] Adult Echocardiogram Report Name: RAO CHOI Study Date: 02/08/2024, 7: 04 AM Patient Location: [facility] : 1995 (MM/DD/YYYY) Gender: Female [...] Espinal MD Transcribed by: ARMIN Technologist: ELAINE [facility] 11-07-2022 Hospital Discharge instructions Patient Education 11/06/2022 [...] help with your condition: Managing pain Take [id number] and prescription medicines only as told by [...] 08/13/2006 Document Revised: 03/03/2019 Document Reviewed: 03/03/2019 [employer] Patient Education 2020 [facility]. Follow Up Care 11/06/2022 20:02:53 With:Aruna Adrian Address: [address], [facility] [address] [place] [address]- Business (1) When:Within 3 Day(s) [facility] 11-06-2022 Evaluation + Plan note [...] q8hr, # 12 tab(s), Refills(s) 0, Pharmacy: [facility]/pharmacy #[id number], 157, cm, 11/06/22 20:09:00 EDT, Height/Length Dosing, [...] minute(s) CT Head or Brain w/o Contrast [facility] information available [facility] Work Phone: Evaluation note* Diagnosis 19 [...] Narrative No data available for this section [facility] No data available for this section [facility] No data available for this section [facility] Summary Purpose Family History No [...] and content) DATE CREATED AUTHOR 02/20/[address] [facility] DATE CREATED AUTHOR AUTHOR'S ORGANIZ ATION 12/14/2022 [facility] DATE CREATED AUTHOR AUTHOR'S ORGANIZ ATION 02/16/2024 [facility] DATE CREATED AUTHOR AUTHOR'S ORGANIZ ATION 04/10/2024 [facility] DATE CREATED AUTHOR AUTHOR'S ORGANIZ ATION 10/17/2024 [facility] EPIC Patient Care [...] 27, 2024 End: February 27, 2024 Jamel Natalie , DO Attending Provider Active Start : February 27, 2024 End: February 27, 2024 Team Status: Inactive Member Role Status Dates Melissa Laura , Primary Care Provider Active Start: April 02, [...] BE BASED ON THE PRIMARY CLINICAL RECORDS. [facility] [employer] provides no warranty or guarantee of the accuracy or completeness of information in this document.
--- NOTE | 2024-10-30 13:47 | PC.NURSE ---
marva Rosenbaum and 10 day old Gina arrive for support. Parents states are doing well. Gina's mouth examined, revision of tongue site healing and tongue more mobile. weight obtained and is 9-1 today. Parents report 8+ wets and 6+ yellow stools daily. Mom continues to do stretches 3 times daily. Discussed suck exercises with demo and handout given. Mom states will be able to complete exercises as demo'd. Robi is no longer using the shield for left sided latch. Infant now able to latch and maintain for feeding. Nipples healing yet tender. Robi independently latches baby well. Gina with audible swallows and nurses actively for 7 minutes. Burped and diaper changed, returned to 2nd breast to finish feed. Mom states neither side hurt, she must be showing off . Discussed possibility of Raynaud's syndrome reoccurring as states has same nipple color changes and sharp pain after nursing. Discussed care and treatment and prefers to for go medication at this time. Aware to contact PCP if symptoms increase or become unmanageable. Has a history of Raynaud's with last child during early weeks of nursing. Resolved on own with out medication. Family doing well, will call as needed. Leave ambulatory reassured with and healing.
== END 2024-10-30 13:57 | disposition home or self-care (01) ==
LOC: FBCO 08:17
PROVIDERS: Visit Provider Obstetrics & Gynecology
DX: Z39.1 Encounter for care and examination of lactating mother (principal)

== ENCOUNTER 2025-07-16 16:28 | Outpatient (REF) | payer BC, SELFPAY ==
[2025-07-21 10:09] LABS: Age Gdln ACOG Testing Note (.); IGP, rfx Aptima HPV ASCU Note (.)
== END 2025-07-16 16:29 | disposition home or self-care (01) ==
LOC: LAB 16:28
PROVIDERS: Visit Provider Obstetrics & Gynecology
DX: Z01.419 Encounter for gynecological examination (general) (routine) without abnormal findings (principal)
CPT/HCPCS: 88175